=== PATIENT | female | born 1945 | race Caucasian/White ===

== ENCOUNTER → 2017-12-16 11:19 | Outpatient (CLI) | payer MEDICARE, SELFPAY ==
[2017-12-16 12:22] LABS: Alanine Aminotransferase 25 IU/L (9-52); Aspartate Aminotransferase 24 IU/L (14-36); Blood Urea Nitrogen 22 mg/dL (7-17); Calcium 9.7 mg/dL (8.4-10.2); Carbon Dioxide 25 mmol/L (22-32); Chloride 107 mmol/L (98-107); Cholesterol 189 mg/dL (140-199); Estimated Glomerular Filt Rate 54.3 mL/min (>60); Glucose 130 mg/dL (80-110); HDL Cholesterol 85 mg/dL (40-60); HEMOLYSIS < 15 (0-50); LDL Cholesterol Calculated 83 mg/dL (<100); Potassium 4.5 mmol/L (3.4-5.1); Sodium 140 mmol/L (137-145); Triglycerides 104 mg/dL (35-150)
[2017-12-16 12:45] LABS: Hemoglobin A1C% w Est Avg Glu 6.3 % (4.0-6.0)
[2017-12-16 16:12] LABS: Hep C Virus Ab w/Reflex Quant NEGATIVE s/c (NEGATIVE)
== END ==
PROVIDERS: PCP Internal Medicine; Visit Provider Internal Medicine
DX: I10 Essential (primary) hypertension (principal); E78.5 Hyperlipidemia, unspecified
CPT/HCPCS: 36415; 80048; 80061; 83036; 84450; 84460; 86803

== ENCOUNTER 2018-03-08 08:24 | Day surgery (SDC) | payer MEDICARE, SELFPAY ==
[2018-03-08 09:23] VITALS: BP 150/84; PULSE 62; RESP 18; TEMP 36.2; O2SAT 97; BMI 32.1
[2018-03-08] MEDS: PROPARACAINE 0.5% OPHTH SOL 2 DROPS EYE-OP (09:32)
[2018-03-08] MEDS: CATARACT EYE COMPOUND (10 DROPS/SYRINGE) 3 DROPS EYE-OP (09:46)
--- NOTE | 2018-03-08 10:30 | P.OP_ITS ---
Operative Date/Time/Diagnoses Pre-op diagnosis: Cataract Right eye Post-op diagnosis: same Procedure & Clinicians Procedure: Cataract Surgery Same procedure as scheduled: Yes Surgeon: Luis Arambula Anesthesia Type: MAC +/- and Sedation Operative Notes Procedure in detail: Patient brought to the operating suite. Tetracaine drops placed in the right eye. Patient was prepped and draped in sterile manner. Wire lid speculum was placed in the eye. Betadine drops were placed on the eye. This was irrigated. Lidocaine jelly was placed on the eye. A paracentesis port was created with a side-port blade. 0.1 mL 1% preservative free lidocaine was injected into the anterior chamber. The anterior chamber was deepened with viscoelastic. 2.6 mm keratome was used to create a temporal clear corneal incision. Cystotome and Utrata forceps were used to create continuous tear capsulorrhexis. Balanced salt solution was used to hydro dissect the nucleus. The phacoemulsification handpiece was inserted and the nucleus was removed using the stop and chop technique. The irrigation aspiration handpiece was inserted and the remaining cortex was removed. Anterior chamber was deepened with viscoelastic. An Lucia ZCB00 intraocular lens with a power of 19.5 was injected into the capsular bag. Irrigation aspiration handpiece was inserted and the remaining viscoelastic was removed. Incision was hydrated with balanced salt solution and found to be leak free with pressure with Weck- Sandra sponges. 0.1 mL Vigamox injected anterior chamber. 0.3 mL Kenalog 10 mg was injected subconjunctivally. Lid speculum was removed. The patient left the operating room in excellent condition. Complications: none Condition: stable Disposition: same day surgery
--- NOTE | 2018-03-08 10:30 | P.OP.PRE_ITS ---
Pre-operative Note Interval Note Changes: No
--- NOTE | 2018-03-08 10:30 | PM.PREOP ---
Pre-operative Note Interval Note Changes: No
[2018-03-08] MEDS: CHONDROIDTIN/SOD HYALURONATE 1.05 ML SYRINGE INTRAOCULA (10:42)
[2018-03-08] MEDS: MOXIFLOXACIN OPHTH DROPS 3 ML BOTTLE 2 DROPS INJ (10:42)
[2018-03-08] MEDS: LIDOCAINE JELLY 2% 5 ML 1 APPLIC TOP (10:42)
[2018-03-08] MEDS: TRIAMCINOLONE 50 MG/5 ML VIAL INJ (10:43)
[2018-03-08] MEDS: PHENYLEPHRINE/LIDOCAINE VIAL (OR) 0.2 ML EYE-OP (10:43)
[2018-03-08] MEDS: TETRACAINE 0.5% OPHTH DROPS 15 ML 2 DROPS EYE-RIGHT (10:43)
[2018-03-08] MEDS: BALANCED SALT IRRIG SOLN NO.2 500 ML, EPINEPHrine 1 MG IRR (10:43)
[2018-03-08 10:59] VITALS: BP 192/96; PULSE 99; RESP 16; TEMP 36.1; O2SAT 94
[2018-03-08 11:17] VITALS: BP 175/80; PULSE 63; RESP 18; TEMP 36.2; O2SAT 97
== END 2018-03-08 11:22 ==
LOC: OR 08:24
PROVIDERS: Family Provider Internal Medicine; PCP Internal Medicine; Visit Provider Ophthalmology
DX: H25.11 Age-related nuclear cataract, right eye (principal); E11.9 Type 2 diabetes mellitus without complications; I10 Essential (primary) hypertension; L93.0 Discoid lupus erythematosus
CPT/HCPCS: J0171; J2250; J3010; J3301

== ENCOUNTER 2018-03-22 08:29 | Day surgery (SDC) | payer MEDICARE, SELFPAY ==
[2018-03-22 09:25] VITALS: BP 171/85; PULSE 71; RESP 16; TEMP 36; O2SAT 99; BMI 33.0
[2018-03-22] MEDS: CATARACT EYE COMPOUND (10 DROPS/SYRINGE) 3 DROPS EYE-OP (09:42)
[2018-03-22] MEDS: PROPARACAINE 0.5% OPHTH SOL 2 DROPS EYE-OP (09:42)
--- NOTE | 2018-03-22 10:01 | P.OP.PRE_ITS ---
Pre-operative Note Interval Note Changes: No
--- NOTE | 2018-03-22 10:01 | P.OP_ITS ---
Operative Date/Time/Diagnoses Pre-op diagnosis: Cataract Left eye Post-op diagnosis: same Procedure & Clinicians Surgeon: Luis Arambula Anesthesia Type: MAC +/- and Sedation Operative Notes Procedure in detail: Patient brought to the operating suite. Tetracaine drops placed in the left eye. Patient was prepped and draped in sterile manner. Wire lid speculum was placed in the eye. Betadine drops were placed on the eye. This was irrigated. Lidocaine jelly was placed on the eye. A paracentesis port was created with a side-port blade. 0.1 mL 1% preservative free lidocaine was injected into the anterior chamber. The anterior chamber was deepened with viscoelastic. 2.6 mm keratome was used to create a temporal clear corneal incision. Cystotome and Utrata forceps were used to create continuous tear capsulorrhexis. Balanced salt solution was used to hydro dissect the nucleus. The phacoemulsification handpiece was inserted and the nucleus was removed using the stop and chop technique. The irrigation aspiration handpiece was inserted and the remaining cortex was removed. Anterior chamber was deepened with viscoelastic. An Lucia ZCB00 intraocular lens with a power of 19.0 was injected into the capsular bag. Irrigation aspiration handpiece was inserted and the remaining viscoelastic was removed. Incision was hydrated with balanced salt solution and found to be leak free with pressure with Weck- Sandra sponges. 0.1 mL Vigamox injected anterior chamber. 0.3 mL Kenalog 10 mg was injected subconjunctivally. Lid speculum was removed. The patient left the operating room in excellent condition. Complications: none Condition: stable Disposition: same day surgery
--- NOTE | 2018-03-22 10:01 | PM.PREOP ---
Pre-operative Note Interval Note Changes: No
[2018-03-22] MEDS: CHONDROIDTIN/SOD HYALURONATE 1.05 ML SYRINGE INTRAOCULA (10:29)
[2018-03-22] MEDS: BALANCED SALT IRRIG SOLN NO.2 500 ML, EPINEPHrine 1 MG IRR (10:30)
[2018-03-22] MEDS: LIDOCAINE JELLY 2% 5 ML 1 APPLIC TOP (10:30)
[2018-03-22] MEDS: MOXIFLOXACIN OPHTH DROPS 3 ML BOTTLE 2 DROPS INJ (10:30)
[2018-03-22] MEDS: TETRACAINE 0.5% OPHTH DROPS 15 ML 2 DROPS EYE-LEFT (10:30)
[2018-03-22] MEDS: PHENYLEPHRINE/LIDOCAINE VIAL (OR) 0.2 ML EYE-OP (10:30)
[2018-03-22] MEDS: TRIAMCINOLONE 50 MG/5 ML VIAL INJ (10:30)
[2018-03-22 10:52] VITALS: BP 183/91; PULSE 65; RESP 15; TEMP 36.2; O2SAT 98
== END 2018-03-22 11:01 | disposition home or self-care (01) ==
LOC: OR 08:30
PROVIDERS: Family Provider Internal Medicine; PCP Internal Medicine; Visit Provider Ophthalmology
DX: H25.12 Age-related nuclear cataract, left eye (principal); E11.9 Type 2 diabetes mellitus without complications; I10 Essential (primary) hypertension; L93.0 Discoid lupus erythematosus
CPT/HCPCS: J0171; J2250; J3010; J3301

== ENCOUNTER → 2018-06-23 15:13 | Outpatient (CLI) | payer MEDICARE, SELFPAY ==
--- NOTE | 2018-06-23 15:23 | DI.RAD.S_ITS ---
PROCEDURE: XR HIP W PEL IF DONE LT MIN 4V INDICATIONS: POSSIBE OSTEOARTHRITIS TECHNIQUE: AP pelvis with lateral view(s) of the right and left hip(s). COMPARISON: None. FINDINGS: Bones: No fractures or dislocations. Pelvic ring appears intact. No suspicious bony lesions. Moderate bilateral hip joint degeneration. Severe lateral curvature of the lower lumbar spine and discogenic changes. Soft tissues: The visualized bowel gas pattern is normal. No suspicious soft tissue calcifications. IMPRESSION: Bilateral moderate hip joint degeneration. Partially visualized lower lumbar scoliosis and disc degeneration. Dictated by: Los Venegas M.D. on 06/23/2018 at 16:25 Approved by: Los Venegas M.D. on 06/23/2018 at 16:27
[2018-06-23 16:22] LABS: Hemoglobin A1C% w Est Avg Glu 7.4 % (4.0-6.0)
[2018-06-23 16:30] LABS: Creatine Kinase 87 U/L (30-135)
[2018-06-23 16:34] LABS: C-Reactive Protein Quant < 0.5 mg/dL (<1.0)
[2018-06-23 17:16] LABS: Vitamin B12 298 pg/mL (239-931)
== END ==
PROVIDERS: Family Provider Internal Medicine; PCP Internal Medicine; Visit Provider Physical Medicine & Rehabilitation
DX: R73.09 Other abnormal glucose (principal); M79.10 Myalgia, unspecified site; G62.9 Polyneuropathy, unspecified; M19.90 Unspecified osteoarthritis, unspecified site
CPT/HCPCS: 36415; 73522; 82550; 82607; 83036; 86140

== ENCOUNTER → 2018-07-01 11:24 | Outpatient (CLI) | payer MEDICARE, SELFPAY ==
--- NOTE | 2018-07-01 | DI.MG.S_ITS ---
BILATERAL DIGITAL SCREENING MAMMOGRAM 3D/2D WITH CAD: 07/01/2018 CLINICAL: Routine screening. Comparison is made to exams dated: 05/21/2017 mammogram, 05/04/2017 mammogram, and 04/27/2016 mammogram - [facility]. The tissue of both breasts is heterogeneously dense. This may lower the sensitivity of mammography. Current study was also evaluated with a Computer Aided Detection (CAD) system. There are benign calcifications in the left breast. No significant masses, calcifications, or other findings are seen in either breast. There has been no significant interval change. IMPRESSION: There is no mammographic evidence of malignancy. A 1 year screening mammogram is recommended. This exam was interpreted at Station ID: [id number]. NOTE: For mammograms, a report in lay terms will be sent to the patient. Approximately 15% of breast malignancies will not be visualized mammographically. In the management of a palpable breast mass, a negative mammogram must not discourage biopsy of a clinically suspicious lesion. Electronically Signed By: Devin gutierrez/ghada:07/01/2018 18:28:05 letter sent: Normal Exam ACR BI-RADS Category 2: Benign Finding(s) [id number]
== END ==
PROVIDERS: Family Provider Internal Medicine; PCP Internal Medicine; Visit Provider Internal Medicine
DX: Z12.31 Encounter for screening mammogram for malignant neoplasm of breast (principal)
CPT/HCPCS: 77063; 77067

== ENCOUNTER → 2018-10-12 09:39 | Outpatient (CLI) | payer MEDICARE, SELFPAY ==
[2018-10-12 10:38] LABS: Hemoglobin A1C% w Est Avg Glu 6.9 % (4.0-6.0)
[2018-10-12 11:43] LABS: Alanine Aminotransferase 49 IU/L (9-52); Aspartate Aminotransferase 53 IU/L (14-36); BUN Creatinine Ratio 19.1 (6-22); Blood Urea Nitrogen 21 mg/dL (7-17); Calcium 10.6 mg/dL (8.4-10.2); Carbon Dioxide 23 mmol/L (22-32); Chloride 108 mmol/L (98-107); Cholesterol 181 mg/dL (140-199); Estimated Glomerular Filt Rate 48.6 mL/min (>60); Glucose 130 mg/dL (80-110); HDL Cholesterol 85 mg/dL (40-60); HEMOLYSIS < 15 (0-50); LDL Cholesterol Calculated 75 mg/dL (<100); Potassium 5.2 mmol/L (3.4-5.1); Sodium 140 mmol/L (137-145); Triglycerides 106 mg/dL (35-150)
== END ==
PROVIDERS: Family Provider Internal Medicine; PCP Internal Medicine; Visit Provider Internal Medicine
DX: Z13.820 Encounter for screening for osteoporosis (principal); M85.852 Other specified disorders of bone density and structure, left thigh; Z78.0 Asymptomatic menopausal state; I10 Essential (primary) hypertension; E11.9 Type 2 diabetes mellitus without complications; E78.5 Hyperlipidemia, unspecified; E07.9 Disorder of thyroid, unspecified; Z87.891 Personal history of nicotine dependence
CPT/HCPCS: 36415; 77080; 80048; 80061; 83036; 84450; 84460

== ENCOUNTER → 2019-01-03 13:03 | Outpatient (CLI) | payer MEDICARE, SELFPAY ==
--- NOTE | 2019-01-03 | DI.MRI.S_ITS ---
PROCEDURE: MR LUMBAR SPINE WO CON INDICATIONS: Lumbago with sciatica, unspecified side TECHNIQUE: Noncontrast sagittal T1 spin echo and T2 fast echo, sagittal STIR, axial T1 and T2 fast spin echo through the lumbar spine. In cases with scoliosis, additional coronal T2 fast spin echo may be performed. COMPARISON: None. FINDINGS: Image quality: Excellent. Alignment and Curvature: Severe levoscoliosis of the lumbar spine . Straightening of the normal lordotic curvature. Grade 1 anterolisthesis of L4 on L5. Bone Marrow: Multilevel degenerative endplate sclerosis and spurring. Diffuse facet arthropathy. No acute compression fracture Spinal Cord: Conus medullaris terminates at the L1-L2 level. Visualized cord demonstrates normal signal and size. Paraspinous Soft Tissues: T2 hyperintense presumed right renal cyst measuring 3-4 cm low technically nonspecific L1-L2: Bilateral facet arthropathy. Mild broad-based posterior disc bulge. Mild dorsal epidural lipomatosis. Minimal central canal narrowing. Lateral recesses appear patent. Mild bilateral foraminal stenoses L2-L3: Broad-based posterior disc bulge bilateral facet arthropathy and mild dorsal epidural lipomatosis. Severe canal stenosis. Partial effacement of both lateral recesses with bilaterally symmetric appearance. Severe right and moderate left foraminal stenoses with nerve root compression bilaterally L3-L4: Bilateral facet arthropathy, broad-based posterior disc bulge and dorsal epidural lipomatosis resulting in severe canal stenosis. Severe partial effacement of both lateral recesses. Moderate right and severe left foraminal stenoses, with nerve root compression. L4-L5: Broad-based posterior disc bulge, bilateral facet arthropathy and ligamentum flavum hypertrophy. Minimal dorsal epidural lipomatosis. Severe central canal narrowing. Near complete effacement of both lateral recesses. Severe left foraminal stenosis with nerve root compression. There is moderate right foraminal narrowing. L5-S1: Broad-based posterior disc bulge mild facet arthropathy. Moderate central canal narrowing. Partial effacement of both lateral recesses although left slightly greater than right. Severe left foraminal stenosis with nerve root compression. There is moderate right foraminal narrowing IMPRESSION: Severe levoscoliosis. Multilevel spondylosis and facet arthropathy. Severe canal stenoses at L2-L3, L3-L4, and L4-L5. Bilateral diffuse foraminal stenoses as outlined above by spinal level. Grade 1 anterolisthesis of L4-L5. Dictated by: Los Venegas M.D. on 01/03/2019 at 14:36 Approved by: Los Venegas M.D. on 01/03/2019 at 14:51
== END ==
PROVIDERS: Family Provider Internal Medicine; PCP Internal Medicine; Visit Provider Acupuncturist
DX: M54.42 Lumbago with sciatica, left side (principal); M41.86 Other forms of scoliosis, lumbar region; M43.16 Spondylolisthesis, lumbar region; M48.061 Spinal stenosis, lumbar region without neurogenic claudication; M48.07 Spinal stenosis, lumbosacral region; M47.816 Spondylosis without myelopathy or radiculopathy, lumbar region; M47.817 Spondylosis without myelopathy or radiculopathy, lumbosacral region
CPT/HCPCS: 72148

== ENCOUNTER 2019-02-19 18:36 | Inpatient (IN) | payer MEDICARE, SELFPAY ==
--- NOTE | 2019-02-19 18:39 | DI.RAD.S_ITS ---
PROCEDURE: XR HIP W PEL IF DONE LT 2V INDICATIONS: fall with Left hip / pelvis pain TECHNIQUE: 2 views of the hip were acquired. COMPARISON: [facility], [place], XR HIP W PEL IF DONE LUDY 3TO4V, 06/23/2018, 15:45. FINDINGS: Bones: No dislocations. No suspicious bony lesions. The visualized pelvic ring appears intact. There is a femoral neck fracture, with superior subluxation by approximately 2.5 cm of the femur below fracture points cephalad. Soft tissues: No suspicious soft tissue calcifications or masses. IMPRESSION: Acute fracture across the femoral neck with superior subluxation by approximately 2.5 cm of the left femur at the fracture plane. No additional pelvic injury is seen. Dictated by: Jose C Olivo M.D. on 02/19/2019 at 19:46 Approved by: Jsoe C Olivo M.D. on 02/19/2019 at 19:48
[2019-02-19 18:48] VITALS: BP 171/79; PULSE 72; RESP 16; TEMP 36.6; O2SAT 98
--- NOTE | 2019-02-19 18:48 | ED.FALL ---
HPI - Fall General Chief Complaint: Fall Stated Complaint: fall, groin/pelvis pain Time Seen by Provider: 02/19/19 18:36 Source: patient and family Mode of arrival: ambulatory Limitations: no limitations History of Present Illness HPI Narrative: 73-year-old female nonsmoker with history of lupus presents with her in the chief complaint of a ground level fall resulting in left hip pain. Since the fall she has been unable to ambulate and requires assistance getting from the car. She denies any head neck or back pain. She states she purely tripped. She denies numbness, tingling or weakness. She denies any prodromal symptoms. complaint: fall Onset (ago): minute(s) Fall from: standing Fall witnessed: yes, by family Place fall occurred: home Loss of consciousness: none Prolonged down time: no Context: tripped/slipped Quality: sharp Associated symptoms (after fall): unable to walk Related Data Home Medications Medication Instructions Recorded Confirmed cyclobenzaprine 5 mg PO TIDP PRN #0 08/20/17 02/19/19 fenofibrate 160 mg PO QDAY #0 08/20/17 02/19/19 lithium carbonate 300 mg PO BID #0 08/20/17 02/19/19 hydroxychloroquine 400 mg PO DAILY 03/08/18 02/19/19 amlodipine 10 mg PO DAILY 02/19/19 02/19/19 diclofenac sodium 75 mg PO BID 02/19/19 02/19/19 fluoxetine 20 mg PO DAILY 02/19/19 02/19/19 ibuprofen 400 mg PO Q6H PRN 02/19/19 02/19/19 levothyroxine 112 mcg PO DAILY 02/19/19 02/19/19 minoxidil [Rogaine] 02/19/19 omeprazole 40 mg PO DAILY 02/19/19 02/19/19 ondansetron HCl [Zofran] 8 mg PO BID PRN 02/19/19 02/19/19 oxycodone-acetaminophen [Percocet] 1 tab PO Q4-6H PRN 02/19/19 02/19/19 Allergies Allergy/AdvReac Type Severity Reaction Status Date / Time Sulfa (Sulfonamide Allergy Intermediate body rash Verified 02/19/19 18:50 Antibiotics) [SULFA (SULFONAMIDE ANTIBIOTICS)] Review of Systems Constitutional Denies chills, Denies fever(s), Denies lethargy and Denies weakness Eyes Denies change in vision, Denies eye discharge, Denies irritation and Denies loss of vision ENT Ears, Nose, Mouth, and Throat: Denies change in voice, Denies neck pain and Denies sore throat Cardiovascular Denies chest pain, Denies irregular heart rhythm, Denies lightheadedness, Denies palpitations, Denies dyspnea, Denies dyspnea on exertion and Denies orthopnea Respiratory Denies cough, Denies dyspnea, Denies dyspnea on exertion and Denies wheezing Gastrointestinal Gastrointestinal: Denies abdominal pain, Denies change in bowel habits, Denies diarrhea, Denies nausea and Denies vomiting Genitourinary Denies hematuria, Denies flank pain, Denies urinary incontinence and Denies urinary urgency Musculoskeletal Reports limited range of motion, Denies neck pain and Reports radiating pain into limb Integumentary/Breasts Denies pruritus, Denies erythema, Denies rash and Denies wounds Neurologic Denies confusion, Denies loss of vision and Denies weakness Psychiatric Denies anxiety, Denies confusion, Denies depression, Denies homicidal ideation and Denies suicidal ideation Endocrine Denies palpitations Hematologic/Lymphatic Denies easy bruising Allergic/Immunologic Denies wheezing Exam Narrative Exam Narrative: GENERAL: [73] year old patient appears stated age. Well-nourished, well-developed patient, in mild distress. HEAD: Atraumatic. Normocephalic. EYES: Pupils equal round and reactive. Extraocular motions intact. No scleral icterus. No injection or drainage. ENT: Nose without bleeding, purulent drainage. Throat without erythema, tonsillar hypertrophy or exudate. Airway patent. NECK: Trachea midline. Non tender CARDIOVASCULAR: Regular rate and rhythm without murmurs, gallops, or rubs. RESPIRATORY: Clear to auscultation. Breath sounds equal bilaterally. No wheezes, rales, or rhonchi. GASTROINTESTINAL: Abdomen soft, non-tender, nondistended. EXTREMITIES: Left hip tender to palpation, leg with noted shortening in external rotation. Closed, isolated and neurovascularly intact BACK: Nontender without deformity or crepitance. No flank tenderness. NEURO: AOx3. SKIN: No rash or erythema of visible areas Initial Vital Signs Initial Vital Signs: Vital Signs Temperature 97.9 F 02/19/19 18:48 Pulse Rate 72 02/19/19 18:48 Respiratory Rate 16 02/19/19 18:48 Blood Pressure 171/79 H 02/19/19 18:48 Pulse Oximetry 98 02/19/19 18:48 [facility] Medical History (Updated 02/19/19 @ 20:47 by AG Bruner) Bruises easily (Acute) Chronic low back pain (Acute) Constipation, chronic (Acute) Diet-controlled diabetes mellitus (Acute) Fibromyalgia (Acute) GERD (gastroesophageal reflux disease) (Acute) Hyperlipidemia (Acute) Hypertension (Acute) Incontinence (Acute) Lupus (systemic lupus erythematosus) (Acute) Migraines (Acute) Surgical History (Updated 02/19/19 @ 20:47 by AG Bruner) History of bilateral cataract extraction (Acute) History of bladder suspension procedure (Acute) History of partial thyroidectomy (Acute) Status post tubal ligation Status post vaginal hysterectomy Family History (Updated 02/19/19 @ 20:48 by AG Bruner) Father No problems noted. Mother No problems noted. Brother Bone cancer Social History household members: spouse Smoking Status: Former smoker alcohol intake: never Social History household members: spouse Smoking Status: Former smoker alcohol intake: never Course Orders Ordered: ED Orders 02/19/19 19:41 Basic Metabolic Panel Stat Complete Blood Count AUTO DIFF Stat Iron Routine Beach Stat Partial Thromboplastin Time Stat Prothrombin Time INR Stat 02/19/19 19:54 Education, smoking cessation ONGOING 02/19/19 19:58 Consult to Discharge Planning Routine Consult to Occupational Therapy Evaluate & Treat 02/19/19 19:59 Consult to Physical Therapy Evaluate & Treat Consult to Physician Routine 02/19/19 20:32 Urinalysis and Microscopic Routine Urine Culture Routine 02/19/19 21:01 Consult to Collar Sewer Routine 02/20/19 Complete Blood Count AUTO DIFF Routine Comprehensive Metabolic Panel Routine Acetaminophen (Tylenol) 650 mg PO Q6HR PRN PRN Reason: As Needed for Fever/Mild Pain Amlodipine Besylate (Norvasc) 10 mg PO DAILY [facility] Bisacodyl (Dulcolax) 10 mg MS DAILY PRN PRN Reason: Constipation Docusate Sodium (Colace) 100 mg PO BID PRN PRN Reason: Constipation Fenofibrate (Triglide) 160 mg PO DAILY [facility] Fluoxetine HCl (Prozac) 20 mg PO DAILY [facility] Hydroxychloroquine Sulfate (Plaquenil) 200 mg PO BID [facility] Last Admin: 02/19/19 21:48 Dose: Not Given Sodium Chloride (Normal Saline 0.9%) 1,000 mls @ 100 mls/hr IV CONT [facility] Last Admin: 02/19/19 21:55 Dose: 100 mls/hr Levothyroxine Sodium (Synthroid) 112 mcg PO DAILY [facility] Beach Carbonate (Beach Carbonate) 300 mg PO BID [facility] Morphine Sulfate (Morphine) 4 mg IV Q4HR PRN PRN Reason: Pain, Severe (7-10) Last Admin: 02/20/19 01:46 Dose: 4 mg Morphine Sulfate (Morphine) 2 mg IV Q4HR PRN PRN Reason: Pain, Moderate (4-6) Last Admin: 02/19/19 21:57 Dose: 2 mg Naloxone HCl (Narcan) 0.2 mg IV Q2MIN PRN PRN Reason: Opiate Reversal Ondansetron HCl (Zofran) 4 mg IV Q8HR PRN PRN Reason: Nausea And Vomiting Pantoprazole Sodium (Protonix) 40 mg IV DAILY [facility] Polyethylene Glycol (Miralax) 17 gm PO DAILY PRN PRN Reason: Constipation Discontinued Medications Gabapentin (Neurontin) 400 mg PO BEDTIME [facility] Lisinopril (Zestril) 5 mg PO DAILY [facility] Beach Carbonate (Beach Carbonate) 900 mg PO DAILY [facility] Beach Carbonate (Beach Carbonate) 300 mg PO BID [facility] Last Admin: 02/20/19 00:16 Dose: Not Given Beach Carbonate (Beach Carbonate) 300 mg PO NOW [facility] Stop: 02/20/19 01:00 Last Admin: 02/19/19 23:19 Dose: 300 mg Pantoprazole Sodium (Protonix) 20 mg IV DAILY [facility] Consultations Consultation #1: orthopedic consult. Request for medical clearance, NPO after midnight Consultation #2: hospitalist happy to accept Vital Signs - 8 hr 02/19/19 20:26 02/19/19 20:35 02/19/19 23:40 Temperature 98.3 F 98 F Pulse Rate 74 75 78 Respiratory Rate 12 18 17 Blood Pressure 157/84 H 151/74 H Blood Pressure [Left Arm] 138/58 L Pulse Oximetry 99 98 99 MDM - Fall Lab Data Result diagrams: 02/19/19 19:41 02/19/19 19:41 Lab Results 02/19/19 02/19/19 02/19/19 Range/Units 19:41 19:41 19:41 WBC 11.7 H (4.5-11.0) X10^3/uL RBC 3.58 L (4.0-5.2) X10^6/uL Hgb 8.9 L (12.0-16.0) g/dL Hct 28.5 L (36-46) % MCV 79.5 L (80-100) fL MCH 25.0 L (26-34) PG MCHC 31.4 (30-36) % RDW 15.6 H (11.6-14.8) % Plt Count 310 (150-400) X10^3/uL Neut % (Auto) 84.5 H (50-75) % Lymph % (Auto) 6.6 L (25-40) % Blaine % (Auto) 5.9 (3-14) % Eos % (Auto) 2.2 (2-4) % Baso % (Auto) 0.8 (0-2) % Neut # (Auto) 9900 H (5036-4488) /uL Lymph # (Auto) 800 L (1655-2514) /uL Blaine # (Auto) 700 (0-900) /uL Eos # (Auto) 300 (0-450) /uL Baso # (Auto) 100 (0-100) /uL PT 11.9 (10.1-12.7) SECONDS INR 1.0 (0.9-1.3) APTT 32 (26.4-36.2) SECONDS Sodium 138 (137-145) mmol/L Potassium 4.4 (3.4-5.1) mmol/L Chloride 106 (98-107) mmol/L Carbon Dioxide 22 (22-32) mmol/L BUN 31 H (7-17) mg/dL Creatinine 1.30 H (0.52-1.04) mg/dL Estimated GFR 40.0 L (>60) mL/min BUN/Creatinine Ratio 23.8 H (6-22) Glucose 125 H (80-110) mg/dL Calcium 10.4 H (8.4-10.2) mg/dL Iron (37-170) ug/dL Urine Color Urine Appearance Urine pH (4.5-8.0) Ur Specific Garretson (1.000-1.035) Urine Protein (Negative) Urine Glucose (UA) (Negative) g/dL Urine Ketones (NEGATIVE) Urine Occult Blood (Negative) Urine Nitrate (Negative) Urine Bilirubin (NEGATIVE) Urine Urobilinogen (0.2) E.U./dL Ur Leukocyte Esterase (NEGATIVE) Urine RBC (0-5/HPF) Urine WBC (0-5/HPF) Ur Squamous Epith Cells (0-5/HPF) Urine Bacteria (None) Ur Culture Indicated? Beach (0.6-1.2) mmol/L 02/19/19 02/19/19 02/19/19 Range/Units 19:41 19:41 20:32 WBC (4.5-11.0) X10^3/uL RBC (4.0-5.2) X10^6/uL Hgb (12.0-16.0) g/dL Hct (36-46) % MCV (80-100) fL MCH (26-34) PG MCHC (30-36) % RDW (11.6-14.8) % Plt Count (150-400) X10^3/uL Neut % (Auto) (50-75) % Lymph % (Auto) (25-40) % Blaine % (Auto) (3-14) % Eos % (Auto) (2-4) % Baso % (Auto) (0-2) % Neut # (Auto) (9842-6498) /uL Lymph # (Auto) (5427-5453) /uL Blaine # (Auto) (0-900) /uL Eos # (Auto) (0-450) /uL Baso # (Auto) (0-100) /uL PT (10.1-12.7) SECONDS INR (0.9-1.3) APTT (26.4-36.2) SECONDS Sodium (137-145) mmol/L Potassium (3.4-5.1) mmol/L Chloride (98-107) mmol/L Carbon Dioxide (22-32) mmol/L BUN (7-17) mg/dL Creatinine (0.52-1.04) mg/dL Estimated GFR (>60) mL/min BUN/Creatinine Ratio (6-22) Glucose (80-110) mg/dL Calcium (8.4-10.2) mg/dL Iron 40 (37-170) ug/dL Urine Color Yellow Urine Appearance Clear Urine pH 5.0 (4.5-8.0) Ur Specific Garretson 1.025 (1.000-1.035) Urine Protein Negative (Negative) Urine Glucose (UA) Negative (Negative) g/dL Urine Ketones Negative (NEGATIVE) Urine Occult Blood Negative (Negative) Urine Nitrate Positive (Negative) Urine Bilirubin Negative (NEGATIVE) Urine Urobilinogen 0.2 (0.2) E.U./dL Ur Leukocyte Esterase Negative (NEGATIVE) Urine RBC None seen (0-5/HPF) Urine WBC 1-5/hpf (0-5/HPF) Ur Squamous Epith Cells None seen (0-5/HPF) Urine Bacteria Many (>30) H (None) Ur Culture Indicated? Specimen cultured Beach 0.9 (0.6-1.2) mmol/L Imaging Data Hip Xray: Attestation: I personally reviewed and interpreted this imaging study as follows: My impression: L femoral neck fx Radiologist's impression: [address] [address] XRay Report Signed Patient: Ritika Prather MMR#: [id number] : 4Acct:[id number] Age/Sex: 73 / FDate of Service: 02/19/19 Loc: [id number]-3 Accession Number: [id number] Procedure: XR hip w pel if done LT 2V Ordering Provider: Jose Levin D.O. PROCEDURE: XR HIP W PEL IF DONE LT 2V INDICATIONS: fall with Left hip / pelvis pain TECHNIQUE: 2 views of the hip were acquired. COMPARISON: [facility], [facility], XR HIP W PEL IF DONE LUDY 3TO4V, 06/23/2018, 15:45. FINDINGS: Bones: No dislocations. No suspicious bony lesions. The visualized pelvic ring appears intact. There is a femoral neck fracture, with superior subluxation by approximately 2.5 cm of the femur below fracture points cephalad. Soft tissues: No suspicious soft tissue calcifications or masses. IMPRESSION: Acute fracture across the femoral neck with superior subluxation by approximately 2.5 cm of the left femur at the fracture plane. No additional pelvic injury is seen. Dictated by: Jose C Olivo M.D. on 02/19/2019 at 19:46 Approved by: Jose C Olivo M.D. on 02/19/2019 at 19:48 Discharge Plan Departure Patient Disposition: Admitted As Inpatient Clinical Impression: Closed left hip fracture Qualifiers: Encounter type: initial encounter Qualified Code(s): S72.002A - Fracture of unspecified part of neck of left femur, initial encounter for closed fracture Discharge Date/Time: 02/19/19 20:38 Interventions: ED Discharge Assessment Last Done: 02/19/19 20:38 Admit Date/Time: 02/19/19 19:42 Admit Provider: Tim Woodall
[2019-02-19 19:30] VITALS: BP 151/64; PULSE 73; RESP 15; O2SAT 98
[2019-02-19 19:47] VITALS: BMI 29.3
[2019-02-19 19:50] LABS: Add Manual Diff / Slide Review NO; Basophils Absolute Auto 100 /uL (0-100); Basophils Percent Auto 0.8 % (0-2); Eosinophils Absolute Auto 300 /uL (0-450); Eosinophils Percent Auto 2.2 % (2-4); Hematocrit 28.5 % (36-46); Hemoglobin 8.9 g/dL (12.0-16.0); Lymphocytes Absolute Auto 800 /uL (1100-4500); Lymphocytes Percent Auto 6.6 % (25-40); Mean Corpuscular HGB Conc 31.4 % (30-36); Mean Corpuscular Volume 79.5 fL (80-100); Monocytes Absolute Auto 700 /uL (0-900); Monocytes Percent Auto 5.9 % (3-14); Neutrophils Absolute Auto 9900 /uL (1500-7000); Neutrophils Percent Auto 84.5 % (50-75); Platelet Count 310 X10^3/uL (150-400); Red Blood Cell Count 3.58 X10^6/uL (4.0-5.2); Red Cell Distribution Width 15.6 % (11.6-14.8); White Blood Cell Count 11.7 X10^3/uL (4.5-11.0)
[2019-02-19 19:58] LABS: Prothrombin Time 11.9 SECONDS (10.1-12.7)
[2019-02-19 20:01] LABS: PTT Partial Thromboplastin Tim 32 SECONDS (26.4-36.2)
[2019-02-19 20:02] LABS: BUN Creatinine Ratio 23.8 (6-22); Blood Urea Nitrogen 31 mg/dL (7-17); Calcium 10.4 mg/dL (8.4-10.2); Carbon Dioxide 22 mmol/L (22-32); Chloride 106 mmol/L (98-107); Glucose 125 mg/dL (80-110); HEMOLYSIS < 15 (0-50); Potassium 4.4 mmol/L (3.4-5.1); Sodium 138 mmol/L (137-145)
[2019-02-19 20:05] LABS: Lithium 0.9 mmol/L (0.6-1.2)
[2019-02-19 20:26] VITALS: BP 138/58; PULSE 74; RESP 12; O2SAT 99
[2019-02-19 20:35] VITALS: BP 157/84; PULSE 75; RESP 18; TEMP 36.8; O2SAT 98
--- NOTE | 2019-02-19 20:40 | ED_ITS ---
HPI - Fall General Chief Complaint: Fall Stated Complaint: fall, groin/pelvis pain Time Seen by Provider: 02/19/19 18:36 Source: patient and family Mode of arrival: ambulatory Limitations: no limitations History of Present Illness HPI Narrative: 73-year-old female nonsmoker with history of lupus presents with her in the chief complaint of a ground level fall resulting in left hip pain. Since the fall she has been unable to ambulate and requires assistance getting from the car. She denies any head neck or back pain. She states she purely tripped. She denies numbness, tingling or weakness. She denies any prodromal symptoms. complaint: fall Onset (ago): minute(s) Fall from: standing Fall witnessed: yes, by family Place fall occurred: home Loss of consciousness: none Prolonged down time: no Context: tripped/slipped Quality: sharp Associated symptoms (after fall): unable to walk Related Data Home Medications Medication Instructions Recorded Confirmed cyclobenzaprine 5 mg PO TIDP PRN #0 08/20/17 02/19/19 fenofibrate 160 mg PO QDAY #0 08/20/17 02/19/19 lithium carbonate 300 mg PO BID #0 08/20/17 02/19/19 hydroxychloroquine 400 mg PO DAILY 03/08/18 02/19/19 amlodipine 10 mg PO DAILY 02/19/19 02/19/19 diclofenac sodium 75 mg PO BID 02/19/19 02/19/19 fluoxetine 20 mg PO DAILY 02/19/19 02/19/19 ibuprofen 400 mg PO Q6H PRN 02/19/19 02/19/19 levothyroxine 112 mcg PO DAILY 02/19/19 02/19/19 minoxidil [Rogaine] 02/19/19 omeprazole 40 mg PO DAILY 02/19/19 02/19/19 ondansetron HCl [Zofran] 8 mg PO BID PRN 02/19/19 02/19/19 oxycodone-acetaminophen [Percocet] 1 tab PO Q4-6H PRN 02/19/19 02/19/19 Allergies Allergy/AdvReac Type Severity Reaction Status Date / Time Sulfa (Sulfonamide Allergy Intermediate body rash Verified 02/19/19 18:50 Antibiotics) [SULFA (SULFONAMIDE ANTIBIOTICS)] Review of Systems Constitutional Denies chills, Denies fever(s), Denies lethargy and Denies weakness Eyes Denies change in vision, Denies eye discharge, Denies irritation and Denies loss of vision ENT Ears, Nose, Mouth, and Throat: Denies change in voice, Denies neck pain and Denies sore throat Cardiovascular Denies chest pain, Denies irregular heart rhythm, Denies lightheadedness, Denies palpitations, Denies dyspnea, Denies dyspnea on exertion and Denies orthopnea Respiratory Denies cough, Denies dyspnea, Denies dyspnea on exertion and Denies wheezing Gastrointestinal Gastrointestinal: Denies abdominal pain, Denies change in bowel habits, Denies diarrhea, Denies nausea and Denies vomiting Genitourinary Denies hematuria, Denies flank pain, Denies urinary incontinence and Denies urinary urgency Musculoskeletal Reports limited range of motion, Denies neck pain and Reports radiating pain into limb Integumentary/Breasts Denies pruritus, Denies erythema, Denies rash and Denies wounds Neurologic Denies confusion, Denies loss of vision and Denies weakness Psychiatric Denies anxiety, Denies confusion, Denies depression, Denies homicidal ideation and Denies suicidal ideation Endocrine Denies palpitations Hematologic/Lymphatic Denies easy bruising Allergic/Immunologic Denies wheezing Exam Narrative Exam Narrative: GENERAL: [73] year old patient appears stated age. Well- nourished, well-developed patient, in mild distress. HEAD: Atraumatic. Normocephalic. EYES: Pupils equal round and reactive. Extraocular motions intact. No scleral icterus. No injection or drainage. ENT: Nose without bleeding, purulent drainage. Throat without erythema, tonsillar hypertrophy or exudate. Airway patent. NECK: Trachea midline. Non tender CARDIOVASCULAR: Regular rate and rhythm without murmurs, gallops, or rubs. RESPIRATORY: Clear to auscultation. Breath sounds equal bilaterally. No wheezes, rales, or rhonchi. GASTROINTESTINAL: Abdomen soft, non-tender, nondistended. EXTREMITIES: Left hip tender to palpation, leg with noted shortening in external rotation. Closed, isolated and neurovascularly intact BACK: Nontender without deformity or crepitance. No flank tenderness. NEURO: AOx3. SKIN: No rash or erythema of visible areas Initial Vital Signs Initial Vital Signs: Vital Signs Temperature 97.9 F 02/19/19 18:48 Pulse Rate 72 02/19/19 18:48 Respiratory Rate 16 02/19/19 18:48 Blood Pressure 171/79 H 02/19/19 18:48 Pulse Oximetry 98 02/19/19 18:48 [facility] Medical History (Updated 02/19/19 @ 20:47 by AG Bruner) Bruises easily (Acute) Chronic low back pain (Acute) Constipation, chronic (Acute) Diet-controlled diabetes mellitus (Acute) Fibromyalgia (Acute) GERD (gastroesophageal reflux disease) (Acute) Hyperlipidemia (Acute) Hypertension (Acute) Incontinence (Acute) Lupus (systemic lupus erythematosus) (Acute) Migraines (Acute) Surgical History (Updated 02/19/19 @ 20:47 by AG Bruner) History of bilateral cataract extraction (Acute) History of bladder suspension procedure (Acute) History of partial thyroidectomy (Acute) Status post tubal ligation Status post vaginal hysterectomy Family History (Updated 02/19/19 @ 20:48 by AG Bruner) Father No problems noted. Mother No problems noted. Brother Bone cancer Social History household members: spouse Smoking Status: Former smoker alcohol intake: never Social History household members: spouse Smoking Status: Former smoker alcohol intake: never Course Orders Ordered: ED Orders 02/19/19 19:41 Basic Metabolic Panel Stat Complete Blood Count AUTO DIFF Stat Iron Routine [place] Stat Partial Thromboplastin Time Stat Prothrombin Time INR Stat 02/19/19 19:54 Education, smoking cessation ONGOING 02/19/19 19:58 Consult to Discharge Planning Routine Consult to Occupational Therapy Evaluate & Treat 02/19/19 19:59 Consult to Physical Therapy Evaluate & Treat Consult to Physician Routine 02/19/19 20:32 Urinalysis and Microscopic Routine Urine Culture Routine 02/19/19 21:01 Consult to System Technologist Routine 02/20/19 Complete Blood Count AUTO DIFF Routine Comprehensive Metabolic Panel Routine Acetaminophen (Tylenol) 650 mg PO Q6HR PRN PRN Reason: As Needed for Fever/Mild Pain Amlodipine Besylate (Norvasc) 10 mg PO DAILY [facility] Bisacodyl (Dulcolax) 10 mg [place] DAILY PRN PRN Reason: Constipation Docusate Sodium (Colace) 100 mg PO BID PRN PRN Reason: Constipation Fenofibrate (Triglide) 160 mg PO DAILY [facility] Fluoxetine HCl (Prozac) 20 mg PO DAILY [facility] Hydroxychloroquine Sulfate (Plaquenil) 200 mg PO BID [facility] Last Admin: 02/19/19 21:48 Dose: Not Given Sodium Chloride (Normal Saline 0.9%) 1,000 mls @ 100 mls/hr IV CONT [facility] Last Admin: 02/19/19 21:55 Dose: 100 mls/hr Levothyroxine Sodium (Synthroid) 112 mcg PO DAILY [facility] [place] Carbonate ([place] Carbonate) 300 mg PO BID [facility] Morphine Sulfate (Morphine) 4 mg IV Q4HR PRN PRN Reason: Pain, Severe (7-10) Last Admin: 02/20/19 01:46 Dose: 4 mg Morphine Sulfate (Morphine) 2 mg IV Q4HR PRN PRN Reason: Pain, Moderate (4-6) Last Admin: 02/19/19 21:57 Dose: 2 mg Naloxone HCl (Narcan) 0.2 mg IV Q2MIN PRN PRN Reason: Opiate Reversal Ondansetron HCl (Zofran) 4 mg IV Q8HR PRN PRN Reason: Nausea And Vomiting Pantoprazole Sodium (Protonix) 40 mg IV DAILY [facility] Polyethylene Glycol (Miralax) 17 gm PO DAILY PRN PRN Reason: Constipation Discontinued Medications Gabapentin (Neurontin) 400 mg PO BEDTIME [facility] Lisinopril (Zestril) 5 mg PO DAILY [facility] [place] Carbonate ([place] Carbonate) 900 mg PO DAILY [facility] [place] Carbonate ([place] Carbonate) 300 mg PO BID [facility] Last Admin: 02/20/19 00:16 Dose: Not Given [place] Carbonate ([place] Carbonate) 300 mg PO NOW [facility] Stop: 02/20/19 01:00 Last Admin: 02/19/19 23:19 Dose: 300 mg Pantoprazole Sodium (Protonix) 20 mg IV DAILY [facility] Consultations Consultation #1: orthopedic consult. Request for medical clearance, NPO after midnight Consultation #2: hospitalist happy to accept Vital Signs - 8 hr 02/19/19 20:26 02/19/19 20:35 02/19/19 23:40 Temperature 98.3 F 98 F Pulse Rate 74 75 78 Respiratory Rate 12 18 17 Blood Pressure 157/84 H 151/74 H Blood Pressure [Left Arm] 138/58 L Pulse Oximetry 99 98 99 MDM - Fall Lab Data Result diagrams: 02/19/19 19:41 02/19/19 19:41 Lab Results 02/19/19 02/19/19 02/19/19 Range/Units 19:41 19:41 19:41 WBC 11.7 H (4.5-11.0) X10^3/uL RBC 3.58 L (4.0-5.2) X10^6/uL Hgb 8.9 L (12.0-16.0) g/dL Hct 28.5 L (36-46) % MCV 79.5 L (80-100) fL MCH 25.0 L (26-34) PG MCHC 31.4 (30-36) % RDW 15.6 H (11.6-14.8) % Plt Count 310 (150-400) X10^3/uL Neut % (Auto) 84.5 H (50-75) % Lymph % (Auto) 6.6 L (25-40) % [place] % (Auto) 5.9 (3-14) % Eos % (Auto) 2.2 (2-4) % Baso % (Auto) 0.8 (0-2) % Neut # (Auto) 9900 H (4887-8826) /uL Lymph # (Auto) 800 L (7292-9357) /uL [place] # (Auto) 700 (0-900) /uL Eos # (Auto) 300 (0-450) /uL Baso # (Auto) 100 (0-100) /uL PT 11.9 (10.1-12.7) SECONDS INR 1.0 (0.9-1.3) APTT 32 (26.4-36.2) SECONDS Sodium 138 (137-145) mmol/L Potassium 4.4 (3.4-5.1) mmol/L Chloride 106 (98-107) mmol/L Carbon Dioxide 22 (22-32) mmol/L BUN 31 H (7-17) mg/dL Creatinine 1.30 H (0.52-1.04) mg/dL Estimated GFR 40.0 L (>60) mL/min BUN/Creatinine Ratio 23.8 H (6-22) Glucose 125 H (80-110) mg/dL Calcium 10.4 H (8.4-10.2) mg/dL Iron (37-170) ug/dL Urine Color Urine Appearance Urine pH (4.5-8.0) Ur Specific [place] (1.000-1.035) Urine Protein (Negative) Urine Glucose (UA) (Negative) g/dL Urine Ketones (NEGATIVE) Urine Occult Blood (Negative) Urine Nitrate (Negative) Urine Bilirubin (NEGATIVE) Urine Urobilinogen (0.2) E.U./dL Ur Leukocyte Esterase (NEGATIVE) Urine RBC (0-5/HPF) Urine WBC (0-5/HPF) Ur Squamous Epith Cells (0-5/HPF) Urine Bacteria (None) Ur Culture Indicated? [place] (0.6-1.2) mmol/L 02/19/19 02/19/19 02/19/19 Range/Units 19:41 19:41 20:32 WBC (4.5-11.0) X10^3/uL RBC (4.0-5.2) X10^6/uL Hgb (12.0-16.0) g/dL Hct (36-46) % MCV (80-100) fL MCH (26-34) PG MCHC (30-36) % RDW (11.6-14.8) % Plt Count (150-400) X10^3/uL Neut % (Auto) (50-75) % Lymph % (Auto) (25-40) % [place] % (Auto) (3-14) % Eos % (Auto) (2-4) % Baso % (Auto) (0-2) % Neut # (Auto) (0369-6032) /uL Lymph # (Auto) (5687-1945) /uL [place] # (Auto) (0-900) /uL Eos # (Auto) (0-450) /uL Baso # (Auto) (0-100) /uL PT (10.1-12.7) SECONDS INR (0.9-1.3) APTT (26.4-36.2) SECONDS Sodium (137-145) mmol/L Potassium (3.4-5.1) mmol/L Chloride (98-107) mmol/L Carbon Dioxide (22-32) mmol/L BUN (7-17) mg/dL Creatinine (0.52-1.04) mg/dL Estimated GFR (>60) mL/min BUN/Creatinine Ratio (6-22) Glucose (80-110) mg/dL Calcium (8.4-10.2) mg/dL Iron 40 (37-170) ug/dL Urine Color Yellow Urine Appearance Clear Urine pH 5.0 (4.5-8.0) Ur Specific [place] 1.025 (1.000-1.035) Urine Protein Negative (Negative) Urine Glucose (UA) Negative (Negative) g/dL Urine Ketones Negative (NEGATIVE) Urine Occult Blood Negative (Negative) Urine Nitrate Positive (Negative) Urine Bilirubin Negative (NEGATIVE) Urine Urobilinogen 0.2 (0.2) E.U./dL Ur Leukocyte Esterase Negative (NEGATIVE) Urine RBC None seen (0-5/HPF) Urine WBC 1-5/hpf (0-5/HPF) Ur Squamous Epith Cells None seen (0-5/HPF) Urine Bacteria Many (>30) H (None) Ur Culture Indicated? Specimen cultured [place] 0.9 (0.6-1.2) mmol/L Imaging Data Hip Xray: Attestation: I personally reviewed and interpreted this imaging study as follows: My impression: L femoral neck fx Radiologist's impression: [address] [address] XRay Report Signed Patient: Ritika Prather MMR#: [id number] : 4Acct:[id number] Age/Sex: 73 / FDate of Service: 02/19/19 Loc: [id number] Accession Number: [id number] Procedure: XR hip w pel if done LT 2V Ordering Provider: Jose Levin D.O. PROCEDURE: XR HIP W PEL IF DONE LT 2V INDICATIONS: fall with Left hip / pelvis pain TECHNIQUE: 2 views of the hip were acquired. COMPARISON: [facility], [facility], XR HIP W PEL IF DONE LUDY 3TO4V, 06/23/2018, 15:45. FINDINGS: Bones: No dislocations. No suspicious bony lesions. The visualized pelvic ring appears intact. There is a femoral neck fracture, with superior subluxation by approximately 2.5 cm of the femur below fracture points cephalad. Soft tissues: No suspicious soft tissue calcifications or masses. IMPRESSION: Acute fracture across the femoral neck with superior subluxation by approximately 2.5 cm of the left femur at the fracture plane. No additional pelvic injury is seen. Dictated by: Jose C Olivo M.D. on 02/19/2019 at 19:46 Approved by: Jose C Olivo M.D. on 02/19/2019 at 19:48 Discharge Plan Departure Patient Disposition: Admitted As Inpatient Clinical Impression: Closed left hip fracture Qualifiers: Encounter type: initial encounter Qualified Code(s): S72.002A - Fracture of unspecified part of neck of left femur, initial encounter for closed fracture Discharge Date/Time: 02/19/19 20:38 Interventions: ED Discharge Assessment Last Done: 02/19/19 20:38 Admit Date/Time: 02/19/19 19:42 Admit Provider: Tim Woodall
[2019-02-19 20:44] LABS: RBC Urine None Seen (0-5/HPF)
--- NOTE | 2019-02-19 20:57 | P.HP_ITS ---
History of Present Illness Date Patient Seen: 02/19/19 Time Patient Seen: 20:15 Chief complaint: fall, groin/pelvis pain Narrative: Ms. Ritika Prather is a 73-year-old female patient with multiple medical problems most significant for lupus, hypertension, hyperlipidemia, fibromyalgia and chronic low back pain on pain management, GERD, and diet- controlled diabetes who presents to the ER today with left hip pain following ground level fall. The patient reports that she fell twice today 1st while getting out of her car and tripping on the curb landing on her left hip arm and elbow. She denies loss consciousness neck or back pain from the fall. The patient subsequently was ambulatory into the house and later today went to the bathroom prior to going out for dinner and upon getting off the toilet she fell to the ground experiencing sharp left hip pain and was unable ambulate. The patient denies any antecedent symptoms and reports no complaints of recent colder fevers and has had no chest pain or palpitations, shortness of breath though she describes herself is deconditioned related to chronic pain issues. She reports no cough or wheezing and has chronic esophageal reflux. She reports no nausea vomiting and has chronic constipation related to opiate use. She has had a previous bladder suspension which is failed and continues to have incontinence. The patient has diet-controlled diabetes and has no complaints of neuropathy. Upon arrival in the ER the patient was afebrile with a temperature 96.8?, hypertensive at 171/85 with heart rate of 71, respirations 16 and saturating 99% on room air. An x-ray of the left hip was obtained with findings of femoral head fracture with subluxation. Orthopedic surgery was contacted by the ER physician and Dr. Rivas evaluate the patient in the morning anticipating surgery tomorrow. Labs were obtained in the ER with a finding of white count of 11.7, anemia with a hemoglobin of 8.9 and hematocrit of 28.5 and platelets of 311. The patient has extensive bilateral bruising and has had a hematology workup in the past and presents with a PT of 11.9 INR of 1.0 and PTT of 32. Her last hemoglobin A1c on 10/12/2018 was 6.9. On chemistries, electrolytes are within normal range hour she has a BUN of 31 creatinine 1.3 with a baseline of 1.1 in October. She has an EGFR of 40.0 and a BUN creatinine ratio of 23.8. A nonfasting blood sugar is 125. The patient is admitted to the hospital with left hip fracture with plan for operative intervention tomorrow. Patient History Medical History (Updated 02/19/19 @ 20:47 by AG Bruner) Bruises easily (Acute) Chronic low back pain (Acute) Constipation, chronic (Acute) Diet-controlled diabetes mellitus (Acute) Fibromyalgia (Acute) GERD (gastroesophageal reflux disease) (Acute) Hyperlipidemia (Acute) Hypertension (Acute) Incontinence (Acute) Lupus (systemic lupus erythematosus) (Acute) Migraines (Acute) Surgical History (Updated 02/19/19 @ 20:47 by AG Bruner) History of bilateral cataract extraction (Acute) History of bladder suspension procedure (Acute) History of partial thyroidectomy (Acute) Status post tubal ligation Status post vaginal hysterectomy Family History (Updated 02/19/19 @ 20:48 by AG Bruner) Father No problems noted. Mother No problems noted. Brother Bone cancer Social History household members: spouse Smoking Status: Former smoker alcohol intake: never Family & Social History Social History: household members spouse Safety & Behavioral: Feels Safe in Current Yes Environment Been Physically Hurt or No Threatened By a Person Tobacco & Substance use: Smoking Status Never smoker Substance Use Type does not use Comment: The patient [place] [facility]. Her parents are both with her father from complications of chronic alcoholism and her mother from complications of Alzheimer disease. She has 1 brother who is bone cancer and mother who brother whom she describes is in good health. She has 1 son who she describes is in excellent health. 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 The patient quit 6 years ago. Alcohol: Patient denies alcohol consumption. Substance use: Patient is currently on pain management program and uses no herbal or cannabis products. Advanced directives: In direct conversation with the patient she states her wish to be DNR/DNI. She designates her to be his surrogate decision maker. Meds Home Medications Medication Instructions Recorded Confirmed Type cyclobenzaprine 5 mg PO TIDP PRN #0 08/20/17 02/19/19 History fenofibrate 160 mg PO QDAY #0 08/20/17 02/19/19 History lithium carbonate 300 mg PO BID #0 08/20/17 02/19/19 History hydroxychloroquine 400 mg PO DAILY 03/08/18 02/19/19 History amlodipine 10 mg PO DAILY 02/19/19 02/19/19 History diclofenac sodium 75 mg PO BID 02/19/19 02/19/19 History fluoxetine 20 mg PO DAILY 02/19/19 02/19/19 History ibuprofen 400 mg PO Q6H PRN 02/19/19 02/19/19 History levothyroxine 112 mcg PO DAILY 02/19/19 02/19/19 History minoxidil [Rogaine] 02/19/19 History omeprazole 40 mg PO DAILY 02/19/19 02/19/19 History ondansetron HCl [Zofran] 8 mg PO BID PRN 02/19/19 02/19/19 History oxycodone-acetaminophen [Percocet] 1 tab PO Q4-6H PRN 02/19/19 02/19/19 History Allergies Allergy/AdvReac Type Severity Reaction Status Date / Time Sulfa (Sulfonamide Allergy Intermediate body rash Verified 02/19/19 18:50 Antibiotics) [SULFA (SULFONAMIDE ANTIBIOTICS)] Review of Systems Review of Systems All systems reviewed & are unremarkable except as noted in HPI and below Exam Vital Signs (past 8 hours): - 02/19/19 18:48 02/19/19 19:30 02/19/19 20:26 Temperature 97.9 F Pulse Rate 72 73 74 Respiratory Rate 16 15 12 Blood Pressure 171/79 H Blood Pressure [Left Arm] 151/64 H 138/58 L Pulse Oximetry 98 98 99 Oxygen Delivery Method Room Air Narrative Exam Narrative: GENERAL APPEARANCE: well developed, well nourished, in no acute distress. HEAD: Atraumatic, symmetrical face sees, no scalp lesions. EYES: pupils equal, round, reactive to light and accommodation, sclera non-i cteric, extraocular movement intact without nystagmus. EARS: normal external structures, no ear pain NOSE: sinuses non tender to percussion, no rhinorrhea ORAL CAVITY: mucosa moist without lesions or exudate, upper denture in place, own mandibular dentition, tongue in midline. THROAT: normal, no erythema, no exudate, posterior pharynx normal, uvula midline. NECK/THYROID: neck supple, no jugular venous distention, no carotid bruit, trachea midline. LYMPH NODES: no cervical or supraclavicular lymphadenopathy. SKIN: warm and dry, multiple areas of ecchymosis bilateral upper extremities HEART: regular rate and rhythm, S1-S2, 1/6 systolic murmur right upper sternal border, no rubs or gallops, brisk capillary refill, no edema LUNGS: clear to auscultation bilaterally, no coarseness crackles or wheezing, no cough present CHEST: Symmetrical movement, no accessory muscle use, no pain on palpation ABDOMEN: Soft, no distention, dull to percussion, no epigastric or abdominal tenderness on palpation, no guarding or peritoneal signs, no organomegaly, active bowel tones. EXTREMITIES: Pain with movement left hip, left leg slightly shortened with external rotation, distal circulation movement in cessation intact. NEUROLOGIC: AAO x4, no focal neurologic deficits, cranial nerves II-XII grossly intact , motor strength normal upper and lower extremities, sensory exam intact to light touch, hearing grossly normal to speech. PSYCH: Pleasant and cooperative, cognitive function intact, good eye contact, appropriate with stable behavior. Objective Labs Result Diagrams: 02/19/19 19:41 02/19/19 19:41 Labs: Laboratory Results - last 24 hr 02/19/19 02/19/19 02/19/19 19:41 19:41 19:41 WBC 11.7 H RBC 3.58 L Hgb 8.9 L Hct 28.5 L MCV 79.5 L MCH 25.0 L MCHC 31.4 RDW 15.6 H Plt Count 310 Neut % (Auto) 84.5 H Lymph % (Auto) 6.6 L [place] % (Auto) 5.9 Eos % (Auto) 2.2 Baso % (Auto) 0.8 Neut # (Auto) 9900 H Lymph # (Auto) 800 L [place] # (Auto) 700 Eos # (Auto) 300 Baso # (Auto) 100 PT 11.9 INR 1.0 APTT 32 Sodium 138 Potassium 4.4 Chloride 106 Carbon Dioxide 22 BUN 31 H Creatinine 1.30 H Estimated GFR 40.0 L BUN/Creatinine Ratio 23.8 H Glucose 125 H Calcium 10.4 H [place] 02/19/19 19:41 WBC RBC Hgb Hct MCV MCH MCHC RDW Plt Count Neut % (Auto) Lymph % (Auto) [place] % (Auto) Eos % (Auto) Baso % (Auto) Neut # (Auto) Lymph # (Auto) [place] # (Auto) Eos # (Auto) Baso # (Auto) PT INR APTT Sodium Potassium Chloride Carbon Dioxide BUN Creatinine Estimated GFR BUN/Creatinine Ratio Glucose Calcium [place] 0.9 Assessment & Plan Assessment & Plan narrative: This is a 73-year-old female patient was admitted to the hospital following 2 falls today resulting in a subluxed left hip fracture requiring surgical intervention. Patient will be evaluated for pre operative clearance. 1. Acute left femoral neck fracture with subluxation, present on admission. -patient with nonsyncopal ground level falls x2, nonambulatory following the 2nd fall. -imaging shows a displaced left femoral neck fracture. Dr. Andrade was called consulted from the ER and will evaluate the patient with anticipation of surgery tomorrow. -patient is NPO after midnight. -morphine 2 mg IV as needed moderate pain, 4 mg for severe pain. Will evaluate effectiveness is the patient is on chronic opiate therapy and escalate as indicated. 2. Acute kidney injury, present on admission. -patient with a documented baseline creatinine of 1.1 on 10/12/2018. Patient presents today with an elevated BUN at 31 and creatinine 1.3 for an EGFR of 40.0. -the patient appears dry by exam and has a BUN creatinine ratio of 23.8. -will rehydrate with normal saline at 100 cc/hour. -will follow renal function on serial labs. 3. Chronic lupus erythematous, present on admission. -the patient has been on chronic hydroxychloroquine 200 mg twice daily. -patient presents with anemia with a hemoglobin of 8.9 and hematocrit 28.5, no leukopenia, coagulation studies are normal. Likely related to chronic disease as well as iron deficiency. Will obtain iron level as well as stool for Hemoccult. -she has undergone hematological evaluation 6-7 years ago in [place] for bruising on her arms with no definitive findings. Medical record with prior diagnosis of microembolization. -Has had diclofenac stopped by her PCP, will discontinue chronic use of ibuprofen due to renal function and bleeding. 4. Chronic gastroesophageal reflux disorder, active. -patient routinely takes omeprazole at home. -Protonix 40 mg IV daily while patient is NPO then may transition back to omeprazole. 5. Chronic hypertension, active -patient is hypertensive on admission to the ER at 171/85. -will continue patient's home regimen of amlodipine 10 mg daily 6. Chronic diet controlled diabetes, active -patient is on no diabetic medications, last hemoglobin A1c on 10/12/2018 was 6.9. Glucose level on admission labs was 125. -consistent carbohydrate diet. 7. Chronic lumbar spine pain, active -the patient is currently under the care of [facility]. -MRI completed on 01/03/2019 finds severe levoscoliosis, spondylosis, facet arthropathy, severe canal stenosis at L2-3, L3-4 and L4-5. Grade 1 anterior listhesis L4 on 5. -she self reports taking hydrocodone 7.5 mg every 6 hours for pain, diclofenac 75 mg by mouth twice daily as well as self-medication with ibuprofen to 400 mg every 6 hours. -patient will receiving morphine as above 2-4 mg every 4 hours as needed for pain. Will evaluate effectiveness and escalate as indicated. 8. Chronic mood disorder, bipolar, active -continue the patient's home medication of lithium carbonate 300 mg by mouth twice daily and fluoxetine 20 mg once daily. -lithium level is checked and within normal range at 0.9. 9. Chronic hyperlipidemia, active -continue patient's home fenofibrate 160 mg daily. 10. Acquired hypothyroidism, chronic, active. -patient reports hemithyroidectomy related to hypercalcemia. -continue patient's home regimen of levothyroxine 112 mcg daily. The patient is admitted as an inpatient with anticipated surgery for open reduction internal fixation of right hip fracture. Expected length of stay is greater than 2 midnights. Time Spent With Patient Time with patient: 25 - 35 minutes Scores GCS Griffin coma scale eye opening: Spontaneous [place] coma scale verbal response: Orientated [place] coma scale motor response: Obey commands [place] coma scale total score: 15
[2019-02-19 20:58] LABS: Appearance Urine UA CLEAR; Bilirubin Urine UA NEGATIVE (NEGATIVE); Color Urine UA YELLOW; Glucose Urine UA NEGATIVE (Negative); Ketones Urine UA NEGATIVE (NEGATIVE); Leukocyte Esterase Urine UA NEGATIVE (NEGATIVE); Nitrite Urine UA POSITIVE (Negative); Occult Blood Urine UA NEGATIVE (Negative); Protein Urine UA NEGATIVE (Negative); Specific Gravity Urine UA 1.025 (1.000-1.035); Urobilinogen Urine UA 0.2 E.U./dL (0.2)
[2019-02-19 21:01] LABS: Bacteria Urine Many (>30); Culture Indicated Urine Specimen Cultured; Squamous Epithelial Cell Urine None Seen (0-5/HPF); WBC Urine 1-5/HPF (0-5/HPF)
[2019-02-19] MEDS: SODIUM CHLORIDE 0.9% 1,000 ML 100 ML IV (21:55)
[2019-02-19] MEDS: MORPHINE 2 MG/ML INJ IV (21:57)
[2019-02-19 22:07] LABS: Iron 40 ug/dL (37-170)
[2019-02-19] MEDS: LITHIUM 300 MG IR CAPSULE PO (23:19)
[2019-02-19 23:40] VITALS: BP 151/74; PULSE 78; RESP 17; TEMP 36.6; O2SAT 99
[2019-02-20] VITALS (20 sets, daily range): BP systolic 94–167; BP diastolic 53–101; PULSE 73–85; RESP 12–78; TEMP 36.2–37.5; O2SAT 89–100; BMI 29.3
--- NOTE | 2019-02-20 | DI.RAD.S_ITS ---
PROCEDURE: XR PELVIS 1-2V INDICATIONS: POST OP TECHNIQUE: 1 view of the lower pelvis acquired. COMPARISON: None. FINDINGS: Bones: Patient is status post left hip arthroplasty, with hardware components in expected positions. The hip joint appears congruent. The visualized bony structures appear intact. Soft tissues: Overlying postoperative changes are noted. No suspicious soft tissue densities. IMPRESSION: Expected postsurgical change for unipolar left hip arthroplasty. Dictated by: Jackie Frazier MD, PhD on 02/20/2019 at 19:58 Approved by: Jackie Frazier MD, PhD on 02/20/2019 at 19:58
--- NOTE | 2019-02-20 00:41 | PC.NURSE ---
Addendum entered by Penny Kumar R.N. 02/20/19 06:39: Slept well after taking the IV Morphine. States pain is tolerable this morning at 4-5/10 and declines offer of pain medication. Addendum entered by Penny Kumar R.N. 02/20/19 01:50: Complains of 8/10 chronic back and acute left hip pain; medicated with Morphine and repositioned. Original Note: Patient is alert and oriented. Breath sounds CTA with RA sat of 99%. HRR with BP of 151/74. Denies nausea. BT present but has not had BM since 02/14; states she typically goes multiple days without BM. Abdomen is soft. Indwelling catheter is patent; urine is bright yellow. Able to move self in bed but cannot lift right leg. External rotation noted in right LE. Denies pain at present time. Extensive bruising on bilateral UE with bandaids covering areas that she has picked and have been bleeding. NPO for probable surgery later today; verbalizes understanding. Fall risk score is high and bed alarm is activated.
[2019-02-20] MEDS: MORPHINE 4 MG/ML INJ IV ×3 (01:46→14:14)
[2019-02-20 06:37] LABS: Add Manual Diff / Slide Review NO; Basophils Absolute Auto 100 /uL (0-100); Basophils Percent Auto 0.8 % (0-2); Eosinophils Absolute Auto 600 /uL (0-450); Hematocrit 27.5 % (36-46); Hemoglobin 8.7 g/dL (12.0-16.0); Lymphocytes Absolute Auto 800 /uL (1100-4500); Lymphocytes Percent Auto 8.6 % (25-40); Mean Corpuscular HGB Conc 31.9 % (30-36); Mean Corpuscular Hemoglobin 25.6 PG (26-34); Mean Corpuscular Volume 80.2 fL (80-100); Monocytes Absolute Auto 700 /uL (0-900); Monocytes Percent Auto 7.8 % (3-14); Neutrophils Absolute Auto 7100 /uL (1500-7000); Neutrophils Percent Auto 76.8 % (50-75); Platelet Count 274 X10^3/uL (150-400); Red Blood Cell Count 3.42 X10^6/uL (4.0-5.2); White Blood Cell Count 9.3 X10^3/uL (4.5-11.0)
[2019-02-20 06:43] LABS: HEMOLYSIS < 15 (0-50); Sodium 137 mmol/L (137-145)
[2019-02-20 06:44] LABS: Alanine Aminotransferase 22 IU/L (9-52); Albumin 3.8 g/dL (3.5-5.0); Albumin Globulin Ratio 1.4 (1.0-2.8); Alkaline Phosphatase 53 U/L (38-126); Aspartate Aminotransferase 25 IU/L (14-36); BUN Creatinine Ratio 23.3 (6-22); Bilirubin Total 0.5 mg/dL (0.2-1.3); Blood Urea Nitrogen 21 mg/dL (7-17); Calcium 9.6 mg/dL (8.4-10.2); Carbon Dioxide 24 mmol/L (22-32); Chloride 108 mmol/L (98-107); Estimated Glomerular Filt Rate > 60.0 mL/min (>60); Globulin 2.8 g/dL (1.7-4.1); Glucose 129 mg/dL (80-110); Potassium 4.3 mmol/L (3.4-5.1); Total Protein 6.6 g/dL (6.3-8.2)
[2019-02-20] MEDS: HYDROXYCHLOROQUINE 200 MG TABLET PO ×2 (08:05→21:02)
[2019-02-20] MEDS: FLUoxetine 20 MG CAPSULE PO (08:05)
[2019-02-20] MEDS: LEVOTHYROXINE 112 MCG TABLET PO (08:05)
[2019-02-20] MEDS: LITHIUM 300 MG IR CAPSULE PO ×2 (08:06→21:02)
[2019-02-20] MEDS: AMLODIPINE 5 MG TABLET 10 MG PO (08:06)
[2019-02-20] MEDS: SODIUM CHLORIDE 0.9% 1,000 ML 100 ML IV (08:08)
[2019-02-20] MEDS: PANTOPRAZOLE 40 MG VIAL IV (08:15)
[2019-02-20] MEDS: FENOFIBRATE 160 MG TABLET PO (08:16)
[2019-02-20] MEDS: ONDANSETRON 4 MG/2 ML INJ IV (08:29)
--- NOTE | 2019-02-20 08:29 | PT.IPTN ---
Current Diagnoses Fracture of unspecified part of neck of left femur, initial encounter for closed fracture (02/19/19) Surgery Performed Operation Date: 02/20/19 15:45 <No data on this case meets the specified criteria> Physical Therapy Treatment Note M3 PT-IP Subjective Start: 02/20/19 08:28 Freq: NEEDED Status: Active Protocol: Document 02/20/19 08:28 RS (Rec: 02/20/19 08:29 RS [id number]) Subjective Physical Therapy Visit Type Type Administrative Note Notes Pt is going to surgery today, will discharge PT order and await new post-op orders.
--- NOTE | 2019-02-20 08:30 | OT.IP.TRT ---
Current Diagnoses Fracture of unspecified part of neck of left femur, initial encounter for closed fracture (02/19/19) Surgery Performed Operation Date: 02/20/19 15:45 <No data on this case meets the specified criteria> Occupational Therapy Treatment Note M3 OT- IP Subjective and Pain Start: 02/20/19 08:29 Freq: Status: Active Protocol: Document 02/20/19 08:29 CGR (Rec: 02/20/19 08:30 CGR [id number]) OT- Subjective Occupational Therapy Visit Type Type Administrative Note Notes Chart reviewed. Pt planned for sx today. Will discharge order and await new order s/p sx.
--- NOTE | 2019-02-20 09:14 | P.CONS_ITS ---
History of Present Illness Date Patient Seen: 02/20/19 Time Patient Seen: 09:02 Chief complaint: fall, groin/pelvis pain Reason for consult: Left hip fracture Requesting provider: Jose Levin Narrative: Ritika is a 73-year-old female with a history of hypertension hyperlipidemia lupus and anemia and fibromyalgia. The patient is a community ambulator. She reports 2 incidences on the day of admission. Earlier in the afternoon she had a ground level fall missing a curb and fell on her left side and hip. She had pain after that but was able to ambulate. Several hours later she was getting up from the toilet and fell again and was unable to weight bear and had extreme pain in the left hip. He was brought to [facility] where x-rays were taken demonstrating a displaced left femoral neck fracture. And the patient was indicated for surgery. She was admitted to the Medicine team with orthopedic consultation. Patient denied any loss of consciousness or other injury. She does have some bruises over her arm that she states are old. She denies any bleeding problems but does state that previously when she lived in [place] she had been worked up for anemia there and took what sounds like iron but she states she did not like the pills. She was found to have a both acute renal failure with a creatinine of 1.3 as well as anemia with a hemoglobin of 8.9 in the ER. She denies any fevers chills nausea vomiting numbness or tingling. Denies any pain other than her left hip [facility] Medical History Bruises easily (Acute) Chronic low back pain (Acute) Constipation, chronic (Acute) Diet-controlled diabetes mellitus (Acute) Fibromyalgia (Acute) GERD (gastroesophageal reflux disease) (Acute) Hyperlipidemia (Acute) Hypertension (Acute) Incontinence (Acute) Lupus (systemic lupus erythematosus) (Acute) Migraines (Acute) Surgical History History of bilateral cataract extraction (Acute) History of bladder suspension procedure (Acute) History of partial thyroidectomy (Acute) Status post tubal ligation Status post vaginal hysterectomy Family History (Updated 02/19/19 @ 20:48 by AG Bruner) Father No problems noted. Mother No problems noted. Brother Bone cancer Social History household members: spouse Smoking Status: Former smoker alcohol intake: never Social History household members: spouse Smoking Status: Former smoker alcohol intake: never Meds Home Medications Medication Instructions Recorded Confirmed Type cyclobenzaprine 5 mg PO TIDP PRN #0 08/20/17 02/19/19 History fenofibrate 160 mg PO QDAY #0 08/20/17 02/19/19 History lithium carbonate 300 mg PO BID #0 08/20/17 02/19/19 History hydroxychloroquine 400 mg PO DAILY 03/08/18 02/19/19 History amlodipine 10 mg PO DAILY 02/19/19 02/19/19 History diclofenac sodium 75 mg PO BID 02/19/19 02/19/19 History fluoxetine 20 mg PO DAILY 02/19/19 02/19/19 History ibuprofen 400 mg PO Q6H PRN 02/19/19 02/19/19 History levothyroxine 112 mcg PO DAILY 02/19/19 02/19/19 History minoxidil [Rogaine] 02/19/19 History omeprazole 40 mg PO DAILY 02/19/19 02/19/19 History ondansetron HCl [Zofran] 8 mg PO BID PRN 02/19/19 02/19/19 History oxycodone-acetaminophen [Percocet] 1 tab PO Q4-6H PRN 02/19/19 02/19/19 History Allergies Allergy/AdvReac Type Severity Reaction Status Date / Time Sulfa (Sulfonamide Allergy Intermediate body rash Verified 02/19/19 18:50 Antibiotics) [SULFA (SULFONAMIDE ANTIBIOTICS)] Review of Systems Review of Systems Denies fevers chills nausea or vomiting. Does endorse incontinence after failing bladder suspension. Endorses left hip pain. Endorses easy bruising. Denies shortness of breath All systems reviewed & are unremarkable except as noted in HPI and below Exam Vital Signs (past 8 hours): - 02/20/19 06:15 02/20/19 08:07 Temperature 98.7 F 98.2 F Pulse Rate 78 78 Respiratory Rate 16 18 Blood Pressure 148/76 H 148/78 H Pulse Oximetry 98 98 Oxygen Delivery Method Room Air Oxygen Flow Rate 0 Narrative Exam Narrative: Alert oriented female lying in bed. Very pleasant with conversation. No acute distress HEENT exam normocephalic atraumatic Respiratory exam lungs clear to auscultation bilaterally CV exam regular rate and rhythm Abdomen is soft and nontender Urinary: Catheter in place Extremity: Moving upper extremities full range of motion. 5/5 elbow flexion extension wrist flexion-extension. Multiple old-appearing bruises over the forearms. No open wounds. Lower extremity: Right lower extremity full range of motion no pain calf soft to compression. No erythema. 5/5 dorsiflexion plantar flexion. Palpable dorsalis pedis pulse Left lower extremity: Shortened externally rotated left lower extremity. Demonstrates active dorsiflexion plantar flexion. Brisk capillary refill. Palpable dorsalis pedis pulse. Soft calf. Mild bruising. No erythema Objective Imaging Left hip x-ray: My impression: Two-view left hip x-ray AP pelvis and lateral hip demonstrate displaced femoral neck fracture with shortening. Radiologist's impression: IMPRESSION: Acute fracture across the femoral neck with superior subluxation by approximately 2.5 cm of the left femur at the fracture plane. No additional pe lvic injury is seen. Dictated by: Jose C Olivo M.D. on 02/19/2019 at 19:46 Approved by: Jose C Olivo M.D. on 02/19/2019 at 19:48 Labs Result Diagrams: 02/20/19 06:25 02/20/19 06:25 Labs: Laboratory Results - last 24 hr 02/19/19 02/19/19 02/19/19 19:41 19:41 19:41 WBC 11.7 H RBC 3.58 L Hgb 8.9 L Hct 28.5 L MCV 79.5 L MCH 25.0 L MCHC 31.4 RDW 15.6 H Plt Count 310 Neut % (Auto) 84.5 H Lymph % (Auto) 6.6 L [place] % (Auto) 5.9 Eos % (Auto) 2.2 Baso % (Auto) 0.8 Neut # (Auto) 9900 H Lymph # (Auto) 800 L [place] # (Auto) 700 Eos # (Auto) 300 Baso # (Auto) 100 PT 11.9 INR 1.0 APTT 32 Sodium 138 Potassium 4.4 Chloride 106 Carbon Dioxide 22 BUN 31 H Creatinine 1.30 H Estimated GFR 40.0 L BUN/Creatinine Ratio 23.8 H Glucose 125 H Calcium 10.4 H Iron Total Bilirubin AST ALT Alkaline Phosphatase Total Protein Albumin Globulin Albumin/Globulin Ratio Urine Color Urine Appearance Urine pH Ur Specific [place] Urine Protein Urine Glucose (UA) Urine Ketones Urine Occult Blood Urine Nitrate Urine Bilirubin Urine Urobilinogen Ur Leukocyte Esterase Urine RBC Urine WBC Ur Squamous Epith Cells Urine Bacteria Ur Culture Indicated? [place] 02/19/19 02/19/19 02/19/19 19:41 19:41 20:32 WBC RBC Hgb Hct MCV MCH MCHC RDW Plt Count Neut % (Auto) Lymph % (Auto) [place] % (Auto) Eos % (Auto) Baso % (Auto) Neut # (Auto) Lymph # (Auto) [place] # (Auto) Eos # (Auto) Baso # (Auto) PT INR APTT Sodium Potassium Chloride Carbon Dioxide BUN Creatinine Estimated GFR BUN/Creatinine Ratio Glucose Calcium Iron 40 Total Bilirubin AST ALT Alkaline Phosphatase Total Protein Albumin Globulin Albumin/Globulin Ratio Urine Color Yellow Urine Appearance Clear Urine pH 5.0 Ur Specific [place] 1.025 Urine Protein Negative Urine Glucose (UA) Negative Urine Ketones Negative Urine Occult Blood Negative Urine Nitrate Positive Urine Bilirubin Negative Urine Urobilinogen 0.2 Ur Leukocyte Esterase Negative Urine RBC None seen Urine WBC 1-5/hpf Ur Squamous Epith Cells None seen Urine Bacteria Many (>30) H Ur Culture Indicated? Specimen cultured [place] 0.9 02/20/19 02/20/19 06:25 06:25 WBC 9.3 RBC 3.42 L Hgb 8.7 L Hct 27.5 L MCV 80.2 MCH 25.6 L MCHC 31.9 RDW 16.0 H Plt Count 274 Neut % (Auto) 76.8 H Lymph % (Auto) 8.6 L [place] % (Auto) 7.8 Eos % (Auto) 6.0 H Baso % (Auto) 0.8 Neut # (Auto) 7100 H Lymph # (Auto) 800 L [place] # (Auto) 700 Eos # (Auto) 600 H Baso # (Auto) 100 PT INR APTT Sodium 137 Potassium 4.3 Chloride 108 H Carbon Dioxide 24 BUN 21 H Creatinine 0.90 Estimated GFR > 60.0 BUN/Creatinine Ratio 23.3 H Glucose 129 H Calcium 9.6 Iron Total Bilirubin 0.5 AST 25 ALT 22 Alkaline Phosphatase 53 Total Protein 6.6 Albumin 3.8 Globulin 2.8 Albumin/Globulin Ratio 1.4 Urine Color Urine Appearance Urine pH Ur Specific [place] Urine Protein Urine Glucose (UA) Urine Ketones Urine Occult Blood Urine Nitrate Urine Bilirubin Urine Urobilinogen Ur Leukocyte Esterase Urine RBC Urine WBC Ur Squamous Epith Cells Urine Bacteria Ur Culture Indicated? [place] Assessment & Plan (1) Anemia: Current visit: Yes Status: Acute Assessment & Plan narrative: 1. Left displaced femoral neck fracture: Patient has a displaced femoral neck fracture. She has been indicated for surgery to restore mobility. With the displaced nature of the fracture we discussed the rationale for the surgery regarding the risks for avascular necrosis with open fixation. Patient has been indicated for a hemiarthroplasty. We discussed the risks benefits and alternatives to the surgery including but not limited to infection, blood loss, leg-length discrepancy, dislocation, need for additional procedures, persistent pain, DVT, pulmonary embolism, cardiopulmonary complications including stroke paralysis and . The patient has expressed full understanding and informed consent has been sign. Additionally we discussed the patient has preoperative anemia and with this procedure the patient does have a high risk for requiring supplemental blood transfusion postoperatively. The patient understands this. The patient also had a DEXA scan less than 4 months ago that showed normal bone quality at the spine but osteopenia at the hips. we discussed calcium vitamin D and potential re-evaluation with her primary care physician regarding potential metabolic treatment for patient's osteopenia and now insufficiency fracture. Time Spent With Patient Time with patient: 15-24 minutes
[2019-02-20] MEDS: VANCOMYCIN 1,000 MG/200 ML PIGGYBACK 200 MG IV (16:07)
--- NOTE | 2019-02-20 16:52 | P.PN_ITS ---
Subjective Date Patient Seen: 02/20/19 Interval history: Ritika Prather is a 73-year-old female with a past medical history significant for systemic lupus erythematous, hypertension, hyperlipidemia, fibromyalgia and chronic low back pain with opiate dependence, GERD, and diabetes mellitus type 2, non-insulin using, who presented to the ED after ground level fall with left hip pain. The patient is resting in bed. She is in no acute distress and does not appears significantly uncomfortable. She continues to have a significant amount of pain around especially movement of her left hip which is controlled with IV morphine. She denies headache, shortness of breath, chest pain, abdominal pain, nausea, vomiting, fever, chills, dysuria, diarrhea or constipation. She is voiding via [place] catheter without difficulty. She has not had a BM since admission and a bowel regimen has been implemented preemptively. Exam Vital Signs (past 8 hours): - 02/20/19 12:51 02/20/19 15:48 02/20/19 16:14 Temperature 99.5 F 97.5 F L 97.8 F Pulse Rate 77 81 78 Respiratory Rate 16 18 78 H Blood Pressure 144/68 H 148/78 H 158/72 H Pulse Oximetry 95 97 97 Oxygen Delivery Method Room Air Oxygen Flow Rate 0 Narrative Exam Narrative: General: Elderly female lying in bed and in no acute distress, well-developed, well-nourished, appropriately interactive. HEENT: Normocephalic, atraumatic. External ears without defect. Pupils equal, round, and reactive to light. Anicteric sclerae, moist conjunctivae, and no lid lag. Neck: Supple with full range of motion. No jugular venous distension. No lymphadenopathy or thyromegaly. Cardiovascular: Regular rate and rhythm without murmurs, rubs, or gallops appreciated. Pulmonary: Clear to auscultation bilaterally without crackles, wheezes, or rhonchi. Normal respiratory effort without use of accessory muscles. Abdomen: Soft, bowel sounds present, nontender, nondistended. No hepatosplenomegaly or masses appreciated. Extremities: No clubbing, cyanosis, or edema. Left leg externally rotated and slightly shortened with distal pulses intact. Skin: Normal temperature, turgor, and texture; no rash, ulcers, or subcutaneous nodules appreciated. Neurological: Cranial nerves grossly intact. Psychiatric: Normal mood and affect. Alert and oriented to person, place, and time. Objective Labs Result Diagrams: 02/20/19 06:25 02/20/19 06:25 Labs: Laboratory Results - last 24 hr 02/19/19 02/19/19 02/19/19 19:41 19:41 19:41 WBC 11.7 H RBC 3.58 L Hgb 8.9 L Hct 28.5 L MCV 79.5 L MCH 25.0 L MCHC 31.4 RDW 15.6 H Plt Count 310 Neut % (Auto) 84.5 H Lymph % (Auto) 6.6 L [place] % (Auto) 5.9 Eos % (Auto) 2.2 Baso % (Auto) 0.8 Neut # (Auto) 9900 H Lymph # (Auto) 800 L [place] # (Auto) 700 Eos # (Auto) 300 Baso # (Auto) 100 PT 11.9 INR 1.0 APTT 32 Sodium 138 Potassium 4.4 Chloride 106 Carbon Dioxide 22 BUN 31 H Creatinine 1.30 H Estimated GFR 40.0 L BUN/Creatinine Ratio 23.8 H Glucose 125 H Calcium 10.4 H Iron Total Bilirubin AST ALT Alkaline Phosphatase Total Protein Albumin Globulin Albumin/Globulin Ratio Urine Color Urine Appearance Urine pH Ur Specific [place] Urine Protein Urine Glucose (UA) Urine Ketones Urine Occult Blood Urine Nitrate Urine Bilirubin Urine Urobilinogen Ur Leukocyte Esterase Urine RBC Urine WBC Ur Squamous Epith Cells Urine Bacteria Ur Culture Indicated? [place] Blood Type Antibody Screen 02/19/19 02/19/19 02/19/19 19:41 19:41 20:32 WBC RBC Hgb Hct MCV MCH MCHC RDW Plt Count Neut % (Auto) Lymph % (Auto) [place] % (Auto) Eos % (Auto) Baso % (Auto) Neut # (Auto) Lymph # (Auto) [place] # (Auto) Eos # (Auto) Baso # (Auto) PT INR APTT Sodium Potassium Chloride Carbon Dioxide BUN Creatinine Estimated GFR BUN/Creatinine Ratio Glucose Calcium Iron 40 Total Bilirubin AST ALT Alkaline Phosphatase Total Protein Albumin Globulin Albumin/Globulin Ratio Urine Color Yellow Urine Appearance Clear Urine pH 5.0 Ur Specific [place] 1.025 Urine Protein Negative Urine Glucose (UA) Negative Urine Ketones Negative Urine Occult Blood Negative Urine Nitrate Positive Urine Bilirubin Negative Urine Urobilinogen 0.2 Ur Leukocyte Esterase Negative Urine RBC None seen Urine WBC 1-5/hpf Ur Squamous Epith Cells None seen Urine Bacteria Many (>30) H Ur Culture Indicated? Specimen cultured [place] 0.9 Blood Type Antibody Screen 02/20/19 02/20/19 02/20/19 06:25 06:25 07:51 WBC 9.3 RBC 3.42 L Hgb 8.7 L Hct 27.5 L MCV 80.2 MCH 25.6 L MCHC 31.9 RDW 16.0 H Plt Count 274 Neut % (Auto) 76.8 H Lymph % (Auto) 8.6 L [place] % (Auto) 7.8 Eos % (Auto) 6.0 H Baso % (Auto) 0.8 Neut # (Auto) 7100 H Lymph # (Auto) 800 L [place] # (Auto) 700 Eos # (Auto) 600 H Baso # (Auto) 100 PT INR APTT Sodium 137 Potassium 4.3 Chloride 108 H Carbon Dioxide 24 BUN 21 H Creatinine 0.90 Estimated GFR > 60.0 BUN/Creatinine Ratio 23.3 H Glucose 129 H Calcium 9.6 Iron Total Bilirubin 0.5 AST 25 ALT 22 Alkaline Phosphatase 53 Total Protein 6.6 Albumin 3.8 Globulin 2.8 Albumin/Globulin Ratio 1.4 Urine Color Urine Appearance Urine pH Ur Specific [place] Urine Protein Urine Glucose (UA) Urine Ketones Urine Occult Blood Urine Nitrate Urine Bilirubin Urine Urobilinogen Ur Leukocyte Esterase Urine RBC Urine WBC Ur Squamous Epith Cells Urine Bacteria Ur Culture Indicated? [place] Blood Type A Positive Antibody Screen Negative Assessment & Plan Assessment & Plan narrative: Ritika Prather is a 73-year-old female with a past medical history significant for systemic lupus erythematous, hypertension, hyperlipidemia, fibromyalgia and chronic low back pain with opiate dependence, GERD, and diabetes mellitus type 2, non-insulin using, who presented to the ED after ground level fall with left hip pain. 1. Acute left femoral neck fracture with subluxation, present on admission. Active. -Patient presented after ground level fall x 2 with left hip pain and inability to walk/bear weight. -Left hip x-ray demonstrated a displaced left femoral neck fracture. -Consulted Orthopedic surgery, Dr. Andrade, who plans to repair the patient's hip this afternoon. Patient has been NPO after midnight. Continue postoperative and pain management per Orthopedic surgery. We appreciate their time and care of the patient. -Ordered physical and occupational therapy evaluation treatment fro tomorrow, pending. -Recommend vitamin D3 and calcium supplementation. Recommended patient be evaluated for osteoporosis and undergo treatment either 3 PCP or Endocrinology after full recovery from hip fracture. 2. Normocytic anemia, acuity unclear but likely acute on chronic, present on admission. Stable. -Unclear baseline H&H. Likely an acute portion that is secondary to acute hip fracture and chronic portion secondary SLE. -Initial hemoglobin 8.9 and now 8.7 and stable. -Ordered iron studies, pending. -Continue to trend hemoglobin hematocrit closely. Plan to order a postoperative hemoglobin. Transfusion goal hemoglobin < 7.0. 3. Acute kidney injury, present on admission. Resolved. -likely prerenal azotemia and secondary to inadequate fluid intake. -Baseline creatinine of 0.80 to 1.1. Initial creatinine on admission 1.30. -Continued IV fluids until adequately hydrated then discontinued. -Avoid nephrotoxin agents. -continue to monitor renal function closely. 4. Chronic systemic lupus erythematous, present on admission. Stable. -Continue hydroxychloroquine 200 mg twice daily. -She has undergone hematological evaluation 6-7 years ago in [place] for bruisin g on her arms with no definitive findings. Medical record with prior diagnosis of microembolization. -Diclofenac was stopped by her PCP previously and will discontinue chronic use of ibuprofen due to renal function and bleeding. 5. GERD, chronic, present on admission. Stable. -Continue Protonix 40 mg daily. 6. Hypertension, chronic, present on admission. Stable. -Continue amlodipine 10 mg daily and treat underlying pain. 7. Diabetes mellitus type 2, non-insulin using, present on admission. Stable. -Last hemoglobin A1c 6.9% on 10/2018. Repeat hemoglobin A1c pending. -Continue to monitor blood sugars every 6 hours while patient is NPO for surgery. May consider discontinuing ACHS blood glucose monitoring if blood glucose well controlled postoperatively. -Continue carbohydrate consistent diet once able to take in PO intake. 8. Chronic lumbar back pain, present on admission. Stable -Currently under the care of [facility]. -MRI completed on 01/03/2019 finds severe levoscoliosis, spondylosis, facet arthropathy, severe canal stenosis at L2-3, L3-4 and L4-5. Grade 1 anterior listhesis L4 on 5. -The patient self reports taking hydrocodone 7.5 mg every 6 hours for pain, diclofenac 75 mg by mouth twice daily, as well as, self-medication with ibuprofen to 400 mg every 6 hours. -Continue morphine 2-4 mg every 4 hours as needed for moderate to severe pain. Will evaluate effectiveness and escalate as indicated. 9. Bipolar disorder, chronic, present on admission. Stable. -[place] level normal at 0.9. -Continue home lithium carbonate 300 mg by mouth twice daily and fluoxetine 20 mg once daily. 10. Hyperlipidemia, chronic, present on admission. Stable. -Continue fenofibrate 160 mg daily. 11. Acquired hypothyroidism, chronic, present on admission. Stable. -Patient reports hemithyroidectomy related to hypercalcemia. -Continue home levothyroxine 112 mcg daily. Disposition: Patient will likely need alf facility for rehabilitation in 1-2 days after hip has been repaired. Quality VTE Deep Vein Thrombosis/Pulmonary Embolism Present on Admission: No
[2019-02-20] MEDS: LACTATED RINGERS 1,000 ML 42 ML IV (17:05)
[2019-02-20] MEDS: CEFAZOLIN 2 GM/100 ML FROZ.PIGGY IV (17:31)
[2019-02-20 17:35] LABS: Hemoglobin A1C% w Est Avg Glu 6.2 % (4.0-6.0)
[2019-02-20 17:55] LABS: HEMOLYSIS < 15 (0-50); Iron 46 ug/dL (37-170)
[2019-02-20 18:06] LABS: Percent Iron Saturation 9 % (15-50); Total Iron Binding Capacity 506 ug/dL (265-497); Transferrin 425 mg/dL (206-381)
--- NOTE | 2019-02-20 18:22 | SUR.OPER ---
Lateral on padded OR bed. Gel axillary roll. Arms secured on padded armboard with pillow supporting top arm. Padded hip positioner braces x4 - anterior and posterior chest and pelvis. Additional gel pad used anterior pelvis. Gel pad under bottom leg from knee to foot and secured with tape over sheet.
--- NOTE | 2019-02-20 18:45 | SUR.OPER ---
BRIELLE would not let me put in a verbal order from doctor Yusuf in this case. The local administered in this case consisted of 0.5% Ropivicaine 60ml, 4mg Morphine, and 30mg of toradol.
[2019-02-20] MEDS: ROPIVACAINE 0.5% PF 20ML 60 ML, MORPHINE 4 MG, KETOROLAC 30 MG INJ (19:14)
[2019-02-20] MEDS: TRANEXAMIC ACID 1,000 MG VIAL 1000 MG INJ (19:21)
--- NOTE | 2019-02-20 19:56 | PM.OP.1 ---
Operative Date/Time/Diagnoses Date of procedure: 02/20/19 Time of procedure: 18:05 Pre-op diagnosis: Left displaced femoral neck fracture anemia Post-op diagnosis: same Procedure & Clinicians Procedure: 1. Treatment of left femoral neck fracture with endoprosthetic replacement, CPT code 47900 Same procedure as scheduled: Yes Indications: Patient is a 73-year-old female that sustained a left hip fracture in a fall. Patient was seen at the [facility] Emergency Room and found to have a displaced left femoral neck fracture. Orthopedic surgery consult was requested and performed by myself. Patient was admitted to the hospitalist service. Patient was indicated for surgery for the femoral neck fracture with endoprosthesis. The risks benefits and alternatives to the procedure were discussed with the patient which included but were not limited to infection, malunion, nonunion, fracture, persistence of pain, and damage to nerves and blood vessels, blood loss, and progressive arthritis, persistent pain, leg-length discrepancy, symptomatic hardware, DVT, PE, cardio get pulmonary complications and . Patient expressed understanding of the risks and benefits and elected to proceed. Informed consent was signed. Surgeon: Tamara Andrade Nursing Program Director: Fred Goldberg Anesthesia Type: General and Local Operative Notes Findings: Displaced left femoral neck fracture Closure Type: primary Specimen(s): none sent Prosthetic devices, grafts, tissues, transplants, or devices: Femoral stem. Last and Nephew Synergy porous femoral component size 12. Last & Nephew unipolar head 48 mm. Last and Nephew tandem unipolar 12/14 taper sleeve neck +0 Estimated Blood Loss (mL): 200 Blood products transfused: none Tourniquet time (min): 0 Procedure in detail: Patient was seen in the preoperative area. Site of surgery was marked informed consent confirmed. The patient was then brought back to the operating room by the anesthesia team. General anesthesia was administered. Preoperative antibiotics were administered with vancomycin and Ancef. After satisfactory anesthetic the patient was positioned in the lateral decubitus position on the bed. All bony prominences were padded. An axillary roll was placed. The pelvis was positioned secured using the hip Electrician Substation Supervisor positioning device. A tall positioning device was used at the shoulders and a short one at the buttocks. The pubis device was placed anteriorly. An SCD was on the contralateral lower extremity. The left hip was then prepped and draped in the standard sterile fashion using the leg dunn. Formal time-out was performed confirming the patient's side and site of surgery and administration of appropriate preoperative antibiotics and presence of informed consent. All were in agreement. The patient received 1 g of TXA during the case. An approximately 10 cm longitudinal incision was created just posterior to the midline of the greater trochanter. This was carried sharply through the skin and subcutaneous tissues and the Bovie was used down to the fascia martin. A sponge was used for mobilization of the tissue layers to expose the fascia martin anterior and posterior along the incision. The fascia martin was then divided with the Bovie cautery. The gluteus osmin fibers were divided with the fingers proximally. A Charnley retractor was placed with a long-arm posterior in the short-arm anterior opposite the surgeon. Excessive bursa tissue was resected and attention was turned to the posterior aspect of the greater trochanter. The hip was put into slight internal rotation and external rotators were visualized. A Younger retractor was placed under the gluteus medius followed by the Cobra retractor. The piriformis tendon was identified. Piriformis was then divided with the Bovie off of the bone and then tagged with a 2. Ethibond. Piriformis and conjoint external rotator tendon was then released off of the posterior trochanter distally and retracted posteriorly. The capsule was then identified and cleared off using the Younger elevator. The process assistant placed the leg in increased flexion and internal rotation to help expose the capsule. A T-shaped capsulotomy was performed longitudinally along the neck and then along the intertrochanteric line. Each flap was elevated and tagged with a 2. Ethibond suture. These were then retracted to expose the femoral neck and head. The hip was further internally rotated and the fracture was visualized. The lesser trochanter was palpated and a Cobra retractor was placed just distal to the lesser trochanter. Femoral neck cut was made just over 1 fingerbreadth above the lesser trochanter. The femoral head was removed using the corkscrew device and then measured. This fit through a 48 hole. The 48 trial was fit into the acetabulum with a good fit so a 48 head was selected. Some soft tissue was then removed off the lateral femoral neck and the box osteotome was used to open the femoral canal. The T-handled canal finer was then placed down the canal followed by sequential hand reamers to a 12. Next the canal was broached sequentially starting at a 9 and moving up to a secure fit with the 12 broach. Trial neck and head were placed and the hip was reduced. This was noted to fit well and have appropriate similar appearing leg lengths on examination comparing the knees and the heels. The leg was then taken through range of motion and noted to be quite stable with internal rotation over 85? before dislocation. The hip also extended fully without impingement. The hip was then dislocated and the trial components removed. Femoral canal was irrigated and the final implant size 12 synergy porous femoral component was carefully placed and impacted taking care to match the version. This had a secure fit. The size 48 ball and 0 neck sleeve was then assembled and placed on the femoral trunnion and impacted into place. After irrigation of the acetabulum 1 more time and making sure this was clear of soft tissue the hip was reduced. The hip was taken through a range of motion. A displayed good leg length hinduism range of motion and stability characteristics. Showed excellent extension and was stable in the position of sleep and flexion to 90? and internal rotation to 85? before dislocation. Irrigation was completed and the capsule was repaired with the 2. Ethibond sutures tied together. The piriformis and external rotators were repaired back to the greater trochanter with a soft tissue repair utilizing the 2. Ethibond. The fascia martin was closed with interrupted 1. Ethibond sutures. Deep 0 Vicryl sutures were placed followed by subcutaneous closure with 2 O Vicryl. Krzysztof were placed in the skin. An Aquacel dressing was placed. Local anesthetic was infiltrated during the closure. Anesthetic was terminated and the drapes removed and the patient was taken to the PACU in satisfactory condition. There were no immediate complications to this procedure. Routine immediate postoperative x-ray unit x-rays were obtained demonstrating the left hip prosthesis with no evidence of dislocation or fracture. The leg lengths was noted to be shorter on the left side then appreciated intraop with possible mild substance of the prosthesis versus low anterior neck cut. Excellent range of motion was obtained intraop. Will keep the patient toe-touch weight-bearing and watch for any additional subsidence or symptoms. Complications: none Condition: stable Disposition: PACU Plan for aftercare: Toe touch weight-bearing left lower extremity. Start DVT prophylaxis with Lovenox x4 weeks tomorrow. Follow up in [address] Andrade for wound check and staple removal. Will stay toe-touch weight-bearing for 2-4 weeks. Repeat x-rays at follow-up appointment
--- NOTE | 2019-02-20 20:09 | SUR.PHASEI ---
Report called to [facility].
--- NOTE | 2019-02-20 20:29 | SUR.PHASEI ---
Pt tranferred to the floor. O2 sat 96% 1lnc, low 990s on RA. Otherwise VS stable. Drsg checked with RN. IV saline locked.
--- NOTE | 2019-02-20 22:49 | PC.NURSE ---
Addendum entered by Scarlet Curiel R.N. 02/20/19 23:37: Per Dr Andrade, toe touch only for first week, or so. Original Note: 2024- pt arrived back to room 209 from PACU, A/O x4, denies pain at this time. Aquacell to left posterior hip CDI. 97% 1L nc, LS clear, denies SOB. CMS +, PP+, SCD's on. R wrist NS @ 100 Provided water and crackers per request. BT+, denies nausea. Pt with multiple bruises to forearms, which pt reports dont' know from what. Mojica patent and draining clear yellow urine. Bed alarm on. Initialized on 02/20/19 22:41 - END OF NOTE
[2019-02-20 22:56] LABS: Hematocrit 26.4 % (36-46); Hemoglobin 8.4 g/dL (12.0-16.0)
[2019-02-21] VITALS (9 sets, daily range): BP systolic 136–147; BP diastolic 53–76; PULSE 73–85; RESP 14–19; TEMP 36.8–36.9; O2SAT 95–98
[2019-02-21] MEDS: SODIUM CHLORIDE 0.9% 1,000 ML 100 ML IV (00:57)
[2019-02-21] MEDS: CEFAZOLIN 2 GM/100 ML FROZ.PIGGY IV ×2 (01:00→09:38)
--- NOTE | 2019-02-21 02:16 | PC.NURSE ---
Addendum entered by Penny Kumar R.N. 02/21/19 06:32: Found sitting up in bed and had thrown all of covers off bed. States she needs to get up to bathroom but then realized she had catheter in; denies need to have BM. Confused as to what surgery she had done and wondering where spouse/son are. Otherwise oriented to place, self, month and year. Noted new skin tear on left wrist that is bleeding; pressure dressing applied with gauze & Coban. Continues to deny pain. Original Note: Patient is alert and oriented. Breath sounds CTA with RA sat of 97%. HRR. Denies nausea. BT present and abdomen is soft; reports some flatus since return from surgery. Has not had BM since 02/14. Indwelling catheter intact and patent; urine clear yellow. Needing assist to reposition q2h. Dressing to left hip is CDI. States she is having 2/10 pain in lateral upper thigh but declines pain meds; agreeable to having ice pack placed. CMS is intact. Is able to move left leg/foot but not lift it off the bed. Wearing bilateral calf SCD's. Fall risk score is high and bed alarm is activated. Still with bruises bilateral UE with several bandaid dressings which are intact; skin is fragile.
[2019-02-21 07:13] LABS: Hematocrit 24.5 % (36-46); Hemoglobin 7.9 g/dL (12.0-16.0)
--- NOTE | 2019-02-21 09:42 | PM.PN.1 ---
Subjective Date Patient Seen: 02/21/19 Interval history: Ritika Prather is a 73-year-old female with a past medical history significant for systemic lupus erythematous, hypertension, hyperlipidemia, fibromyalgia and chronic low back pain with opiate dependence, GERD, and diabetes mellitus type 2, non-insulin using, who presented to the ED after ground level fall with left hip pain. The patient is resting in bed comfortably. She state she has no pain this morning. She reports that she almost got out of bed this morning before she realized where she was by seeing the DATA ENTRY TECHNICIAN. She has no complaints overall and denies denies headache, sore throat, cough, shortness of breath, chest pain, abdominal pain, nausea, vomiting, fever, chills, diarrhea or constipation. She does endorse mild burning around catheter. She had no previous symptoms, confusion or weakness to suggest she had a UTI. Of note, she reports chronic UTIs until several years ago when they suddenly stopped. She is voiding via Mojica catheter without difficulty. She reports she has not had a bowel movement for over 1 week which is her normal, therefore, a bowel regimen has been implemented and plan to give rectal suppository today. She will start working with physical and occupational therapy today. Exam Vital Signs (past 8 hours): - 02/21/19 02:10 02/21/19 03:55 02/21/19 08:00 Temperature 98.4 F 98.3 F Pulse Rate 73 75 Respiratory Rate 14 19 Blood Pressure 137/56 L 136/70 Pulse Oximetry 97 95 97 02/21/19 08:39 Temperature Pulse Rate Respiratory Rate Blood Pressure Pulse Oximetry 97 Oxygen Delivery Method Room Air Oxygen Flow Rate 0 Narrative Exam Narrative: General: Elderly female lying in bed and in no acute distress, well-developed, well-nourished, appropriately interactive. HEENT: Normocephalic, atraumatic. External ears without defect. Pupils equal, round, and reactive to light. Anicteric sclerae, moist conjunctivae, and no lid lag. Neck: Supple with full range of motion. No jugular venous distension. No lymphadenopathy or thyromegaly. Cardiovascular: Regular rate and rhythm without murmurs, rubs, or gallops appreciated. Pulmonary: Clear to auscultation bilaterally without crackles, wheezes, or rhonchi. Normal respiratory effort without use of accessory muscles. Abdomen: Soft, bowel sounds present, nontender, nondistended. No hepatosplenomegaly or masses appreciated. Extremities: No clubbing, cyanosis, or edema. Left posterior hip with dressing in place C/D/I and without surrounding erythema or edema. Skin: Normal temperature, turgor, and texture; no rash, ulcers, or subcutaneous nodules appreciated. Neurological: Cranial nerves grossly intact. Psychiatric: Normal mood and affect. Alert and oriented to person, place, and time. Objective Labs Result Diagrams: 02/21/19 06:50 02/20/19 06:25 Labs: Laboratory Results - last 24 hr 02/20/19 02/20/19 02/20/19 06:25 06:25 06:25 WBC 9.3 RBC 3.42 L Hgb 8.7 L Hct 27.5 L MCV 80.2 MCH 25.6 L MCHC 31.9 RDW 16.0 H Plt Count 274 Neut % (Auto) 76.8 H Lymph % (Auto) 8.6 L [place] % (Auto) 7.8 Eos % (Auto) 6.0 H Baso % (Auto) 0.8 Neut # (Auto) 7100 H Lymph # (Auto) 800 L [place] # (Auto) 700 Eos # (Auto) 600 H Baso # (Auto) 100 Hemoglobin A1c 6.2 H Iron 46 TIBC 506 H % Saturation 9 L Transferrin 425 H Blood Type Antibody Screen Crossmatch 02/20/19 02/20/19 02/21/19 07:51 22:50 06:50 WBC RBC Hgb 8.4 L 7.9 L Hct 26.4 L 24.5 L MCV MCH MCHC RDW Plt Count Neut % (Auto) Lymph % (Auto) [place] % (Auto) Eos % (Auto) Baso % (Auto) Neut # (Auto) Lymph # (Auto) [place] # (Auto) Eos # (Auto) Baso # (Auto) Hemoglobin A1c Iron TIBC % Saturation Transferrin Blood Type A Positive Antibody Screen Negative Crossmatch See Detail Assessment & Plan Assessment & Plan narrative: Ritika Prather is a 73-year-old female with a past medical history significant for systemic lupus erythematous, hypertension, hyperlipidemia, fibromyalgia and chronic low back pain with opiate dependence, GERD, and diabetes mellitus type 2, non-insulin using, who presented to the ED after ground level fall with left hip pain. 1. Acute left femoral neck fracture with subluxation, status post left hemiarthroplasty, present on admission. Active. -Patient presented after ground level fall x 2 with left hip pain and inability to walk/bear weight. -Left hip x-ray demonstrated a displaced left femoral neck fracture. -Consulted Orthopedic surgery, Dr. Andrade, who performed a left hemiarthroplasty. Continue postoperative and pain management per Orthopedic surgery. We appreciate their time and care of the patient. -Ordered physical and occupational therapy evaluation treatment, pending. -Recommended patient undergo treatment for osteoporosis under the guidance of an rubber stamps and dies supervisor due to her significant comorbidities and after her full recovery from hip fracture. 2. Normocytic anemia, acuity unclear but likely acute on chronic, present on admission. Stable. -Unclear baseline H&H. Likely an acute portion that is secondary to acute hip fracture and dilutional and chronic portion secondary SLE. -Initial hemoglobin 8.9. Postop hemoglobin 8.4 and now 7.9. -Iron studies demonstrated iron deficiency. Ordered Venofer 100 mg IV x1. Will plan to start ferrous gluconate 324 mg daily with vitamin-C 500 mg daily and monitor closely how she tolerates this is patient has moderate to severe constipation at baseline. -Continue to trend hemoglobin hematocrit closely. Transfusion goal hemoglobin < 7.0. 3. Acute kidney injury, on probable CKD stage II , present on admission. Resolved. -Likely acute injury secondary to prerenal azotemia from inadequate fluid intake. -Baseline creatinine of 0.80 to 1.1. Initial creatinine on admission 1.30. eGFR is> 60.0, however, her CrCl is 47.1 which is a more accurate representation of her renal function and places her in stage II CKD. -Continued IV fluids until adequately hydrated then discontinued. -Avoid nephrotoxic agents. Of note, patient is on lithium chronically. -Continue to monitor renal function closely. 4. Chronic systemic lupus erythematous, present on admission. Stable. -Continue hydroxychloroquine 200 mg twice daily. -She has undergone hematological evaluation 6-7 years ago in [place] for bruising on her arms with no definitive findings. Medical record with prior diagnosis of microembolization. -Diclofenac was stopped by her PCP previously and will discontinue ibuprofen due to renal function and bleeding and recommend indefinite cessation in future. 5. GERD, chronic, present on admission. Stable. -Continue Protonix 40 mg daily. 6. Hypertension, chronic, present on admission. Stable. -Continue amlodipine 10 mg daily and treat underlying pain. 7. Diabetes mellitus type 2, non-insulin using, present on admission. Stable. -Last hemoglobin A1c 6.9% on 10/2018. Repeat hemoglobin A1c pending. -Continue to monitor blood sugars every 6 hours while patient is NPO for surgery. May consider discontinuing ACHS blood glucose monitoring if blood glucose well controlled postoperatively. -Continue carbohydrate consistent diet once able to take in PO intake. 8. Chronic lumbar back pain, present on admission. Stable -Currently under the care of [facility]. -MRI completed on 01/03/2019 finds severe levoscoliosis, spondylosis, facet arthropathy, severe canal stenosis at L2-3, L3-4 and L4-5. Grade 1 anterior listhesis L4 on 5. -The patient self reports taking hydrocodone 7.5 mg every 6 hours for pain, diclofenac 75 mg by mouth twice daily, as well as, self-medication with ibuprofen to 400 mg every 6 hours. -Continue morphine 2-4 mg every 4 hours as needed for moderate to severe pain. Will evaluate effectiveness and escalate as indicated. 9. Bipolar disorder, chronic, present on admission. Stable. -[place] level normal at 0.9. -Continue home lithium carbonate 300 mg by mouth twice daily and fluoxetine 20 mg once daily. 10. Hyperlipidemia, chronic, present on admission. Stable. -Continue fenofibrate 160 mg daily. 11. Acquired hypothyroidism, chronic, present on admission. Stable. -Patient reports thyroidectomy for what sounds like thyroid goiter and partial parathyroidectomy related to hypercalcemia. -Continue home levothyroxine 112 mcg daily. Disposition: Patient will likely need [facility] facility in the next 1-2 days for continue rehabilitation versus home with home health. Quality VTE Deep Vein Thrombosis/Pulmonary Embolism Present on Admission: No
[2019-02-21] MEDS: ENOXAPARIN 40 MG/0.4 ML SYRINGE SUBCUT (09:47)
[2019-02-21] MEDS: LEVOTHYROXINE 112 MCG TABLET PO (09:48)
[2019-02-21] MEDS: AMLODIPINE 5 MG TABLET 10 MG PO (09:48)
[2019-02-21] MEDS: FLUoxetine 20 MG CAPSULE PO (09:48)
[2019-02-21] MEDS: PANTOPRAZOLE 40 MG VIAL IV (09:48)
[2019-02-21] MEDS: HYDROXYCHLOROQUINE 200 MG TABLET PO ×2 (09:48→20:22)
[2019-02-21] MEDS: LITHIUM 300 MG IR CAPSULE PO ×2 (09:48→20:22)
[2019-02-21] MEDS: FENOFIBRATE 160 MG TABLET PO (09:48)
[2019-02-21] MEDS: OXYCODONE IR 5 MG TABLET PO ×2 (09:48→14:28)
[2019-02-21 09:57] LABS: BUN Creatinine Ratio 21.1 (6-22); Blood Urea Nitrogen 19 mg/dL (7-17); Calcium 9.5 mg/dL (8.4-10.2); Carbon Dioxide 20 mmol/L (22-32); Chloride 109 mmol/L (98-107); Estimated Glomerular Filt Rate > 60.0 mL/min (>60); Glucose 155 mg/dL (80-110); HEMOLYSIS < 15 (0-50); Potassium 4.5 mmol/L (3.4-5.1); Sodium 137 mmol/L (137-145)
--- NOTE | 2019-02-21 10:01 | P.PN_ITS ---
Subjective Date Patient Seen: 02/21/19 Interval history: Ritika Prather is a 73-year-old female with a past medical history significant for systemic lupus erythematous, hypertension, hyperlipidemia, fibromyalgia and chronic low back pain with opiate dependence, GERD, and diabetes mellitus type 2, non-insulin using, who presented to the ED after ground level fall with left hip pain. The patient is resting in bed comfortably. She state she has no pain this morning. She reports that she almost got out of bed this morning before she realized where she was by seeing the TREE CLIMBER. She has no complaints overall and denies denies headache, sore throat, cough, shortness of breath, chest pain, abdominal pain, nausea, vomiting, fever, chills, diarrhea or constipation. She does endorse mild burning around catheter. She had no previous symptoms, confusion or weakness to suggest she had a UTI. Of note, she reports chronic UTIs until several years ago when they suddenly stopped. She is voiding via [place] catheter without difficulty. She reports she has not had a bowel movement for over 1 week which is her normal, therefore, a bowel regimen has been implemented and plan to give rectal suppository today. She will start working with physical and occupational therapy today. Exam Vital Signs (past 8 hours): - 02/21/19 02:10 02/21/19 03:55 02/21/19 08:00 Temperature 98.4 F 98.3 F Pulse Rate 73 75 Respiratory Rate 14 19 Blood Pressure 137/56 L 136/70 Pulse Oximetry 97 95 97 02/21/19 08:39 Temperature Pulse Rate Respiratory Rate Blood Pressure Pulse Oximetry 97 Oxygen Delivery Method Room Air Oxygen Flow Rate 0 Narrative Exam Narrative: General: Elderly female lying in bed and in no acute distress, well-developed, well-nourished, appropriately interactive. HEENT: Normocephalic, atraumatic. External ears without defect. Pupils equal, round, and reactive to light. Anicteric sclerae, moist conjunctivae, and no lid lag. Neck: Supple with full range of motion. No jugular venous distension. No lymphadenopathy or thyromegaly. Cardiovascular: Regular rate and rhythm without murmurs, rubs, or gallops appreciated. Pulmonary: Clear to auscultation bilaterally without crackles, wheezes, or rhonchi. Normal respiratory effort without use of accessory muscles. Abdomen: Soft, bowel sounds present, nontender, nondistended. No hepatosplenomegaly or masses appreciated. Extremities: No clubbing, cyanosis, or edema. Left posterior hip with dressing in place C/D/I and without surrounding erythema or edema. Skin: Normal temperature, turgor, and texture; no rash, ulcers, or subcutaneous nodules appreciated. Neurological: Cranial nerves grossly intact. Psychiatric: Normal mood and affect. Alert and oriented to person, place, and time. Objective Labs Result Diagrams: 02/21/19 06:50 02/20/19 06:25 Labs: Laboratory Results - last 24 hr 02/20/19 02/20/19 02/20/19 06:25 06:25 06:25 WBC 9.3 RBC 3.42 L Hgb 8.7 L Hct 27.5 L MCV 80.2 MCH 25.6 L MCHC 31.9 RDW 16.0 H Plt Count 274 Neut % (Auto) 76.8 H Lymph % (Auto) 8.6 L [place] % (Auto) 7.8 Eos % (Auto) 6.0 H Baso % (Auto) 0.8 Neut # (Auto) 7100 H Lymph # (Auto) 800 L [place] # (Auto) 700 Eos # (Auto) 600 H Baso # (Auto) 100 Hemoglobin A1c 6.2 H Iron 46 TIBC 506 H % Saturation 9 L Transferrin 425 H Blood Type Antibody Screen Crossmatch 02/20/19 02/20/19 02/21/19 07:51 22:50 06:50 WBC RBC Hgb 8.4 L 7.9 L Hct 26.4 L 24.5 L MCV MCH MCHC RDW Plt Count Neut % (Auto) Lymph % (Auto) [place] % (Auto) Eos % (Auto) Baso % (Auto) Neut # (Auto) Lymph # (Auto) [place] # (Auto) Eos # (Auto) Baso # (Auto) Hemoglobin A1c Iron TIBC % Saturation Transferrin Blood Type A Positive Antibody Screen Negative Crossmatch See Detail Assessment & Plan Assessment & Plan narrative: Ritika Prather is a 73-year-old female with a past medical history significant for systemic lupus erythematous, hypertension, hyperlipidemia, fibromyalgia and chronic low back pain with opiate dependence, GERD, and diabetes mellitus type 2, non-insulin using, who presented to the ED after ground level fall with left hip pain. 1. Acute left femoral neck fracture with subluxation, status post left hemiarthroplasty, present on admission. Active. -Patient presented after ground level fall x 2 with left hip pain and inability to walk/bear weight. -Left hip x-ray demonstrated a displaced left femoral neck fracture. -Consulted Orthopedic surgery, Dr. Andrade, who performed a left hem iarthroplasty. Continue postoperative and pain management per Orthopedic surgery. We appreciate their time and care of the patient. -Ordered physical and occupational therapy evaluation treatment, pending. -Recommended patient undergo treatment for osteoporosis under the guidance of an security professional due to her significant comorbidities and after her full recovery from hip fracture. 2. Normocytic anemia, acuity unclear but likely acute on chronic, present on admission. Stable. -Unclear baseline H&H. Likely an acute portion that is secondary to acute hip fracture and dilutional and chronic portion secondary SLE. -Initial hemoglobin 8.9. Postop hemoglobin 8.4 and now 7.9. -Iron studies demonstrated iron deficiency. Ordered Venofer 100 mg IV x1. Will plan to start ferrous gluconate 324 mg daily with vitamin-C 500 mg daily and monitor closely how she tolerates this is patient has moderate to severe constipation at baseline. -Continue to trend hemoglobin hematocrit closely. Transfusion goal hemoglobin < 7.0. 3. Acute kidney injury, on probable CKD stage II , present on admission. Resolved. -Likely acute injury secondary to prerenal azotemia from inadequate fluid intake. -Baseline creatinine of 0.80 to 1.1. Initial creatinine on admission 1.30. eGFR is> 60.0, however, her CrCl is 47.1 which is a more accurate representation of her renal function and places her in stage II CKD. -Continued IV fluids until adequately hydrated then discontinued. -Avoid nephrotoxic agents. Of note, patient is on lithium chronically. -Continue to monitor renal function closely. 4. Chronic systemic lupus erythematous, present on admission. Stable. -Continue hydroxychloroquine 200 mg twice daily. -She has undergone hematological evaluation 6-7 years ago in [place] for bruising on her arms with no definitive findings. Medical record with prior diagnosis of microembolization. -Diclofenac was stopped by her PCP previously and will discontinue ibuprofen due to renal function and bleeding and recommend indefinite cessation in future. 5. GERD, chronic, present on admission. Stable. -Continue Protonix 40 mg daily. 6. Hypertension, chronic, present on admission. Stable. -Continue amlodipine 10 mg daily and treat underlying pain. 7. Diabetes mellitus type 2, non-insulin using, present on admission. Stable. -Last hemoglobin A1c 6.9% on 10/2018. Repeat hemoglobin A1c pending. -Continue to monitor blood sugars every 6 hours while patient is NPO for surgery. May consider discontinuing ACHS blood glucose monitoring if blood glucose well controlled postoperatively. -Continue carbohydrate consistent diet once able to take in PO intake. 8. Chronic lumbar back pain, present on admission. Stable -Currently under the care of [facility]. -MRI completed on 01/03/2019 finds severe levoscoliosis, spondylosis, facet arthropathy, severe canal stenosis at L2-3, L3-4 and L4-5. Grade 1 anterior listhesis L4 on 5. -The patient self reports taking hydrocodone 7.5 mg every 6 hours for pain, diclofenac 75 mg by mouth twice daily, as well as, self-medication with ibuprofen to 400 mg every 6 hours. -Continue morphine 2-4 mg every 4 hours as needed for moderate to severe pain. Will evaluate effectiveness and escalate as indicated. 9. Bipolar disorder, chronic, present on admission. Stable. -[place] level normal at 0.9. -Continue home lithium carbonate 300 mg by mouth twice daily and fluoxetine 20 mg once daily. 10. Hyperlipidemia, chronic, present on admission. Stable. -Continue fenofibrate 160 mg daily. 11. Acquired hypothyroidism, chronic, present on admission. Stable. -Patient reports thyroidectomy for what sounds like thyroid goiter and partial parathyroidectomy related to hypercalcemia. -Continue home levothyroxine 112 mcg daily. Disposition: Patient will likely need intermediate facility in the next 1-2 days for continue rehabilitation versus home with home health. Quality VTE Deep Vein Thrombosis/Pulmonary Embolism Present on Admission: No
--- NOTE | 2019-02-21 10:12 | PM.PNPO.1 ---
Subjective Date Patient Seen: 02/21/19 Time Patient Seen: 10:13 Interval history: Hospital day 3, postop day 1 following left hip femoral neck fracture with ORIF hemiarthroplasty by Dr. Andrade. Patient remained stable postoperatively. She is to be toe-touch weight-bearing to left leg for 2-4 weeks. She has not had physical therapy yet. Receiving morphine 4 mg IV. Also on Lovenox. Exam Vital Signs (past 8 hours): - 02/21/19 03:55 02/21/19 08:00 02/21/19 08:39 Temperature 98.4 F 98.3 F Pulse Rate 73 75 Respiratory Rate 14 19 Blood Pressure 137/56 L 136/70 Pulse Oximetry 95 97 97 Oxygen Delivery Method Room Air Oxygen Flow Rate 0 Narrative Exam Narrative: Alert and responsive in no acute distress lying in bed. Legs. Aquacel dressing to left hip is dry without drainage or inflammation. No calf pain or swelling. Pulses symmetrical. Objective Labs Result Diagrams: 02/21/19 06:50 02/21/19 06:50 Labs: Laboratory Results - last 24 hr 02/20/19 02/20/19 02/20/19 06:25 06:25 06:25 WBC 9.3 RBC 3.42 L Hgb 8.7 L Hct 27.5 L MCV 80.2 MCH 25.6 L MCHC 31.9 RDW 16.0 H Plt Count 274 Neut % (Auto) 76.8 H Lymph % (Auto) 8.6 L [place] % (Auto) 7.8 Eos % (Auto) 6.0 H Baso % (Auto) 0.8 Neut # (Auto) 7100 H Lymph # (Auto) 800 L [place] # (Auto) 700 Eos # (Auto) 600 H Baso # (Auto) 100 Sodium Potassium Chloride Carbon Dioxide BUN Creatinine Estimated GFR BUN/Creatinine Ratio Glucose Hemoglobin A1c 6.2 H Calcium Iron 46 TIBC 506 H % Saturation 9 L Transferrin 425 H Blood Type Antibody Screen Crossmatch 02/20/19 02/20/19 02/21/19 07:51 22:50 06:50 WBC RBC Hgb 8.4 L 7.9 L Hct 26.4 L 24.5 L MCV MCH MCHC RDW Plt Count Neut % (Auto) Lymph % (Auto) [place] % (Auto) Eos % (Auto) Baso % (Auto) Neut # (Auto) Lymph # (Auto) [place] # (Auto) Eos # (Auto) Baso # (Auto) Sodium Potassium Chloride Carbon Dioxide BUN Creatinine Estimated GFR BUN/Creatinine Ratio Glucose Hemoglobin A1c Calcium Iron TIBC % Saturation Transferrin Blood Type A Positive Antibody Screen Negative Crossmatch See Detail 02/21/19 06:50 WBC RBC Hgb Hct MCV MCH MCHC RDW Plt Count Neut % (Auto) Lymph % (Auto) [place] % (Auto) Eos % (Auto) Baso % (Auto) Neut # (Auto) Lymph # (Auto) [place] # (Auto) Eos # (Auto) Baso # (Auto) Sodium 137 Potassium 4.5 Chloride 109 H Carbon Dioxide 20 L BUN 19 H Creatinine 0.90 Estimated GFR > 60.0 BUN/Creatinine Ratio 21.1 Glucose 155 H Hemoglobin A1c Calcium 9.5 Iron TIBC % Saturation Transferrin Blood Type Antibody Screen Crossmatch Assessment & Plan Post-op Postoperative Procedures Operation Date: 02/20/19 15:45 Actual Procedures Side Surgeon p Hip Hemiarthroplasty Left Tamara Andrade MD Plan: Will have the patient begin working with the physical therapy today. produce department manager to evaluate patient for discharge options. Patient does have postoperative anemia. Recheck H&H in the morning. Patient also being followed by hospitalist. Plan for Lovenox daily x4 weeks postop. Patient will be toe-touch weight-bearing right left leg. Needs follow-up appointment with Dr. Andrade 2 weeks postop. Quality VTE Deep Vein Thrombosis/Pulmonary Embolism Present on Admission: No
[2019-02-21] MEDS: IRON SUCROSE 100 MG in SODIUM CHLORIDE 0.9% 100 ML 420 ML IV (11:22)
[2019-02-21] MEDS: ASCORBIC ACID 500 MG TABLET PO (11:28)
--- NOTE | 2019-02-21 11:47 | PT.IIE ---
Current Diagnoses Anemia, unspecified (02/19/19) Fracture of unspecified part of neck of left femur, initial encounter for closed fracture (02/19/19) Surgery Performed Operation Date: 02/20/19 15:45 Actual Procedures p Hip Hemiarthroplasty(Left) - Tamara Andrade MD Surgical History (Last Reviewed 02/20/19 @ 09:05 by Tamara Andrade MD) History of bilateral cataract extraction (Acute) History of bladder suspension procedure (Acute) History of partial thyroidectomy (Acute) Status post tubal ligation Status post vaginal hysterectomy Medical History (Last Reviewed 02/20/19 @ 09:05 by Tamara Andrade MD) Bruises easily (Acute) Chronic low back pain (Acute) Constipation, chronic (Acute) Diet-controlled diabetes mellitus (Acute) Fibromyalgia (Acute) GERD (gastroesophageal reflux disease) (Acute) Hyperlipidemia (Acute) Hypertension (Acute) Incontinence (Acute) Lupus (systemic lupus erythematosus) (Acute) Migraines (Acute) Physical Therapy Inpatient Evaluation/Re-Eval M1 PT/OT-IP Prior Functional Status Start: 02/20/19 08:28 Freq: NEEDED Status: Active Protocol: Document 02/21/19 11:18 AW (Rec: 02/21/19 11:47 AW [id number]) Medical Review Prior Functional Status Medical History Reviewed Yes Diet/Fluid Consistency Regular Communication Pt has amiable affect and is able to make needs known. Mobility and Gait Pt reports independence with all functional mobility. Activities of Daily Living and IADL's Independent. Social History Household Members spouse Living Arrangements Apartment/Condo Number of Floors (Floors) One Floor Number of Stairs To Enter/Railing? 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 M1 PT/OT-IP Prior Functional Status Start: 02/20/19 08:29 Freq: NEEDED Status: Active Protocol: Document 02/21/19 11:18 AW (Rec: 02/21/19 11:47 AW [id number]) M2 PT-IP Current Condition Start: 02/20/19 08:28 Freq: NEEDED Status: Active Protocol: Document 02/21/19 11:18 AW (Rec: 02/21/19 11:47 AW [id number]) Physical Therapy Current Condition Current Condition Evaluation Date 02/21/19 Treatment Diagnosis L femoral neck fracture s/p ORIF, DESI, impaired transfers and gait Weight Bearing Status Weight Bearing Status Touch Down Weight Bearing M3 PT-IP Subjective Start: 02/20/19 08:28 Freq: NEEDED Status: Active Protocol: Document 02/21/19 11:18 AW (Rec: 02/21/19 11:47 AW [id number]) Subjective Physical Therapy Visit Type Type Initial Evaluation Visit Start Time 10:28 Visit Stop Time 11:09 Total Visit Minutes 41 Number of DIRECTOR OF CARDIOLOGY SERVICE LINE Visits 0 Physical Therapy Visit Comments Patient Comments Pt agreeable to participate in PT evaluation. Patient Goals Upon initial contact, pt expressed desire to discharge to home. After attempting transfer to chair with TTWB, pt stated she would prefer discharge to SNF rehab. Therapy Pain Assessment Pain When Pain Assessed During Mobility Pain Present Pain Present Pain Reported Location left hip Intensity 3 Scale Used Numeric (1 - 10) Description Burning M4 PT-IP Mobility and Gait Start: 02/20/19 08:28 Freq: NEEDED Status: Active Protocol: Document 02/21/19 11:18 AW (Rec: 02/21/19 11:47 AW [id number]) PT-Bed Mobility Assessment Supine to Sit Supine to Sit Minimal Assistance Sit to Supine Sit to Supine Minimal Assistance Scooting Scooting to Edge of Bed Standby Assistance PT-Transfer Assessment Sit to and From Stand Sit to and from Stand Moderate Assistance Equipment Transfer Assistive Device Gait Belt Front Wheeled Walker Orthotic/Prosthetic Devices or Brace: No Transfers Transfer Destination Bed Transfer Technique Pt attempted stand pivot transfer with TTWB LLE, but was unable to complete Transfer Ability Level of Assist Maximum Assistance Comments Mobility Comments Pt required verbal cues and visual demonstration for stand pivot transfer technique. Pt able to stand with TTWB. She initiated transfer, but had difficulty coordinating pivot and was unable to complete the transfer. PT-Balance Assessment Sitting Balance and Reactions Static Sitting Balance Ability Good Dynamic Sitting Balance Ability Good Standing Balance and Reactions Static Standing Balance Ability Fair Dynamic Standing Balance Ability Fair M5 PT-IP Objective Assessments Start: 02/20/19 08:28 Freq: NEEDED Status: Active Protocol: Document 02/21/19 11:18 AW (Rec: 02/21/19 11:47 AW [id number]) Orientation Orientation/Cognition Level of Alertness Alert Orientation Name Age Month Day of Week Situation Language Function Ability No Deficits Noted Safety Awareness Understands Safety Issues Memory Description No Deficits Noted Gross Range of Motion Upper Extremity ROM Assessment Within Functional Limits Lower Extremity ROM Assessment Left Impaired Strength Upper Extremity Strength Assessment Within Functional Limits Lower Extremity Strength Assessment Left Impaired Coordination Assessment Gross Coordination Gross Coordination WNL Sensation Assessment Sensation Gross Sensation WNL Light Touch Intact M6 PT-IP Treatment Start: 02/20/19 08:28 Freq: NEEDED Status: Active Protocol: Document 02/21/19 11:18 AW (Rec: 02/21/19 11:47 AW [id number]) Physical Therapy Treatment Education Education Provided Weight Bearing Status Safety M7 PT-IP Assessment and Plan Start: 02/20/19 08:28 Freq: NEEDED Status: Active Protocol: Document 02/21/19 11:18 AW (Rec: 02/21/19 11:47 AW [id number]) PT Summary Assessment and Plan Potential Rehabilitation Potential Good Status of Condition at Evaluation Stable Summary Impairments Pain ROM Strength Balance Bed Mobility Transfers Gait Activity Tolerance Assessment Summary Pt is a 73yo woman seen on POD1 following ORIF of L femoral neck fracture resulting from GLF. She has post-op weightbearing restriction of TTWB LLE. Prior to injury, pt was independent with all functional mobility and ADL's. She and her are both retired; he is available and able to assist as needed. Currently, pt requires min A for bed mobility, mod A for sit to stand, and is unable to complete stand pivot transfer to bedside chair due to difficulty with TTWB LLE. Pt's functional status is well below baseline function. PT recommendation is for SNF rehab/daily therapy for anticipated safe return to home environment. Discussed recommendation with pt who verbally agreed. Goals Bed Mobility Goal Standby Assistance Transfer Goal Standby Assistance Gait Goal Contact Guard Assistance Gait Distance 50 feet Days to Meet Goals 3 Frequency of Treatment Frequency Of Treatment Twice a Day Treatment Plan Physical Therapy Treatment Plan Bed Mobility Training Transfer Training Gait Training Therapeutic Exercise Balance Retraining Post Op Education Discharge Planning Hot or Cold Pack Neuromuscular Re-ed Coordination Retraining Manual Therapy Recommendations To Nursing Amount of Assist Needed 1 Person Assist Discharge Recommendations PT Discharge Recommendations SNF Rehab
[2019-02-21] MEDS: DOCUSATE 100 MG CAPSULE PO (11:52)
--- NOTE | 2019-02-21 14:02 | CM.DANOTE ---
Discharge Planning/Care Management DCP: assessment: case received yesterday and discussed in Team Rounds. Pt is a 73 year old female who admitted night of 02/19 after a fall and discovery of hip fracture. Admitted to hospitalist team with orthopedic team consulting. Pt was in surgery yesterday for a repair of the hip. Decision made to see pt today to continue the dcp assessment process. Advanced directive, confirm from FAMILY Start: 02/19/19 21:01 Freq: Q24H Status: Active Protocol: Document 02/20/19 21:01 MLA (Rec: 02/20/19 23:55 MLA [id number]) Advance Directive, confirm on record Time 20:45 Person contacted pt Copy received No CM Discharge Assessment Start: 02/21/19 14:01 Freq: Status: Active Protocol: Document 02/21/19 14:01 ITV (Rec: 02/21/19 14:02 ITV [id number]) Discharge Planning Assessment Advance Directives? No History Provided By Patient Family Member Medical Record Prior Living Arrangements Apartment/Condo Household Members spouse Whiteboard Updated in Patient Room with Yes name and ext. # of Papier Mache Molder Review Status In Process
--- NOTE | 2019-02-21 14:05 | CM.DPC ---
DCP: continued: met with pt today as planned after discussion in Team Rounds. PT Fatimah did see pt this morning and cautioned that, while she wanted home setting, she was likely to need rehab first. OT order was obtained. Admission status: confirmed INPT: JESUS Beltran. Payer: [facility] Pt was found just finishing her second session with PT Fatimah. Pt's and her daughter in law were at bedside. Pt says she very much agrees with Fatimah that she needs rehab but it quickly becomes clear that she did not understand this to be in a skilled nursing setting. Further discussion was held with pt identifying her primary goal for home setting, her 's assist (? perhaps HH). DIL is deferring to her inlaws but does note quietly that pt was not doing particularily well prior to the fall and her may not have the ability to care for her. He seems a bit overwhelmed at this point. Did note that Dr. Mallory had indicated pt may be ready for a d/c tomorrow. Pt did agree to consider snf as a plan B: SNF choice list: discussed: including specifics of [facility] Medicare. Pt would like her name on [facility] list/referral given to Christen who says they are able to take this insurance and she will proceed with snf preauthorization process. She cautions that a bed will not be available until 02/23 unless an unexpected d/c occurs prior to this. As this is a PLAN B will not do more at this point. This is first day pt has had therapy and she may be ready for the home setting at time of d/c. DCP team to continue to follow tomorrow. IF SNF: will need [facility]. OT is now working with pt and caregiver training is being provided to .
--- NOTE | 2019-02-21 17:37 | PT.IPTN ---
Current Diagnoses Anemia, unspecified (02/19/19) Fracture of unspecified part of neck of left femur, initial encounter for closed fracture (02/19/19) Surgery Performed Operation Date: 02/20/19 15:45 Actual Procedures p Hip Hemiarthroplasty(Left) - Tamara Andrade MD Physical Therapy Treatment Note M2 PT-IP Current Condition Start: 02/20/19 08:28 Freq: NEEDED Status: Active Protocol: Document 02/21/19 11:18 AW (Rec: 02/21/19 11:47 AW [id number]) Physical Therapy Current Condition Current Condition Evaluation Date 02/21/19 Treatment Diagnosis L femoral neck fracture s/p ORIF, DESI, impaired transfers and gait Weight Bearing Status Weight Bearing Status Touch Down Weight Bearing M3 PT-IP Subjective Start: 02/20/19 08:28 Freq: NEEDED Status: Active Protocol: Document 02/21/19 17:20 AW (Rec: 02/21/19 17:35 AW [id number]) Subjective Physical Therapy Visit Type Type Treatment Note Visit Start Time 13:47 Visit Stop Time 14:35 Total Visit Minutes 48 Number of CHEMICAL LAB SUPERVISOR Visits 0 Physical Therapy Visit Comments Patient Comments Pt visiting with family ( spouse, grandchildren, son, dtr in law) but amenable to working with PT. Therapy Pain Assessment Pain When Pain Assessed During Mobility Pain Present Pain Present Pain Reported Location left hip Intensity 3 Scale Used Numeric (1 - 10) Description Burning Pain Management Techniques Apply Cold M4 PT-IP Mobility and Gait Start: 02/20/19 08:28 Freq: NEEDED Status: Active Protocol: Document 02/21/19 17:20 AW (Rec: 02/21/19 17:35 AW [id number]) PT-Bed Mobility Assessment Supine to Sit Supine to Sit Moderate Assistance Sit to Supine Sit to Supine Moderate Assistance Scooting Scooting to Edge of Bed Minimal Assistance Scooting Up and Down in Bed Minimal Assistance PT-Transfer Assessment Sit to and From Stand Sit to and from Stand Moderate Assistance Equipment Transfer Assistive Device Gait Belt Front Wheeled Walker Orthotic/Prosthetic Devices or Brace: No Transfers Transfer Destination Bed Chair Transfer Technique Stand Pivot Transfer Ability Level of Assist Maximum Assistance Comments Mobility Comments Pt has a high bed at home. Hospital bed was flattened and raised to simulate home conditions. Pt had increased difficulty transferring to sitting EOB. Pt able to stand pivot bed <> chair with max A x 2. Therapist provided demonstration, frequent verbal cues, and tactile cues for maintenance of TTWB LLE. PT-Balance Assessment Sitting Balance and Reactions Static Sitting Balance Ability Good Dynamic Sitting Balance Ability Good Standing Balance and Reactions Static Standing Balance Ability Fair Dynamic Standing Balance Ability Fair M5 PT-IP Objective Assessments Start: 02/20/19 08:28 Freq: NEEDED Status: Active Protocol: Document 02/21/19 11:18 AW (Rec: 02/21/19 11:47 AW [id number]) Orientation Orientation/Cognition Level of Alertness Alert Orientation Name Age Month Day of Week Situation Language Function Ability No Deficits Noted Safety Awareness Understands Safety Issues Memory Description No Deficits Noted Gross Range of Motion Upper Extremity ROM Assessment Within Functional Limits Lower Extremity ROM Assessment Left Impaired Strength Upper Extremity Strength Assessment Within Functional Limits Lower Extremity Strength Assessment Left Impaired Coordination Assessment Gross Coordination Gross Coordination WNL Sensation Assessment Sensation Gross Sensation WNL Light Touch Intact M6 PT-IP Treatment Start: 02/20/19 08:28 Freq: NEEDED Status: Active Protocol: Document 02/21/19 17:20 AW (Rec: 02/21/19 17:35 AW [id number]) Physical Therapy Treatment Education Education Provided Weight Bearing Status Safety M7 PT-IP Assessment and Plan Start: 02/20/19 08:28 Freq: NEEDED Status: Active Protocol: Document 02/21/19 17:20 AW (Rec: 02/21/19 17:35 AW [id number]) PT Summary Assessment and Plan Potential Rehabilitation Potential Good Status of Condition at Evaluation Stable Summary Impairments Pain ROM Strength Balance Bed Mobility Transfers Gait Activity Tolerance Assessment Summary Pt seen with family in room this afternoon for transfer training and reinforcement of TTWB restrictions. Pt required max A x 2 for stand pivot transfer bed > chair and chair > bed. Discussed PT recommendation for SNF rehab stay with patient and family with all in agreement to pursue SNF rehab at discharge. Pt would require a level of assist at home which family would be unable to provide, increasing the likelihood of further injury. Goals Bed Mobility Goal Standby Assistance Transfer Goal Standby Assistance Gait Goal Contact Guard Assistance Gait Distance 50 feet Days to Meet Goals 10 Frequency of Treatment Frequency Of Treatment Twice a Day Treatment Plan Physical Therapy Treatment Plan Bed Mobility Training Transfer Training Gait Training Therapeutic Exercise Balance Retraining Post Op Education Discharge Planning Hot or Cold Pack Neuromuscular Re-ed Coordination Retraining Manual Therapy Recommendations To Nursing Amount of Assist Needed PT/OT Assist Only Discharge Recommendations PT Discharge Recommendations SNF Rehab
--- NOTE | 2019-02-21 18:55 | OT.IP.EVAL ---
Current Diagnoses Anemia, unspecified (02/19/19) Fracture of unspecified part of neck of left femur, initial encounter for closed fracture (02/19/19) Surgery Performed Operation Date: 02/20/19 15:45 Actual Procedures p Hip Hemiarthroplasty(Left) - Tamara Andrade MD Past Medical History (Last Reviewed 02/20/19 @ 09:05 by Tamara Andrade MD) Bruises easily (Acute) Chronic low back pain (Acute) Constipation, chronic (Acute) Diet-controlled diabetes mellitus (Acute) Fibromyalgia (Acute) GERD (gastroesophageal reflux disease) (Acute) Hyperlipidemia (Acute) Hypertension (Acute) Incontinence (Acute) Lupus (systemic lupus erythematosus) (Acute) Migraines (Acute) Surgical History (Last Reviewed 02/20/19 @ 09:05 by Tamara Andrade MD) History of bilateral cataract extraction (Acute) History of bladder suspension procedure (Acute) History of partial thyroidectomy (Acute) Status post tubal ligation Status post vaginal hysterectomy Occupational Therapy Inpatient Evaluation/Re-Eval M1 PT/OT-IP Prior Functional Status Start: 02/20/19 08:29 Freq: NEEDED Status: Active Protocol: Document 02/21/19 13:49 [facility] (Rec: 02/21/19 18:55 [facility] [id number]) Medical Review Prior Functional Status Medical History Reviewed Yes Diet/Fluid Consistency Regular Communication Pt has amiable affect and is able to make needs known. Mobility and Gait Pt reports independence with all functional mobility. Activities of Daily Living and IADL's Independent with increased time. Prior Functional Level (Other details) Pt has had 2 falls in the past month and multiple near falls per family. Social History Household Members spouse Living Arrangements Apartment/Condo Number of Floors (Floors) One Floor Number of Stairs To Enter/Railing? 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 M2 OT-IP Current Condition Start: 02/20/19 08:29 Freq: Status: Active Protocol: Document 02/21/19 13:49 [facility] (Rec: 02/21/19 18:55 [facility] [id number]) Occupational Therapy Current Condition Current Condition Evaluation Date 02/21/19 Treatment Diagnosis Left hip fracture, decreased functional mobilty and self care Diagnosis Onset Date 02/19/19 Weight Bearing Status Weight Bearing Status Touch Down Weight Bearing Allowed Weight Bearing Amount (enter % TTWB for LLE or #) (%) M3 OT- IP Subjective and Pain Start: 02/20/19 08:29 Freq: Status: Active Protocol: Document 02/21/19 13:49 [facility] (Rec: 02/21/19 18:55 [facility] [id number]) OT- Subjective Occupational Therapy Visit Type Type Initial Evaluation Visit Start Time 13:49 Visit Stop Time 14:43 Total Visit Minutes 57 Occupational Therapy Visit Comments Patient Comments Pt agreeable to get up , PT also present during OT eval due to pt needing extensive assist for mobility needs. Patient/Caregiver Goals Pt's family wanting pt to go to skilled rehab. Pt now realizing best to go to skilled rehab prior to going home. OT Pain Assessment Pain When Pain Assessed At Rest Pain Present Pain Present Pain Reported Location left hip Intensity 3 M4 OT- IP ADL's Start: 02/20/19 08:29 Freq: Status: Active Protocol: Document 02/21/19 13:49 [facility] (Rec: 02/21/19 18:55 [facility] [id number]) OT GWB-[place]-Vvremvd General Evaluation Self-Feeding Ability Independent OT ADL-Grooming Comments OT Grooming Comments Pt able ot wash her face after set-up of wash cloth. OT ADL-Dressing General Eval Lower Body Dressing Ability Maximum Assistance Areas Needing Assistance Socks OT ADL-Toileting Comments OT Toileting Comments Pt not needing to use the toilet at this time. Pt states has BSC at home and has to use the toilet multiple times at night. M5 OT- IP IADL's Start: 02/20/19 08:29 Freq: Status: Active Protocol: Document 02/21/19 13:49 [facility] (Rec: 02/21/19 18:55 [facility] [id number]) OT-Instrumental Activities of Daily Living Home Safety Awareness Home Safety Comments At this time due to pt's limited mobility, will need assist for all IADL needs. M6 OT- IP Functional Cognition Start: 02/20/19 08:29 Freq: Status: Active Protocol: Document 02/21/19 13:49 [facility] (Rec: 02/21/19 18:55 [facility] [id number]) Cognitive Factors Limiting Selfcare Function Cognitive Ability Level of Alertness Alert Patient Orientation Name Age Birthday Month Date Year Day of Week Place Situation Attention Span Ability Capable of Focused Attention Capable of Sustained Attention Ability to Follow Commands Able to Follow One Step Commands Memory Description No Deficits Noted Cognitive Comments Cognitive Assessment Comments Pt needing step by step vc for safety with TTWB, bed mobility , and transfer. OT- Vision and Hearing OT- Hearing Assessment OT- Hearing Assessment WFL M7 OT- IP Mobility and Balance Start: 02/20/19 08:29 Freq: Status: Active Protocol: Document 02/21/19 13:49 [facility] (Rec: 02/21/19 18:55 [facility] [id number]) OT- Bed Mobility Assessment Supine to Sit Supine to Sit Assist Moderate Assistance 1 Person Assistance Sit to Supine Sit to Supine Assist Moderate Assistance 2 Person Assistance Scooting Scooting to Edge of Bed Moderate Assistance 1 Person Assistance OT-Transfer Assessment Sit to and From Stand Sit to and from Stand Moderate Assistance Transfers Transfer Ability Maximum Assistance 2 Person Assistance Technique Transfer Destination Bed Chair Devices Transfer Assistive Devices Gait Belt Front Wheeled Walker Comments Mobility Comments MODA/MAX A x 2 with FWW, assist for balance, FWW guidance, assist to maintain TTWB for LLE. Pt able to shuffle right foot from heel to toe better on the way back to the bed. MODA to help hold LLE to get out of the right. Pt states sleeps on the right of the bed at home, but educated may be best to switch sides with her so easily to get her LLE off of the bed. To attempt next session. OT- Gait Assessment Comments Gait Ability Comments Transfer only at this time. OT- Balance Assessment Sitting Balance and Reactions Static Sitting Balance Ability Normal Dynamic Sitting Balance Ability Fair Standing Balance and Reactions Static Standing Balance Ability Poor M8 OT- IP Objective Assessments Start: 02/20/19 08:29 Freq: Status: Active Protocol: Document 02/21/19 13:49 [facility] (Rec: 02/21/19 18:55 [facility] [id number]) OT Gross Range of Motion Upper Extremity Range of Motion Assessment Within Functional Limits M9 OT- IP Assessment and Plan Start: 02/20/19 08:29 Freq: Status: Active Protocol: Document 02/21/19 13:49 [facility] (Rec: 02/21/19 18:55 [facility] [id number]) OT Summary Assessment and Plan Potential Rehabilitation Potential Good Analytic Complexity at Evaluation Low Summary OT Impairments Pain Strength Balance Functional Mobility Grooming Dressing Toileting Bathing Toilet Transfers Shower Transfers Progress Towards Goals Slow Progress due to Pain Slow Progress due to Activity Tolerance Assessment Summary Pt low complexity and mainly just able to tolerate transfer to and from bed on OT eval. Pt's barriers are decreased core and overall strength, balance, endurance, and has had multiple falls in the past few months. Pt far from baseline and will benefit from skilled rehab as pt current level needing to great of care for her to do at home . Pt needing two person assist for transfer only at this time. Goals Grooming Goal Independent Dressing Goal Moderate Assistance Toileting Goal Minimal Assistance Bathing Goal Moderate Assistance Toilet Transfer Goal Moderate Assistance Shower Transfer Goal Moderate Assistance OT-Other Goals Grooming goal in seated position. Days to Meet Goals 10 Frequency of Treatment Frequency Of Treatment Once a Day Treatment Plan OT Treatment Plan ADL Training Functional Mobility Patient/Family Education Discharge Planning Other Treatment Recommendations and Next bed mobility to left side, Treatment Focus initate training for lower body dressing with adaptive equipment Discharge Recommendations OT Discharge Recommendations SNF Rehab Home Equipment Needs Defer to SNF
[2019-02-21] MEDS: INSULIN ASPART 100 UNIT/ML INSULN PEN SUBCUT (20:51)
[2019-02-22] VITALS (15 sets, daily range): BP systolic 128–167; BP diastolic 60–83; PULSE 79–88; RESP 16–19; TEMP 36.3–37.4; O2SAT 95–100
[2019-02-22] MEDS: OXYCODONE IR 5 MG TABLET PO (01:41)
[2019-02-22 06:41] LABS: Hematocrit 22.4 % (36-46); Hemoglobin 7.3 g/dL (12.0-16.0)
[2019-02-22] MEDS: BISACODYL 10 MG SUPP PR (09:20)
--- NOTE | 2019-02-22 09:22 | PM.PNPO.1 ---
Subjective Date Patient Seen: 02/22/19 Time Patient Seen: 09:22 Interval history: Hospital day 4, postop day 2 following left femoral neck fracture with hemiarthroplasty. Patient is toe-touch weight-bearing to left leg for 2-4 weeks. She has been orthopedically stable. Has had progressive postoperative anemia with H&H 7.3/22.4 this morning. Hospitalist did order type and crossed for blood but waiting on giving pack cells. logistics planner has talked with patient and she is currently scheduled to go to [facility] tomorrow if stable. Exam Vital Signs (past 8 hours): - 02/22/19 01:30 02/22/19 04:35 02/22/19 07:00 Temperature 98.2 F Pulse Rate 79 Respiratory Rate 16 Blood Pressure 140/60 Pulse Oximetry 95 99 96 02/22/19 07:50 Temperature 98.0 F Pulse Rate 81 Respiratory Rate 18 Blood Pressure 150/74 H Pulse Oximetry 96 Oxygen Delivery Method Room Air Oxygen Flow Rate 0 Narrative Exam Narrative: Alert, oriented no acute distress resting in bed. Legs. Dressing to left hip area is dry without drainage or inflammation. No calf pain or swelling. Pulses symmetrical. Objective Labs Result Diagrams: 02/22/19 06:25 02/21/19 06:50 Labs: Laboratory Results - last 24 hr 02/20/19 02/21/19 02/22/19 07:51 06:50 06:25 Hgb 7.3 L Hct 22.4 L Sodium 137 Potassium 4.5 Chloride 109 H Carbon Dioxide 20 L BUN 19 H Creatinine 0.90 Estimated GFR > 60.0 BUN/Creatinine Ratio 21.1 Glucose 155 H Calcium 9.5 Blood Type A Positive Antibody Screen Negative Crossmatch See Detail Assessment & Plan Post-op Postoperative Procedures Operation Date: 02/20/19 15:45 Actual Procedures Side Surgeon p Hip Hemiarthroplasty Left Tamara Andrade MD Plan: Patient will work with the PT/OT today. Recheck H&H in the morning. Anticipate discharge to [facility] tomorrow if she is stable and cleared by hospitalist. Quality VTE Deep Vein Thrombosis/Pulmonary Embolism Present on Admission: No
[2019-02-22] MEDS: INSULIN ASPART 100 UNIT/ML INSULN PEN SUBCUT ×2 (10:11→20:13)
[2019-02-22] MEDS: ACETAMINOPHEN 325 MG TABLET 975 MG PO ×3 (10:12→20:12)
[2019-02-22] MEDS: FERROUS GLUCONATE 324 MG TABLET PO (10:13)
[2019-02-22] MEDS: ASCORBIC ACID 500 MG TABLET PO (10:13)
[2019-02-22] MEDS: LITHIUM 300 MG IR CAPSULE PO ×2 (10:13→20:13)
[2019-02-22] MEDS: HYDROXYCHLOROQUINE 200 MG TABLET PO ×2 (10:14→20:13)
[2019-02-22] MEDS: ENOXAPARIN 40 MG/0.4 ML SYRINGE SUBCUT (10:14)
[2019-02-22] MEDS: FLUoxetine 20 MG CAPSULE PO (10:14)
[2019-02-22] MEDS: LEVOTHYROXINE 112 MCG TABLET PO (10:14)
[2019-02-22] MEDS: AMLODIPINE 5 MG TABLET 10 MG PO (10:15)
[2019-02-22] MEDS: FENOFIBRATE 160 MG TABLET PO (10:15)
[2019-02-22] MEDS: DOCUSATE 100 MG CAPSULE PO ×2 (10:15→20:16)
--- NOTE | 2019-02-22 10:15 | OT.IP.TRT ---
Current Diagnoses Anemia, unspecified (02/19/19) Fracture of unspecified part of neck of left femur, initial encounter for closed fracture (02/19/19) Surgery Performed Operation Date: 02/20/19 15:45 Actual Procedures p Hip Hemiarthroplasty(Left) - Tamara Andrade MD Occupational Therapy Treatment Note M2 OT-IP Current Condition Start: 02/20/19 08:29 Freq: Status: Active Protocol: Document 02/21/19 13:49 [facility] (Rec: 02/21/19 18:55 [facility] [id number]) Occupational Therapy Current Condition Current Condition Evaluation Date 02/21/19 Treatment Diagnosis Left hip fracture, decreased functional mobility and self care Diagnosis Onset Date 02/19/19 Weight Bearing Status Weight Bearing Status Touch Down Weight Bearing Allowed Weight Bearing Amount (enter % TTWB for LLE or #) (%) M3 OT- IP Subjective and Pain Start: 02/20/19 08:29 Freq: Status: Active Protocol: Document 02/22/19 10:15 [facility] (Rec: 02/22/19 18:05 [facility] [id number]) OT- Subjective Occupational Therapy Visit Type Type Treatment Note Visit Start Time 09:37 Visit Stop Time 10:15 Total Visit Minutes 38 Occupational Therapy Visit Comments Patient Comments I am so constipated. This has been a problem for years. Patient/Caregiver Goals to have a bowel movement OT Pain Assessment Pain When Pain Assessed After Treatment Pain Present Pain Present Pain Reported Location left hip Intensity 3 Scale Used Numeric (1 - 10) Description Aching Acute Pain Behaviors Facial Grimacing Guarding Holding Area M4 OT- IP ADL's Start: 02/20/19 08:29 Freq: Status: Active Protocol: Document 02/22/19 10:15 [facility] (Rec: 02/22/19 18:05 [facility] [id number]) OT FXL-Jrzf-Jlvtpsy General Evaluation Self-Feeding Ability Independent Comments OT Self-Feeding Comments after set up in chair OT ADL-Grooming General Evaluation Grooming Ability Standby Assistance Areas Needing Assistance Retrieving/Set-up of Grooming Items Glasses Comments OT Grooming Comments after set up in chair OT ADL-Toileting General Evaluation Toileting Ability Minimal Assistance Areas Needing Assistance Perform Perineal Hygiene Comments OT Toileting Comments pt needs assist with thoroughness of pericare and to prevent pt from doing manual extraction of feces, at nursing request, as this caused bleeding earlier this AM M5 OT- IP IADL's Start: 02/20/19 08:29 Freq: Status: Active Protocol: Document 02/21/19 13:49 [facility] (Rec: 02/21/19 18:55 [facility] [email or web address]) OT-Instrumental Activities of Daily Living Home Safety Awareness Home Safety Comments At this time due to pt's limited mobility, will need assist for all IADL needs. M6 OT- IP Functional Cognition Start: 02/20/19 08:29 Freq: Status: Active Protocol: Document 02/22/19 10:15 [facility] (Rec: 02/22/19 18:05 [facility] [id number]) Cognitive Factors Limiting Selfcare Function Cognitive Ability Level of Alertness Confusional State Patient Orientation Name Place Attention Span Ability Capable of Focused Attention Unable to Sustain Attention Ability to Follow Commands Able to Follow One Step Commands Memory Description Short Term Impaired Safety Awareness Decreased Recall of Precautions Decreased Ability to Apply Precautions Underestimates Need for Assistance Problem Solving Ability Unable to Identify Errors Needs Assist to Identify Solutions Executive Function Ability Unable to Filter Distractions Unable to Remember Details Abstract Thinking Ability Unable to Draw Logical Conclusions Cognitive Comments Cognitive Assessment Comments Pt oriented to self and place but does not appear to fully grasp situation, e.g not aware of why she has bandage on L posterior hip. She has decreased recall of precautions, decreased insight and significant impulsivity noted. Will provide cognitive screening test tomorrow. OT- Vision and Hearing OT- Hearing Assessment OT- Hearing Assessment WFL OT- Vision Assessment Visual Acuity WFL Glasses All The Time M7 OT- IP Mobility and Balance Start: 02/20/19 08:29 Freq: Status: Active Protocol: Document 02/22/19 10:15 [facility] (Rec: 02/22/19 18:05 [facility] [id number]) OT-Transfer Assessment Sit to and From Stand Sit to and from Stand Contact Guard Assistance Transfers Transfer Ability Moderate Assistance 2 Person Assistance Technique Transfer Destination Bedside Commode Transfer Technique Stand Pivot Devices Transfer Assistive Devices Gait Belt Front Wheeled Walker Comments Mobility Comments Pt impulsive and attempting to stand iwhtout FWW x 2. Needs max verbal cues to wait for gait belt and FWW due to bowel urgency. Pt completed 2 transfers to [facility] this session. Pt able to maintain TTWB after instruction but has difficulty pivoting on R foot and turning FWW with decreased balance noted. 2 person assist for safety. OT- Gait Assessment Comments Gait Ability Comments did not occur OT- Balance Assessment Sitting Balance and Reactions Static Sitting Balance Ability Good Dynamic Sitting Balance Ability Good Standing Balance and Reactions Static Standing Balance Ability Fair Dynamic Standing Balance Ability Poor M9 OT- IP Assessment and Plan Start: 02/20/19 08:29 Freq: Status: Active Protocol: Document 02/22/19 10:15 [facility] (Rec: 02/22/19 18:05 [facility] [id number]) OT Summary Assessment and Plan Potential Rehabilitation Potential Good Analytic Complexity at Evaluation Low Summary OT Impairments Pain Strength Balance Functional Cognition Functional Mobility Dressing Toileting Bathing Toilet Transfers Shower Transfers Progress Towards Goals Slow Progress due to Medical Issues Slow Progress due to Activity Tolerance Slow Progress due to Cognition Assessment Summary Pt focused on constipation and difficulty with bowels today. Pt currently requires 2 person mod assist for safety with all transfers with significant cognitive deficits and impulsivity noted as described above. Will administer cognitive screening test tomorrow. Pt needs close supervision during walking hours to ensure adherence to LLE TTWB precaution. Pt remains far below her baseline level of function and not safe to d/c home with her elderly . Recommend SNF at d/c for further rehab services. Goals Grooming Goal Independent Dressing Goal Moderate Assistance Toileting Goal Minimal Assistance Bathing Goal Moderate Assistance Toilet Transfer Goal Moderate Assistance Shower Transfer Goal Moderate Assistance OT-Other Goals Grooming goal in seated position. Days to Meet Goals 10 Frequency of Treatment Frequency Of Treatment Once a Day Treatment Plan OT Treatment Plan ADL Training Functional Mobility Patient/Family Education Discharge Planning Discharge Recommendations OT Discharge Recommendations SNF Rehab Home Equipment Needs to be determined pending progress in next rehab setting
--- NOTE | 2019-02-22 12:26 | P.PN_ITS ---
Subjective Date Patient Seen: 02/22/19 Interval history: Ritika Prather is a 73-year-old female with a past medical history significant for systemic lupus erythematous, hypertension, hyperlipidemia, fibromyalgia and chronic low back pain with opiate dependence, GERD, and diabetes mellitus type 2, non-insulin using, who presented to the ED after ground level fall with left hip pain. The patient is resting in bedside chair comfortably. She reports she did not sleep well last night but states that that is her. She is slightly more irritable and pressured speech today. Nursing reports the patient is more imp ulsive. The patients pain is well controlled with acetaminophen and oxycodone she currently rates it a +2/10 in severity. She has no complaints overall and denies headache, shortness of breath, chest pain, abdominal pain, nausea, vomiting, fever, chills, diarrhea or constipation. She is voiding via Mojica catheter and eliminating without difficulty. Of note, she has had several bowel movements of firm hard stool and continuing a bowel regimen. She is up ambulating with assistance and PT/OT. Exam Vital Signs (past 8 hours): - 02/22/19 04:35 02/22/19 07:00 02/22/19 07:50 Temperature 98.2 F 98.0 F Pulse Rate 79 81 Respiratory Rate 16 18 Blood Pressure 140/60 150/74 H Pulse Oximetry 99 96 96 02/22/19 09:29 02/22/19 09:47 02/22/19 11:40 Temperature 98.0 F 98.2 F 97.7 F Pulse Rate 81 88 84 Respiratory Rate 18 16 16 Blood Pressure 150/74 H 128/70 137/79 Pulse Oximetry Oxygen Delivery Method Room Air Oxygen Flow Rate 0 Narrative Exam Narrative: General: Elderly female lying in bed and in no acute distress, well-developed, well-nourished, appropriately interactive. HEENT: Normocephalic, atraumatic. External ears without defect. Pupils equal, round, and reactive to light. Anicteric sclerae, moist conjunctivae, and no lid lag. Neck: Supple with full range of motion. No jugular venous distension. No lymphadenopathy or thyromegaly. Cardiovascular: Regular rate and rhythm without murmurs, rubs, or gallops appreciated. Pulmonary: Clear to auscultation bilaterally without crackles, wheezes, or rhonchi. Normal respiratory effort without use of accessory muscles. Abdomen: Soft, bowel sounds present, nontender, nondistended. No hepatosplenomegaly or masses appreciated. Extremities: No clubbing, cyanosis, or edema. Left posterior hip with dressing in place C/D/I and without surrounding erythema or edema. Skin: Normal temperature, turgor, and texture; no rash, ulcers, or subcutaneous nodules appreciated. Neurological: Cranial nerves grossly intact. Psychiatric: Slightly irritable mood and normal affect. Alert and oriented to person, place, and time. Objective Labs Result Diagrams: 02/22/19 06:25 02/21/19 06:50 Labs: Laboratory Results - last 24 hr 02/20/19 02/22/19 07:51 06:25 Hgb 7.3 L Hct 22.4 L Blood Type A Positive Antibody Screen Negative Crossmatch See Detail Assessment & Plan Assessment & Plan narrative: Ritika Prather is a 73-year-old female with a past medical history significant for systemic lupus erythematous, hypertension, hyperlipidemia, fibromyalgia and chronic low back pain with opiate dependence, GERD, and diabetes mellitus type 2, non-insulin using, who presented to the ED after ground level fall with left hip pain. 1. Acute left femoral neck fracture with subluxation, status post left hemiarthroplasty, present on admission. Active. -Patient presented after ground level fall x 2 with left hip pain and inability to walk/bear weight. -Left hip x-ray demonstrated a displaced left femoral neck fracture. -Consulted Orthopedic surgery, Dr. Andrade, who performed a left hemiarthroplasty. Continue postoperative and pain management per Orthopedic surgery. We appreciate their time and care of the patient. -Continue acetaminophen 975 mg 3 times daily and oxycodone 5 mg every 4 hours as needed for moderate to severe pain. -Continue physical and occupational therapy evaluation treatment. -Recommended patient undergo treatment for osteoporosis under the guidance of an automatic developer due to her significant comorbidities and after her full recovery from hip fracture. 2. Normocytic anemia, acuity unclear but likely acute on chronic, present on admission. Stable. -Unclear baseline H&H. Likely an acute portion that is secondary to acute hip fracture and dilutional and chronic portion secondary SLE. -Initial hemoglobin 8.9. Hemoglobin trending down now 7.3. Ordered 2 U PRBC to be transfused. -Iron studies demonstrated iron deficiency. Received Venofer 100 mg IV x1. Started ferrous gluconate 324 mg daily with vitamin-C 500 mg daily and monitor closely how she tolerates this regimen as she has moderate to severe constipation at baseline. -Continue to trend hemoglobin hematocrit closely. Transfusion goal hemoglobin < 7.5. 3. Acute kidney injury, on probable CKD stage II , present on admission. Resolved. -Likely acute injury secondary to prerenal azotemia from inadequate fluid intake . -Baseline creatinine of 0.80 to 1.1. Initial creatinine on admission 1.30. eGFR is> 60.0, however, her CrCl is 47.1 which is a more accurate representation of her renal function and places her in stage II CKD. -Continued IV fluids until adequately hydrated then discontinued. -Avoid nephrotoxic agents. Of note, patient is on lithium chronically. -Continue to monitor renal function closely. 4. Chronic systemic lupus erythematous, present on admission. Stable. -Continue hydroxychloroquine 200 mg twice daily. -She has undergone hematological evaluation 6-7 years ago in [place] for bruising on her arms with no definitive findings. Medical record with prior diagnosis of microembolization. -Diclofenac was stopped by her PCP previously and will discontinue ibuprofen due to renal function and bleeding and recommend indefinite cessation in future. 5. GERD, chronic, present on admission. Stable. -Continue Protonix 40 mg daily. 6. Hypertension, chronic, present on admission. Stable. -Continue amlodipine 10 mg daily and treat underlying pain. 7. Diabetes mellitus type 2, non-insulin using, present on admission. Stable. -Hemoglobin A1c 6.2% and per patient's report is diet controlled. -Continue [facility] blood glucose checks and low-dose correctional scale insulin. -Continue carbohydrate consistent diet once able to take in PO intake. 8. Chronic lumbar back pain, present on admission. Stable -Currently under the care of [facility]. -MRI completed on 01/03/2019 finds severe levoscoliosis, spondylosis, facet arthropathy, severe canal stenosis at L2-3, L3-4 and L4-5. Grade 1 anterior listhesis L4 on 5. -The patient reports taking hydrocodone 7.5 mg every 6 hours for pain, diclofenac 75 mg by mouth twice daily, as well as, self-medication with ibuprofen to 400 mg every 6 hours. Diclofenac was stopped by her PCP previously and discontinued ibuprofen due to renal function, SLE and acute blood loss. Recommend indefinite cessation of NSAIDs in future. -Continue acetaminophen 975 mg 3 times daily and oxycodone 5 mg every 4 hours as needed for moderate to severe pain. 9. Bipolar disorder, chronic, present on admission. Stable. -Machias level normal at 0.9. -Continue home lithium carbonate 300 mg by mouth twice daily and fluoxetine 20 mg once daily. 10. Hyperlipidemia, chronic, present on admission. Stable. -Continue fenofibrate 160 mg daily. 11. Acquired hypothyroidism, chronic, present on admission. Stable. -Patient reports thyroidectomy for what sounds like thyroid goiter and partial parathyroidectomy related to hypercalcemia. -Continue home levothyroxine 112 mcg daily. Disposition: Patient will likely discharge to need shelter facility for continued rehabilitation tomorrow. Quality VTE Deep Vein Thrombosis/Pulmonary Embolism Present on Admission: No
[2019-02-22] MEDS: PANTOPRAZOLE 40 MG VIAL IV (14:08)
--- NOTE | 2019-02-22 15:02 | PC.NURSE ---
SHIFT SUMMARY: PATIENT HAS RESTLESS LEGS, IMPULSIVE. OTHERWISE ORIENTED TO SELF/PLACE/MONTH/YR/SITUATION. HIGH FALL RISK. NEEDS REMINDERS NOT TO GET UP ON HER OWN. URGENCY OF BOWELS WITH HARD PEBBLE TYPE STOOLS X5 TODAY AFTER SUPPOSITORY THIS AM. PATIENT ATTEMPTS TO DIG OUT STOOL HERSELF, CAUSING MILD RECTAL BLEEDING. ENCOURAGED PATIENT TO REFRAIN FROM THIS PRACTICE. THE 5TH STOOLING HAD LARGER AMTS AND SIZES OF HARD STOOL. 1ST UNIT OF PRBC'S INFUSED. PATIENT SAT UP IN RECLINER MOST OF SHIFT AND IS NOW BACK TO BED. HEAVY 2P ASSIST TO PIVOT TRANSF. BED ALARM AND CHAIR ALARM ACTIVIATED THROUGHOUT SHIFT.
--- NOTE | 2019-02-22 15:30 | CM.DPC ---
DCP Cont: Was able to talk to patient, for she should be ready to discharge tomorrow to [facility]. Spoke to Christen in admissions at [facility], and insurance authorization initiated. She mentioned that it should not take long to obtain. Went ahead and completed PASSR. Left another message with Christen at [facility], that patient is to be discharged tomorrow. P: DCP to continue to follow. Patient should be able to discharge to halfway, [facility] tomorrow as long as authorization goes through. Angelina Tan RN/Accounts Officer
--- NOTE | 2019-02-22 15:34 | PT.IPTN ---
Current Diagnoses Anemia, unspecified (02/19/19) Fracture of unspecified part of neck of left femur, initial encounter for closed fracture (02/19/19) Surgery Performed Operation Date: 02/20/19 15:45 Actual Procedures p Hip Hemiarthroplasty(Left) - Tamara Andrade MD Physical Therapy Treatment Note M2 PT-IP Current Condition Start: 02/20/19 08:28 Freq: NEEDED Status: Active Protocol: Document 02/21/19 11:18 AW (Rec: 02/21/19 11:47 AW [id number]) Physical Therapy Current Condition Current Condition Evaluation Date 02/21/19 Treatment Diagnosis L femoral neck fracture s/p ORIF, DESI, impaired transfers and gait Weight Bearing Status Weight Bearing Status Touch Down Weight Bearing M3 PT-IP Subjective Start: 02/20/19 08:28 Freq: NEEDED Status: Active Protocol: Document 02/22/19 15:13 AW (Rec: 02/22/19 15:23 AW [id number]) Subjective Physical Therapy Visit Type Type Treatment Note Visit Start Time 14:05 Visit Stop Time 14:36 Total Visit Minutes 31 Number of ONCOLOGY COORDINATOR Visits 0 Physical Therapy Visit Comments Patient Comments Pt has been up in chair since morning session and has been transfused. She has been up to the bedside commode several times, is very tired, and is ready to return to bed. Therapy Pain Assessment Pain When Pain Assessed During Mobility Pain Present Pain Present Pain Reported Location left hip Intensity 3 Scale Used Numeric (1 - 10) Description Burning Pain Management Techniques Timing of Activity with Medications M4 PT-IP Mobility and Gait Start: 02/20/19 08:28 Freq: NEEDED Status: Active Protocol: Document 02/22/19 15:13 AW (Rec: 02/22/19 15:23 AW [id number]) PT-Bed Mobility Assessment Sit to Supine Sit to Supine Minimal Assistance Scooting Scooting to Edge of Bed Contact Guard Assistance PT-Transfer Assessment Sit to and From Stand Sit to and from Stand Moderate Assistance Equipment Transfer Assistive Device Gait Belt Front Wheeled Walker Orthotic/Prosthetic Devices or Brace: No Transfers Transfer Destination Bed Transfer Technique Stand Pivot Transfer Ability Level of Assist Moderate Assistance 1 Person Assistance Comments Mobility Comments Sit <> stand required mod A, partially due to fatigue after multiple transfers today. Pt required multiple verbal cues for sequencing (move your heel, then your toes, move the walker to face the window ) and mod A x 1 to stand pivot transfer with TTWB LLE from chair to bed. M5 PT-IP Objective Assessments Start: 02/20/19 08:28 Freq: NEEDED Status: Active Protocol: Document 02/21/19 11:18 AW (Rec: 02/21/19 11:47 AW [id number]) Orientation Orientation/Cognition Level of Alertness Alert Orientation Name Age Month Day of Week Situation Language Function Ability No Deficits Noted Safety Awareness Understands Safety Issues Memory Description No Deficits Noted Gross Range of Motion Upper Extremity ROM Assessment Within Functional Limits Lower Extremity ROM Assessment Left Impaired Strength Upper Extremity Strength Assessment Within Functional Limits Lower Extremity Strength Assessment Left Impaired Coordination Assessment Gross Coordination Gross Coordination WNL Sensation Assessment Sensation Gross Sensation WNL Light Touch Intact M6 PT-IP Treatment Start: 02/20/19 08:28 Freq: NEEDED Status: Active Protocol: Document 02/22/19 15:13 AW (Rec: 02/22/19 15:23 AW [id number]) Physical Therapy Treatment Exercises Exercises Ankle Pumps Gluteal Sets Quad Sets Heel Slides Education Education Provided Weight Bearing Status Safety M7 PT-IP Assessment and Plan Start: 02/20/19 08:28 Freq: NEEDED Status: Active Protocol: Document 02/22/19 15:13 AW (Rec: 02/22/19 15:23 AW [id number]) PT Summary Assessment and Plan Potential Rehabilitation Potential Good Status of Condition at Evaluation Stable Summary Impairments Pain ROM Strength Balance Bed Mobility Transfers Gait Activity Tolerance Assessment Summary Pt seen after transfusion this afternoon. Her energy reserves were low but she was otherwise asymptomatic. Pt continues to require frequent verbal cues and demonstration for pivot transfer while TTWB LLE, but coordination is improving. Pt is excellent candidate for prison level of rehab. Goals Bed Mobility Goal Standby Assistance Transfer Goal Standby Assistance Gait Goal Contact Guard Assistance Gait Distance 20 Days to Meet Goals 10 Frequency of Treatment Frequency Of Treatment Twice a Day Treatment Plan Physical Therapy Treatment Plan Bed Mobility Training Transfer Training Gait Training Therapeutic Exercise Balance Retraining Post Op Education Discharge Planning Hot or Cold Pack Neuromuscular Re-ed Coordination Retraining Manual Therapy Recommendations To Nursing Amount of Assist Needed 2 Person Assist Discharge Recommendations PT Discharge Recommendations SNF Rehab
--- NOTE | 2019-02-22 19:10 | PC.NURSE ---
1600- Starting second unit packed cells, to RAC, ended 1844, VSS, no reactions. CBG @ [id number], no intervention needed. Pt c/o restless legs, but can't remember what she takes at home for this. Mojica patent and draining clear yellow urine. Aquacell to left hip CDI. Bed alarm on, SCD's on.
[2019-02-22] MEDS: MELATONIN 3 MG TABLET 9 MG PO (20:13)
[2019-02-23 00:45] VITALS: BP 141/74; PULSE 75; RESP 16; TEMP 36.8; O2SAT 100
--- NOTE | 2019-02-23 01:10 | PC.NURSE ---
Aquacel dressing not intact, rolled & bunched up. Pt. C/O that it's very uncomfortable, reinforced & tegaderm applied. Will monitor.
[2019-02-23 05:50] VITALS: BP 146/84; PULSE 77; RESP 16; TEMP 36.4; O2SAT 96
[2019-02-23 06:07] LABS: Add Manual Diff / Slide Review NO; Basophils Absolute Auto 100 /uL (0-100); Eosinophils Absolute Auto 500 /uL (0-450); Eosinophils Percent Auto 4.6 % (2-4); Hematocrit 29.2 % (36-46); Lymphocytes Absolute Auto 1000 /uL (1100-4500); Lymphocytes Percent Auto 10.3 % (25-40); Mean Corpuscular HGB Conc 34.2 % (30-36); Mean Corpuscular Hemoglobin 27.8 PG (26-34); Mean Corpuscular Volume 81.1 fL (80-100); Monocytes Absolute Auto 900 /uL (0-900); Monocytes Percent Auto 8.6 % (3-14); Neutrophils Absolute Auto 7500 /uL (1500-7000); Neutrophils Percent Auto 75.5 % (50-75); Platelet Count 262 X10^3/uL (150-400); Red Blood Cell Count 3.59 X10^6/uL (4.0-5.2); Red Cell Distribution Width 16.5 % (11.6-14.8); White Blood Cell Count 9.9 X10^3/uL (4.5-11.0)
[2019-02-23 06:20] LABS: Blood Urea Nitrogen 14 mg/dL (7-17); Calcium 9.6 mg/dL (8.4-10.2); Carbon Dioxide 24 mmol/L (22-32); Chloride 109 mmol/L (98-107); Estimated Glomerular Filt Rate > 60.0 mL/min (>60); Glucose 131 mg/dL (80-110); HEMOLYSIS < 15 (0-50); Magnesium 2.3 mg/dL (1.6-2.3); Sodium 139 mmol/L (137-145)
--- NOTE | 2019-02-23 07:59 | P.DS_ITS ---
History of Present Illness Date Patient Seen: 02/19/19 Chief complaint: fall, groin/pelvis pain Narrative: Written by Tim LUONG: Ms. Ritika Prather is a 73-year-old female patient with multiple medical problems most significant for lupus, hypertension, hyperlipidemia, fibromyalgia and chronic low back pain on pain management, GERD, and diet-controlled diabetes who presents to the ER today with left hip pain following ground level fall. The patient reports that she fell twice today 1st while getting out of her car and tripping on the curb landing on her left hip arm and elbow. She denies loss consciousness neck or back pain from the fall. The patient subsequently was ambulatory into the house and later today went to the bathroom prior to going out for dinner and upon getting off the toilet she fell to the ground experiencing sharp left hip pain and was unable ambulate. The patient denies any antecedent symptoms and reports no complaints of recent colder fevers and has had no chest pain or palpitations, shortness of breath though she describes herself is deconditioned related to chronic pain issues. She reports no cough or wheezing and has chronic esophageal reflux. She reports no nausea vomiting and has chronic constipation related to opiate use. She has had a previous bladder suspension which is failed and continues to have incontinence. The patient has diet-controlled diabetes and has no complaints of neuropathy. Upon arrival in the ER the patient was afebrile with a temperature 96.8?, hypertensive at 171/85 with heart rate of 71, respirations 16 and saturating 99% on room air. An x-ray of the left hip was obtained with findings of femoral head fracture with subluxation. Orthopedic surgery was contacted by the ER physician and Dr. Rivas evaluate the patient in the morning anticipating surgery tomorrow. Labs were obtained in the ER with a finding of white count of 11.7, anemia with a hemoglobin of 8.9 and hematocrit of 28.5 and platelets of 3 11. The patient has extensive bilateral bruising and has had a hematology workup in the past and presents with a PT of 11.9 INR of 1.0 and PTT of 32. Her last hemoglobin A1c on 10/12/2018 was 6.9. On chemistries, electrolytes are within normal range hour she has a BUN of 31 creatinine 1.3 with a baseline of 1.1 in October. She has an EGFR of 40.0 and a BUN creatinine ratio of 23.8. A nonfasting blood sugar is 125. The patient is admitted to the hospital with left hip fracture with plan for operative intervention tomorrow. Discharge Providers Date of admission: 02/19/19 19:42 Discharge Date: 02/23/19 Primary care physician: Merissa Robbins MD Consults: 02/19/19 19:58 Consult to Discharge Planning Routine Comment: Consult to Occupational Therapy Evaluate & Treat Comment: Left hip fracture, lupus Physician Instructions: Evaluate and treat 02/19/19 19:59 Consult to Physical Therapy Evaluate & Treat Comment: Left hip fracture, lupus Physician Instructions: Evaluate and Treat Consult to Physician Routine Comment: Consulting Provider: Tamara Andrade Reason for consultation: Left hip fracute Has provider been notified: Yes 02/19/19 21:01 Consult to Senior Support Engineer Routine Comment: 02/20/19 20:44 Consult to Physical Therapy Evaluate & Treat Comment: CUATE NICOLAS Physician Instructions: post op NIMISHA protocol 02/21/19 10:10 Consult to Occupational Therapy Evaluate & Treat Comment: Physician Instructions: Evaluate and treat Discharge provider: Rina Mallory DO Summary Discharge Diagnosis: 1. Acute left femoral neck fracture with subluxation, status post left hemiarthroplasty, present on admission. Resolved. 2. Normocytic anemia, acuity unclear but likely acute on chronic, present on admission. Stable. 3. Acute kidney injury, on probable CKD stage II , present on admission. Resolved. 4. Chronic systemic lupus erythematous, present on admission. Stable. 5. GERD, chronic, present on admission. Stable. 6. Hypertension, chronic, present on admission. Stable. 7. Diabetes mellitus type 2, non-insulin using, present on admission. Stable. 8. Chronic lumbar back pain, present on admission. Stable 9. Bipolar 1 disorder, chronic, present on admission. Stable. 10. Hyperlipidemia, chronic, present on admission. Stable. 11. Acquired hypothyroidism, chronic, present on admission. Stable. Hospital Course: Ritika Prather is a 73-year-old female with a past medical history significant for systemic lupus erythematous, hypertension, hyperlipidemia, fibromyalgia and chronic low back pain with opiate dependence, GERD, bipolar disorder with insomnia and diabetes mellitus type 2, non-insulin using, who presented to the ED after ground level fall with left hip pain. 1. Acute left femoral neck fracture with subluxation, status post left hemiarthroplasty, present on admission. Resolved. -Patient presented after ground level fall x 2 with left hip pain and inability to walk/bear weight. -Left hip x-ray demonstrated a displaced left femoral neck fracture. -Consulted Orthopedic surgery, Dr. Andrade, who performed a left hem iarthroplasty. Continue postoperative and pain management per Orthopedic surgery. We appreciate their time and care of the patient. -Continued acetaminophen 975 mg 3 times daily and oxycodone 5 mg every 4 hours as needed for moderate to severe pain. -Continued physical and occupational therapy evaluation treatment. -Recommended patient undergo treatment for osteoporosis under the guidance of an sifter and miller due to her significant comorbidities and after her full recovery from hip fracture. 2. Normocytic anemia, acuity unclear but likely acute on chronic, present on admission. Stable. -Unclear baseline H&H. There is likely an acute portion that is secondary to acute hip fracture/dilutional and chronic portion secondary SLE and CKD stage II. -Initial hemoglobin 8.9. Hemoglobin trending down now 7.3. Received 2 U PRBC with appropriate compensation and hemoglobin 10.0. -Iron studies demonstrated iron deficiency. Received Venofer 100 mg IV x1. Started and continued ferrous gluconate 324 mg daily with vitamin-C 500 mg daily and recommend continued monitoring of toleration as she has moderate to severe constipation at baseline. -Continued to trend hemoglobin hematocrit closely. Transfusion goal hemoglobin < 7.5. 3. Acute kidney injury, on probable CKD stage II , present on admission. Resolved. -Likely acute injury secondary to prerenal azotemia from inadequate fluid intak e. -Baseline creatinine of 0.80 to 1.1. Initial creatinine on admission 1.30. eGFR is> 60.0, however, her CrCl is 47.1 which is a more accurate representation of her renal function and places her in stage II CKD. -Continued IV fluids until adequately hydrated then discontinued. -Avoided nephrotoxic agents. Of note, patient is on lithium chronically. -Continued to monitor renal function closely. -Recommend nephrology establishment outpatient due to CKD stage II, chronic lithium use and SLE. 4. Chronic systemic lupus erythematous, present on admission. Stable. -Continued hydroxychloroquine 200 mg twice daily. -She has undergone hematological evaluation 6-7 years ago in [place] for bruisin g on her arms with no definitive findings. Medical record with prior diagnosis of microembolization. -Diclofenac was stopped by her PCP previously and will discontinue ibuprofen due to renal function and bleeding and recommend indefinite cessation in future. 5. GERD, chronic, present on admission. Stable. -Continued Protonix 40 mg daily. 6. Hypertension, chronic, present on admission. Stable. -Continued amlodipine 10 mg daily and treated underlying pain. 7. Diabetes mellitus type 2, non-insulin using, present on admission. Stable. -Hemoglobin A1c 6.2% and per patient's report is diet controlled. -Continued [facility] blood glucose checks and low-dose correctional scale insulin. -Continued carbohydrate consistent diet once able to take in PO intake. 8. Chronic lumbar back pain, present on admission. Stable -Currently under the care of [facility]. -MRI completed on 01/03/2019 finds severe levoscoliosis, spondylosis, facet arthropathy, severe canal stenosis at L2-3, L3-4 and L4-5. Grade 1 anterior listhesis L4 on 5. -The patient reports taking hydrocodone 7.5 mg every 6 hours for pain, diclofenac 75 mg by mouth twice daily, as well as, self-medication with ibupro fen to 400 mg every 6 hours. Diclofenac was stopped by her PCP previously and discontinued ibuprofen due to renal function, SLE and acute blood loss. Recommend indefinite cessation of NSAIDs. -Continued acetaminophen 975 mg 3 times daily and oxycodone 5 mg every 4 hours as needed for moderate to severe pain. 9. Bipolar disorder with insomnia, chronic, present on admission. Stable. -[place] level normal at 0.9. -Continued home lithium carbonate 300 mg by mouth twice daily and fluoxetine 20 mg once daily. -Discharged with scheduled low dose seroquel 12.5 mg daily at bedtime for long standing insomnia related to bipolar disorder and may be titrated to effect. 10. Hyperlipidemia, chronic, present on admission. Stable. -Continued fenofibrate 160 mg daily. 11. Acquired hypothyroidism, chronic, present on admission. Stable. -Patient reports thyroidectomy for what sounds like thyroid goiter and partial parathyroidectomy related to hypercalcemia. -Continued home levothyroxine 112 mcg daily. Status at Discharge Functional status at discharge: uses cane/walker Overall status at discharge: patient is progressing back to baseline Exam Vital Signs (past 8 hours): - 02/23/19 00:45 02/23/19 05:50 Temperature 98.2 F 97.5 F L Pulse Rate 75 77 Respiratory Rate 16 16 Blood Pressure 141/74 H 146/84 H Pulse Oximetry 100 96 Oxygen Delivery Method Room Air Oxygen Flow Rate 0 Narrative Exam Narrative: General: Elderly female lying in bed and in no acute distress, well-developed, well-nourished, appropriately interactive. HEENT: Normocephalic, atraumatic. External ears without defect. Pupils equal, round, and reactive to light. Anicteric sclerae, moist conjunctivae, and no lid lag. Neck: Supple with full range of motion. No jugular venous distension. No lymphadenopathy or thyromegaly. Cardiovascular: Regular rate and rhythm without murmurs, rubs, or gallops appreciated. Pulmonary: Clear to auscultation bilaterally without crackles, wheezes, or rhonchi. Normal respiratory effort without use of accessory muscles. Abdomen: Soft, bowel sounds present, nontender, nondistended. No hepatosplenomegaly or masses appreciated. Extremities: No clubbing, cyanosis, or edema. Left posterior hip with dressing in place C/D/I and without surrounding erythema or edema. Skin: Normal temperature, turgor, and texture; no rash, ulcers, or subcutaneous nodules appreciated. Neurological: Cranial nerves grossly intact. Psychiatric: Slightly irritable mood and normal affect. Alert and oriented to person, place, and time. Objective Labs Result Diagrams: 02/23/19 05:50 02/23/19 05:50 Labs: Laboratory Results - last 24 hr 02/20/19 02/23/19 02/23/19 07:51 05:50 05:50 WBC 9.9 RBC 3.59 L Hgb 10.0 L Hct 29.2 L MCV 81.1 MCH 27.8 MCHC 34.2 RDW 16.5 H Plt Count 262 Neut % (Auto) 75.5 H Lymph % (Auto) 10.3 L Grant % (Auto) 8.6 Eos % (Auto) 4.6 H Baso % (Auto) 1.0 Neut # (Auto) 7500 H Lymph # (Auto) 1000 L Grant # (Auto) 900 Eos # (Auto) 500 H Baso # (Auto) 100 Sodium 139 Potassium 4.0 Chloride 109 H Carbon Dioxide 24 BUN 14 Creatinine 0.70 Estimated GFR > 60.0 BUN/Creatinine Ratio 20.0 Glucose 131 H Calcium 9.6 Magnesium Blood Type A Positive Antibody Screen Negative Crossmatch See Detail 02/23/19 05:50 WBC RBC Hgb Hct MCV MCH MCHC RDW Plt Count Neut % (Auto) Lymph % (Auto) Grant % (Auto) Eos % (Auto) Baso % (Auto) Neut # (Auto) Lymph # (Auto) Grant # (Auto) Eos # (Auto) Baso # (Auto) Sodium Potassium Chloride Carbon Dioxide BUN Creatinine Estimated GFR BUN/Creatinine Ratio Glucose Calcium Magnesium 2.3 Blood Type Antibody Screen Crossmatch Discharge Plan Discharge Plan Patient Disposition: SNF Transfer to: [facility] Under care of provider: International Relations ProfessorMarket Research Intern: Facility vehicle I certify the postop hospital detention care is medically necessary on a continuing basis for any conditions for which he/ she received care during this hospitalization.: Yes The receiving facility has agreed to accept transfer and provide medical treatment.: Yes Discharge Med Rec/Prescriptions Prescriptions: New acetaminophen 325 mg Tablet 975 mg PO TID Qty: 90 RF: 0 polyethylene glycol 3350 17 gram Powder In Packet 17 gm PO DAILY Qty: 1 RF: 0 melatonin 3 mg Tablet 9 mg PO BEDTIME Qty: 30 RF: 0 ascorbic acid (vitamin C) [Vitamin C] 500 mg Tablet 500 mg PO DAILY Qty: 30 RF: 0 bisacodyl 10 mg Suppository 10 mg MO DAILY PRN (Reason: Constipation) Qty: 30 RF: 0 docusate sodium [DOK] 100 mg Capsule 100 mg PO BID Qty: 60 RF: 0 oxycodone 5 mg Tablet 5 mg PO Q4HR PRN (Reason: Pain, Moderate (4-6)) Qty: 30 RF: 0 enoxaparin [Lovenox] 40 mg/0.4 mL Syringe 40 mg subcut DAILY Qty: 25 RF: 0 ferrous gluconate 324 mg (38 mg iron) Tablet 324 mg PO DAILY Qty: 30 RF: 0 quetiapine [Seroquel] 25 mg tablet 12.5 mg PO BEDTIME Qty: 30 RF: 0 Continued fenofibrate 160 MG tablet 160 mg PO QDAY Qty: 0 RF: 0 cyclobenzaprine 5 MG tablet 5 mg PO TIDP PRN (Reason: Spasms) Qty: 0 RF: 0 lithium carbonate 300 MG capsule 300 mg PO BID Qty: 0 RF: 0 hydroxychloroquine 200 mg Tablet 400 mg PO DAILY RF: 0 amlodipine 10 mg Tablet 10 mg PO DAILY RF: 0 ondansetron HCl [Zofran] 4 mg Tablet 8 mg PO BID PRN (Reason: Nausea) RF: 0 omeprazole 40 mg Capsule,Delayed Release(Dr/Ec) 40 mg PO DAILY RF: 0 fluoxetine 20 mg Capsule 20 mg PO DAILY RF: 0 levothyroxine 112 mcg Tablet 112 mcg PO DAILY RF: 0 minoxidil [Rogaine] 2 % Solution 1 applic topical DIRECTED RF: 0 Discontinued ibuprofen 200 mg tablet 400 mg PO Q6H PRN (Reason: Pain, Mild) RF: 0 diclofenac sodium 75 mg Tablet,Delayed Release (Dr/Ec) 75 mg PO BID RF: 0 oxycodone-acetaminophen [Percocet] 5-325 mg Tablet 1 tab PO Q4-6H PRN (Reason: Pain, Moderate) RF: 0 Follow up/Referrals: Tamara Andrade MD [Physician] - 2 Weeks Discharge Health Status Brief summary of current health status: Ritika Prather is a 73-year-old female with a past medical history significant for systemic lupus erythematous, hypertension, hyperlipidemia, fibromyalgia and chronic low back pain with opiate dependence, GERD, and diabetes mellitus type 2, non-insulin using, who presented to the ED after ground level fall with left hip pain and found to have left hip fracture status post left hemiarthroplasty and continued need for rehabilitation with physical and occupational therapy. Provider Discharge Instructions Diet: Low-fat, Low-sodium and Low-cholesterol Activity: Activity as tolerated with forward wheeled walker and physical and occupational therapy. Toe touch weight-bearing only on left lower extremity. Discharge Data Primary Care Provider: Merissa Robbins Attending Provider: Tim Woodall Admit Date/Time: 02/19/19 19:42 Quality VTE Deep Vein Thrombosis/Pulmonary Embolism Present on Admission: No
[2019-02-23 08:05] VITALS: BP 155/76; PULSE 81; RESP 18; TEMP 36.3; O2SAT 95
[2019-02-23 08:30] VITALS: O2SAT 97
--- NOTE | 2019-02-23 09:30 | PT.IPTN ---
Current Diagnoses Anemia, unspecified (02/19/19) Fracture of unspecified part of neck of left femur, initial encounter for closed fracture (02/19/19) Surgery Performed Operation Date: 02/20/19 15:45 Actual Procedures p Hip Hemiarthroplasty(Left) - Tamara Andrade MD Physical Therapy Treatment Note M2 PT-IP Current Condition Start: 02/20/19 08:28 Freq: NEEDED Status: Active Protocol: Document 02/21/19 11:18 AW (Rec: 02/21/19 11:47 AW [id number]) Physical Therapy Current Condition Current Condition Evaluation Date 02/21/19 Treatment Diagnosis L femoral neck fracture s/p ORIF, DESI, impaired transfers and gait Weight Bearing Status Weight Bearing Status Touch Down Weight Bearing M3 PT-IP Subjective Start: 02/20/19 08:28 Freq: NEEDED Status: Active Protocol: Document 02/23/19 09:10 GGD (Rec: 02/23/19 12:08 GGD [id number]) Subjective Physical Therapy Visit Type Type Treatment Note Visit Start Time 09:07 Visit Stop Time 09:30 Total Visit Minutes 23 Number of ROTARY DRILLER PROSPECTING Visits 1 Physical Therapy Visit Comments Patient Comments Pt states she needs to use the bathroom. Therapy Pain Assessment Pain When Pain Assessed During Mobility Pain Present Pain Present Pain Reported M4 PT-IP Mobility and Gait Start: 02/20/19 08:28 Freq: NEEDED Status: Active Protocol: Document 02/23/19 09:10 GGD (Rec: 02/23/19 12:08 GGD [id number]) PT-Bed Mobility Assessment Sit to Supine Sit to Supine Minimal Assistance Scooting Scooting to Edge of Bed Contact Guard Assistance PT-Transfer Assessment Sit to and From Stand Sit to and from Stand Moderate Assistance Equipment Transfer Assistive Device Gait Belt Front Wheeled Walker Orthotic/Prosthetic Devices or Brace: No Transfers Transfer Destination Bed Bedside Commode Transfer Technique Stand Pivot Transfer Ability Level of Assist Minimal Assistance 1 Person Assistance M5 PT-IP Objective Assessments Start: 02/20/19 08:28 Freq: NEEDED Status: Active Protocol: Document 02/21/19 11:18 AW (Rec: 02/21/19 11:47 AW [id number]) Orientation Orientation/Cognition Level of Alertness Alert Orientation Name Age Month Day of Week Situation Language Function Ability No Deficits Noted Safety Awareness Understands Safety Issues Memory Description No Deficits Noted Gross Range of Motion Upper Extremity ROM Assessment Within Functional Limits Lower Extremity ROM Assessment Left Impaired Strength Upper Extremity Strength Assessment Within Functional Limits Lower Extremity Strength Assessment Left Impaired Coordination Assessment Gross Coordination Gross Coordination WNL Sensation Assessment Sensation Gross Sensation WNL Light Touch Intact M6 PT-IP Treatment Start: 02/20/19 08:28 Freq: NEEDED Status: Active Protocol: Document 02/23/19 09:10 GGD (Rec: 02/23/19 12:08 GGD [id number]) Physical Therapy Treatment Exercises Exercises Ankle Pumps Gluteal Sets Quad Sets Heel Slides Education Education Provided Weight Bearing Status Safety M7 PT-IP Assessment and Plan Start: 02/20/19 08:28 Freq: NEEDED Status: Active Protocol: Document 02/23/19 09:10 GGD (Rec: 02/23/19 12:08 GGD [id number]) PT Summary Assessment and Plan Summary Assessment Summary Pt improving with mobility. She needs mod a for sit to stand. She needed less assist for pivot transfer. She would benefit from SNF rehab for improvement in functional mobility. Frequency of Treatment Frequency Of Treatment Twice a Day Treatment Plan Physical Therapy Treatment Plan Bed Mobility Training Transfer Training Gait Training Therapeutic Exercise Balance Retraining Post Op Education Discharge Planning Hot or Cold Pack Neuromuscular Re-ed Coordination Retraining Manual Therapy Recommendations To Nursing Amount of Assist Needed 2 Person Assist Discharge Recommendations PT Discharge Recommendations SNF Rehab
[2019-02-23] MEDS: ENOXAPARIN 40 MG/0.4 ML SYRINGE SUBCUT (10:16)
[2019-02-23] MEDS: ASCORBIC ACID 500 MG TABLET PO (10:17)
[2019-02-23] MEDS: ACETAMINOPHEN 325 MG TABLET 975 MG PO ×2 (10:17→14:07)
[2019-02-23] MEDS: HYDROXYCHLOROQUINE 200 MG TABLET PO (10:17)
[2019-02-23] MEDS: FLUoxetine 20 MG CAPSULE PO (10:17)
[2019-02-23] MEDS: FERROUS GLUCONATE 324 MG TABLET PO (10:17)
[2019-02-23] MEDS: LEVOTHYROXINE 112 MCG TABLET PO (10:18)
[2019-02-23] MEDS: OXYCODONE IR 5 MG TABLET PO (10:18)
[2019-02-23] MEDS: AMLODIPINE 5 MG TABLET 10 MG PO (10:18)
[2019-02-23] MEDS: LITHIUM 300 MG IR CAPSULE PO (10:18)
[2019-02-23] MEDS: DOCUSATE 100 MG CAPSULE PO (10:19)
--- NOTE | 2019-02-23 10:19 | PM.PNPO.1 ---
Subjective Date Patient Seen: 02/23/19 Time Patient Seen: 10:19 Interval history: Hospital day 5, postop day 3 following left femoral neck fracture with hemiarthroplasty. She is to be toe-touch weight-bearing x2 weeks postop. Patient did receive 2 units packed RBC yesterday and is feeling better. H&H this morning 10.0/29.2. She does have [place] catheter. Oxycodone for pain. Plan is for her to go to [facility] for further rehab before going home. She is being followed by hospitalist. Exam Vital Signs (past 8 hours): - 02/23/19 05:50 02/23/19 08:05 Temperature 97.5 F L 97.4 F L Pulse Rate 77 81 Respiratory Rate 16 18 Blood Pressure 146/84 H 155/76 H Pulse Oximetry 96 95 Oxygen Delivery Method Room Air Oxygen Flow Rate 0 Narrative Exam Narrative: Alert, oriented no acute distress sitting in chair. Left leg Aquacel dressing is curling up and loose. No signs of infection or inflammation. No calf pain or swelling. Pulses symmetrical. Objective Labs Result Diagrams: 02/23/19 05:50 02/23/19 05:50 Labs: Laboratory Results - last 24 hr 02/20/19 02/23/19 02/23/19 07:51 05:50 05:50 WBC 9.9 RBC 3.59 L Hgb 10.0 L Hct 29.2 L MCV 81.1 MCH 27.8 MCHC 34.2 RDW 16.5 H Plt Count 262 Neut % (Auto) 75.5 H Lymph % (Auto) 10.3 L [place] % (Auto) 8.6 Eos % (Auto) 4.6 H Baso % (Auto) 1.0 Neut # (Auto) 7500 H Lymph # (Auto) 1000 L [place] # (Auto) 900 Eos # (Auto) 500 H Baso # (Auto) 100 Sodium 139 Potassium 4.0 Chloride 109 H Carbon Dioxide 24 BUN 14 Creatinine 0.70 Estimated GFR > 60.0 BUN/Creatinine Ratio 20.0 Glucose 131 H Calcium 9.6 Magnesium Blood Type A Positive Antibody Screen Negative Crossmatch See Detail 02/23/19 05:50 WBC RBC Hgb Hct MCV MCH MCHC RDW Plt Count Neut % (Auto) Lymph % (Auto) [place] % (Auto) Eos % (Auto) Baso % (Auto) Neut # (Auto) Lymph # (Auto) [place] # (Auto) Eos # (Auto) Baso # (Auto) Sodium Potassium Chloride Carbon Dioxide BUN Creatinine Estimated GFR BUN/Creatinine Ratio Glucose Calcium Magnesium 2.3 Blood Type Antibody Screen Crossmatch Assessment & Plan Post-op Postoperative Procedures Operation Date: 02/20/19 15:45 Actual Procedures Side Surgeon p Hip Hemiarthroplasty Left Tamara Andrade MD Plan: Will change Aquacel dressing today. Patient will be discharged to [facility] pending clearance by hospitalist. She will need postop appointment at orthopedic office at 2 weeks postop in [place] office for dressing change and suture removal and x-ray. Quality VTE Deep Vein Thrombosis/Pulmonary Embolism Present on Admission: No
[2019-02-23] MEDS: INSULIN ASPART 100 UNIT/ML INSULN PEN SUBCUT ×2 (10:20→13:29)
[2019-02-23] MEDS: FENOFIBRATE 160 MG TABLET PO (10:20)
[2019-02-23] MEDS: PANTOPRAZOLE 40 MG VIAL IV (10:20)
--- NOTE | 2019-02-23 10:22 | P.PN_ITS ---
Subjective Date Patient Seen: 02/23/19 Time Patient Seen: 10:19 Interval history: Hospital day 5, postop day 3 following left femoral neck fracture with hemiarthroplasty. She is to be toe-touch weight-bearing x2 weeks postop. Patient did receive 2 units packed RBC yesterday and is feeling better. H&H this morning 10.0/29.2. She does have [place] catheter. Oxycodone for pain. Plan is for her to go to [facility] for further rehab before going home. She is being followed by hospitalist. Exam Vital Signs (past 8 hours): - 02/23/19 05:50 02/23/19 08:05 Temperature 97.5 F L 97.4 F L Pulse Rate 77 81 Respiratory Rate 16 18 Blood Pressure 146/84 H 155/76 H Pulse Oximetry 96 95 Oxygen Delivery Method Room Air Oxygen Flow Rate 0 Narrative Exam Narrative: Alert, oriented no acute distress sitting in chair. Left leg Aquacel dressing is curling up and loose. No signs of infection or inflammation. No calf pain or swelling. Pulses symmetrical. Objective Labs Result Diagrams: 02/23/19 05:50 02/23/19 05:50 Labs: Laboratory Results - last 24 hr 02/20/19 02/23/19 02/23/19 07:51 05:50 05:50 WBC 9.9 RBC 3.59 L Hgb 10.0 L Hct 29.2 L MCV 81.1 MCH 27.8 MCHC 34.2 RDW 16.5 H Plt Count 262 Neut % (Auto) 75.5 H Lymph % (Auto) 10.3 L Bryan % (Auto) 8.6 Eos % (Auto) 4.6 H Baso % (Auto) 1.0 Neut # (Auto) 7500 H Lymph # (Auto) 1000 L Bryan # (Auto) 900 Eos # (Auto) 500 H Baso # (Auto) 100 Sodium 139 Potassium 4.0 Chloride 109 H Carbon Dioxide 24 BUN 14 Creatinine 0.70 Estimated GFR > 60.0 BUN/Creatinine Ratio 20.0 Glucose 131 H Calcium 9.6 Magnesium Blood Type A Positive Antibody Screen Negative Crossmatch See Detail 02/23/19 05:50 WBC RBC Hgb Hct MCV MCH MCHC RDW Plt Count Neut % (Auto) Lymph % (Auto) Bryan % (Auto) Eos % (Auto) Baso % (Auto) Neut # (Auto) Lymph # (Auto) Bryan # (Auto) Eos # (Auto) Baso # (Auto) Sodium Potassium Chloride Carbon Dioxide BUN Creatinine Estimated GFR BUN/Creatinine Ratio Glucose Calcium Magnesium 2.3 Blood Type Antibody Screen Crossmatch Assessment & Plan Post-op Postoperative Procedures Operation Date: 02/20/19 15:45 Actual Procedures Side Surgeon p Hip Hemiarthroplasty Left Tamara Andrade MD Plan: Will change Aquacel dressing today. Patient will be discharged to [facility] pending clearance by hospitalist. She will need postop appointment at orthopedic office at 2 weeks postop in [place] office for dressing change and suture removal and x-ray. Quality VTE Deep Vein Thrombosis/Pulmonary Embolism Present on Admission: No
--- NOTE | 2019-02-23 10:51 | CM.DPC ---
DCP Cont: Had received discharge orders on patient from hospitalist. Had been attempting to reach [facility] to see if authorization had come in from her insurance. Did receive a call back from Christen at [facility] who stated that they did receive authorization this morning from her insurance. They plan on pickle sorter time here at approximately 1430. Signed meds and orders received, PASSR completed, white board updated. Faxed discharge summary and met list along with PASSR to [facility]. Original put in [place] folder. Cristina Chow nurse, updated. P: Patient is to be discharged to [facility] today. Angelina Tan RN/Wood Scaler
[2019-02-23 11:10] VITALS: BP 151/81; PULSE 75; RESP 18; TEMP 37.4; O2SAT 100
--- NOTE | 2019-02-23 12:04 | OT.IP.TRT ---
Current Diagnoses Anemia, unspecified (02/19/19) Fracture of unspecified part of neck of left femur, initial encounter for closed fracture (02/19/19) Surgery Performed Operation Date: 02/20/19 15:45 Actual Procedures p Hip Hemiarthroplasty(Left) - Tamara Andrade MD Occupational Therapy Treatment Note M2 OT-IP Current Condition Start: 02/20/19 08:29 Freq: Status: Active Protocol: Document 02/21/19 13:49 [facility] (Rec: 02/21/19 18:55 [facility] [id number]) Occupational Therapy Current Condition Current Condition Evaluation Date 02/21/19 Treatment Diagnosis Left hip fracture, decreased functional mobilty and self care Diagnosis Onset Date 02/19/19 Weight Bearing Status Weight Bearing Status Touch Down Weight Bearing Allowed Weight Bearing Amount (enter % TTWB for LLE or #) (%) M3 OT- IP Subjective and Pain Start: 02/20/19 08:29 Freq: Status: Active Protocol: Document 02/23/19 12:04 [facility] (Rec: 02/23/19 15:56 [facility] [id number]) OT- Subjective Occupational Therapy Visit Type Type Treatment Note Visit Start Time 11:34 Visit Stop Time 12:04 Notes Pt's observing this session. Occupational Therapy Visit Comments Patient Comments I think I am going to rehab today. Patient/Caregiver Goals to be able to walk and go home OT Pain Assessment Pain When Pain Assessed After Treatment Pain Present Pain Present Denied Pain M6 OT- IP Functional Cognition Start: 02/20/19 08:29 Freq: Status: Active Protocol: Document 02/23/19 12:04 [facility] (Rec: 02/23/19 15:56 [facility] [id number]) Cognitive Factors Limiting Selfcare Function Cognitive Ability Level of Alertness Alert Patient Orientation Name Year Place Attention Span Ability Capable of Focused Attention Capable of Sustained Attention Ability to Follow Commands Able to Follow One Step Commands Memory Description Immediate Impaired Short Term Impaired Safety Awareness Decreased Recall of Precautions Decreased Ability to Apply Precautions Underestimates Need for Assistance Problem Solving Ability Unable to Identify Errors Needs Assist to Identify Solutions Executive Function Ability Unable to Filter Distractions Unable to Organize Plans Cognitive Tests SLUMS Pt scored 19/30. Norm is 27/30. Pt had difficulty with immediate and working memory tasks, word generation and mental math. She is unable to place hands or numbers correctly on clock drawing. Cognitive Comments Cognitive Assessment Comments Provided education to pt/ re: results of assessment. states pt took similar test 1 yr ago and pt did better than today. OT Summary Assessment and Plan Potential Rehabilitation Potential Good Summary Assessment Summary Pt presents with significant cognitive deficits as described above. Pt should have close supervision with all medication management and agrees to this. manages all finances and pt does not drive. Pt plans to d/c to rehab today and will need repetition and practice for new learning of adapted ADL techniques to ensure follow through. Frequency of Treatment Frequency Of Treatment Discharge Discharge Recommendations OT Discharge Recommendations SNF Rehab
[2019-02-23] MEDS: BISACODYL 10 MG SUPP PR (12:15)
--- NOTE | 2019-02-23 12:27 | CM.DPC ---
DCP Cont: Is noted that patient has history of bipolar disorder. She has been on [place], managed by her primary care provider, and stable while here in hospital. Hospitalist did an order for patient to have Seroquel at night for sleep, so her medication list was updated. Updated PASSR for hospital exempt, spoke to Bella Rizo for assistance with PASSR. She stated, as long as her care was not interrupted here from her history, there should be no problems. Patient has been compliant with care and not noted any behavior changes, but does have trouble with sleep. Faxed over updated PASSR, and left a message with admissions as well. Added to comment box on PASSR, that patient has been on [place] prior to hospital admit, and Seroquel added for sleep. P: Patient is to be discharged to [facility] today. Angelina Tan RN/Lighting Specialist
--- NOTE | 2019-02-23 13:41 | PC.NURSE ---
Addendum entered by Brenda Peña R.N. 02/23/19 14:21: patient had large loose stool. left by wc w/ packet and all belongings and souse present Original Note: AQUACEL DRSG CHANGED PER ORDER. HUNTER INTACT, WOUND WELL APPROXIMATED. NO ACTIVE DRAINAGE. MILD BRUISING. NO ERYTHEMA. APPLIED NEW AQUACEL DRSG PER ORDER. PATIENT REFUSES SUPPOSITORY. HAS HAD THREE MODERATE SIZED TODAY. CONTINUES TO BE HARD STOOLS. STATES SHE MAY ACCEPT SUPPOSITORY TOMORROW AT [facility].
--- NOTE | 2019-02-23 15:59 | PC.NURSE ---
Addendum entered by Sisi Pineda R.N. 02/23/19 16:09: pt transfered to facility at 1410 via facility van. Original Note: Transfer: Pt feels ready to d/c to facility today. Gaytan out, no void yet. Pt initally declined supp since she has been having bm's, however spoke with her and she said she would take one. However pt then had 3 bm's this shift, the last one very soft, liquid, pt even requesting immodium and ref the supp again. Discussed use of immodium, see if bm's cont as is - if so facility can obtain an order for her. Seen by PT and received d/c instructions from them. Aquacel dressing was peeling off and lower end covered with tegaderm. Changed to new aquacel dressing and same has been c/d/i since then. [facility]. Reviewed hospital course, pt has not voided and they have a bladder scanner there and can replace gaytan if needed. Discussed pt's freq stooling. Reviewed labs, pt received 2 units of blood yesterday. Reviewed adl's and pt's mental status. Questions answered. Cont w/poc.
== END 2019-02-23 14:10 | DRG 470 ==
LOC: ED 19:36 → AC 19:43
PROVIDERS: Internal Medicine; Orthopaedic Surgery Foot and Ankle Surgery; Physician Assistant; Admitting Provider Nurse Practitioner Adult Health; Emergency Provider Emergency Medicine; Family Provider Internal Medicine; PCP Internal Medicine; Visit Provider Nurse Practitioner Adult Health
PROC: 0SRS0JZ Replacement of Left Hip Joint, Femoral Surface with Synthetic Substitute, Open Approach (ICD-10-PCS; CPT 27125; principal; 2019-02-20 15:45)
DX: M84.452A Pathological fracture, left femur, initial encounter for fracture (principal); N17.9 Acute kidney failure, unspecified; D62 Acute posthemorrhagic anemia; M32.9 Systemic lupus erythematosus, unspecified; D63.8 Anemia in other chronic diseases classified elsewhere; M85.80 Other specified disorders of bone density and structure, unspecified site; N18.2 Chronic kidney disease, stage 2 (mild); E03.9 Hypothyroidism, unspecified; M79.7 Fibromyalgia; K21.9 Gastro-esophageal reflux disease without esophagitis; F31.9 Bipolar disorder, unspecified; W01.10XA Fall on same level from slipping, tripping and stumbling with subsequent striking against unspecified object, initial encounter; Z87.891 Personal history of nicotine dependence
CPT/HCPCS: 36415; 36430; 36591; 51701; 72170; 73502; 80048; 80053; 80178; 81001; 82962; 83036; 83540; 83550; 83735; 85014; 85018; 85025; 85610; 85730; 86850; 86900; 86901; 87077; 87086; 87186; 93005; 94760; 94762; 97110; 97161; 97165; 97530; 97535; 99283; 99284; C1776; P9016; C9113; J0690; J1100; J1650; J1756; J1885; J2250; J2270; J2405; J2704; J2795; J3010

== ENCOUNTER 2019-04-07 21:17 | Emergency (ER) | payer MEDICARE, SELFPAY ==
[2019-04-07 21:24] VITALS: BP 124/72; PULSE 72; RESP 15; TEMP 36.4; O2SAT 99; BMI 29.8
--- NOTE | 2019-04-07 21:52 | ED.EXTPRO ---
HPI - Extremity Problem General Chief complaint: Extremity Problem,Nontraumatic Stated complaint: LEFT HIP PAIN Time Seen by Provider: 04/07/19 21:37 Source: patient Mode of arrival: Wheelchair Limitations: no limitations History of Present Illness HPI Narrative: 73-year-old female here for evaluation of left lower extremity pain. The past several months she underwent a left natalya arthroplasty of the hip secondary to a hip fracture. She did spend some time in rehab afterwards. Has had a follow-up with the orthopedic provider since then. Over the past 10 days she has had progressive worsening the pain in her hip and thigh and knee. Does been no new trauma. She is on Percocet as prescribed by paint spray tender. She has also been taking ibuprofen. She also sees home physical therapy Related Data Home Medications Medication Instructions Recorded Confirmed cyclobenzaprine 5 mg PO TIDP PRN #0 08/20/17 02/19/19 fenofibrate 160 mg PO QDAY #0 08/20/17 02/19/19 lithium carbonate 300 mg PO BID #0 08/20/17 02/19/19 hydroxychloroquine 400 mg PO DAILY 03/08/18 02/19/19 amlodipine 10 mg PO DAILY 02/19/19 02/19/19 fluoxetine 20 mg PO DAILY 02/19/19 02/19/19 levothyroxine 112 mcg PO DAILY 02/19/19 02/19/19 minoxidil [Rogaine] 1 applic TOPICAL DIRECTED 02/19/19 02/20/19 omeprazole 40 mg PO DAILY 02/19/19 02/19/19 ondansetron HCl [Zofran] 8 mg PO BID PRN 02/19/19 02/19/19 Previous Rx's Medication Instructions Recorded acetaminophen 975 mg PO TID #90 tab 02/23/19 ascorbic acid (vitamin C) [Vitamin 500 mg PO DAILY #30 tab 02/23/19 C] bisacodyl 10 mg MS DAILY PRN #30 ea 02/23/19 docusate sodium [DOK] 100 mg PO BID #60 cap 02/23/19 enoxaparin [Lovenox] 40 mg SUBCUT DAILY #25 ml 02/23/19 ferrous gluconate 324 mg PO DAILY #30 tab 02/23/19 melatonin 9 mg PO BEDTIME #30 tab 02/23/19 oxycodone 5 mg PO Q4HR PRN #30 tab 02/23/19 polyethylene glycol 3350 17 gm PO DAILY #1 pkg 02/23/19 quetiapine [Seroquel] 12.5 mg PO BEDTIME #30 tab 02/23/19 Allergies Allergy/AdvReac Type Severity Reaction Status Date / Time Sulfa (Sulfonamide Allergy Intermediate body rash Verified 04/07/19 21:24 Antibiotics) [SULFA (SULFONAMIDE ANTIBIOTICS)] gabapentin AdvReac Unknown altered Verified 04/07/19 21:24 mentation Review of Systems Constitutional Constitutional: Denies fever(s) Cardiovascular Cardiovascular: Denies dyspnea Respiratory Respiratory: Denies dyspnea Gastrointestinal Gastrointestinal: Denies abdominal pain Genitourinary Genitourinary: Denies dysuria Musculoskeletal Musculoskeletal: Reports arthralgias (Left hip) Comments: Left leg pain Integumentary/Breasts Skin/Breast: Denies lesions and Denies rash Hematologic/Lymphatic Hematologic/Lymphatic: Denies easy bleeding and Denies easy bruising ON LICENSE OF [facility] Medical History Bruises easily (Acute) Chronic low back pain (Acute) Constipation, chronic (Acute) Diet-controlled diabetes mellitus (Acute) Fibromyalgia (Acute) GERD (gastroesophageal reflux disease) (Acute) Hyperlipidemia (Acute) Hypertension (Acute) Incontinence (Acute) Lupus (systemic lupus erythematosus) (Acute) Migraines (Acute) Social History household members: spouse Smoking Status: Former smoker alcohol intake: never Exam Initial Vital Signs Initial Vital Signs: Vital Signs Temperature 97.6 F 04/07/19 21:24 Pulse Rate 72 04/07/19 21:24 Respiratory Rate 15 04/07/19 21:24 Blood Pressure 124/72 04/07/19 21:24 Pulse Oximetry 99 04/07/19 21:24 Const General: cooperative, comfortable and well developed Resp Effort & Inspection: normal respiratory effort Cardio Pulses: dorsalis pedis present bilaterally Neuro Sensory Exam: no sensory deficits noted Extrem Other: Patient does have tenderness of her left hip and left thigh and left knee when she is standing. Difficult to reproduce any this tenderness with palpation. She is able to flex and extend the hip does have some pain with flexion. Knee unremarkable of flexion-extension. Has no tenderness to palpation over the greater trochanter lateral leg. Course Orders Ordered: ED Orders 04/07/19 22:03 XR hip w pel if done LT 2V Stat XR knee LT 3V Stat Vital Signs Vital signs: Vital Signs - 8 hr 04/07/19 21:24 04/07/19 22:35 04/07/19 22:50 Temperature 97.6 F Pulse Rate 72 67 Pulse Rate [Bilateral Dorsalis Pedis] 70 Respiratory Rate 15 18 Blood Pressure 124/72 166/65 H Pulse Oximetry 99 99 MDM - Extremity (Nontraumatic) Imaging Data Left knee x-ray: Attestation: I personally reviewed and interpreted this imaging study as follows: My impression: No fractures, no dislocations Hip x-ray: Attestation: I personally reviewed and interpreted this imaging study as follows: My impression: No fractures, no dislocations, the prosthesis does seem to be fairly low and it does appear that the greater trochanter is up near the pelvic girdle however comparison of this x-ray prior x-rays does not seem to be any acute changes MDM Narrative Medical decision making narrative: Patient is neurovascularly intact. No fractures noted on the x-rays. The left hip prosthesis does seem to be riding low however does not appear to be new compared to prior x-rays. We did discuss the use of other pain medication to include Celebrex however the patient declined. She does see physical therapy. She has pain medication at home. I did inform her that she needed to contact her orthopedic provider on Wednesday for follow-up. Patient expressed understanding and agreement plan. Discharge Plan Departure Patient Disposition: Home Clinical Impression: Lower extremity pain, left Discharge Date/Time: 04/07/19 22:51 Instructions: DI for Leg Pain Activity Restrictions/Additional Instructions: Recommend you continue all of your medications as directed. On Wednesday talk with your orthopedic surgeon and also your primary doctor and also your paint spray tender for further workup. Return to the emergency department for any new or worsening symptoms Prescriptions: No Action fenofibrate 160 MG tablet 160 mg PO QDAY Qty: 0 RF: 0 cyclobenzaprine 5 MG tablet 5 mg PO TIDP PRN (Reason: Spasms) Qty: 0 RF: 0 lithium carbonate 300 MG capsule 300 mg PO BID Qty: 0 RF: 0 hydroxychloroquine 200 mg Tablet 400 mg PO DAILY RF: 0 amlodipine 10 mg Tablet 10 mg PO DAILY RF: 0 ondansetron HCl [Zofran] 4 mg Tablet 8 mg PO BID PRN (Reason: Nausea) RF: 0 omeprazole 40 mg Capsule,Delayed Release(Dr/Ec) 40 mg PO DAILY RF: 0 fluoxetine 20 mg Capsule 20 mg PO DAILY RF: 0 levothyroxine 112 mcg Tablet 112 mcg PO DAILY RF: 0 minoxidil [Rogaine] 2 % Solution 1 applic topical DIRECTED RF: 0 acetaminophen 325 mg Tablet 975 mg PO TID Qty: 90 RF: 0 polyethylene glycol 3350 17 gram Powder In Packet 17 gm PO DAILY Qty: 1 RF: 0 melatonin 3 mg Tablet 9 mg PO BEDTIME Qty: 30 RF: 0 ascorbic acid (vitamin C) [Vitamin C] 500 mg Tablet 500 mg PO DAILY Qty: 30 RF: 0 bisacodyl 10 mg Suppository 10 mg MS DAILY PRN (Reason: Constipation) Qty: 30 RF: 0 docusate sodium [DOK] 100 mg Capsule 100 mg PO BID Qty: 60 RF: 0 oxycodone 5 mg Tablet 5 mg PO Q4HR PRN (Reason: Pain, Moderate (4-6)) Qty: 30 RF: 0 enoxaparin [Lovenox] 40 mg/0.4 mL Syringe 40 mg subcut DAILY Qty: 25 RF: 0 ferrous gluconate 324 mg (38 mg iron) Tablet 324 mg PO DAILY Qty: 30 RF: 0 quetiapine [Seroquel] 25 mg tablet 12.5 mg PO BEDTIME Qty: 30 RF: 0 Referrals: Merissa Robbins MD [Primary Care Provider] -
--- NOTE | 2019-04-07 22:03 | DI.RAD.S_ITS ---
PROCEDURE: XR KNEE LT 3V INDICATIONS: pain TECHNIQUE: 3 views of the knee were acquired. COMPARISON: None. FINDINGS: Bones: No displaced fracture or dislocation is identified. No suspicious osseous lesions are evident. There is moderate to severe degenerative changes identified involving the left knee, which is seen within all 3 compartments of the knee with areas of joint space narrowing, subchondral sclerosis, and marginal osteophytes. Soft tissues: There is a moderate-sized joint effusion. No suspicious soft tissue calcifications. IMPRESSION: 1. Moderate to severe degenerative changes of the left knee. 2. No acute fractures. 3. No joint effusion. Dictated by: Abdoul Patten M.D. on 04/08/2019 at 7:37 Approved by: Abdoul Patten M.D. on 04/08/2019 at 7:53
--- NOTE | 2019-04-07 22:03 | DI.RAD.S_ITS ---
PROCEDURE: XR HIP W PEL IF DONE LT 2V INDICATIONS: left hip pain TECHNIQUE: 2 views of the hip were acquired. COMPARISON: [facility], CR, XR PELVIS 1-2V, 02/20/2019, 19:39. [facility], CR, XR HIP W PEL IF DONE LT 2V, 02/19/2019, 19:03. [facility], CR, XR HIP W PEL IF DONE LUDY 3TO4V, 06/23/2018, 15:45. [facility], CR, XR PELVIS WITH LATERAL HIP LEFT, 03/30/2019, 11:05. [facility], CR, XR PELVIS WITH LATERAL HIP LEFT, 03/02/2019, 11:17. FINDINGS: Bones: Postoperative changes are again evident related to a left hip arthroplasty. The metallic prosthetic components is unchanged in alignment. No trochanters of the needed proximal left femur are clear right in the expected for a left hip arthroplasty, but are unchanged since the immediate postoperative study from 02/20/19. No periprosthetic fracture or periprosthetic lucency is appreciated. The remainder of the imaged osseous structures of pelvis are intact. Moderate degenerative changes of the included lower lumbar spine and right hip are evident. Mild to moderate degenerative changes of the sacroiliac joints are present. Soft tissues: No suspicious soft tissue calcifications or masses. IMPRESSION: 1. Unchanged alignment of a left hip arthroplasty without evidence of fracture or obvious hardware failure. 2. Mild/moderate degenerative changes of the pelvic joints as described. Dictated by: Abdoul Patten M.D. on 04/08/2019 at 7:33 Approved by: Abdoul Patten M.D. on 04/08/2019 at 7:36
[2019-04-07 22:35] VITALS: PULSE 70
[2019-04-07 22:50] VITALS: BP 166/65; PULSE 67; RESP 18; O2SAT 99
== END 2019-04-07 22:51 | disposition home or self-care (01) ==
PROVIDERS: Emergency Provider Emergency Medicine; Family Provider Internal Medicine; PCP Internal Medicine
DX: M25.552 Pain in left hip (principal)
CPT/HCPCS: 73502; 73562; 99282; 99283

== ENCOUNTER → 2019-04-25 13:31 | Outpatient (CLI) | payer MEDICARE, SELFPAY ==
[2019-04-25 14:26] LABS: Add Manual Diff / Slide Review NO; Basophils Absolute Auto 100 /uL (0-100); Basophils Percent Auto 1.7 % (0-2); Eosinophils Absolute Auto 500 /uL (0-450); Eosinophils Percent Auto 6.8 % (2-4); Hematocrit 35.9 % (36-46); Hemoglobin 11.7 g/dL (12.0-16.0); Lymphocytes Absolute Auto 900 /uL (1100-4500); Lymphocytes Percent Auto 13.5 % (25-40); Mean Corpuscular HGB Conc 32.5 % (30-36); Mean Corpuscular Hemoglobin 29.4 PG (26-34); Mean Corpuscular Volume 90.3 fL (80-100); Monocytes Absolute Auto 400 /uL (0-900); Monocytes Percent Auto 6.1 % (3-14); Neutrophils Absolute Auto 5000 /uL (1500-7000); Neutrophils Percent Auto 71.9 % (50-75); Platelet Count 326 X10^3/uL (150-400); Red Blood Cell Count 3.97 X10^6/uL (4.0-5.2); Red Cell Distribution Width 15.5 % (11.6-14.8)
[2019-04-25 14:46] LABS: Erythrocyte Sedimentation Rate 1 MM/HR (0-20)
[2019-04-25 15:00] LABS: BUN Creatinine Ratio 17.3 (6-22); Blood Urea Nitrogen 19 mg/dL (7-17); Calcium 10.9 mg/dL (8.4-10.2); Carbon Dioxide 24 mmol/L (22-32); Chloride 105 mmol/L (98-107); Estimated Glomerular Filt Rate 48.6 mL/min (>60); Glucose 136 mg/dL (80-110); HEMOLYSIS < 15 (0-50); Potassium 4.4 mmol/L (3.4-5.1); Sodium 139 mmol/L (137-145)
[2019-04-25 15:01] LABS: C-Reactive Protein Quant < 0.5 mg/dL (<1.0)
== END ==
PROVIDERS: PCP Internal Medicine; Visit Provider Orthopaedic Surgery Adult Reconstructive Orthopaedic Surgery
DX: Z01.818 Encounter for other preprocedural examination (principal)
CPT/HCPCS: 36415; 80048; 85025; 85651; 86140; 93005

== ENCOUNTER 2019-05-05 06:17 | Inpatient (IN) | payer MEDICARE, SELFPAY ==
[2019-05-02 11:31] VITALS: BMI 32.3
[2019-05-05] VITALS (13 sets, daily range): BP systolic 101–183; BP diastolic 52–79; PULSE 70–92; RESP 13–18; TEMP 36.2–37.7; O2SAT 92–100; BMI 27.1
--- NOTE | 2019-05-05 | DI.RAD.S_ITS ---
PROCEDURE: XR PELVIS 1-2V INDICATIONS: INTRAOPERATIVE LEFT HIP REVISION (REPEAT IMAGES) TECHNIQUE: Intra-operative view of the pelvis and hip acquired. COMPARISON: [facility], CR, XR PELVIS WITH LATERAL HIP LEFT, 03/02/2019, 11:17. [facility], CR, XR HIP W PEL IF DONE LT 2V, 04/07/2019, 22:01. [facility], CR, XR PELVIS 1-2V, 05/05/2019, 8:16. FINDINGS: Bones: There is left hip arthroplasty revision with new prosthesis in expected positions. No fractures or suspicious bony lesions. Soft tissues: Overlying surgical retractors are present, along with other intraoperative changes. IMPRESSION: Left hip arthroplasty with prosthesis in anatomic alignment. Dictated by: Milly Keslser M.D. on 05/05/2019 at 11:05 Approved by: Milly Kessler M.D. on 05/05/2019 at 11:07
--- NOTE | 2019-05-05 | DI.RAD.S_ITS ---
PROCEDURE: XR PELVIS 1-2V INDICATIONS: INTRAOPERATIVE LEFT HIP REVISION TECHNIQUE: Intra-operative view of the pelvis and hip acquired. COMPARISON: [facility], CR, XR PELVIS 1-2V, 02/20/2019, 19:39. FINDINGS: Bones: Intraoperative devices prior to placement of arthroplasty prostheses are in expected positions. No fractures or suspicious bony lesions. The left ischial tuberosity is obscured by overlying shadows. Soft tissues: Overlying surgical retractors are present, along with other intraoperative changes. IMPRESSION: Expected intraoperative alignment. Dictated by: [place] Venegas M.D. on 05/05/2019 at 10:14 Approved by: [place] Ven[place]as M.D. on 05/05/2019 at 10:15
--- NOTE | 2019-05-05 06:00 | DI.RAD.S_ITS ---
PROCEDURE: XR PELVIS 1-2V INDICATIONS: POSTOPERATIVE left hip REVISION TECHNIQUE: 1 view of the lower pelvis acquired. COMPARISON: [facility], , XR PELVIS 1-2V, 05/05/2019, 10:11. FINDINGS: Bones: Patient is status post left hip arthroplasty, with hardware components in expected positions. The hip joint appears congruent. The visualized bony structures appear intact. Moderate to severe right hip joint degeneration Soft tissues: Overlying postoperative changes are noted. No suspicious soft tissue densities. IMPRESSION: Expected postoperative alignment. Dictated by: [place] Venegas M.D. on 05/05/2019 at 14:52 Approved by: [place] Ven[place]as M.D. on 05/05/2019 at 14:53
[2019-05-05] MEDS: ACETAMINOPHEN 325 MG TABLET 975 MG PO (07:30)
[2019-05-05] MEDS: CELECOXIB 200 MG CAPSULE PO (07:31)
--- NOTE | 2019-05-05 07:31 | PM.HP.1 ---
History of Present Illness History of Present Illness Chief complaint: [id number] Patient History Medical History Acute kidney injury (Acute) Bipolar disorder (Acute) Bruises easily (Acute) Chronic low back pain (Acute) Chronic sciatica of left side (Acute) Constipation, chronic (Acute) Diet-controlled diabetes mellitus (Acute) Fibromyalgia (Acute) GERD (gastroesophageal reflux disease) (Acute) Hyperlipidemia (Acute) Hypertension (Acute) Hypothyroidism (Acute) Incontinence (Acute) Lupus (systemic lupus erythematosus) (Acute) Migraines (Acute) Normocytic anemia (Acute) Surgical History History of bilateral cataract extraction (Acute) History of bladder suspension procedure (Acute) History of left hip hemiarthroplasty (Acute 02/20/19) History of partial thyroidectomy (Acute) Status post tubal ligation Status post vaginal hysterectomy Family & Social History Family History Father No problems noted. Mother No problems noted. Brother Bone cancer Social History: household members spouse Prior Living Arrangements Apartment/Condo Safety & Behavioral: Feels Safe in Current Yes Environment Been Physically Hurt or No Threatened By a Person Tobacco & Substance use: Smoking Status Former smoker alcohol intake never alcohol intake frequency holiday/special occasion Substance Use Type does not use,painkillers,prescription drug Meds Home Medications and Allergies Home Medications Medication Instructions Recorded Confirmed Type cyclobenzaprine 5 mg PO TIDP PRN #0 08/20/17 05/05/19 History fenofibrate 160 mg PO QDAY #0 08/20/17 05/05/19 History lithium carbonate 300 mg PO BID #0 08/20/17 05/05/19 History hydroxychloroquine 400 mg PO DAILY 03/08/18 05/05/19 History amlodipine 10 mg PO DAILY 02/19/19 05/05/19 History fluoxetine 20 mg PO DAILY 02/19/19 05/05/19 History levothyroxine 112 mcg PO DAILY 02/19/19 05/05/19 History minoxidil [Rogaine] 1 applic TOPICAL DIRECTED 02/19/19 05/05/19 History omeprazole 40 mg PO DAILY 02/19/19 05/05/19 History ondansetron HCl [Zofran] 8 mg PO BID PRN 02/19/19 05/02/19 History bisacodyl 10 mg [place] DAILY PRN #30 ea 02/23/19 05/02/19 Rx docusate sodium [DOK] 100 mg PO BID #60 cap 02/23/19 05/02/19 Rx ferrous gluconate 324 mg PO DAILY #30 tab 02/23/19 05/05/19 Rx polyethylene glycol 3350 17 gm PO DAILY #1 pkg 02/23/19 05/02/19 Rx aspirin 325 mg PO DAILY 05/05/19 05/05/19 History ibuprofen 600 mg PO Q6H PRN 05/05/19 05/05/19 History oxycodone 10 mg PO Q4HR PRN 05/05/19 05/05/19 History Allergies Allergy/AdvReac Type Severity Reaction Status Date / Time Sulfa (Sulfonamide Allergy Intermediate body rash Verified 05/05/19 06:54 Antibiotics) [SULFA (SULFONAMIDE ANTIBIOTICS)] gabapentin AdvReac Unknown altered Verified 05/05/19 06:54 mentation Exam Vital Signs (past 8 hours): - 05/05/19 07:05 Temperature 97.2 F L Pulse Rate 80 Respiratory Rate 16 Blood Pressure 183/79 H Pulse Oximetry 100 Oxygen Delivery Method Room Air
[2019-05-05] MEDS: LACTATED RINGERS 1,000 ML 42 ML IV ×2 (07:53→09:14)
--- NOTE | 2019-05-05 07:53 | SUR.PREOP ---
PRE OP ADMIT DONE BY SHARON MACHUCA RN NOT LITA ADAM RN.
[2019-05-05] MEDS: CEFAZOLIN 2 GM/100 ML FROZ.PIGGY IV (08:15)
--- NOTE | 2019-05-05 08:56 | SUR.OPER ---
Lateral on padded OR bed. Gel axillary roll. Arms secured on padded armboard with pillow supporting top arm. Padded hip positioner braces x4 - anterior and posterior chest and pelvis. Additional gel pad used anterior pelvis. Gel pad under bottom leg from knee to foot and secured with tape over sheet. POSITIONED BY DR. HEARN
--- NOTE | 2019-05-05 09:10 | SUR.OPER ---
BILATERAL ARMS WITH VARIOUS SKIN TEARS UPON ARRIVAL TO HOSPITAL. TEARS COVERED WITH TELFA AND WRAPPED IN KERLIX PREOPERATIVELY.
[2019-05-05] MEDS: ROPIVACAINE 0.5% PF 5 MG/ML 20ML VIAL 60 ML INJ (09:31)
[2019-05-05] MEDS: KETOROLAC 30 MG/ML VIAL IV (09:32)
[2019-05-05] MEDS: MORPHINE 4 MG/ML INJ INJ (09:33)
[2019-05-05] MEDS: SODIUM CHLORIDE IRRIG SOLUTION 250 ML, POVIDONE-IODINE SPONGE STICKS 1 APPLIC IRR (10:37)
[2019-05-05] MEDS: VANCOMYCIN 1,000 MG VIAL 1000 MG TOP (10:37)
--- NOTE | 2019-05-05 11:23 | PM.OP.1 ---
Operative Date/Time/Diagnoses Date of procedure: 05/05/19 Time of procedure: 11:24 Pre-op diagnosis: Failed Left hemiarthroplasty Post-op diagnosis: same Procedure & Clinicians Procedure: Revision left total hip arthroplasty Same procedure as scheduled: Yes Indications: Failed left hemiarthroplasty Surgeon: John Proctor Drafter Civil Engineering: Fabian Vila Anesthesia Type: General, Spinal and Local Operative Notes Findings: Patient is a 73-year-old female who sustained a ground level fall resulting in a left femoral neck fracture. This was fixed with a hemiarthroplasty. However postop it was found that she had subsided. She is approximately 2 cm short preoperatively and has significant pain with ambulation. Due to her pain and the shortening it was decided she would benefit from a total hip arthroplasty conversion. Patient is now in the preoperative holding area where the site and side of surgery were marked by the MD. Patient was then brought back into the operating room where she was transferred onto the operating table. A spinal epidural was then placed. Patient was then placed in a right lateral decubitus position. All bony prominences were well padded as well as the peroneal nerve as it wrapped around the fibular head. Healed surgical scar was marked. The left lower extremity is then prepped and draped in standard fashion. At this point a time-out was performed verifying the site and side of surgery as well as the planned operation. An incision was made along the previous surgical scar. The old surgical scar was ellipsed out. Sharp dissection was carried down to the level of the ITB band which was split using electrocautery proximally into the gluteus osmin fibers were then split bluntly. The old sutures were then removed using a rongeur. I was not able to identify the remaining short external rotators. Capsule was taken down revealing the subsided left hemiarthroplasty. Electrocautery was used to take down the proximal 1/3 of the quadratus femoris to better mobilize the femur. At this point we are able to dislocate the left hip. A bone tamp and mallet was used to remove the unipolar head. Curved osteotome was then used to free up the soft tissues on the anterior aspect of the acetabulum the femur was then shotgunned set at the neck of the hemiarthroplasty status pocket a Kober retractor was then used to retract the femur anteriorly. A Cobra was then placed at the posterior-inferior aspect of the acetabular cup. Trocar was then used to remove the pulvinar. Electrocautery was used to remove the labrum. This point we were able to begin reaming. We began with a number 46 Reamer this was increased by 2 a time up to the level of 52 and 53 and 54 Reamer were used sequentially. A number 54 R3 shell was then selected and was mallet into place with good countersinker balance screw hole. We placed a trial liner. Then we turned our attention to the removal of the hemiarthroplasty femoral stem. A femoral neck elevator was placed under the anteromedial aspect of the femoral neck to elevate the femur out of the wound. The stem was found be grossly loose we did use a bur to remove bone from the inner aspect of the greater trochanter to free up the shoulder of the implant. Once this was completely remove the screw in an impactor into the stem and we have the mallet the stem out while keeping the greater trochanter intact. We then took swabs from the femoral canal. We then used a back terminal gauger to remove the film from the femoral canal. At this point we began with a proximal lateralizing Reamer. Next we began up sizing the distal reamers starting with a number 14 we ultimately ended up increasing sizes to a size 19 with a Lenke 190 mm distal femoral Reamer. This we then disconnected this from the dinkey driver and placed a proximal body Reamer over the top of the stem of this was then reamed sizes 1 2 and 3. We then placed a trial standard offset femoral neck and a standard 36 mm in +0 femoral head. This the hip was then reduced. The hip was ranged and found to be stable at 90? of flexion and internal rotation to approximately 40?. An x-ray was taken to verify positioning of the cup and our femoral stem. We determined that the cup was flat when we looked at the intraoperative film and the femoral stem was in good position. The hip was then dislocated the femoral trial head was removed along with the trial neck. We then returned our attention to the acetabular cup the trial liner was removed the impactor handle was reinserted and the the cup was placed into in more vertical position. Again found to have good countersinker balance screw hole the impactor handle was removed and 3 screws were placed into the femoral cup and 2 were 25 mm and 1 was 15 mm in length. A polyethylene liner for 54 mm cup was then selected at 36 mm inner diameter this was then impacted and the polyethylene was found to be some flushed with the acetabular cup. We went back to the femoral side we removed the proximal body and test the stability of the distal Reamer which was found to be quite secure the distal Reamer was then backed out on reverse. A size 19 x 190 mm stem was then selected the canal was irrigated and suctioned the femoral implant was placed taking care to match our previous version of the femoral component. This is a mallet into place and held with no longer progress with mallet ring. We then trialed a 36 mm +0 head the patient did have some shock at this point we took it through range of motion and was stable to forward flexion 90? and internal rotation to 50?. We took another x-ray which determined that we are still little short on this side as compared to the contralateral side we then selected a 36 mm head +4 cobalt chrome this was then malleted onto the trunnion the hip was reduced and taken through range of motion at this point was stable to 90? of forward flexion and 80? of internal rotation at this point we then irrigated the wound we placed a Betadine solution and allowed to sit for 1 minutes prior to irrigating with 500 mL of normal saline 1 g of powdered vancomycin was then placed in the wound within repaired the capsule with 5. Ethibond as well as remnant of the external rotators. We then closed the ITB band with 1. Vicryl and wheezing 1. Vicryl in the subcutaneous fat layer followed by 2 Vicryl and subcutaneous tendon tissue and a 3 of strata fix this was then secured in place with Steri-Strips and Dermabond and a Aquacel dressing was placed. Drapes were then removed a wedge pillow was then placed and patient was then transferred onto the [facility] to be taken to PACU. Closure Type: primary Specimen(s): other Prosthetic devices, grafts, tissues, transplants, or devices: Last and Nephew R3 cup 54 mm Last and Nephew polyethylene liner 54 mm outer diameter 36 mm inner diameter Last Nephew Bried Lucia femoral standard offset stem size 19 x 190 mm in length 36 mm cobalt chrome femoral head +4 2 x 6.5 mm diameter screws 1 x 6.5 mm diameter screw Estimated Blood Loss (mL): 500 Blood products transfused: none Complications: none Post-operative Condition: stable Disposition: PACU Plan for aftercare: Patient is partial weight-bearing left lower extremity she also has posterior hip precautions should use a wedge pillow while in bed at all times.
[2019-05-05 12:02] LABS: Add Manual Diff / Slide Review NO; Basophils Absolute Auto 100 /uL (0-100); Basophils Percent Auto 0.9 % (0-2); Eosinophils Absolute Auto 100 /uL (0-450); Eosinophils Percent Auto 0.7 % (2-4); Hematocrit 28.3 % (36-46); Hemoglobin 9.5 g/dL (12.0-16.0); Lymphocytes Absolute Auto 400 /uL (1100-4500); Lymphocytes Percent Auto 2.9 % (25-40); Mean Corpuscular HGB Conc 33.4 % (30-36); Mean Corpuscular Volume 89.8 fL (80-100); Monocytes Absolute Auto 200 /uL (0-900); Monocytes Percent Auto 1.2 % (3-14); Neutrophils Absolute Auto 11700 /uL (1500-7000); Neutrophils Percent Auto 94.3 % (50-75); Platelet Count 271 X10^3/uL (150-400); Red Blood Cell Count 3.16 X10^6/uL (4.0-5.2); Red Cell Distribution Width 14.2 % (11.6-14.8); White Blood Cell Count 12.4 X10^3/uL (4.5-11.0)
--- NOTE | 2019-05-05 12:43 | PC.NURSE ---
Pt to room 212 via bed from PACU with APPRENTICE JOCKEY. Pt denies pain, nausea, or shortness of breath. Denies full sensation to lower extremities below mid thigh level. Unable to wiggle toes yet. Pt oriented to room, call light, bed controls and tv controls. Bed alarm on for safety.
--- NOTE | 2019-05-05 13:26 | CM.IDA ---
Initial DCP Assessment Note: Pt is a 73 yo female, resident of [place]. Pt is scheduled for surgery today, Revision left total hip arthroplasty w/ Dr Proctor. PCP: Merissa Robbins Payer: [employer] Medicare ([facility]) Reviewed chart. Pt here in February 2019 after GLF/hip fx and repair, she DC to [facility] 02.23.19. This SENIOR MARKETING DATA ANALYST attempted assessment, pt just arrived back to the floor from surgery, spouse at bedside. Introduced role briefly and suggested return POD#1 According to chart review, PT eval done 02.21.19 states pt is indp at baseline. This SENIOR MARKETING DATA ANALYST will assess DC needs further POD#1 05.06.19. SCARLETT Riley Discharge Planning/Care Management CM Discharge Assessment Start: 05/05/19 13:11 Freq: Status: Active Protocol: Document 05/05/19 13:11 DIMA (Rec: 05/05/19 13:26 DIMA [id number]) Discharge Planning Assessment Assigned Store Coordinator SCARLETT Pro DPOA/Assigned Designee Name Handy Prather, spouse Contact Information [phone] Advance Directives? No: has not completed one. Advance Directives on File No History Provided By Family Member,Medical Record Prior Living Arrangements Apartment/Condo Household Members spouse Type of transporation used prior to Drives own vehicle admit Independent with ADL's Yes Is patient alert and oriented? Yes Patient/Family Preference Correction Facility Comment Return home w/HH vs SNF Barriers to Discharge Yes Comment Minimal assist available from spouse, recent hip fx/surgery February [address] [facility] 02.23.19 Additional Comment Referrals TBD pending work w/ therapy Review Status In Process
--- NOTE | 2019-05-05 17:27 | PT.IIE ---
Current Diagnoses Displaced fracture of base of neck of left femur, initial encounter for closed fracture (05/05/19) Broken internal joint prosthesis, other site, initial encounter (05/05/19) Presence of left artificial hip joint (05/05/19) Other specified postprocedural states (05/05/19) Surgery Performed Operation Date: 05/05/19 07:45 Actual Procedures p Revision Hemiarthroplasty(Left) - John Proctor MD Surgical History (Last Reviewed 05/05/19 @ 07:32 by John Proctor MD) History of bilateral cataract extraction (Acute) History of bladder suspension procedure (Acute) History of left hip hemiarthroplasty (Acute 02/20/19) History of partial thyroidectomy (Acute) Status post tubal ligation Status post vaginal hysterectomy Medical History (Last Reviewed 05/05/19 @ 07:32 by John Proctor MD) Acute kidney injury (Acute) Bipolar disorder (Acute) Bruises easily (Acute) Chronic low back pain (Acute) Chronic sciatica of left side (Acute) Constipation, chronic (Acute) Diet-controlled diabetes mellitus (Acute) Fibromyalgia (Acute) GERD (gastroesophageal reflux disease) (Acute) Hyperlipidemia (Acute) Hypertension (Acute) Hypothyroidism (Acute) Incontinence (Acute) Lupus (systemic lupus erythematosus) (Acute) Migraines (Acute) Normocytic anemia (Acute) Physical Therapy Inpatient Evaluation/Re-Eval M1 PT/OT-IP Prior Functional Status Start: 05/05/19 15:53 Freq: NEEDED Status: Active Protocol: Document 05/05/19 16:00 HH (Rec: 05/05/19 17:27 HH [email or web address]) Medical Review Prior Functional Status Medical History Reviewed Yes Diet/Fluid Consistency Regular Communication no deficits noted. able to make needs known Mobility and Gait Home bound and amb with W/C due to carpet at home. Pt was TTWB for the past few months after her first sx. She was able to amb to her 's car for 40 ft, but usually stay in w/c for community mobility. Activities of Daily Living and IADL's Pt stated that her hsuband assisted her for cooking, house cleaning and laundry. Social History Household Members spouse Living Arrangements Apartment/Condo Number of Floors (Floors) One Floor Number of Stairs To Enter/Railing? 1STE Home Environment Standard Height Toilet,Tub/ Shower Doors Home Equipment Front Wheel Walker,Raised Toilet Seat w/Armrests,Tub Transfer Bench Employment Status Retired Additional Social History Comment Pt lives in [place] with . Had L NIMISHA 02/2019 after a fall who broke her hip . Pt DC to [facility] 02/23/19 and was able to d/c home afterwards. Pt had [facility]. M2 PT-IP Current Condition Start: 05/05/19 15:53 Freq: NEEDED Status: Active Protocol: Document 05/05/19 16:00 HH (Rec: 05/05/19 17:27 [email or web address]) Physical Therapy Current Condition Current Condition Evaluation Date 05/05/19 Treatment Diagnosis Revision of L NIMISHA, difficulty in walking, weakness Onset Date 05/05/19 Precautions Posterior Hip Precautions No Hip Flexion > 90 degrees,No Hip Internal Rotation,No Hip Adduction Weight Bearing Status Weight Bearing Status Partial Weight Bearing M3 PT-IP Subjective Start: 05/05/19 15:53 Freq: NEEDED Status: Active Protocol: Document 05/05/19 16:00 HH (Rec: 05/05/19 17:27 [email or web address]) Subjective Physical Therapy Visit Type Type Initial Evaluation Visit Start Time 16:00 Visit Stop Time 16:35 Total Visit Minutes 35 Number of ENTRY LEVEL ASSISTANT MANAGER Visits 0 Physical Therapy Visit Comments Patient Comments I want to try to get up. Patient Goals To return home with Therapy Pain Assessment Pain Present Pain Present Denied Pain M4 PT-IP Mobility and Gait Start: 05/05/19 15:53 Freq: NEEDED Status: Active Protocol: Document 05/05/19 16:00 HH (Rec: 05/05/19 17:27 [email or web address]) PT-Bed Mobility Assessment Supine to Sit Supine to Sit Contact Guard Assistance,Head of Bed Elevated,Bedrails Sit to Supine Sit to Supine Contact Guard Assistance,Head of Bed Elevated,Bedrails Scooting Scooting to Edge of Bed Contact Guard Assistance Scooting Up and Down in Bed Moderate Assistance PT-Transfer Assessment Sit to and From Stand Sit to and from Stand Moderate Assistance,1 Person Assistance,Use of Upper Extremities Equipment Transfer Assistive Device Gait Belt,Front Wheeled Walker Transfer Ability Level of Assist Moderate Assistance Comments Mobility Comments Pt's BP pre mobility = 116/84 and post mobility= 124/68 Pt was in bed upon assessment with abduction pillow. Pt agreed to mobilize with PT. Educated pt on post hip precautions and use of abduction pillow in supine and at night. She was able to perform supine to semi-long sit and pivot herself to L side of EOB with the use of L bedrail. She scoot towards EOB through weight shift safely. She then stood up with FWW and gait belt with min/mod A. She primarily WB through RLE and UEs on walker only. Educated pt she is PWB at this point but she stated she is scared to use her L side. Pt completed lateral scoot for 2 feet to L side but she then c/ o slight chest pain and requested to sit and returned to bed afterwards. Pt's BP remains normal but HR went up to 101. Pt stated she does not feel weak but more so because of being scared to put weight on LLE. Pt returned to supine CGA but mod A scooting towards EOB. Call light within reach and bed alarm activated . Gait Assessment Comments Gait Comments unable to assess Stair Climbing Assessment Comments Stair Climbing Comments unable to assess PT-Balance Assessment Sitting Balance and Reactions Static Sitting Balance Ability Normal Dynamic Sitting Balance Ability Normal Standing Balance and Reactions Static Standing Balance Ability Good Dynamic Standing Balance Ability Fair Device Used FWW M5 PT-IP Objective Assessments Start: 05/05/19 15:53 Freq: NEEDED Status: Active Protocol: Document 05/05/19 16:00 HH (Rec: 05/05/19 17:27 [email or web address]) Orientation Orientation/Cognition Level of Alertness Alert Orientation Name,Age,Birthday,Month,Date, Year,Day of Week,Place, Situation Language Function Ability No Deficits Noted Safety Awareness Understands Safety Issues Memory Description No Deficits Noted Gross Range of Motion Upper Extremity ROM Assessment Within Functional Limits Lower Extremity ROM Assessment Left Impaired Strength Upper Extremity Strength Assessment Within Functional Limits Lower Extremity Strength Assessment Left Impaired Comments Strength Comments LLE grossly 3+/5 Coordination Assessment Gross Coordination Gross Coordination WNL Sensation Assessment Sensation Gross Sensation WNL Muscle Tone Muscle Tone WNL Yes M6 PT-IP Treatment Start: 05/05/19 15:53 Freq: NEEDED Status: Active Protocol: Document 05/05/19 16:00 HH (Rec: 05/05/19 17:27 [email or web address]) Physical Therapy Treatment Exercises Exercises Quad Sets Education Education Provided Precautions,Weight Bearing Status,Post-Op Packet,Safety M7 PT-IP Assessment and Plan Start: 05/05/19 15:53 Freq: NEEDED Status: Active Protocol: Document 05/05/19 16:00 HH (Rec: 05/05/19 17:27 HH [email or web address]) PT Summary Assessment and Plan Potential Rehabilitation Potential Excellent Status of Condition at Evaluation Stable Summary Impairments Pain,ROM,Strength,Balance,Tone ,Bed Mobility,Transfers,Gait, Activity Tolerance Assessment Summary Pt is a low complexity who is POD#1 Revision of L NIMISHA. Upon assessment, pt performed well with bed mobility who was also able to stand up with min/mod A FWW. However, she did 2 feet of lateral scoot through RLE due to fear of WB through LLE. Pt also c/o new onset of chest pain and requested to return to bed afterwards. Her VSS remain stable except HR went up to 101. Notified RN and recommended use of bed mcgrath / squat pivot transfers to C with 2 PA. Recommend d/c to SNF at this point due to her limited mobility. Goals Bed Mobility Goal Contact Guard Assistance Transfer Goal Contact Guard Assistance,Front Wheeled Walker Gait Goal Contact Guard Assistance,Front Wheel Walker Gait Distance 30 Other Goals 1STE without rails Days to Meet Goals 10 Frequency of Treatment Frequency Of Treatment Twice a Day Treatment Plan Physical Therapy Treatment Plan Bed Mobility Training,Transfer Training,Gait Training, Therapeutic Exercise,Balance Retraining,Post Op Education, Discharge Planning,Hot or Cold Pack,Neuromuscular Re-ed Other Recommendations and Next Treatment review precautions and weight Focus bearing status transfer/ gait training as bijal Recommendations To Nursing Amount of Assist Needed 2 Person Assist Discharge Recommendations PT Discharge Recommendations SNF Rehab
[2019-05-05] MEDS: SODIUM CHLORIDE 0.9% 1,000 ML 100 ML IV (18:06)
[2019-05-05] MEDS: OXYCODONE IR 5 MG TABLET 10 MG PO (20:48)
[2019-05-05] MEDS: CYCLOBENZAPRINE 5 MG TABLET PO (20:48)
[2019-05-05] MEDS: IBUPROFEN 600 MG TABLET PO (20:49)
[2019-05-05] MEDS: LITHIUM 300 MG IR CAPSULE PO (20:49)
[2019-05-06] MEDS: SODIUM CHLORIDE 0.9% 1,000 ML 100 ML IV (04:42)
[2019-05-06 04:45] VITALS: BP 133/69; PULSE 76; RESP 16; TEMP 37.1; O2SAT 99
[2019-05-06 06:04] LABS: Hematocrit 23.5 % (36-46); Hemoglobin 7.9 g/dL (12.0-16.0)
[2019-05-06] MEDS: PANTOPRAZOLE 40 MG TABLET PO (06:29)
[2019-05-06] MEDS: LEVOTHYROXINE 112 MCG TABLET PO (06:30)
--- NOTE | 2019-05-06 08:39 | PM.PNPO.1 ---
Subjective Subjective Date Patient Seen: 05/06/19 Time Patient Seen: 08:40 Interval history: Pain is well controlled. She has been seen by PT. No complaints at this time. Hgb 7.9 this am. Denies symptoms. Mentating well. Exam Vital Signs (past 8 hours): - 05/06/19 04:45 Temperature 98.8 F Pulse Rate 76 Respiratory Rate 16 Blood Pressure 133/69 Pulse Oximetry 99 Oxygen Delivery Method Room Air Oxygen Flow Rate 0 Narrative Exam Narrative: AAOx3, plesant Resp Effort & Inspection: normal respiratory effort and able to speak in complete sentences Cardio Pulses: dorsalis pedis present Skin Lesions: lesion noted (Bilateral upper extremity skin tears present prior to admission) Other: Surgical site dressing c/d/i without strike-through Neuro General: alert, awake and oriented x3 Extrem Other: 5/5 DF, PF, EHL on left. Sensation intact to bilateral lower extremities Objective Labs Result Diagrams: 05/06/19 05:41 Labs: Laboratory Results - last 24 hr 05/05/19 05/06/19 11:50 05:41 WBC 12.4 H RBC 3.16 L Hgb 9.5 L 7.9 L Hct 28.3 L 23.5 L MCV 89.8 MCH 30.0 MCHC 33.4 RDW 14.2 Plt Count 271 Neut % (Auto) 94.3 H Lymph % (Auto) 2.9 L [place] % (Auto) 1.2 L Eos % (Auto) 0.7 L Baso % (Auto) 0.9 Neut # (Auto) 26368 H Lymph # (Auto) 400 L [place] # (Auto) 200 Eos # (Auto) 100 Baso # (Auto) 100 Assessment & Plan Post-op Postoperative Procedures: Procedures Operation Date: 05/05/19 07:45 Actual Procedures Side Surgeon p Revision Hemiarthroplasty Left John Proctor MD Postoperative day: 1 Postoperative status: doing well Postoperative status narrative: Patient is s/p revision of subsided left hip hemiarthroplasty to L NIMISHA. Postoperative plan narrative: Patient will likely need SNF level of care at time of DC. She is to use a wedge pillow while in bed for the first 6 weeks. She is partial weight bearing on LLE. She should use a FWW for 6 weeks. Posterior hip precautions. Time Spent With Patient Time with patient: less than 15 minutes Quality VTE Deep Vein Thrombosis/Pulmonary Embolism Present on Admission: No
[2019-05-06 08:45] VITALS: BP 139/61; PULSE 80; RESP 16; TEMP 36.8; O2SAT 98
--- NOTE | 2019-05-06 09:30 | PT.IPTN ---
Current Diagnoses Displaced fracture of base of neck of left femur, initial encounter for closed fracture (05/05/19) Broken internal joint prosthesis, other site, initial encounter (05/05/19) Presence of left artificial hip joint (05/05/19) Other specified postprocedural states (05/05/19) Surgery Performed Operation Date: 05/05/19 07:45 Actual Procedures p Revision Hemiarthroplasty(Left) - John Proctor MD Physical Therapy Treatment Note M2 PT-IP Current Condition Start: 05/05/19 15:53 Freq: NEEDED Status: Active Protocol: Document 05/05/19 16:00 HH (Rec: 05/05/19 17:27 HH [email or web address]) Physical Therapy Current Condition Current Condition Evaluation Date 05/05/19 Treatment Diagnosis Revision of L NIMISHA, difficulty in walking, weakness Onset Date 05/05/19 Precautions Posterior Hip Precautions No Hip Flexion > 90 degrees,No Hip Internal Rotation,No Hip Adduction Weight Bearing Status Weight Bearing Status Partial Weight Bearing M3 PT-IP Subjective Start: 05/05/19 15:53 Freq: NEEDED Status: Active Protocol: Document 05/06/19 09:30 GGD (Rec: 05/06/19 11:53 GGD [id number]) Subjective Physical Therapy Visit Type Type Treatment Note Visit Start Time 09:05 Visit Stop Time 09:28 Total Visit Minutes 23 Number of BIT SANDER Visits 1 Physical Therapy Visit Comments Patient Comments Pt states she needs to use the bathroom. M4 PT-IP Mobility and Gait Start: 05/05/19 15:53 Freq: NEEDED Status: Active Protocol: Document 05/06/19 09:30 GGD (Rec: 05/06/19 11:53 GGD [id number]) PT-Bed Mobility Assessment Supine to Sit Supine to Sit Contact Guard Assistance, Bedrails Scooting Scooting to Edge of Bed Contact Guard Assistance PT-Transfer Assessment Sit to and From Stand Sit to and from Stand Minimal Assistance,1 Person Assistance,Use of Upper Extremities Equipment Transfer Assistive Device Gait Belt,Front Wheeled Walker Transfers Transfer Destination Bedside Commode Transfer Ability Level of Assist Minimal Assistance Comments Mobility Comments Pt needed cues for safety and precautions. M5 PT-IP Objective Assessments Start: 05/05/19 15:53 Freq: NEEDED Status: Active Protocol: Document 05/05/19 16:00 HH (Rec: 05/05/19 17:27 HH [email or web address]) Orientation Orientation/Cognition Level of Alertness Alert Orientation Name,Age,Birthday,Month,Date, Year,Day of Week,Place, Situation Language Function Ability No Deficits Noted Safety Awareness Understands Safety Issues Memory Description No Deficits Noted Gross Range of Motion Upper Extremity ROM Assessment Within Functional Limits Lower Extremity ROM Assessment Left Impaired Strength Upper Extremity Strength Assessment Within Functional Limits Lower Extremity Strength Assessment Left Impaired Comments Strength Comments LLE grossly 3+/5 Coordination Assessment Gross Coordination Gross Coordination WNL Sensation Assessment Sensation Gross Sensation WNL Muscle Tone Muscle Tone WNL Yes M6 PT-IP Treatment Start: 05/05/19 15:53 Freq: NEEDED Status: Active Protocol: Document 05/06/19 09:30 GGD (Rec: 05/06/19 11:53 GGD [id number]) Physical Therapy Treatment Exercises Exercises Ankle Pumps,Gluteal Sets,Quad Sets Education Education Provided Precautions,Weight Bearing Status M7 PT-IP Assessment and Plan Start: 05/05/19 15:53 Freq: NEEDED Status: Active Protocol: Document 05/06/19 09:30 GGD (Rec: 05/06/19 11:53 GGD [id number]) PT Summary Assessment and Plan Summary Assessment Summary Pt is impulsive with mobility. She transfer to BSC needing cues for TTWB, she transfer with NWB and scooting right foot. Pt unable to recall precautions and needs mod cues . Pt would benefit from SNF to improve functional mobility. Frequency of Treatment Frequency Of Treatment Twice a Day Treatment Plan Physical Therapy Treatment Plan Bed Mobility Training,Transfer Training,Gait Training, Therapeutic Exercise,Balance Retraining,Post Op Education, Discharge Planning,Hot or Cold Pack,Neuromuscular Re-ed Recommendations To Nursing Amount of Assist Needed 1 Person Assist Discharge Recommendations PT Discharge Recommendations SNF Rehab
[2019-05-06] MEDS: FLUoxetine 20 MG CAPSULE PO (10:04)
[2019-05-06] MEDS: LITHIUM 300 MG IR CAPSULE PO ×2 (10:04→21:26)
[2019-05-06] MEDS: FERROUS GLUCONATE 324 MG TABLET PO (10:04)
[2019-05-06] MEDS: ASPIRIN 325 MG TABLET PO (10:05)
[2019-05-06] MEDS: HYDROXYCHLOROQUINE 200 MG TABLET 400 MG PO (10:05)
[2019-05-06] MEDS: FENOFIBRATE 160 MG TABLET PO (10:05)
[2019-05-06] MEDS: SODIUM CHLORIDE 0.9% FLUSH 10 ML IV ×2 (10:06→21:28)
[2019-05-06] MEDS: IBUPROFEN 600 MG TABLET PO ×2 (10:15→17:46)
[2019-05-06] MEDS: OXYCODONE IR 5 MG TABLET 10 MG PO ×2 (10:16→21:26)
[2019-05-06 11:45] VITALS: BP 135/54; PULSE 81; RESP 16; TEMP 36.7; O2SAT 97
[2019-05-06] MEDS: CALCIUM CARBONATE 500 MG TAB PO (12:36)
--- NOTE | 2019-05-06 14:20 | PT.IPTN ---
Current Diagnoses Displaced fracture of base of neck of left femur, initial encounter for closed fracture (05/05/19) Broken internal joint prosthesis, other site, initial encounter (05/05/19) Presence of left artificial hip joint (05/05/19) Other specified postprocedural states (05/05/19) Surgery Performed Operation Date: 05/05/19 07:45 Actual Procedures p Revision Hemiarthroplasty(Left) - oJhn Proctor MD Physical Therapy Treatment Note M2 PT-IP Current Condition Start: 05/05/19 15:53 Freq: NEEDED Status: Active Protocol: Document 05/06/19 15:57 AB (Rec: 05/06/19 16:01 AB [id number]) Physical Therapy Current Condition Weight Bearing Status Weight Bearing Status Touch Down Weight Bearing Allowed Weight Bearing Amount (enter % per Dr. Proctor's order: PWB LLE or #) (%) . Called Dr. Proctor's office 05/06/19Wednesday to clarify PWB LLE restriction on specific parameters(lbs/wt percentage). [employer] stated that they will send the message to the doctor but we will not get a respond until Wednesday because it is the weekend. Will treat pt as TTWB on LLE at this time until further clarification is obtained from the doctor. M3 PT-IP Subjective Start: 05/05/19 15:53 Freq: NEEDED Status: Active Protocol: Document 05/06/19 14:20 AB (Rec: 05/06/19 15:57 AB [id number]) Subjective Physical Therapy Visit Type Type Treatment Note Visit Start Time 14:20 Visit Stop Time 15:30 Total Visit Minutes 70 Number of LIGHT BULB TESTER Visits 5 Physical Therapy Visit Comments Patient Comments pt agreeable to do PT Therapy Pain Assessment Pain Present Pain Present Denied Pain M4 PT-IP Mobility and Gait Start: 05/05/19 15:53 Freq: NEEDED Status: Active Protocol: Document 05/06/19 14:20 AB (Rec: 05/06/19 15:57 AB [id number]) PT-Bed Mobility Assessment Supine to Sit Supine to Sit Minimal Assistance,1 Person Assistance Sit to Supine Sit to Supine Standby Assistance Scooting Scooting to Edge of Bed Standby Assistance PT-Transfer Assessment Sit to and From Stand Sit to and from Stand Minimal Assistance,Moderate Assistance,1 Person Assistance ,Use of Upper Extremities Equipment Transfer Assistive Device Gait Belt,Front Wheeled Walker Orthotic/Prosthetic Devices or Brace: No Transfers Transfer Destination Toilet Transfer Technique pt ambulated using FWW Transfer Ability Level of Assist Maximum Assistance,1 Person Assistance,Use of Upper Extremities Comments Mobility Comments Called Dr. Proctor's office to clarify PWB on LLE order. Doctor's office stated that they will give the message to the doctor and because it is the weekend, will not get a response until wednesday. PT opted to do TTWB at this time until further clarification from ortho doctor is obtained. Reviewed posterior hip precautions with pt. pt unable to recall and requires repeated cues. pt completed supine to sit min A and max cues. PT demonstrated and educated pt on sit to stand technique and LE position during ambulation to maintain hip precautions and weight bearing restriction. completed sit to stand from EOB min A to mod A and cues. pt was able to maintain standing using FWW for support min A and cues to maintain TTWB. pt requested to use the toilet. initially took 2 steps NWB. educated and cued for ambulation techniques and completed ambulation to the toilet using FWW max A and max cues to maintain weight bearing restriction. pt with increase flexed trunk midway during ambulation and required repeated cues to stand upright. pt required max A and max cues for controlled descent to the toilet. pt completed sit to stand from the toilet using grab bar and arm rest to get up requiring max A and max cues. pt was able to maintain standing using FWW for support mod to max A and max cues to maintain weight bearing restriction while nurse assist pt with putting barrier cream. pt ambulated towards the bed using FWW max A and max cues. continues to lean forward on FWW and required repeated cues for upright posture and also cues for maintain weight bearing restriction. pt has ( +) crepitus and seems to be coming from her back. pt completed bed mobiltiy sit to supine SBA. positioned pt in bed. call light and table placed within reach. positioned abductor pillow, ice pack and bed alarm on. Gait Assessment Gait Gait Assistance Required: Maximum Assistance,1 Person Assist Distance (Feet) 8 Able to Maintain Weight Bearing Status No During Gait Assistive Devices Assistive Device Gait Belt,Front Wheeled Walker Orthotic/Prosthetic Devices or Brace: No Gait Deviations General Gait Pattern Antalgic,Decreased Stride Length,Decreased Feet Clearance,Flexed Trunk Factors Limiting Gait Function Factors Limiting Gait Function Decreased Activity Tolerance, Decreased Strength,Difficulty Following Directions,Limited Range of Motion,Poor Balance, Poor Safety Awareness Comments Gait Comments pls refer to mobility section for details. pt requires max cues for upright posture and weight bearing restriction. M5 PT-IP Objective Assessments Start: 05/05/19 15:53 Freq: NEEDED Status: Active Protocol: Document 05/05/19 16:00 HH (Rec: 05/05/19 17:27 HH [id number]) Orientation Orientation/Cognition Level of Alertness Alert Orientation Name,Age,Birthday,Month,Date, Year,Day of Week,Place, Situation Language Function Ability No Deficits Noted Safety Awareness Understands Safety Issues Memory Description No Deficits Noted Gross Range of Motion Upper Extremity ROM Assessment Within Functional Limits Lower Extremity ROM Assessment Left Impaired Strength Upper Extremity Strength Assessment Within Functional Limits Lower Extremity Strength Assessment Left Impaired Comments Strength Comments LLE grossly 3+/5 Coordination Assessment Gross Coordination Gross Coordination WNL Sensation Assessment Sensation Gross Sensation WNL Muscle Tone Muscle Tone WNL Yes M6 PT-IP Treatment Start: 05/05/19 15:53 Freq: NEEDED Status: Active Protocol: Document 05/06/19 14:20 AB (Rec: 05/06/19 15:57 AB [id number]) Physical Therapy Treatment Education Education Provided Precautions,Weight Bearing Status,Safety M7 PT-IP Assessment and Plan Start: 05/05/19 15:53 Freq: NEEDED Status: Active Protocol: Document 05/06/19 14:20 AB (Rec: 05/06/19 15:57 AB [id number]) PT Summary Assessment and Plan Potential Rehabilitation Potential Fair Summary Impairments Pain,ROM,Strength,Balance, Coordination,Sensation,Tone, Cognition,Bed Mobility, Transfers,Gait,Activity Tolerance Progress Towards Goals Slow Progress due to Medical Issues,Slow Progress due to Activity Tolerance Assessment Summary pt requiring max A with mobility and unable to maintain weight bearing restriction and requires constant cues for hip precautions. pt will benefit from SNF rehab to improve mobility and independence. Goals Bed Mobility Goal Contact Guard Assistance Transfer Goal Contact Guard Assistance,Front Wheeled Walker Gait Goal Contact Guard Assistance,Front Wheel Walker Gait Distance 30 Other Goals 1STE without rails Days to Meet Goals 10 Frequency of Treatment Frequency Of Treatment Twice a Day Treatment Plan Physical Therapy Treatment Plan Bed Mobility Training,Transfer Training,Gait Training, Therapeutic Exercise,Balance Retraining,Post Op Education, Discharge Planning,Hot or Cold Pack,Neuromuscular Re-ed Recommendations To Nursing Amount of Assist Needed 1 Person Assist Discharge Recommendations PT Discharge Recommendations SNF Rehab
[2019-05-06] MEDS: CYCLOBENZAPRINE 5 MG TABLET PO ×2 (16:11→21:26)
[2019-05-06] MEDS: OXYCODONE IR 5 MG TABLET PO (16:11)
[2019-05-06 20:42] VITALS: BP 148/74; PULSE 92; RESP 18; TEMP 36.3; O2SAT 100
[2019-05-07] VITALS (7 sets, daily range): BP systolic 136–156; BP diastolic 50–91; PULSE 83–104; RESP 14–18; TEMP 35.9–36.6; O2SAT 96–98
[2019-05-07] MEDS: SODIUM CHLORIDE 0.9% FLUSH 10 ML IV ×3 (01:14→20:53)
[2019-05-07] MEDS: IBUPROFEN 600 MG TABLET PO (01:32)
[2019-05-07] MEDS: OXYCODONE IR 5 MG TABLET 10 MG PO ×3 (01:32→20:54)
[2019-05-07] MEDS: OXYCODONE IR 5 MG TABLET PO (04:21)
[2019-05-07] MEDS: PANTOPRAZOLE 40 MG TABLET PO (04:22)
[2019-05-07] MEDS: LEVOTHYROXINE 112 MCG TABLET PO (04:22)
--- NOTE | 2019-05-07 06:51 | PC.NURSE ---
Pt considered going to SNF vs home. Pt states she thinks if approved she would like to go to SNF post discharge. Pt reports pain 4-7/10 at left hip and chronic pain due to sciatica. PRN pain medication given with good effect. When reassessed pain, pt appeared to be sleeping, lying with eyes closes. Bilat skin tears with Optifoam intact, no bleeding. Abductor wedge in place while pt in bed. q2hr turn/shift weight using mirian bed and pillows at pt pain tolerance allows. Aquacell dressing intact, lower edge border rolled up slightly. Shadow area on lower border, measures ~2in oval shaped. CMS intact. Transfer to BSC with RN, pt stating PT instructions clearly and with good understanding.
--- NOTE | 2019-05-07 08:08 | CM.DPNOTE ---
DCP Cont: Discussed SNF with pt yesterday and she explained she had a very good experience at [facility] and would like to go there again. She said she would also discuss this w/spouse when he returned in the evening. Gave referral to Dina at [facility] and she said they could accept pt pending an auth is secured from [facility], which will not be available until Wednesday. [facility] typically can provide auth quickly, Dina optimistic that pt may be able to DC to their facility Wednesday, again pending auth. DIMA
--- NOTE | 2019-05-07 08:31 | PM.PNPO.1 ---
Subjective Subjective Date Patient Seen: 05/07/19 Time Patient Seen: 08:31 Interval history: Patient is doing very well. She is up with physical therapy yesterday. Continue work on gait training and posterior hip precautions. Pain is well controlled. Mentating well. Exam Vital Signs (past 8 hours): - 05/07/19 04:43 05/07/19 08:00 Temperature 97.9 F 97.8 F Pulse Rate 83 87 Respiratory Rate 16 14 Blood Pressure 146/78 H 136/50 L Pulse Oximetry 98 98 Oxygen Delivery Method Room Air Oxygen Flow Rate 0 Narrative Exam Narrative: Dressings are clean dry intact without strike through. Intact dorsiflexion plantar flexion and EHL. Sensation intact throughout bilateral lower extremities. Objective Labs Result Diagrams: 05/06/19 05:41 Assessment & Plan Post-op Postoperative Procedures: Procedures Operation Date: 05/05/19 07:45 Actual Procedures Side Surgeon p Revision Hemiarthroplasty Left John Proctor MD Postoperative day: 2 Postoperative status: doing well Postoperative plan narrative: Patient is now postop from revision of left hip hemiarthroplasty to total hip arthroplasty. Patient is met with discharge planning and Physical therapy who determined that [facility]. Plan is for discharge tomorrow to [facility]. Time Spent With Patient Time with patient: less than 15 minutes Quality VTE Deep Vein Thrombosis/Pulmonary Embolism Present on Admission: No
[2019-05-07] MEDS: AMLODIPINE 5 MG TABLET 10 MG PO (09:59)
[2019-05-07] MEDS: CYCLOBENZAPRINE 5 MG TABLET PO ×3 (09:59→20:53)
[2019-05-07] MEDS: ASPIRIN 325 MG TABLET PO (09:59)
[2019-05-07] MEDS: LITHIUM 300 MG IR CAPSULE PO ×2 (09:59→20:53)
[2019-05-07] MEDS: HYDROXYCHLOROQUINE 200 MG TABLET 400 MG PO (09:59)
[2019-05-07] MEDS: FENOFIBRATE 160 MG TABLET PO (09:59)
[2019-05-07] MEDS: FLUoxetine 20 MG CAPSULE PO (09:59)
[2019-05-07] MEDS: FERROUS GLUCONATE 324 MG TABLET PO (10:00)
--- NOTE | 2019-05-07 11:13 | PT.IPTN ---
Current Diagnoses Displaced fracture of base of neck of left femur, initial encounter for closed fracture (05/05/19) Broken internal joint prosthesis, other site, initial encounter (05/05/19) Presence of left artificial hip joint (05/05/19) Other specified postprocedural states (05/05/19) Surgery Performed Operation Date: 05/05/19 07:45 Actual Procedures p Revision Hemiarthroplasty(Left) - John Proctor MD Physical Therapy Treatment Note M2 PT-IP Current Condition Start: 05/05/19 15:53 Freq: NEEDED Status: Active Protocol: Document 05/06/19 15:57 AB (Rec: 05/06/19 16:01 AB [id number]) Physical Therapy Current Condition Weight Bearing Status Weight Bearing Status Touch Down Weight Bearing Allowed Weight Bearing Amount (enter % per Dr. Proctor's order: PWB LLE or #) (%) . Called Dr. Proctor's office 05/06/19Wednesday to clarify PWB LLE restriction on specific parameters(lbs/wt percentage). Implementation Consultant stated that they will send the message to the doctor but we will not get a respond until Wednesday because it is the weekend. Will treat pt as TTWB on LLE at this time until further clarification is obtained from the doctor. M3 PT-IP Subjective Start: 05/05/19 15:53 Freq: NEEDED Status: Active Protocol: Document 05/07/19 10:39 CLB (Rec: 05/07/19 12:02 CLB [id number]) Subjective Physical Therapy Visit Type Type Treatment Note Visit Start Time 10:39 Visit Stop Time 11:13 Total Visit Minutes 34 Number of LINEN GRADER Visits 1 Physical Therapy Visit Comments Patient Comments pt agreeable to do PT Therapy Pain Assessment Pain Present Pain Present Denied Pain M4 PT-IP Mobility and Gait Start: 05/05/19 15:53 Freq: NEEDED Status: Active Protocol: Document 05/07/19 10:39 CLB (Rec: 05/07/19 12:02 CLB [id number]) PT-Bed Mobility Assessment Supine to Sit Supine to Sit Contact Guard Assistance Scooting Scooting to Edge of Bed Standby Assistance PT-Transfer Assessment Sit to and From Stand Sit to and from Stand Minimal Assistance,1 Person Assistance,Use of Upper Extremities Equipment Transfer Assistive Device Gait Belt,Front Wheeled Walker Orthotic/Prosthetic Devices or Brace: No Transfers Transfer Destination Chair,Bedside Commode Transfer Technique pt ambulated using FWW Transfer Ability Level of Assist Moderate Assistance,1 Person Assistance,Use of Upper Extremities Comments Mobility Comments Pt continues to need Max cues for safety and precautions, pt also needs cues for PWB(TTWB) during ambulation and cues for proper sequencing with step/walker use. Pt also needs cues for posture as pt bend over walker and needs cues to stand tall for good gait quality. Gait Assessment Gait Gait Assistance Required: Maximum Assistance,1 Person Assist Distance (Feet) 10 Able to Maintain Weight Bearing Status No During Gait Assistive Devices Assistive Device Gait Belt,Front Wheeled Walker Orthotic/Prosthetic Devices or Brace: No Gait Deviations General Gait Pattern Antalgic,Decreased Stride Length,Decreased Feet Clearance,Flexed Trunk Factors Limiting Gait Function Factors Limiting Gait Function Decreased Activity Tolerance, Decreased Strength,Difficulty Following Directions,Limited Range of Motion,Poor Balance, Poor Safety Awareness Comments Gait Comments Pt needs cues for step/walker sequencing as well as posture and weight bearing. Pt also needs cues during turns to prevent hip internal rotation. M5 PT-IP Objective Assessments Start: 05/05/19 15:53 Freq: NEEDED Status: Active Protocol: Document 05/05/19 16:00 HH (Rec: 05/05/19 17:27 HH [id number]) Orientation Orientation/Cognition Level of Alertness Alert Orientation Name,Age,Birthday,Month,Date, Year,Day of Week,Place, Situation Language Function Ability No Deficits Noted Safety Awareness Understands Safety Issues Memory Description No Deficits Noted Gross Range of Motion Upper Extremity ROM Assessment Within Functional Limits Lower Extremity ROM Assessment Left Impaired Strength Upper Extremity Strength Assessment Within Functional Limits Lower Extremity Strength Assessment Left Impaired Comments Strength Comments LLE grossly 3+/5 Coordination Assessment Gross Coordination Gross Coordination WNL Sensation Assessment Sensation Gross Sensation WNL Muscle Tone Muscle Tone WNL Yes M6 PT-IP Treatment Start: 05/05/19 15:53 Freq: NEEDED Status: Active Protocol: Document 05/07/19 10:39 CLB (Rec: 05/07/19 12:02 CLB [id number]) Physical Therapy Treatment Exercises Exercises Ankle Pumps,Gluteal Sets,Quad Sets Education Education Provided Precautions,Weight Bearing Status,Safety M7 PT-IP Assessment and Plan Start: 05/05/19 15:53 Freq: NEEDED Status: Active Protocol: Document 05/07/19 10:39 CLB (Rec: 05/07/19 12:02 CLB [id number]) PT Summary Assessment and Plan Summary Impairments Pain,ROM,Strength,Balance, Coordination,Sensation,Tone, Cognition,Bed Mobility, Transfers,Gait,Activity Tolerance Assessment Summary Pt continues to require max cuing for precautions and weight bearing during ambulation. Pt recalls 2/3 precautions. Goals Bed Mobility Goal Contact Guard Assistance Transfer Goal Contact Guard Assistance,Front Wheeled Walker Gait Goal Contact Guard Assistance,Front Wheel Walker Gait Distance 30 Other Goals 1STE without rails Days to Meet Goals 10 Frequency of Treatment Frequency Of Treatment Twice a Day Treatment Plan Physical Therapy Treatment Plan Bed Mobility Training,Transfer Training,Gait Training, Therapeutic Exercise,Balance Retraining,Post Op Education, Discharge Planning,Hot or Cold Pack,Neuromuscular Re-ed Recommendations To Nursing Amount of Assist Needed 1 Person Assist Discharge Recommendations PT Discharge Recommendations SNF Rehab
--- NOTE | 2019-05-07 13:57 | PT.IPTN ---
Current Diagnoses Displaced fracture of base of neck of left femur, initial encounter for closed fracture (05/05/19) Broken internal joint prosthesis, other site, initial encounter (05/05/19) Presence of left artificial hip joint (05/05/19) Other specified postprocedural states (05/05/19) Surgery Performed Operation Date: 05/05/19 07:45 Actual Procedures p Revision Hemiarthroplasty(Left) - John Proctor MD Physical Therapy Treatment Note M2 PT-IP Current Condition Start: 05/05/19 15:53 Freq: NEEDED Status: Active Protocol: Document 05/06/19 15:57 AB (Rec: 05/06/19 16:01 AB [id number]) Physical Therapy Current Condition Weight Bearing Status Weight Bearing Status Touch Down Weight Bearing Allowed Weight Bearing Amount (enter % per Dr. Proctor's order: PWB LLE or #) (%) . Called Dr. Proctor's office 05/06/19Wednesday to clarify PWB LLE restriction on specific parameters(lbs/wt percentage). [employer] stated that they will send the message to the doctor but we will not get a respond until Wednesday because it is the weekend. Will treat pt as TTWB on LLE at this time until further clarification is obtained from the doctor. M3 PT-IP Subjective Start: 05/05/19 15:53 Freq: NEEDED Status: Active Protocol: Document 05/07/19 13:22 CLB (Rec: 05/07/19 14:38 CLB [id number]) Subjective Physical Therapy Visit Type Type Treatment Note Visit Start Time 13:22 Visit Stop Time 13:57 Total Visit Minutes 34 Number of ORTHOPAEDIC NURSE Visits 2 Physical Therapy Visit Comments Patient Comments pt agreeable to do PT Therapy Pain Assessment Pain Present Pain Present Denied Pain M4 PT-IP Mobility and Gait Start: 05/05/19 15:53 Freq: NEEDED Status: Active Protocol: Document 05/07/19 13:22 CLB (Rec: 05/07/19 14:38 CLB [id number]) PT-Bed Mobility Assessment Supine to Sit Supine to Sit Contact Guard Assistance Sit to Supine Sit to Supine Minimal Assistance Scooting Scooting to Edge of Bed Standby Assistance PT-Transfer Assessment Sit to and From Stand Sit to and from Stand Minimal Assistance,1 Person Assistance,Use of Upper Extremities Equipment Transfer Assistive Device Gait Belt,Front Wheeled Walker Orthotic/Prosthetic Devices or Brace: No Transfers Transfer Destination Chair,Toilet,Bedside Commode Transfer Technique pt ambulated using FWW Transfer Ability Level of Assist Moderate Assistance,1 Person Assistance,Use of Upper Extremities Comments Mobility Comments Pt required step by step cues for all mobility to prevent pt from breaking hip precautions . Pt was able to state 3/3 precautions this visit but unable to follow through during mobility. Pt has difficult time with PWB during gait and requires max cues for sequencing walker/steps with therapist foot under pt foot to prevent increased wt. Pt left in bed with alarm on, call light within reach and present. Pt also had on SCD's and wedge pillow in place. Gait Assessment Gait Gait Assistance Required: Maximum Assistance,1 Person Assist Distance (Feet) 15 Able to Maintain Weight Bearing Status No During Gait Assistive Devices Assistive Device Gait Belt,Front Wheeled Walker Orthotic/Prosthetic Devices or Brace: No Gait Deviations General Gait Pattern Antalgic,Decreased Stride Length,Decreased Feet Clearance,Flexed Trunk Factors Limiting Gait Function Factors Limiting Gait Function Decreased Activity Tolerance, Decreased Strength,Difficulty Following Directions,Limited Range of Motion,Poor Balance, Poor Safety Awareness Comments Gait Comments Pt continues to need max cuing for sequencing and WB status. M5 PT-IP Objective Assessments Start: 05/05/19 15:53 Freq: NEEDED Status: Active Protocol: Document 05/05/19 16:00 HH (Rec: 05/05/19 17:27 HH [email or web address]) Orientation Orientation/Cognition Level of Alertness Alert Orientation Name,Age,Birthday,Month,Date, Year,Day of Week,Place, Situation Language Function Ability No Deficits Noted Safety Awareness Understands Safety Issues Memory Description No Deficits Noted Gross Range of Motion Upper Extremity ROM Assessment Within Functional Limits Lower Extremity ROM Assessment Left Impaired Strength Upper Extremity Strength Assessment Within Functional Limits Lower Extremity Strength Assessment Left Impaired Comments Strength Comments LLE grossly 3+/5 Coordination Assessment Gross Coordination Gross Coordination WNL Sensation Assessment Sensation Gross Sensation WNL Muscle Tone Muscle Tone WNL Yes M6 PT-IP Treatment Start: 05/05/19 15:53 Freq: NEEDED Status: Active Protocol: Document 05/07/19 13:22 CLB (Rec: 05/07/19 14:38 CLB [id number]) Physical Therapy Treatment Exercises Exercises Ankle Pumps,Gluteal Sets,Quad Sets Education Education Provided Precautions,Weight Bearing Status,Safety M7 PT-IP Assessment and Plan Start: 05/05/19 15:53 Freq: NEEDED Status: Active Protocol: Document 05/07/19 13:22 CLB (Rec: 05/07/19 14:38 CLB [id number]) PT Summary Assessment and Plan Summary Impairments Pain,ROM,Strength,Balance, Coordination,Sensation,Tone, Cognition,Bed Mobility, Transfers,Gait,Activity Tolerance Progress Towards Goals Slow Progress due to Medical Issues,Slow Progress due to Activity Tolerance Assessment Summary Pt requires Max A for gait and is unable to maintain WB status. Pt requires cues to prevent hip precautions during all mobility. Pt will benefit from SNF rehab to increase strength and functional mobility before returning home . Goals Bed Mobility Goal Contact Guard Assistance Transfer Goal Contact Guard Assistance,Front Wheeled Walker Gait Goal Contact Guard Assistance,Front Wheel Walker Gait Distance 30 Other Goals 1STE without rails Days to Meet Goals 10 Frequency of Treatment Frequency Of Treatment Twice a Day Treatment Plan Physical Therapy Treatment Plan Bed Mobility Training,Transfer Training,Gait Training, Therapeutic Exercise,Balance Retraining,Post Op Education, Discharge Planning,Hot or Cold Pack,Neuromuscular Re-ed Other Recommendations and Next Treatment review precautions and weight Focus bearing status transfer/ gait training as bijal Recommendations To Nursing Amount of Assist Needed 1 Person Assist Discharge Recommendations PT Discharge Recommendations SNF Rehab
--- NOTE | 2019-05-07 22:00 | PC.NURSE ---
Assumed care of pt at 1500. Pt resting in bed during bedside hand-off. Drsg rolling up on distal edge with incision exposed. Drsg removed; dried blood on incision noted; New Aquacel applied. Pt up frequently to BSC, requires multiple mobility instructions for safe transfer. Pt reports restless leg syndrome and moving legs frequently. Post hip precautions reinforced by this RN. Abductor wedge used while in bed. Pt fidgets with straps and removes them. Pt has stated I just want to call my to take me home but I know I need to stay here. Bed alarm on while in bed. Analgesics given per mar with good effect.
[2019-05-08] MEDS: OXYCODONE IR 5 MG TABLET 10 MG PO ×2 (01:49→11:04)
[2019-05-08] MEDS: IBUPROFEN 600 MG TABLET PO ×2 (01:49→09:26)
[2019-05-08] MEDS: LEVOTHYROXINE 112 MCG TABLET PO (05:16)
[2019-05-08] MEDS: PANTOPRAZOLE 40 MG TABLET PO (05:16)
[2019-05-08 05:50] VITALS: BP 150/74; PULSE 87; RESP 16; TEMP 36.6; O2SAT 96
[2019-05-08 07:29] VITALS: BP 146/82; PULSE 77; RESP 16; TEMP 36.8; O2SAT 99
--- NOTE | 2019-05-08 09:14 | PT.IPTN ---
Current Diagnoses Displaced fracture of base of neck of left femur, initial encounter for closed fracture (05/05/19) Broken internal joint prosthesis, other site, initial encounter (05/05/19) Presence of left artificial hip joint (05/05/19) Other specified postprocedural states (05/05/19) Surgery Performed Operation Date: 05/05/19 07:45 Actual Procedures p Revision Hemiarthroplasty(Left) - John Proctor MD Physical Therapy Treatment Note M2 PT-IP Current Condition Start: 05/05/19 15:53 Freq: NEEDED Status: Active Protocol: Document 05/06/19 15:57 AB (Rec: 05/06/19 16:01 AB [id number]) Physical Therapy Current Condition Weight Bearing Status Weight Bearing Status Touch Down Weight Bearing Allowed Weight Bearing Amount (enter % per Dr. Proctor's order: PWB LLE or #) (%) . Called Dr. Proctor's office 05/06/19Wednesday to clarify PWB LLE restriction on specific parameters(lbs/wt percentage). [employer] stated that they will send the message to the doctor but we will not get a respond until Wednesday because it is the weekend. Will treat pt as TTWB on LLE at this time until further clarification is obtained from the doctor. M3 PT-IP Subjective Start: 05/05/19 15:53 Freq: NEEDED Status: Active Protocol: Document 05/08/19 08:44 CLB (Rec: 05/08/19 14:09 CLB [email or web address]) Subjective Physical Therapy Visit Type Type Treatment Note Visit Start Time 08:44 Visit Stop Time 09:14 Total Visit Minutes 25 Number of COUNTER HAND Visits 3 Physical Therapy Visit Comments Patient Comments pt agreeable to do PT Therapy Pain Assessment Pain When Pain Assessed At Rest Pain Present Pain Present Pain Reported Location left hip Scale Used pt didn't state M4 PT-IP Mobility and Gait Start: 05/05/19 15:53 Freq: NEEDED Status: Active Protocol: Document 05/08/19 08:44 CLB (Rec: 05/08/19 14:09 CLB [email or web address]) PT-Bed Mobility Assessment Supine to Sit Supine to Sit Contact Guard Assistance Scooting Scooting to Edge of Bed Standby Assistance PT-Transfer Assessment Sit to and From Stand Sit to and from Stand Minimal Assistance,1 Person Assistance,Use of Upper Extremities Equipment Transfer Assistive Device Gait Belt,Front Wheeled Walker Orthotic/Prosthetic Devices or Brace: No Transfers Transfer Destination Chair Transfer Technique pt ambulated using FWW Transfer Ability Level of Assist Moderate Assistance,1 Person Assistance,Use of Upper Extremities Comments Mobility Comments Pt requires max cuing for bed mobility to prevent >90 degrees flexion. Pt requires cues to put leg out before standing. Pt requires cues for PWB during sit-stand. Left pt in chair with alarm on, call light and all needs within reach. Gait Assessment Gait Gait Assistance Required: Maximum Assistance,1 Person Assist Distance (Feet) 5 Able to Maintain Weight Bearing Status No During Gait Assistive Devices Assistive Device Gait Belt,Front Wheeled Walker Orthotic/Prosthetic Devices or Brace: No Gait Deviations General Gait Pattern Antalgic,Decreased Stride Length,Decreased Feet Clearance,Flexed Trunk Factors Limiting Gait Function Factors Limiting Gait Function Decreased Activity Tolerance, Decreased Strength,Difficulty Following Directions,Limited Range of Motion,Poor Balance, Poor Safety Awareness Comments Gait Comments Pt continues to need max cuing for sequencing and WB status. M5 PT-IP Objective Assessments Start: 05/05/19 15:53 Freq: NEEDED Status: Active Protocol: Document 05/05/19 16:00 HH (Rec: 05/05/19 17:27 HH [email or web address]) Orientation Orientation/Cognition Level of Alertness Alert Orientation Name,Age,Birthday,Month,Date, Year,Day of Week,Place, Situation Language Function Ability No Deficits Noted Safety Awareness Understands Safety Issues Memory Description No Deficits Noted Gross Range of Motion Upper Extremity ROM Assessment Within Functional Limits Lower Extremity ROM Assessment Left Impaired Strength Upper Extremity Strength Assessment Within Functional Limits Lower Extremity Strength Assessment Left Impaired Comments Strength Comments LLE grossly 3+/5 Coordination Assessment Gross Coordination Gross Coordination WNL Sensation Assessment Sensation Gross Sensation WNL Muscle Tone Muscle Tone WNL Yes M6 PT-IP Treatment Start: 05/05/19 15:53 Freq: NEEDED Status: Active Protocol: Document 05/08/19 08:44 CLB (Rec: 05/08/19 14:09 CLB [email or web address]) Physical Therapy Treatment Exercises Exercises Ankle Pumps,Gluteal Sets,Quad Sets,Heel Slides Education Education Provided Precautions,Weight Bearing Status,Safety M7 PT-IP Assessment and Plan Start: 05/05/19 15:53 Freq: NEEDED Status: Active Protocol: Document 05/08/19 08:44 CLB (Rec: 05/08/19 14:09 CLB [email or web address]) PT Summary Assessment and Plan Summary Impairments Pain,ROM,Strength,Balance, Coordination,Sensation,Tone, Cognition,Bed Mobility, Transfers,Gait,Activity Tolerance Progress Towards Goals Slow Progress due to Medical Issues,Slow Progress due to Activity Tolerance Assessment Summary Pt can recall precautions but does not follow precautions during mobility and needs max cuing for all mobility. Pt will benefit from SNF rehab to increase strength and functional mobility before returning home. Goals Transfer Goal Contact Guard Assistance,Front Wheeled Walker Gait Goal Contact Guard Assistance,Front Wheel Walker Gait Distance 30 Other Goals 1STE without rails Frequency of Treatment Frequency Of Treatment Twice a Day Treatment Plan Physical Therapy Treatment Plan Bed Mobility Training,Transfer Training,Gait Training, Therapeutic Exercise,Balance Retraining,Post Op Education, Discharge Planning,Hot or Cold Pack,Neuromuscular Re-ed Other Recommendations and Next Treatment review precautions and weight Focus bearing status transfer/ gait training as bijal Recommendations To Nursing Amount of Assist Needed 1 Person Assist Discharge Recommendations PT Discharge Recommendations SNF Rehab
[2019-05-08] MEDS: AMLODIPINE 5 MG TABLET 10 MG PO (09:24)
[2019-05-08] MEDS: CYCLOBENZAPRINE 5 MG TABLET PO (09:25)
[2019-05-08] MEDS: ASPIRIN 325 MG TABLET PO (09:25)
[2019-05-08] MEDS: FERROUS GLUCONATE 324 MG TABLET PO (09:26)
[2019-05-08] MEDS: FENOFIBRATE 160 MG TABLET PO (09:26)
[2019-05-08] MEDS: FLUoxetine 20 MG CAPSULE PO (09:26)
[2019-05-08] MEDS: LITHIUM 300 MG IR CAPSULE PO (09:26)
[2019-05-08] MEDS: HYDROXYCHLOROQUINE 200 MG TABLET 400 MG PO (09:26)
[2019-05-08] MEDS: SODIUM CHLORIDE 0.9% FLUSH 10 ML IV (09:27)
[2019-05-08] MEDS: OXYCODONE IR 5 MG TABLET PO (10:33)
[2019-05-08 11:00] VITALS: BP 150/80; PULSE 80; RESP 16; TEMP 36.6; O2SAT 98
--- NOTE | 2019-05-08 12:18 | PM.DS.1 ---
History of Present Illness History of Present Illness Date Patient Seen: 05/08/19 Time Patient Seen: 12:18 Chief complaint: [id number] Narrative: Patient is a 73-year-old female who sustained a ground level fall resulting in a left femoral neck fracture. This was fixed with a hemiarthroplasty. However postop it was found that she had subsided. She is approximately 2 cm short preoperatively and has significant pain with ambulation. Due to her pain and the shortening it was decided she would benefit from a total hip arthroplasty conversion. Discharge Providers Provider Date of admission: 05/05/19 06:17 Discharge Date: 05/08/19 Primary care physician: Merissa Robbins MD Consults: 05/05/19 06:00 Consult to Anesthesiology Routine Comment: Consulting Provider: Anesthesiologist Reason for consultation: Regional block for post operative pain control 05/05/19 11:18 Consult to Discharge Planning Routine Comment: Consult to Physical Therapy Evaluate & Treat Comment: Physician Instructions: post op NIMISHA protocol Consult to Respiratory Therapy Evaluate & Treat Comment: Physician Instructions: Evaluate and treat Discharge provider: Queenie Handy PA-C Summary Hospital Course Discharge Diagnosis: s/p revision total hip arthroplasty Kidney injury Bipolar disorder Chronic low back pain Chronic sciatica of left side Chronic constipation Diet-controlled diabetes Fibromyalgia GERD Hyperlipidemia Hypertension Hypothyroidism Incontinence Lupus Migraines Normocytic anemia Hospital Course: Ritika was admitted for a revision total hip arthroplasty from a hemiarthroplasty. On postop day 3. Patient was ready to discharge to [facility]. She has been slow to mobilize requiring additional assistance. Her pain was well controlled. She worked with physical therapy throughout her stay. She is aware of her precautions. Patient has normocytic anemia and last H+H was 7.9 and 23.5, and she remained asymptomatic throughout her stay. She takes iron as home medication. Started on Vitamin C. Exam Vital Signs (past 8 hours): - 05/08/19 05:50 05/08/19 07:29 05/08/19 11:00 Temperature 97.8 F 98.3 F 98 F Pulse Rate 87 77 80 Respiratory Rate 16 16 16 Blood Pressure 150/74 H 146/82 H 150/80 H Pulse Oximetry 96 99 98 Oxygen Delivery Method Room Air Oxygen Flow Rate 0 Narrative Exam Narrative: Patient lying in bed in NAD. She is alert and oriented X3. Dressing on left hip is CDI. Calves are soft, compressible, and nontender bilaterally. Pulses symmetrical. She is able to actively flex and extend her knee. Her pain was well controlled last night. Complaints of restless legs that started last night. Objective Labs Result Diagrams: 05/06/19 05:41 Discharge Plan Discharge Plan Patient Disposition: SNF Transfer to: [facility] Under care of provider: Facility MD Consult as needed: Dental, Hearing, Mental health, Podiatry and Vision Discharge Med Rec/Prescriptions Prescriptions: New ascorbic acid (vitamin C) [Vitamin C] 500 mg tablet 500 mg PO BID Qty: 20 RF: 0 oxycodone 5 mg capsule 5 mg PO Q4-6H PRN (Reason: pain) Qty: 60 RF: 0 Continued fenofibrate 160 MG tablet 160 mg PO QDAY Qty: 0 RF: 0 cyclobenzaprine 5 MG tablet 5 mg PO TIDP PRN (Reason: Spasms) Qty: 0 RF: 0 lithium carbonate 300 MG capsule 300 mg PO BID Qty: 0 RF: 0 hydroxychloroquine 200 mg Tablet 400 mg PO DAILY RF: 0 aspirin 325 mg Tablet 325 mg PO DAILY RF: 0 ibuprofen 200 mg Capsule 600 mg PO Q6H PRN (Reason: Pain (Scale Score 1-3)) RF: 0 amlodipine 10 mg Tablet 10 mg PO DAILY RF: 0 ondansetron HCl [Zofran] 4 mg Tablet 8 mg PO BID PRN (Reason: Nausea) RF: 0 omeprazole 40 mg Capsule,Delayed Release(Dr/Ec) 40 mg PO DAILY RF: 0 fluoxetine 20 mg Capsule 20 mg PO DAILY RF: 0 levothyroxine 112 mcg Tablet 112 mcg PO DAILY RF: 0 minoxidil [Rogaine] 2 % Solution 1 applic topical DIRECTED RF: 0 polyethylene glycol 3350 17 gram Powder In Packet 17 gm PO DAILY Qty: 1 RF: 0 bisacodyl 10 mg Suppository 10 mg MI DAILY PRN (Reason: Constipation) Qty: 30 RF: 0 docusate sodium [DOK] 100 mg Capsule 100 mg PO BID Qty: 60 RF: 0 ferrous gluconate 324 mg (38 mg iron) Tablet 324 mg PO DAILY Qty: 30 RF: 0 Discontinued oxycodone 5 mg tablet 10 mg PO Q4HR PRN (Reason: Pain, Moderate (4-6)) RF: 0 Follow up/Referrals: John Proctor MD [Physician] - Merissa Robbins MD [Primary Care Provider] - Discharge Health Status Brief summary of current health status: Patient recovering slowly from revision left total hip arthroplasty requiring additional assistance with mobility. Multidrug resistant organism: No MDRO Precautions: [place] Provider Discharge Instructions Diet: Regular Liquid consistency: Normal/Thin Food texture: Regular Activity: Posterior hip precautions. She is to use a wedge pillow while in bed for the first 6 weeks. She is partial weight bearing on LLE. She should use a FWW for 6 weeks. Skin/Wound/Dressing Care Report to your healthcare provider any signs of infection, such as:: chills, fever and increased pain Dressing: Leave in place until appointment [facility] Reason for rehabilitation: Post-operative therapy Rehab type: Physical therapy and Occupational therapy Visit Report/Discharge Packet Instructions: Vitamin C (Ascorbic Acid), DI for Hip Replacement, Oxycodone Discharge Data Primary Care Provider: Merissa Robbins Discharges patient from system. Discharge Date/Time: 05/08/19 14:23 Quality VTE Deep Vein Thrombosis/Pulmonary Embolism Present on Admission: No
--- NOTE | 2019-05-08 12:29 | CM.DPC ---
Addendum entered by Angelina Tan R.N. 05/08/19 12:35: Was able to meet with patient, updated her on discharge time, at bedside as well. Original Note: DCP Cont: Signed orders received for discharge. Confirmed potato picker time at [facility] with Christen in admissions at 1400. Updated nurse, Ngozi. PASSR and signed med sheets completed, pending discharge summary. Went ahead and faxed over PASSR, med sheets, and latest prognote from yesterday. Original in chart, copy of PASSR given to Yeni for scanning. SCARLETT Thacker on case has given permission for this DCP to assist with paper work for discharge. P: Patient is to be discharged to [facility] today. They will potato picker at 1400 for transport. White board in main nurses station has been updated. Angelina Tan RN/Senior Gl [employer]ant
--- NOTE | 2019-05-08 14:22 | PC.NURSE ---
Day shift: Pt left unit to [facility] with transport person at approx 1415. Paperwork is with [facility] person. Pt has all personal belongings. Dressing is CDI. All questions answered.
== END 2019-05-08 14:23 | DRG 468 ==
PROVIDERS: Admitting Provider Orthopaedic Surgery Adult Reconstructive Orthopaedic Surgery; PCP Internal Medicine; Visit Provider Orthopaedic Surgery Adult Reconstructive Orthopaedic Surgery
PROC: 0SRB02Z Replacement of Left Hip Joint with Metal on Polyethylene Synthetic Substitute, Open Approach (ICD-10-PCS; principal; 2019-05-05 07:45)
DX: T84.031A Mechanical loosening of internal left hip prosthetic joint, initial encounter (principal); D64.9 Anemia, unspecified; I10 Essential (primary) hypertension; E78.5 Hyperlipidemia, unspecified; F31.9 Bipolar disorder, unspecified; E11.9 Type 2 diabetes mellitus without complications
CPT/HCPCS: 36415; 72170; 82962; 85014; 85018; 85025; 87070; 87075; 87205; 94762; 97110; 97116; 97162; 97530; C1776; J0171; J0690; J1100; J1885; J2250; J2270; J2274; J2405; J2704; J3010

== ENCOUNTER 2019-05-17 08:38 | Emergency (ER) | payer MEDICARE, SELFPAY ==
[2019-05-05 12:09] VITALS: BMI 27.1
[2019-05-17] VITALS (14 sets, daily range): BP systolic 131–190; BP diastolic 69–99; PULSE 65–74; RESP 12–22; TEMP 36.4–36.7; O2SAT 97–100
--- NOTE | 2019-05-17 08:45 | ED_ITS ---
HPI - General Adult General Chief complaint: Fall Stated complaint: Hip pain Time Seen by Provider: 05/17/19 08:44 Source: patient and EMS Mode of arrival: EMS Limitations: no limitations History of Present Illness HPI narrative: 73-year-old female with a prior history of a left femoral neck fracture with a hemiarthroplasty here for evaluation of left hip and left knee pain. Patient states that today she was standing at her rehab facility when she had her left foot slipped. States that since then she has had pain in her hip and knee. Unable to ambulate. EMS reported a deformity of her left lower extremity. Patient states that her whole left leg hurts. Although it does seem to be concentrated to the hip and the knee. Related Data Home Medications Medication Instructions Recorded Confirmed cyclobenzaprine 5 mg PO TIDP PRN #0 08/20/17 05/05/19 fenofibrate 160 mg PO QDAY #0 08/20/17 05/05/19 lithium carbonate 300 mg PO BID #0 08/20/17 05/05/19 hydroxychloroquine 400 mg PO DAILY 03/08/18 05/05/19 amlodipine 10 mg PO DAILY 02/19/19 05/05/19 fluoxetine 20 mg PO DAILY 02/19/19 05/05/19 levothyroxine 112 mcg PO DAILY 02/19/19 05/05/19 minoxidil [Rogaine] 1 applic TOPICAL DIRECTED 02/19/19 05/05/19 omeprazole 40 mg PO DAILY 02/19/19 05/05/19 ondansetron HCl [Zofran] 8 mg PO BID PRN 02/19/19 05/02/19 aspirin 325 mg PO DAILY 05/05/19 05/05/19 ibuprofen 600 mg PO Q6H PRN 05/05/19 05/05/19 Previous Rx's Medication Instructions Recorded bisacodyl 10 mg VA DAILY PRN #30 ea 02/23/19 docusate sodium [DOK] 100 mg PO BID #60 cap 02/23/19 ferrous gluconate 324 mg PO DAILY #30 tab 02/23/19 polyethylene glycol 3350 17 gm PO DAILY #1 pkg 02/23/19 ascorbic acid (vitamin C) [Vitamin 500 mg PO BID #20 tab 05/08/19 C] oxycodone 5 mg PO Q4-6H PRN #60 cap 05/08/19 Allergies Allergy/AdvReac Type Severity Reaction Status Date / Time Sulfa (Sulfonamide Allergy Intermediate body rash Verified 05/05/19 06:54 Antibiotics) [SULFA (SULFONAMIDE ANTIBIOTICS)] gabapentin AdvReac Unknown altered Verified 05/05/19 06:54 mentation Review of Systems Constitutional Constitutional: Denies frequent falls, Denies headache(s) and Denies weakness ENT Ears, Nose, Mouth, and Throat: Denies headache(s) and Denies disequilibrium Musculoskeletal Comments: Left hip left knee pain Integumentary/Breasts Skin/Breast: Denies lesions and Denies rash Neurologic Neurologic: Denies frequent falls, Denies headache(s), Denies paresthesias, Denies disequilibrium and Denies weakness Hematologic/Lymphatic Hematologic/Lymphatic: Denies easy bleeding and Denies easy bruising Patient History Medical History Acute kidney injury (Acute) Bipolar disorder (Acute) Bruises easily (Acute) Chronic low back pain (Acute) Chronic sciatica of left side (Acute) Constipation, chronic (Acute) Diet-controlled diabetes mellitus (Acute) Fibromyalgia (Acute) GERD (gastroesophageal reflux disease) (Acute) Hyperlipidemia (Acute) Hypertension (Acute) Hypothyroidism (Acute) Incontinence (Acute) Lupus (systemic lupus erythematosus) (Acute) Migraines (Acute) Normocytic anemia (Acute) Surgical History History of bilateral cataract extraction (Acute) History of bladder suspension procedure (Acute) History of left hip hemiarthroplasty (Acute 02/20/19) History of partial thyroidectomy (Acute) Status post tubal ligation Status post vaginal hysterectomy Social History household members: spouse Smoking Status: Former smoker alcohol intake: never alcohol intake frequency: holidays/special occasions only Substance Use Type: does not use, painkillers and prescription drug Exam Initial Vital Signs Initial Vital Signs: Vital Signs Temperature 97.6 F 05/17/19 08:44 Pulse Rate 73 05/17/19 08:44 Respiratory Rate 16 05/17/19 08:44 Blood Pressure 190/92 H 05/17/19 08:44 Pulse Oximetry 98 05/17/19 08:44 Const General: cooperative Orientation: alert, awake and oriented x3 HENMT Head: normal to inspection and normocephalic Resp Effort & Inspection: normal respiratory effort Cardio Rate: regular rate Rhythm: regular rhythm Skin Rashes: no rashes Neuro General: alert, awake and oriented x3 Cognition: normal cognition Speech: speech normal Extrem Other: Left ankle and left foot are unremarkable. Patient has tenderness to palpation around the left knee and tenderness with movement of the left hip. Patient is most comfortable in her left-sided will not move. Procedures Orthopedic Joint Reduction Joint #1: Time Out Performed: Yes Side: left Joint Reduction Location: hip Analgesia: procedural sedation Technique used: direct manipulation Post-reduction neuro exam: intact and no change Post-reduction vascular: intact and no change Post Reduction X-Ray Obtained: Yes Post Reduction X-Ray Results: reduced Splint Applied: Yes (Knee immobilizer) Patient Tolerated Procedure: Well and No complications Orthopedic Splinting/Casting Injury #1: Side: left Lower Extremity Injury Location: knee Lower Extremity Immobilizer: knee immobilizer Post splinting neuro exam: intact and no change Post splinting vascular exam: no change Placed by: Nursing Procedural Sedation Patient Age: Patient is 5yrs or older Consent signed: Yes Time out performed: Yes Indication: fracture/dislocation reduction ASA Class: II Mallampati Airway Classification: Class II Preparation: ekg monitor tech applied, pulse oximeter, capnometry used, supp lemental O2 applied and suction/airway equipment at bedside IV Propofol dose (mg): 100 ED Sedation Level: Moderate (Concious) Patient Tolerated Procedure: Well and No complications Complications: none Course Orders Ordered: ED Orders 05/17/19 08:50 Basic Metabolic Panel Stat Complete Blood Count AUTO DIFF Stat 05/17/19 08:55 XR hip w pel if done LT 2V Stat 05/17/19 09:18 RT Consult Eval and Treat Now 05/17/19 10:13 XR hip w pel if done LT 2V Stat XR knee LT 1to2V Stat Discontinued Medications Morphine Sulfate (Morphine) 4 mg IV NOW ONE Stop: 05/17/19 08:51 Last Admin: 05/17/19 08:59 Dose: 4 mg Documented by: DARLYN Propofol (Diprivan) 100 mg IV NOW ONE Stop: 05/17/19 09:19 Last Admin: 05/17/19 09:41 Dose: 100 mg Documented by: LOUIE Vital Signs Vital signs: Vital Signs - 8 hr 05/17/19 08:44 05/17/19 09:34 05/17/19 09:50 Temperature 97.6 F 98.0 F Pulse Rate 73 74 70 Respiratory Rate 16 16 14 Blood Pressure 190/92 H Blood Pressure [Right Arm] 170/81 H 157/85 H Pulse Oximetry 98 97 100 05/17/19 09:55 05/17/19 10:00 05/17/19 10:05 Temperature Pulse Rate 70 69 69 Respiratory Rate 15 18 20 Blood Pressure Blood Pressure [Right Arm] 165/87 H 162/70 H 167/80 H Pulse Oximetry 100 100 100 05/17/19 10:10 05/17/19 10:15 05/17/19 10:17 Temperature Pulse Rate 74 67 65 Respiratory Rate 12 19 17 Blood Pressure Blood Pressure [Right Arm] 179/75 H 151/69 H Pulse Oximetry 100 97 98 05/17/19 10:19 05/17/19 10:30 05/17/19 10:35 Temperature Pulse Rate 70 69 Respiratory Rate 18 22 20 Blood Pressure Blood Pressure [Right Arm] 147/78 H 131/99 H Pulse Oximetry 100 99 99 05/17/19 11:00 05/17/19 11:55 Temperature 97.7 F Pulse Rate 69 73 Respiratory Rate 12 16 Blood Pressure Blood Pressure [Right Arm] 158/70 H 166/69 H Pulse Oximetry 100 100 Medical Decision Making Lab Data Lab results reviewed: Yes I reviewed the patient's lab results. Result diagrams: 05/17/19 08:50 05/17/19 08:50 Labs: Lab Results 05/17/19 05/17/19 Range/Units 08:50 08:50 WBC 9.1 (4.5-11.0) X10^3/uL RBC 3.15 L (4.0-5.2) X10^6/uL Hgb 9.6 L (12.0-16.0) g/dL Hct 28.7 L (36-46) % MCV 91.0 (80-100) fL MCH 30.4 (26-34) PG MCHC 33.4 (30-36) % RDW 14.9 H (11.6-14.8) % Plt Count 540 H (150-400) X10^3/uL Neut % (Auto) 76.6 H (50-75) % Lymph % (Auto) 11.3 L (25-40) % Garrard % (Auto) 5.5 (3-14) % Eos % (Auto) 5.3 H (2-4) % Baso % (Auto) 1.3 (0-2) % Neut # (Auto) 7000 (1998-1162) /uL Lymph # (Auto) 1000 L (9288-6435) /uL Garrard # (Auto) 500 (0-900) /uL Eos # (Auto) 500 H (0-450) /uL Baso # (Auto) 100 (0-100) /uL Sodium 137 (137-145) mmol/L Potassium 4.0 (3.4-5.1) mmol/L Chloride 105 (98-107) mmol/L Carbon Dioxide 24 (22-32) mmol/L BUN 15 (7-17) mg/dL Creatinine 0.90 (0.52-1.04) mg/dL Estimated GFR > 60.0 (>60) mL/min BUN/Creatinine Ratio 16.7 (6-22) Glucose 141 H (80-110) mg/dL Calcium 10.4 H (8.4-10.2) mg/dL Point of Care Testing Test Results Not applicable Point of care testing: Point of Care Testing Test Results Not applicable Imaging Data Xray hip: Radiologist's impression: [address] [address] XRay Report Signed Patient: Ritika Prather MMR#: [id number] : [id number]:[id number] Age/Sex: 73 / FDate of Service: 05/17/19 Loc: ED Accession Number: [id number] Procedure: XR hip w pel if done LT 2V Ordering Provider: Loyd Angelo D.O. PROCEDURE: XR HIP W PEL IF DONE LT 2V INDICATIONS: fall with pain TECHNIQUE: AP pelvis with lateral view(s) of the left hip(s). [facility], [facility], 22:01. FINDINGS: Bones: There has superiorly anterior dislocation of the left hip arthroplasty head from the acetabulum. No visualized hardware or osseous fracture. Soft tissues: The visualized bowel gas pattern is normal. No suspicious soft tissue calcifications. IMPRESSION: Left arthroplasty dislocation as above. Dictated by: Lavern Rivera M.D. on 05/17/2019 at 9:26 Approved by: Lavern Rivera M.D. on 05/17/2019 at 9:27 Post reduction hip x-ray: Radiologist's impression: [address] [address] XRay Report Signed Patient: Ritika Prather [facility]#: [id number] : [id number] Age/Sex: 73 / FDate of Service: 05/17/19 Loc: ED Accession Number: [id number] Procedure: XR hip w pel if done LT 2V Ordering Provider: Loyd Angelo D.O. PROCEDURE: XR HIP W PEL IF DONE LT 2V INDICATIONS: post reduction TECHNIQUE: AP pelvis with lateral view(s) of the left hip(s). COMPARISON: [facility], CR, XR PELVIS 1 OR 2 VIEWS, 05/16/2019, 11:57. [facility], CR, XR HIP W PEL IF DONE LT 2V, 05/17/2019, 8:54. FINDINGS: Bones: There has been interval reduction of previous left hip arthroplasty dislocation. There is good anatomic alignment. Hardware is intact without evidence of hardware fracture. No osseous fracture is identified. Moderate degenerative hip joint space narrowing is noted on the right. Soft tissues: The visualized bowel gas pattern is normal. No suspicious soft tissue calcifications. IMPRESSION: Reduction of previous left hip dislocation. Dictated by: Lavern Rivera M.D. on 05/17/2019 at 11:01 Approved by: Lavern Rivera M.D. on 05/17/2019 at 11:01 Knee x-ray: Radiologist's impression: [address] [address] XRay Report Signed Patient: Ritika Prather [facility]#: [id number] : [id number] Age/Sex: 73 / FDate of Service: 05/17/19 Loc: ED Accession Number: [id number] Procedure: XR knee LT 1to2V Ordering Provider: Loyd Angelo D.O. PROCEDURE: XR KNEE LT 1TO2V INDICATIONS: pain after fall TECHNIQUE: 2 views of the knee were acquired. COMPARISON: [facility], CR, XR KNEE LT 3V, 04/07/2019, 22:01. FINDINGS: Bones: There is moderate to severe tricompartmental narrowing most notable in the medial and patellofemoral compartments. Reticular osteophytes and subchondral sclerosis are most prominent medially. Soft tissues: Moderate joint effusion. No suspicious soft tissue calcifications. IMPRESSION: Tricompartmental degenerative changes as above. No visualized acute fracture or dislocation. However, if clinical concern and/or pain persist, short interval imaging followup in 7-10 days is recommended, as occult injury cannot be definitively excluded. Dictated by: Lavern Rivera M.D. on 05/17/2019 at 11:02 Approved by: Lavern Rivera M.D. on 05/17/2019 at 11:03 MDM Narrative Medical decision making narrative: Left-sided hip dislocation without associated fracture. Dislocation was reduced with propofol as described above. Discussed the case with Dr. Proctor with Orthopedics who was the initial operative provider to let him know of the incident that happened today. He recommended placing the patient in a knee immobilizer. Patient is partial weight-bearing with a walker. Patient was given return precautions and follow-up instructions. She expressed understanding and agreement plan. Discharge Plan Departure Patient Disposition: Home Clinical Impression: Hip dislocation, left Qualifiers: Encounter type: initial encounter Qualified Code(s): S73.005A - Unspecified dislocation of left hip, initial encounter Instructions: DI for Hip Dislocation -- Adult Activity Restrictions/Additional Instructions: Recommend you continue all of your medications as directed. Continue all of your postoperative instructions from the orthopedic provider. You should be partial weight-bearing with her left lower extremity. Use the knee immobilizer while you are awake. You can take it off to shower into sleep. I do recommend you contact your orthopedic provider for follow-up. Return to the emergency department for any new or worsening symptoms Prescriptions: No Action fenofibrate 160 MG tablet 160 mg PO QDAY Qty: 0 RF: 0 cyclobenzaprine 5 MG tablet 5 mg PO TIDP PRN (Reason: Spasms) Qty: 0 RF: 0 lithium carbonate 300 MG capsule 300 mg PO BID Qty: 0 RF: 0 hydroxychloroquine 200 mg Tablet 400 mg PO DAILY RF: 0 aspirin 325 mg Tablet 325 mg PO DAILY RF: 0 ibuprofen 200 mg Capsule 600 mg PO Q6H PRN (Reason: Pain (Scale Score 1-3)) RF: 0 ascorbic acid (vitamin C) [Vitamin C] 500 mg tablet 500 mg PO BID Qty: 20 RF: 0 oxycodone 5 mg capsule 5 mg PO Q4-6H PRN (Reason: pain) Qty: 60 RF: 0 amlodipine 10 mg Tablet 10 mg PO DAILY RF: 0 ondansetron HCl [Zofran] 4 mg Tablet 8 mg PO BID PRN (Reason: Nausea) RF: 0 omeprazole 40 mg Capsule,Delayed Release(Dr/Ec) 40 mg PO DAILY RF: 0 fluoxetine 20 mg Capsule 20 mg PO DAILY RF: 0 levothyroxine 112 mcg Tablet 112 mcg PO DAILY RF: 0 minoxidil [Rogaine] 2 % Solution 1 applic topical DIRECTED RF: 0 polyethylene glycol 3350 17 gram Powder In Packet 17 gm PO DAILY Qty: 1 RF: 0 bisacodyl 10 mg Suppository 10 mg VA DAILY PRN (Reason: Constipation) Qty: 30 RF: 0 docusate sodium [DOK] 100 mg Capsule 100 mg PO BID Qty: 60 RF: 0 ferrous gluconate 324 mg (38 mg iron) Tablet 324 mg PO DAILY Qty: 30 RF: 0 Referrals: Merissa Robbins MD [Primary Care Provider] -
--- NOTE | 2019-05-17 08:55 | DI.RAD.S_ITS ---
PROCEDURE: XR HIP W PEL IF DONE LT 2V INDICATIONS: fall with pain TECHNIQUE: AP pelvis with lateral view(s) of the left hip(s). COMPARISON: [facility], , XR HIP W PEL IF DONE LT 2V, 04/07/2019, 22:01. FINDINGS: Bones: There has superiorly anterior dislocation of the left hip arthroplasty head from the acetabulum. No visualized hardware or osseous fracture. Soft tissues: The visualized bowel gas pattern is normal. No suspicious soft tissue calcifications. IMPRESSION: Left arthroplasty dislocation as above. Dictated by: Lavern Rivera M.D. on 05/17/2019 at 9:26 Approved by: Lavern Rivera M.D. on 05/17/2019 at 9:27
[2019-05-17] MEDS: MORPHINE 4 MG/ML INJ IV (08:59)
[2019-05-17 09:05] LABS: Add Manual Diff / Slide Review NO; Basophils Absolute Auto 100 /uL (0-100); Basophils Percent Auto 1.3 % (0-2); Eosinophils Absolute Auto 500 /uL (0-450); Eosinophils Percent Auto 5.3 % (2-4); Hematocrit 28.7 % (36-46); Hemoglobin 9.6 g/dL (12.0-16.0); Lymphocytes Absolute Auto 1000 /uL (1100-4500); Lymphocytes Percent Auto 11.3 % (25-40); Mean Corpuscular HGB Conc 33.4 % (30-36); Mean Corpuscular Hemoglobin 30.4 PG (26-34); Monocytes Absolute Auto 500 /uL (0-900); Monocytes Percent Auto 5.5 % (3-14); Neutrophils Absolute Auto 7000 /uL (1500-7000); Neutrophils Percent Auto 76.6 % (50-75); Platelet Count 540 X10^3/uL (150-400); Red Blood Cell Count 3.15 X10^6/uL (4.0-5.2); Red Cell Distribution Width 14.9 % (11.6-14.8); White Blood Cell Count 9.1 X10^3/uL (4.5-11.0)
[2019-05-17 09:13] LABS: BUN Creatinine Ratio 16.7 (6-22); Blood Urea Nitrogen 15 mg/dL (7-17); Calcium 10.4 mg/dL (8.4-10.2); Carbon Dioxide 24 mmol/L (22-32); Chloride 105 mmol/L (98-107); Estimated Glomerular Filt Rate > 60.0 mL/min (>60); Glucose 141 mg/dL (80-110); HEMOLYSIS < 15 (0-50); Sodium 137 mmol/L (137-145)
--- NOTE | 2019-05-17 09:37 | PC.NURSE ---
pt has good pedal pulses. states tingling on the top of her foot. preparing for hip reduction
[2019-05-17] MEDS: PROPOFOL 200 MG/20 ML VIAL 100 MG IV (09:41)
--- NOTE | 2019-05-17 10:13 | DI.RAD.S_ITS ---
PROCEDURE: XR HIP W PEL IF DONE LT 2V INDICATIONS: post reduction TECHNIQUE: AP pelvis with lateral view(s) of the left hip(s). COMPARISON: [facility], CR, XR PELVIS 1 OR 2 VIEWS, 05/16/2019, 11:57. [facility], CR, XR HIP W PEL IF DONE LT 2V, 05/17/2019, 8:54. FINDINGS: Bones: There has been interval reduction of previous left hip arthroplasty dislocation. There is good anatomic alignment. Hardware is intact without evidence of hardware fracture. No osseous fracture is identified. Moderate degenerative hip joint space narrowing is noted on the right. Soft tissues: The visualized bowel gas pattern is normal. No suspicious soft tissue calcifications. IMPRESSION: Reduction of previous left hip dislocation. Dictated by: Lavern Rivera M.D. on 05/17/2019 at 11:01 Approved by: Lavern Rivera M.D. on 05/17/2019 at 11:01
--- NOTE | 2019-05-17 10:13 | DI.RAD.S_ITS ---
PROCEDURE: XR KNEE LT 1TO2V INDICATIONS: pain after fall TECHNIQUE: 2 views of the knee were acquired. COMPARISON: [facility], CR, XR KNEE LT 3V, 04/07/2019, 22:01. FINDINGS: Bones: There is moderate to severe tricompartmental narrowing most notable in the medial and patellofemoral compartments. Reticular osteophytes and subchondral sclerosis are most prominent medially. Soft tissues: Moderate joint effusion. No suspicious soft tissue calcifications. IMPRESSION: Tricompartmental degenerative changes as above. No visualized acute fracture or dislocation. However, if clinical concern and/or pain persist, short interval imaging followup in 7-10 days is recommended, as occult injury cannot be definitively excluded. Dictated by: Lavern Rivera M.D. on 05/17/2019 at 11:02 Approved by: Lavern Rivera M.D. on 05/17/2019 at 11:03
--- NOTE | 2019-05-17 10:17 | PC.NURSE ---
dr. Angelo administered 80 mg of propofol to pt at 1007 and an additional 20 mg of Propofol at 1009 for hip reduction
--- NOTE | 2019-05-17 10:58 | PC.NURSE ---
Iv inserted by nursing clerk with Kassi Adams RN -instructor>
== END 2019-05-17 13:13 | disposition home or self-care (01) ==
PROVIDERS: Emergency Provider Emergency Medicine; PCP Internal Medicine
DX: M25.552 Pain in left hip (principal)
CPT/HCPCS: 36415; 73502; 73560; 80048; 85025; 94770; J2270; J2704

== ENCOUNTER 2019-05-17 19:55 | Inpatient (IN) | payer MEDICARE, SELFPAY ==
[2019-05-05 12:09] VITALS: BMI 27.1
[2019-05-17] VITALS (17 sets, daily range): BP systolic 137–182; BP diastolic 58–100; PULSE 70–79; RESP 14–20; TEMP 36.1–36.6; O2SAT 94–100; BMI 27.2
--- NOTE | 2019-05-17 | DI.RAD.S_ITS ---
PROCEDURE: XR HIP LT 1V INDICATIONS: CLOSED POST REDUCTION TECHNIQUE: 2 view(s) of the hip acquired. COMPARISON: [facility], CR, XR HIP W PEL IF DONE LT 2V, 05/17/2019, 20:03. FINDINGS: Bones: Patient is status post left hip arthroplasty, with hardware components in expected positions following closed reduction of left hip dislocation. The hip joint appears congruent. The visualized bony structures appear intact. Soft tissues: Overlying postoperative changes are noted. No suspicious soft tissue densities. IMPRESSION: Status post reduction of dislocated left hip prosthesis. Dictated by: Jackie Frazier MD, PhD on 05/18/2019 at 8:32 Approved by: Jackie Frazier MD, PhD on 05/18/2019 at 8:33
--- NOTE | 2019-05-17 19:59 | DI.RAD.S_ITS ---
PROCEDURE: XR HIP W PEL IF DONE LT 2V INDICATIONS: Left hip dislocation TECHNIQUE: AP pelvis with lateral view(s) of the left hip(s). COMPARISON: [facility], , XR HIP W PEL IF DONE LT 2V, 05/17/2019, 10:26. FINDINGS: Bones: Left hip arthroplasty demonstrates a superior posterior dislocation of the femoral head in relation to the acetabulum. No osseous fracture. Hardware does not demonstrate apparent fracture. Moderate osteoarthritic changes are present within the right hip. Degenerative changes are present within the lower lumbar spine. Soft tissues: The visualized bowel gas pattern is normal. No suspicious soft tissue calcifications. IMPRESSION: Left hip arthroplasty dislocation without evidence of hardware or osseous fracture. Dictated by: Lavern Rivera M.D. on 05/17/2019 at 20:24 Approved by: Lavern Rivera M.D. on 05/17/2019 at 20:25
--- NOTE | 2019-05-17 20:26 | ED.LOWEXIN ---
HPI - Extremity Injury (Lower) General Chief Complaint: Extremity Injury, Lower Stated Complaint: L hip dislocation Time Seen by Provider: 05/17/19 19:57 Source: patient and EMS Mode of arrival: EMS Limitations: no limitations History of Present Illness HPI Narrative: The patient has suffered a left femoral neck fracture February 2019 and underwent left NIMISHA. She required revision earlier this month, several days ago. She was seen in the ER this morning with a left hip dislocation. She was reduced here in the ER, and sent back to the care facility where she is currently residing with a left knee immobilizer. Unfortunately, she was in bed set up to put a sock. When she sat up the left hip dislocated again. There was no additional trauma. She returns ER by EMS. She has no head, neck or back pain. She has left hip pain. there are no other complaints at this moment. She has no history of asthma, sleep apnea or airway disease. She has no history coronary artery disease or CHF. She has had no history of reaction to anesthesia/sedation. Related Data Home Medications Medication Instructions Recorded Confirmed cyclobenzaprine 5 mg PO TIDP PRN #0 08/20/17 05/18/19 fenofibrate 160 mg PO QDAY #0 08/20/17 05/18/19 lithium carbonate 300 mg PO BID #0 08/20/17 05/18/19 hydroxychloroquine 400 mg PO DAILY 03/08/18 05/18/19 amlodipine 10 mg PO DAILY 02/19/19 05/18/19 fluoxetine 20 mg PO DAILY 02/19/19 05/18/19 levothyroxine 112 mcg PO DAILY 02/19/19 05/18/19 minoxidil [Rogaine] 1 applic TOPICAL DIRECTED 02/19/19 05/18/19 omeprazole 40 mg PO DAILY 02/19/19 05/18/19 ondansetron HCl [Zofran] 8 mg PO BID PRN 02/19/19 05/18/19 aspirin 325 mg PO DAILY 05/05/19 05/18/19 ibuprofen 600 mg PO Q6H PRN 05/05/19 05/18/19 Previous Rx's Medication Instructions Recorded bisacodyl 10 mg FL DAILY PRN #30 ea 02/23/19 docusate sodium [DOK] 100 mg PO BID #60 cap 02/23/19 ferrous gluconate 324 mg PO DAILY #30 tab 02/23/19 polyethylene glycol 3350 17 gm PO DAILY #1 pkg 02/23/19 ascorbic acid (vitamin C) [Vitamin 500 mg PO BID #20 tab 05/08/19 C] oxycodone 5 mg PO Q4-6H PRN #60 cap 05/08/19 Allergies Allergy/AdvReac Type Severity Reaction Status Date / Time Sulfa (Sulfonamide Allergy Intermediate body rash Verified 05/05/19 06:54 Antibiotics) [SULFA (SULFONAMIDE ANTIBIOTICS)] gabapentin AdvReac Unknown altered Verified 05/05/19 06:54 mentation Review of Systems Review of Systems ROS Unobtainable: All systems reviewed & are unremarkable except as noted in HPI and below Constitutional Constitutional: Denies chills, Denies fever(s), Denies headache(s), Denies lethargy and Denies weakness ENT Ears, Nose, Mouth, and Throat: Denies change in voice, Denies headache(s), Denies neck pain and Denies sore throat Cardiovascular Cardiovascular: Denies chest pain, Denies irregular heart rhythm, Denies lightheadedness, Denies palpitations, Denies dyspnea, Denies dyspnea on exertion and Denies orthopnea Respiratory Respiratory: Denies cough, Denies dyspnea, Denies dyspnea on exertion and Denies wheezing Gastrointestinal Gastrointestinal: Denies abdominal pain, Denies change in bowel habits, Denies diarrhea, Denies nausea and Denies vomiting Musculoskeletal Musculoskeletal: Denies back pain and Denies neck pain Comments: Left hip pain as noted in HPI. Integumentary/Breasts Skin/Breast: Denies pruritus, Denies erythema and Denies rash Comments: Left hip bruising associated with recent surgery. Neurologic Neurologic: Denies confusion, Denies headache(s) and Denies weakness Psychiatric Psychiatric: Denies confusion Endocrine Endocrine: Denies palpitations Allergic/Immunologic Allergic/Immunologic: Denies wheezing Patient History Social History household members: spouse Smoking Status: Former smoker alcohol intake: never alcohol intake frequency: holidays/special occasions only Alcohol type: beer Substance Use Type: does not use, painkillers and prescription drug Exam Initial Vital Signs Initial Vital Signs: Vital Signs Temperature 97.9 F 05/17/19 20:03 Pulse Rate 76 11/13/19 20:03 Respiratory Rate 20 05/17/19 20:03 Blood Pressure 175/66 H 05/17/19 20:03 Pulse Oximetry 97 05/17/19 20:03 Const General: cooperative and well developed Nutritional Appearance: well nourished Orientation: alert, awake, oriented x3 and not confused [facility] Mouth: oral mucosae normal, lip normal and moist mucous membranes Throat: posterior oropharynx normal Neck Neck: trachea midline and No anterior neck swelling Thyroid: thyroid normal Resp Effort & Inspection: normal respiratory effort, able to speak in complete sentences, no respiratory distress and no use of accessory muscles Auscultation: clear to auscultation bilaterally, no rales, no rhonchi and no wheezes Cardio Rate: regular rate Rhythm: regular rhythm Heart Sounds: no click, no gallops, no murmurs and no rubs Pulses: normal peripheral pulses GI Inspection: non-distended Palpation: soft, no hepatosplenomegaly, No guarding, No pulsatile mass and No tender Auscultation: normal bowel sounds Back/Spine/Pelvis Back: No back tenderness Skin General: no rashes or lesions noted, No jaundice and No petechiae Other: Left hip postop bruising. Neuro General: alert, oriented x3, gait normal and no focal motor deficits Speech: speech normal Extrem Other: Palpable left hip dislocation. The left leg is neurovascularly intact. the left leg is shortened and internally rotated. Procedures Orthopedic Joint Reduction Joint #1: Time Out Performed: Yes Side: left Joint Reduction Location: hip Analgesia: procedural sedation Technique used: direct manipulation Post-reduction neuro exam: intact Post-reduction vascular: intact Post Reduction X-Ray Obtained: Yes Post Reduction X-Ray Results: reduced Splint Applied: Yes (Left knee immobilizer was applied by the patient's nurse) Patient Tolerated Procedure: Well Procedural Sedation Patient Age: Patient is 5yrs or older Consent signed: Yes Time out performed: Yes Indication: fracture/dislocation reduction ASA Class: II Mallampati Airway Classification: Class II Preparation: bus monitor applied, pulse oximeter, capnometry used, supplemental O2 applied, suction/airway equipment at bedside and IV secured IV Propofol dose (mg): 90 ED Sedation Level: Moderate (Concious) Patient Tolerated Procedure: Well Additional Comments: IV access was lost as the propofol was initially being administered. The patient was sedated, but attempts at reduction was ineffective. IV was re-established, she was again medicatedwith a 2nd dose of 90 mg of propofol. The patient tolerated the medications well. with the 2nd of medication through the renewed IV access, reduction was achieved quickly and effectively. The left leg is neurovascularly intact following reduction. Course Course Course Narrative: Orthopedics, Dr. Proctor, was informed of the repeat dislocation prior to the reduction. He agreed to admit the patient for surgical repair. Reduction was successful. Labs are reviewed from her ER visit earlier and are intact, labs were not repeated. CT of the pelvis extending to the knees was ordered after requested by Dr. Proctor. She was admitted with IV fluids running and pain meds available after reduction. She is NPO assuming operative intervention in the morning. Orders Ordered: ED Orders 05/17/19 22:10 CT pelvis wo con Stat Sodium Chloride (Normal Saline 0.9%) 1,000 mls @ 125 mls/hr IV CONT ALICIA Last Infusion: 05/18/19 00:14 Dose: 125 mls/hr Documented by: Infusion: 05/17/19 23:20 Dose: 0 mls/hr Documented by: Admin: 05/17/19 22:36 Dose: 125 mls/hr Documented by: YVONNE Morphine Sulfate (Morphine) 4 mg IV Q4HR PRN PRN Reason: Pain, Moderate (4-6) Last Admin: 05/18/19 04:54 Dose: 4 mg Documented by: SUSHMA Ondansetron HCl (Zofran) 4 mg IV Q4HR PRN PRN Reason: Nausea And Vomiting Discontinued Medications Hydromorphone HCl (Dilaudid) 1 mg IV NOW ONE Stop: 05/17/19 22:47 Last Admin: 05/17/19 22:53 Dose: 1 mg Documented by: YVONNE Propofol (Diprivan) 100 mg IV NOW ONE Stop: 05/17/19 20:56 Last Admin: 05/17/19 21:44 Dose: 80 mg Documented by: YVONNE Vital Signs Vital signs: Vital Signs - 8 hr 05/17/19 21:39 05/17/19 21:46 05/17/19 21:51 Pulse Rate 76 77 77 Respiratory Rate 18 18 14 Blood Pressure [Left Arm] 152/75 H 156/75 H 137/58 L Pulse Oximetry 100 100 100 05/17/19 21:55 05/17/19 22:00 05/17/19 22:05 Pulse Rate 79 70 79 Respiratory Rate 16 14 17 Blood Pressure [Left Arm] 181/100 H 172/64 H 174/73 H Pulse Oximetry 100 98 98 05/17/19 22:10 05/17/19 22:15 05/17/19 22:19 Pulse Rate 76 78 77 Respiratory Rate 14 16 18 Blood Pressure [Left Arm] 151/60 H 166/74 H Pulse Oximetry 99 99 05/17/19 22:20 05/17/19 22:25 05/17/19 22:30 Pulse Rate 77 77 76 Respiratory Rate 16 14 16 Blood Pressure [Left Arm] 168/70 H 161/68 H 161/70 H Pulse Oximetry 96 96 96 05/17/19 22:35 05/17/19 22:40 Pulse Rate 76 77 Respiratory Rate 18 17 Blood Pressure [Left Arm] 168/71 H 172/71 H Pulse Oximetry 98 98 MDM - Extremity Injury (Lower) Lab Data Labs: Point of Care Testing Test Results Not applicable Imaging Data Pelvis left hip x-ray: Radiologist's impression: Dislocation of the left prosthetic hip. No evidence of fracture. Post reduction left hip x-ray:: Radiologist's impression: Successful reduction of the left hip Pelvis CT:: Radiologist's impression: Total left hip arthroplasty in good position and anatomically aligned. Edema and/or hemorrhage around the left hip arthroplasty. Enlargement of the left vastus musculature, perhaps indicating hematoma. Bilateral knee effusions. Discharge Plan Departure Patient Disposition: Admitted As Inpatient Clinical Impression: Dislocation of left hip Qualifiers: Encounter type: initial encounter Qualified Code(s): S73.005A - Unspecified dislocation of left hip, initial encounter Discharge Date/Time: 05/17/19 23:20 Admit Date/Time: 05/17/19 22:59 Admit Provider: John Proctor
[2019-05-17] MEDS: HYDROMORPHONE 1 MG INJ (20:29)
[2019-05-17] MEDS: PROPOFOL 200 MG/20 ML VIAL 100 MG IV (21:44)
--- NOTE | 2019-05-17 22:10 | DI.CT.S_ITS ---
PROCEDURE: CT PEL WO CON INDICATIONS: Recurrent left hip dislocation TECHNIQUE: Noncontrast 3 mm axial sections acquired through the bony pelvis, with coronal and sagittal reformatting. COMPARISON: [facility], CR, XR KNEE LT 1TO2V, 05/17/2019, 10:26. [facility], CR, XR HIP W PEL IF DONE LT 2V, 05/17/2019, 20:03. [facility], CR, XR HIP LT 1V, 05/17/2019, 21:56. FINDINGS: Image quality: Excellent. Bones: There is left hip total arthroplasty with prosthesis in anatomic alignment. There is small left hip joint effusion. No fractures or dislocation. There is a large knee joint effusion and a small left knee joint effusion. 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 Soft tissues: There is moderate to large hematoma on the left hip and proximal femur measuring 6.2 x 7.4 cm. There is moderate atherosclerosis. IMPRESSION: 1. No fracture or dislocation. 2. Left hip arthroplasty with prosthesis in anatomic alignment. A small left hip joint effusion is present. There is moderate to large hematoma on the proximal left femur. 3. Large left knee joint effusion small right knee joint effusion. No significant discrepancy with the maintenance mechanic 2nd shift radiology preliminary report. Dictated by: Milly Kessler M.D. on 05/18/2019 at 7:36 Approved by: Milly Kessler M.D. on 05/18/2019 at 7:45
[2019-05-17] MEDS: PROPOFOL 200 MG/20 ML VIAL IV (22:35)
[2019-05-17] MEDS: SODIUM CHLORIDE 0.9% 1,000 ML 125 ML IV (22:36)
[2019-05-17] MEDS: HYDROMORPHONE 1 MG INJ IV (22:53)
[2019-05-18] MEDS: MORPHINE 2 MG/ML INJ 4 MG IV (04:54)
[2019-05-18 05:01] VITALS: BP 160/89; PULSE 75; RESP 18; TEMP 36.4; O2SAT 100
[2019-05-18] MEDS: SODIUM CHLORIDE 0.9% 1,000 ML 125 ML IV ×2 (06:00→21:55)
--- NOTE | 2019-05-18 06:09 | PC.ADMIT ---
[address] Admission Note: The patient,Ritika Prather,73 y/o, was given written information regarding hospital policies, unit procedures and contact persons. Patient's smoking status: Former smoker. Vital Signs - 8 hr 05/17/19 22:10 05/17/19 22:15 05/17/19 22:19 Temperature Pulse Rate 76 78 77 Respiratory Rate 14 16 18 Blood Pressure Blood Pressure [Left Arm] 151/60 H 166/74 H Pulse Oximetry 99 99 05/17/19 22:20 05/17/19 22:25 05/17/19 22:30 Temperature Pulse Rate 77 77 76 Respiratory Rate 16 14 16 Blood Pressure Blood Pressure [Left Arm] 168/70 H 161/68 H 161/70 H Pulse Oximetry 96 96 96 05/17/19 22:35 05/17/19 22:40 05/17/19 23:15 Temperature 97.0 F L Pulse Rate 76 77 75 Respiratory Rate 18 17 18 Blood Pressure 182/82 H Blood Pressure [Left Arm] 168/71 H 172/71 H Pulse Oximetry 98 98 94 05/18/19 05:01 Temperature 97.6 F Pulse Rate 75 Respiratory Rate 18 Blood Pressure 160/89 H Blood Pressure [Left Arm] Pulse Oximetry 100 Patient admitted at 2345, drowsy but oriented x4. NPO after MN, NS @ 125ml/hr infusing. Immobilizer in place to LLE, large bruising, trace edema, good pedal pulses, warm, can giggle ankles and toes. Mdicated with 4mg IV morphine per prn for spasms
[2019-05-18 09:00] VITALS: BP 174/73; PULSE 73; RESP 18; TEMP 35.8; O2SAT 100
--- NOTE | 2019-05-18 09:26 | P.HP_ITS ---
History of Present Illness History of Present Illness Date Patient Seen: 05/18/19 Time Patient Seen: 09:26 Chief complaint: L hip dislocation Narrative: Patient is a 73-year-old female. She recently underwent a conversion of the left hip hemiarthroplasty to a total hip arthroplasty. She was seen on Wednesday in my clinic and was doing well at that time she return to a [facility] facility and subsequently slipped on the carpet and dislocated her left hip anteriorly. She was close reduced here at [facility] Emergency room and was returned to the [facility]. She subsequently had a repeat dislocation same day. She does not complain of any pain at this time. She does not complain of any numbness or tingling in the left lower extremity. Patient History Surgical History History of bilateral cataract extraction (Acute) History of bladder suspension procedure (Acute) History of left hip hemiarthroplasty (Acute 02/20/19) History of partial thyroidectomy (Acute) Status post tubal ligation Status post vaginal hysterectomy Family & Social History Social History: household members spouse Prior Living Arrangements Apartment/Condo Safety & Behavioral: Feels Safe in Current Yes Environment Been Physically Hurt or No Threatened By a Person Suicidal Ideation Description None Suicide Plan Description No Plan Tobacco & Substance use: Smoking Status Former smoker alcohol intake never alcohol intake frequency holiday/special occasion Substance Use Type painkillers,does not use,prescription drug Meds Home Medications and Allergies Home Medications Medication Instructions Recorded Confirmed Type cyclobenzaprine 5 mg PO TIDP PRN #0 08/20/17 05/18/19 History fenofibrate 160 mg PO QDAY #0 08/20/17 05/18/19 History lithium carbonate 300 mg PO BID #0 08/20/17 05/18/19 History hydroxychloroquine 400 mg PO DAILY 03/08/18 05/18/19 History amlodipine 10 mg PO DAILY 02/19/19 05/18/19 History fluoxetine 20 mg PO DAILY 02/19/19 05/18/19 History levothyroxine 112 mcg PO DAILY 02/19/19 05/18/19 History minoxidil [Rogaine] 1 applic TOPICAL DIRECTED 02/19/19 05/18/19 History omeprazole 40 mg PO DAILY 02/19/19 05/18/19 History ondansetron HCl [Zofran] 8 mg PO BID PRN 02/19/19 05/18/19 History bisacodyl 10 mg OR DAILY PRN #30 ea 02/23/19 05/18/19 Rx docusate sodium [DOK] 100 mg PO BID #60 cap 02/23/19 05/18/19 Rx ferrous gluconate 324 mg PO DAILY #30 tab 02/23/19 05/18/19 Rx polyethylene glycol 3350 17 gm PO DAILY #1 pkg 02/23/19 05/18/19 Rx aspirin 325 mg PO DAILY 05/05/19 05/18/19 History ibuprofen 600 mg PO Q6H PRN 05/05/19 05/18/19 History ascorbic acid (vitamin C) [Vitamin 500 mg PO BID #20 tab 05/08/19 05/18/19 Rx C] oxycodone 5 mg PO Q4-6H PRN #60 cap 05/08/19 05/18/19 Rx Allergies Allergy/AdvReac Type Severity Reaction Status Date / Time Sulfa (Sulfonamide Allergy Intermediate body rash Verified 05/05/19 06:54 Antibiotics) [SULFA (SULFONAMIDE ANTIBIOTICS)] gabapentin AdvReac Unknown altered Verified 05/05/19 06:54 mentation Review of Systems Review of Systems ROS Unobtainable: All systems reviewed & are unremarkable except as noted in HPI and below Exam Vital Signs (past 8 hours): - 05/18/19 05:01 Temperature 97.6 F Pulse Rate 75 Respiratory Rate 18 Blood Pressure 160/89 H Pulse Oximetry 100 Oxygen Delivery Method Room Air Oxygen Flow Rate 0 Narrative Exam Narrative: Patient is awake alert and oriented x3. Pleasant. Patient is neurovascular intact left lower extremity. The hip is reduced. The surgical site incision appears without any signs of infection or erythema fluctuance or drainage noted. She does have some ecchymosis along the lateral aspect of her thigh. She has good strength in dorsiflexion plantar flexion EHL. The left leg wants to rest in an externally rotated position. The patient has multiple skin tears and fragile skin especially in her bilateral upper extremities. Objective Imaging CT scan - pelvis: My impression: CT scan shows reduced left total hip arthroplasty. External rotation based off the posterior femoral condyles appears to be about 28?. anteversion of the femoral stem measured this position is measured at 55? so the true anteversion of the stem is 27?. No signs of early loosening. No foreign bodies between the femoral head and the cup. Labs Labs: Laboratory Results - last 24 hr 05/18/19 00:30 Nasal Screen MRSA (PCR) Negative for mrsa Assessment & Plan Assessment & Plan narrative: Patient is a 73-year-old female now approximately 2 weeks out from conversion of the hemiarthroplasty to a total hip arthroplasty. She has become unstable. She has had 2 dislocations in the last 24 hours. I had a long discussion with the patient regarding the likely continued dislocations. At this time we both elected to proceed with revision total hip arthroplasty. Surgery will not be today as the equipment is not available. My hope is that this surgically done tomorrow evening or Wednesday. In the meantime we will continue to optimize her for surgery - strict hip precautions - Weightbearing as tolerated left lower extremity - Catheter for comfort - home medications restarted Time Spent With Patient Time with patient: Greater than 35 minutes
[2019-05-18] MEDS: OXYCODONE IR 10 MG TABLET PO (10:40)
[2019-05-18] MEDS: OXYCODONE IR 5 MG TABLET PO (10:43)
[2019-05-18] MEDS: LEVOTHYROXINE 112 MCG TABLET PO (10:44)
[2019-05-18] MEDS: AMLODIPINE 5 MG TABLET 10 MG PO (10:44)
[2019-05-18] MEDS: ASCORBIC ACID 500 MG TABLET PO ×2 (10:44→20:59)
[2019-05-18] MEDS: FERROUS GLUCONATE 324 MG TABLET PO (10:44)
[2019-05-18] MEDS: FLUoxetine 20 MG CAPSULE PO (10:45)
[2019-05-18 12:10] VITALS: BP 168/77; PULSE 78; RESP 18; TEMP 36.1; O2SAT 100
[2019-05-18] MEDS: CYCLOBENZAPRINE 5 MG TABLET PO ×2 (13:16→20:57)
[2019-05-18] MEDS: HYDROXYCHLOROQUINE 200 MG TABLET 400 MG PO (13:16)
[2019-05-18] MEDS: LITHIUM 300 MG IR CAPSULE PO ×2 (13:16→20:58)
[2019-05-18 15:24] VITALS: BP 135/74; PULSE 74; RESP 16; TEMP 35.9; O2SAT 100
[2019-05-18 20:30] VITALS: BP 145/82; PULSE 80; RESP 16; TEMP 37; O2SAT 98
[2019-05-19 00:24] VITALS: BP 153/77; PULSE 81; RESP 18; TEMP 37; O2SAT 99
[2019-05-19 04:41] VITALS: PULSE 80; RESP 20; TEMP 36.8; O2SAT 98
[2019-05-19] MEDS: PANTOPRAZOLE 40 MG TABLET PO (05:51)
[2019-05-19] MEDS: CYCLOBENZAPRINE 5 MG TABLET PO ×2 (05:56→10:07)
[2019-05-19] MEDS: SODIUM CHLORIDE 0.9% 1,000 ML 125 ML IV ×3 (06:30→22:43)
[2019-05-19] MEDS: OXYCODONE IR 10 MG TABLET PO (07:35)
[2019-05-19] MEDS: AMLODIPINE 5 MG TABLET 10 MG PO (07:39)
[2019-05-19 07:40] VITALS: BP 156/108; PULSE 83; RESP 16; TEMP 36.4; O2SAT 98
--- NOTE | 2019-05-19 08:27 | PC.NURSE ---
pt noted to be writhing in bed- shifting weight and position continuously- not following recommended( and reviewed as well as posted) hip precautions-I've had the worst spasms in my life the last 8 hours reports flexeril ineffective, also noted to be picking at bilat upper extremities - medicated with po oxycodone 10mg will update MD
[2019-05-19] MEDS: FENOFIBRATE 160 MG TABLET PO (10:07)
[2019-05-19] MEDS: HYDROXYCHLOROQUINE 200 MG TABLET 400 MG PO (10:07)
[2019-05-19] MEDS: LITHIUM 300 MG IR CAPSULE PO ×2 (10:07→20:27)
[2019-05-19] MEDS: LEVOTHYROXINE 112 MCG TABLET PO (10:11)
[2019-05-19] MEDS: ASCORBIC ACID 500 MG TABLET PO ×2 (10:11→20:26)
[2019-05-19] MEDS: FERROUS GLUCONATE 324 MG TABLET PO (10:11)
[2019-05-19] MEDS: FLUoxetine 20 MG CAPSULE PO (10:11)
[2019-05-19 10:22] VITALS: BP 141/55; RESP 15
[2019-05-19] MEDS: hydrOXYzine pamoate 25 MG CAPSULE PO ×2 (14:35→20:28)
[2019-05-19] MEDS: OXYCODONE IR 5 MG TABLET PO ×2 (14:35→20:28)
[2019-05-19 15:00] VITALS: BP 138/69; PULSE 79; RESP 14; TEMP 37.3; O2SAT 99
--- NOTE | 2019-05-19 16:17 | CM.IDA ---
Met w/pt this afternoon, explained SW role. Pt states she will have hip surgery tomorrow, Wednesday, and she would like to return home w/ [facility] this time after surgery instead of returning to [facility]. This INVENTORY REPRESENTATIVE hopeful that pt will meet her goal to progress towards home w/HH; further assessment needed w/pt post operatively and after therapy assessments. Following closely. SCARLETT Riley
--- NOTE | 2019-05-19 19:05 | PM.PN.1 ---
Subjective Subjective Date Patient Seen: 05/19/19 Time Patient Seen: 19:06 Interval history: Patient is a 73-year-old female who is now approximately 2 and half weeks out from revision left total hip arthroplasty. She has had 2 subsequent dislocations couple days ago. Initial plan was for revision tomorrow however her urgent cases bumping her. She will go to OR on Wednesday Pain is well controlled. Neurovascular intact in left lower extremity. Exam Vital Signs (past 8 hours): - 05/19/19 15:00 Temperature 99.2 F Pulse Rate 79 Respiratory Rate 14 Blood Pressure 138/69 Pulse Oximetry 99 Oxygen Delivery Method Room Air Oxygen Flow Rate 0 Narrative Exam Narrative: Left hip remains reduced. Neurovascular intact in left lower extremity. 5/5 dorsiflexion plantar flexion EHL the left foot. Remains alert and oriented x3, pleasant Assessment & Plan Assessment & Plan narrative: Patient is 2 and half weeks out from revision left total hip arthroplasty. With subsequent dislocations. Plan will be for revision on Wednesday. Continue strict anterior hip precautions Weightbearing as tolerated Aspirin 81 mg b.i.d. for DVT prophylaxis, to be discontinued Wednesday night NPO after midnight Wednesday night Time Spent With Patient Time with patient: less than 15 minutes
--- NOTE | 2019-05-19 20:08 | PC.NURSE ---
Pt checked on and assessed. Pt is alert and oriented, but at times disoriented to place. Restless leg syndrome that causes pt to move legs constantly. Pt denies pain throughout shift. Pt refuses bowel medications, but did have BM this shift, small and formed. Pt is tolerating meals. to bedside and updated with pt's condition. Pt with uneventful shift. Oxycodone 5 mg and vistiril for generalized discomfort d/t restless leg and L hip injury. Mojica catheter in place draining clear yellow urine. Call light in reach, bed alarm on and functioning. Will continue to monitor. Notify MD with changes.
[2019-05-19 20:20] VITALS: BP 146/71; PULSE 73; RESP 18; TEMP 36.7; O2SAT 99
[2019-05-19] MEDS: ASPIRIN EC 81 MG TABLET PO (20:26)
[2019-05-20 00:22] VITALS: BP 135/88; PULSE 65; RESP 18; TEMP 36.6; O2SAT 99
[2019-05-20] MEDS: CYCLOBENZAPRINE 5 MG TABLET PO ×2 (00:25→09:36)
[2019-05-20] MEDS: OXYCODONE IR 5 MG TABLET PO ×4 (00:26→16:38)
[2019-05-20] MEDS: hydrOXYzine pamoate 25 MG CAPSULE PO (06:27)
[2019-05-20] MEDS: PANTOPRAZOLE 40 MG TABLET PO (06:27)
[2019-05-20 08:00] VITALS: BP 169/70; PULSE 72; RESP 16; TEMP 37.2; O2SAT 99
[2019-05-20] MEDS: FLUoxetine 20 MG CAPSULE PO (08:31)
[2019-05-20] MEDS: AMLODIPINE 5 MG TABLET 10 MG PO (08:31)
[2019-05-20] MEDS: LEVOTHYROXINE 112 MCG TABLET PO (08:31)
[2019-05-20] MEDS: ASCORBIC ACID 500 MG TABLET PO ×2 (08:31→20:10)
[2019-05-20] MEDS: FERROUS GLUCONATE 324 MG TABLET PO (08:31)
[2019-05-20] MEDS: ASPIRIN EC 81 MG TABLET PO (08:31)
[2019-05-20] MEDS: HYDROXYCHLOROQUINE 200 MG TABLET 400 MG PO (08:32)
[2019-05-20] MEDS: LITHIUM 300 MG IR CAPSULE PO ×2 (08:32→20:10)
[2019-05-20] MEDS: FENOFIBRATE 160 MG TABLET PO (08:36)
[2019-05-20] MEDS: SODIUM CHLORIDE 0.9% 1,000 ML 125 ML IV (14:36)
[2019-05-20 15:16] VITALS: BP 138/64; PULSE 67; RESP 18; TEMP 36.9; O2SAT 99
--- NOTE | 2019-05-20 17:02 | PC.NURSE ---
Addendum entered by Marialuisa Espinoza R.N. 05/20/19 18:28: 1815 - Pt continues to rate pain 4 of 10. However declines need for further intervention. Discussed with MD restless leg and hip precautions. Orders pending. Original Note: 1630 - Pt reports hx of RLS. Frequently moving RLE around in bed. LLE with external rotation, foot off side of bed. Discussed hip precautions with pt. While verbalizing understanding, Hips are turned to the left and pt sits up on elbow with right LE crossing Left. Reinforced alignment of LE and repositioned for comfort. Education needs reinforcement. Pt c/o pain to left hip, discussed muscle relaxer, pt reports that 5mg doesn't even work. states that historically she has taken 10mg tid, requesting oxycodone. One tab given for pain 4 of 10. Supportive at bedside. Call light in reach.
--- NOTE | 2019-05-20 19:51 | PM.PN.1 ---
Subjective Subjective Date Patient Seen: 05/20/19 Time Patient Seen: 19:51 Interval history: Patient is 2 and half weeks out from revision left total hip arthroplasty, with subsequent dislocations. Patient complains of restless legs. Nurse notes concern that patient isn't following hip precautions due to restless legs. Patient has no other complaints. Patient denies fever, chills, nausea, vomiting, chest pain, shortness of breath, calf pain. Exam Vital Signs (past 8 hours): - 05/20/19 15:16 Temperature 98.4 F Pulse Rate 67 Respiratory Rate 18 Blood Pressure 138/64 Pulse Oximetry 99 Oxygen Delivery Method Room Air Oxygen Flow Rate 0 Narrative Exam Narrative: 73 year old female is laying in bed comfortably. A&Ox3. Left hip with moderate ecchymosis, mild swelling and mild warmth, ttp. Sensory function grossly intact to light touch in LE b/l. Dorsalis pedis 2+ b/l. Calves warm, soft, compressible, nttp bl. Capillary refill <2sec. SCDs in place. Assessment & Plan Assessment & Plan narrative: Patient is 2 and half weeks out from revision left total hip arthroplasty. With subsequent dislocations. Plan will be for revision on Wednesday. Continue strict anterior hip precautions Weightbearing as tolerated Aspirin 81 mg BID was discontinued Added ropinorole PRN for restless leg syndrome NPO after midnight Wednesday night
[2019-05-20] MEDS: ROPINIROLE 0.25 MG TABLET PO (20:09)
[2019-05-21 02:49] VITALS: BP 155/66; PULSE 73; RESP 18; TEMP 36.3; O2SAT 93
[2019-05-21] MEDS: hydrOXYzine pamoate 25 MG CAPSULE PO ×4 (02:51→19:41)
[2019-05-21] MEDS: OXYCODONE IR 5 MG TABLET PO (02:51)
[2019-05-21] MEDS: OXYCODONE IR 10 MG TABLET PO ×3 (08:34→19:41)
[2019-05-21] MEDS: FERROUS GLUCONATE 324 MG TABLET PO (08:34)
[2019-05-21] MEDS: AMLODIPINE 5 MG TABLET 10 MG PO (08:35)
[2019-05-21] MEDS: FLUoxetine 20 MG CAPSULE PO (08:35)
[2019-05-21] MEDS: ASCORBIC ACID 500 MG TABLET PO ×2 (08:35→19:41)
[2019-05-21] MEDS: LEVOTHYROXINE 112 MCG TABLET PO (08:35)
[2019-05-21] MEDS: PANTOPRAZOLE 40 MG TABLET PO (08:35)
[2019-05-21] MEDS: FENOFIBRATE 160 MG TABLET PO (08:36)
[2019-05-21] MEDS: HYDROXYCHLOROQUINE 200 MG TABLET 400 MG PO (08:36)
[2019-05-21] MEDS: LITHIUM 300 MG IR CAPSULE PO ×2 (08:36→19:41)
[2019-05-21 08:39] VITALS: BP 163/97; PULSE 68; RESP 16; TEMP 36.5; O2SAT 100
--- NOTE | 2019-05-21 10:33 | PM.PN.1 ---
Subjective Subjective Date Patient Seen: 05/21/19 Time Patient Seen: 10:33 Interval history: Patient is 2 and half weeks out from revision left total hip arthroplasty, with subsequent dislocations. Patient complains of restless legs. Nurse notes concern that patient isn't following hip precautions due to restless legs. Patient has no other complaints. Patient denies fever, chills, nausea, vomiting, chest pain, shortness of breath, calf pain. Exam Vital Signs (past 8 hours): - 05/21/19 02:49 05/21/19 08:39 Temperature 97.3 F L 97.7 F Pulse Rate 73 68 Respiratory Rate 18 16 Blood Pressure 155/66 H 163/97 H Pulse Oximetry 93 100 Oxygen Delivery Method Room Air Oxygen Flow Rate 0 Narrative Exam Narrative: 73 year old female is laying in bed comfortably. A&Ox3. Left hip with moderate ecchymosis, mild swelling and mild warmth, ttp. Sensory function grossly intact to light touch in LE b/l. Dorsalis pedis 2+ b/l. Calves warm, soft, compressible, nttp bl. Capillary refill <2sec. SCDs in place. Assessment & Plan Assessment & Plan narrative: Patient is 2 and half weeks out from revision left total hip arthroplasty. With subsequent dislocations. Plan will be for revision on Wednesday. Continue strict anterior hip precautions Weightbearing as tolerated NPO after midnight Wednesday night
--- NOTE | 2019-05-21 14:50 | CM.DANOTE ---
Addendum entered by Kirstie Last 05/21/19 15:12: Previous PIT LABORER note indicates that patient prefers to return home with HH at time of d/c. Will await recommendations after surgery. Unclear of mobility needs and whether or not spouse will be able to manage at home with HH. Patient admitted from [facility] after GLF causing left hip dislocation? KJS Original Note: DCP/Assessment: Reviewed chart. Spoke with Orthopedic provider Dr. Proctor re: POC. He reports patient bumped from surgery schedule on Wednesday05-20-19. New plan is to proceed with surgery of dislocated left hip on Wednesday05-22-19. CM/RN notified for avoidable days purposes. Anticipate that patient will need therapy evaluations and possibly hospitalist to evaluate medications for diagnosis of bipolar and restless leg syndrome after surgery? Patient with several re-admissions with same complaint of GLF and hip dislocation. Left message with admit at [facility] re: history and whether or not patient able to return. P: Pending. PIT LABORER to follow closely for safe d/c planning. SCARLETT Alvarez
[2019-05-21 16:00] VITALS: BP 122/47; PULSE 72; RESP 16; TEMP 36.5; O2SAT 100
--- NOTE | 2019-05-21 17:50 | PC.NURSE ---
1600 - Pt resting in bed. Left side lying with legs crossed at ankles. Reinforced hip precautions. Pt c/o deep ache to bilateral hips. Educated to pain management. Assist pt with meal ordering. Discussed NPO after MN. Reinforced safety and call light use. Call light in reach. Bed alarm on.
--- NOTE | 2019-05-21 18:36 | PC.NURSE ---
Addendum entered by Vicky Long R.N. 05/21/19 21:35: 2130: Pt resting quietly throughout evening. HL intact/patent. Med w/oxycodone/vistaril @ 1940 w/good relief. Mojica cath patent clear kalyn urine. NPO after MN for surgery tomorrow. Call light w/in reach, bed alarm on for pt safety. Continue w/plan of care. Original Note: [id number] Shift: Pt arrived from ICU via W/C Alert/oriented. HL RFA intact/patent. SpO2 96% RA Left hip incision intact, IN NS @ 125cc/hr infusing into RAC via pump w/out incidence. Call light w/in reach, bed alarm on for pt safety.
[2019-05-21 19:55] VITALS: BP 135/66; PULSE 68; RESP 18; TEMP 36.5; O2SAT 100
[2019-05-22] VITALS (14 sets, daily range): BP systolic 84–162; BP diastolic 42–75; PULSE 65–78; RESP 10–18; TEMP 35.8–37; O2SAT 91–100
--- NOTE | 2019-05-22 | DI.RAD.S_ITS ---
PROCEDURE: XR PELVIS 1-2V INDICATIONS: POST OP LEFT HIP REVISION TECHNIQUE: 1 view of the lower pelvis acquired. COMPARISON: [facility], CR, XR HIP LT 1V, 05/17/2019, 21:56. [facility], CR, XR PELVIS 1-2V, 05/22/2019, 16:17. [facility], CR, XR PELVIS 1-2V, 05/22/2019, 16:43. FINDINGS: Bones: Patient is status post left hip arthroplasty revision, with hardware components in expected positions. There is a new screw fixated acetabular component with 3 fixation screws. The hip joint appears congruent with the femoral component centered in the acetabular cup. The visualized bony structures appear intact. Soft tissues: Overlying postoperative changes are noted including soft tissue and joint space gas and multiple overlying skin steve. IMPRESSION: 1. Postsurgical changes status post left hip arthroplasty revision as described. Dictated by: Devin Flood M.D. on 05/22/2019 at 18:35 Approved by: Devin Flood M.D. on 05/22/2019 at 18:37
--- NOTE | 2019-05-22 | DI.RAD.S_ITS ---
PROCEDURE: XR PELVIS 1-2V INDICATIONS: INTER OP REVISION TECHNIQUE: Intra-operative view of the pelvis and hip acquired. COMPARISON: [facility], CR, XR HIP LT 1V, 05/17/2019, 21:56. [facility], CT, CT PEL WO CON, 05/17/2019, 22:53. [facility], CR, XR PELVIS 1-2V, 05/22/2019, 16:17. FINDINGS: Bones: Intraoperative devices prior to placement of arthroplasty prostheses are in expected positions with the femoral neck component centered in the acetabular cup. No acute fractures or suspicious bony lesions. Soft tissues: Overlying surgical retractors are present, along with other intraoperative changes. IMPRESSION: 1. Intraoperative film obtained for surgical guidance demonstrates partial placement of a left hip prosthesis. Dictated by: Devin Flood M.D. on 05/22/2019 at 17:28 Approved by: Devin Flood M.D. on 05/22/2019 at 17:29
--- NOTE | 2019-05-22 | DI.RAD.S_ITS ---
PROCEDURE: XR PELVIS 1-2V INDICATIONS: REVISION LEFT HIP TECHNIQUE: Intra-operative view of the pelvis and hip acquired. COMPARISON: [facility], CR, XR PELVIS 1-2V, 05/05/2019, 11:03. FINDINGS: Bones: Intraoperative devices prior to placement of arthroplasty prostheses are in expected positions. No fractures or suspicious bony lesions. Soft tissues: Overlying surgical retractors are present, along with other intraoperative changes. IMPRESSION: Intraoperative devices prior to placement of arthroplasty prosthesis in expected position. Dictated by: Jackie Frazier MD, PhD on 05/22/2019 at 16:46 Approved by: Jackie Frazier MD, PhD on 05/22/2019 at 16:46
[2019-05-22] MEDS: OXYCODONE IR 10 MG TABLET PO (04:05)
[2019-05-22] MEDS: hydrOXYzine pamoate 25 MG CAPSULE PO (04:05)
[2019-05-22] MEDS: LITHIUM 300 MG IR CAPSULE PO ×2 (09:32→21:08)
[2019-05-22] MEDS: AMLODIPINE 5 MG TABLET 10 MG PO (09:33)
[2019-05-22] MEDS: HYDROXYCHLOROQUINE 200 MG TABLET 400 MG PO (09:33)
--- NOTE | 2019-05-22 13:42 | CM.DPC ---
Addendum entered by Kirsite Last 05/23/19 11:27: OT evaluation ordered. KJS Original Note: DCP Continued: December from [facility] called and wanted CM to know that they will accept the patient back when ready to d/c. CM spoke with patient and patient would prefer to go home with family and HH. Patient has had [facility] before and really enjoyed working with them. CM/RN contacted [facility] and faxed clinicals for them to review. PT/OT evaluations are needed and once complete need to be sent to [facility]. Face to Face needing to be signed by Dr. Proctor. Face to Face in patients red chart needing signature. CM would like to keep SNF option open as patient progresses to see if patient will need SNF vs HH. pending PT/OT evaluation. Merissa Last RN.
--- NOTE | 2019-05-22 14:36 | PM.HP.1 ---
History of Present Illness History of Present Illness Chief complaint: L hip dislocation Narrative: Patient is a 73-year-old female. She recently underwent a conversion of the left hip hemiarthroplasty to a total hip arthroplasty. She was seen on Wednesday in my clinic and was doing well at that time she return to a snf facility and subsequently slipped on the carpet and dislocated her left hip anteriorly. She was close reduced here at [facility] Emergency room and was returned to the SNF. She subsequently had a repeat dislocation same day. She does not complain of any pain at this time. She does not complain of any numbness or tingling in the left lower extremity. Patient History Surgical History History of bilateral cataract extraction (Acute) History of bladder suspension procedure (Acute) History of left hip hemiarthroplasty (Acute 02/20/19) History of partial thyroidectomy (Acute) Status post tubal ligation Status post vaginal hysterectomy Family & Social History Social History: household members spouse Prior Living Arrangements Apartment/Condo Safety & Behavioral: Feels Safe in Current Yes Environment Been Physically Hurt or No Threatened By a Person Suicidal Ideation Description None Suicide Plan Description No Plan Tobacco & Substance use: Smoking Status Former smoker alcohol intake never alcohol intake frequency holiday/special occasion Substance Use Type painkillers,does not use,prescription drug Meds Home Medications and Allergies Home Medications Medication Instructions Recorded Confirmed Type cyclobenzaprine 5 mg PO TIDP PRN #0 08/20/17 05/18/19 History fenofibrate 160 mg PO QDAY #0 08/20/17 05/18/19 History lithium carbonate 300 mg PO BID #0 08/20/17 05/18/19 History hydroxychloroquine 400 mg PO DAILY 03/08/18 05/18/19 History amlodipine 10 mg PO DAILY 02/19/19 05/18/19 History fluoxetine 20 mg PO DAILY 02/19/19 05/18/19 History levothyroxine 112 mcg PO DAILY 02/19/19 05/18/19 History minoxidil [Rogaine] 1 applic TOPICAL DIRECTED 02/19/19 05/18/19 History omeprazole 40 mg PO DAILY 02/19/19 05/18/19 History ondansetron HCl [Zofran] 8 mg PO BID PRN 02/19/19 05/18/19 History bisacodyl 10 mg MT DAILY PRN #30 ea 02/23/19 05/18/19 Rx docusate sodium [DOK] 100 mg PO BID #60 cap 02/23/19 05/18/19 Rx ferrous gluconate 324 mg PO DAILY #30 tab 02/23/19 05/18/19 Rx polyethylene glycol 3350 17 gm PO DAILY #1 pkg 02/23/19 05/18/19 Rx aspirin 325 mg PO DAILY 05/05/19 05/18/19 History ibuprofen 600 mg PO Q6H PRN 05/05/19 05/18/19 History ascorbic acid (vitamin C) [Vitamin 500 mg PO BID #20 tab 05/08/19 05/18/19 Rx C] oxycodone 5 mg PO Q4-6H PRN #60 cap 05/08/19 05/18/19 Rx Allergies Allergy/AdvReac Type Severity Reaction Status Date / Time Sulfa (Sulfonamide Allergy Intermediate body rash Verified 05/05/19 06:54 Antibiotics) [SULFA (SULFONAMIDE ANTIBIOTICS)] gabapentin AdvReac Unknown altered Verified 05/05/19 06:54 mentation Exam Vital Signs (past 8 hours): - 05/22/19 08:00 Temperature 97.2 F L Pulse Rate 69 Respiratory Rate 16 Blood Pressure 162/75 H Pulse Oximetry 100 Oxygen Delivery Method Room Air Oxygen Flow Rate 0 Narrative Exam Narrative: 73 year old female is laying in bed comfortably. A&Ox3. Left hip with moderate ecchymosis, mild swelling and mild warmth, ttp. Sensory function grossly intact to light touch in LE b/l. Dorsalis pedis 2+ b/l. Calves warm, soft, compressible, nttp bl. Capillary refill <2sec. SCDs in place. Assessment & Plan Assessment & Plan narrative: Patient is 2 and half weeks out from revision left total hip arthroplasty. With subsequent dislocations. Plan will be for revision of the cup and stem today. NPO for OR today
[2019-05-22] MEDS: LACTATED RINGERS 1,000 ML 42 ML IV ×2 (14:40→17:24)
[2019-05-22] MEDS: CEFAZOLIN 2 GM/100 ML FROZ.PIGGY IV ×2 (14:50→22:28)
[2019-05-22] MEDS: ROPIVACAINE 0.5% PF 5 MG/ML 20ML VIAL 60 ML INJ (15:53)
[2019-05-22] MEDS: KETOROLAC 30 MG/ML VIAL IV (15:55)
[2019-05-22] MEDS: MORPHINE 4 MG/ML INJ INJ (15:57)
[2019-05-22] MEDS: SODIUM CHLORIDE IRRIG SOLUTION 250 ML, POVIDONE-IODINE SPONGE STICKS 1 APPLIC IRR (17:11)
[2019-05-22] MEDS: TRANEXAMIC ACID 1,000 MG VIAL 1000 MG IV (17:17)
--- NOTE | 2019-05-22 17:57 | P.OP_ITS ---
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 Post-op diagnosis: same Procedure & Clinicians Procedure: Revision of acetabular portion of total hip arthroplasty Same procedure as scheduled: Yes Indications: Patient is a 73-year-old female who was converted from a hemiarthroplasty to total hip arthroplasty and had early recurrent instability. For these reasons she is indicated for revision left total hip arthroplasty. Surgeon: John Proctor Nurse Office: [facility] Click Yes if Unassisted: No Anesthesia Type: General and Spinal Operative Notes Findings: Anterior soft tissue impingement Closure Type: primary Specimen(s): none sent Prosthetic devices, grafts, tissues, transplants, or devices: G7 58 mm cup Dual mobility G polyethylene liner 28 + 4mm cobalt chrome head Estimated Blood Loss (mL): 200 Blood products transfused: none Procedure in detail: Patient was met in the preoperative holding over the sites of surgery were marked and the all last minute questions were answered. Patient was then brought back into the operating room where a spinal was placed. She was induced under general anesthesia and placed in the right lateral decubitus position. All bony prominences were well padded. The left lower extremity and hip were then prepped and draped in normal sterile fashion. A time-out was performed verifying the site and side of surgery as well as the name and MRN of the patient. Previous surgical site was marked out. A 10 blade was used to incise the skin removing sutures as we went. Electrocautery was then used at the level of the ITB band and gluteus osmin fascia. This was then split with electrocautery. Sutures were removed as we went. The short external rotator repair was then taken down. And the hip was brought through range of motion at this point was evident that she was dislocating posteriorly even though ER films demonstrated that she had an anterior dislocation. I believe she dislocated posteriorly and had migrated up and around the shell to anterior position. The hip was dislocated the head was removed using a bone tamp and a mallet. At this point the stem was interrogated and found to be well fixed as well as being appropriate anteversion of about 25 ?. We returned our attention to the acetabular side the liner was removed from the cup and the 3 screws were then removed from the shell. The [employer] explant system was then used to remove the cup with minimal bone loss. We began reaming with a 54 Reamer going up by ones to a 57. A 58 mm G7 4 hole cup was selected. This was provisionally placed. Two mobility liner was placed and a dual mobility trial head was placed patient had improved stability but still dislocated at about 45? of internal rotation with forward flexion to 90?. This point the hip was dislocated again and the anterior soft tissues were interrogated and found to have soft tissue impingement. Scar tissue was removed from the anterior aspect of the hip without removal of the capsule. Trial head and liner were then replaced and hip was reduced and x-rays were taken at this point which showed better positioning of the cup. The hip was then dislocated again and a bone tamp was used to increase the anteversion and verticality of the cup. Screws were then placed into the cup 4 screws in total were used. The cup was then thoroughly irrigated and trials were placed hip was brought through range of motion found to be stable to approximately 80? of internal rotation with 90? of flexion. Hip was dislocated again trials removed the real metal liner for the cup was then malleted into place and found to be flush. A G polyethylene liner was then selected to immobility and a 28+ 4 mm cobalt chrome head. The polyethylene was made with a cobalt chrome head on the back table and was then mallet into place onto the Clarke taper. Hip was reduced a final time and brought through range of motion found to be stable. The hip was externally rotated 90? and the hip was extended and found to be stable unable to be dislocated. Hip was brought up to 90? of flexion internal rotation to 80? before instability. The wound was then irrigated with Betadine solution allowed to sit for 2 minutes. This was then suctioned away and a L of normal saline was used to irrigate the wound. A g of vancomycin was then added to the wound and local injection was performed in the soft tissues. Short external rotator repair was then performed soft tissue soft tissue no bony tunnel was used. Id band was then closed using 1 Vicryl in interrupted fashion followed by 1 Vicryl in a running locking fashion in the gluteus osmin fascia a 1 Vicryl was then used in the fat layer in a running suture. Two 0 Vicryl was then used in subcutaneous layer followed by steve on the skin and Aquacel was then placed dressings were removed and patient was transferred onto the hospital bed in stable condition. Complications: none Post-operative Condition: stable Disposition: PACU Plan for aftercare: Patient will be on posterior hip precautions weight-bearing as tolerated left lower extremity.
[2019-05-22] MEDS: SODIUM CHLORIDE 0.9% 1,000 ML 100 ML IV (21:00)
[2019-05-22] MEDS: ASPIRIN EC 81 MG TABLET PO (21:08)
[2019-05-22] MEDS: ONDANSETRON 4 MG/2 ML INJ IV (23:44)
[2019-05-23 00:50] VITALS: BP 118/57; PULSE 81; RESP 19; TEMP 36.3; O2SAT 95
[2019-05-23 06:00] VITALS: BP 142/57; PULSE 81; RESP 19; TEMP 36.9; O2SAT 92
[2019-05-23] MEDS: CEFAZOLIN 2 GM/100 ML FROZ.PIGGY IV (06:04)
[2019-05-23] MEDS: ASPIRIN EC 81 MG TABLET PO ×2 (07:50→20:06)
[2019-05-23] MEDS: LITHIUM 300 MG IR CAPSULE PO ×2 (07:50→20:06)
[2019-05-23 08:00] VITALS: BP 131/55; PULSE 80; RESP 18; TEMP 36.4; O2SAT 96
--- NOTE | 2019-05-23 09:59 | PM.PNPO.1 ---
Subjective Subjective Date Patient Seen: 05/23/19 Time Patient Seen: 09:59 Interval history: Post op day 1 s/p left hip revision with Dr. Proctor. No acute events overnight, patient has no complaints. Nursing staff notes concern for patient not following posterior hip precautions. Hip abductor pillow ordered and vistaril prescribed. Pre-op patient stated vistaril helped her with restless legs. Patient had an episode of retching, no vomit, this morning that resolved on its own. Patient denies fever, chills, shortness of breath, chest pain, calf pain. Exam Vital Signs (past 8 hours): - 05/23/19 06:00 05/23/19 08:00 Temperature 98.4 F 97.6 F Pulse Rate 81 80 Respiratory Rate 19 18 Blood Pressure 142/57 H 131/55 L Pulse Oximetry 92 96 Oxygen Delivery Method Nasal Cannula Oxygen Flow Rate 0 Narrative Exam Narrative: 73 year old female is laying in bed comfortably, in no apparent distress. A&Ox3. Dressing CDI on left hip. Actively plantar flex/dorsiflex b/l. Capillary refill <2sec LE bl. Dorsalis pedis 2+ bl. Sensory function grossly intact to light touch LE bl. Calves warm, soft, compressible, nttp. Mojica catheter in place. Assessment & Plan Post-op Postoperative Procedures: Procedures Operation Date: 05/22/19 14:00 Actual Procedures Side Surgeon p Total Hip Arthroplasty Revision Left John Proctor MD Postoperative plan narrative: D/C urinary catheter before starting physical therapy Will begin physical therapy today - posterior hip precautions, weight-bearing as tolerated left lower extremity Continue current pain medication management Likely discharge within next 24 hours Time Spent With Patient Time with patient: less than 15 minutes
--- NOTE | 2019-05-23 10:25 | PT.IIE ---
Current Diagnoses Dislocation of internal left hip prosthesis, initial encounter (05/17/19) Surgery Performed Operation Date: 05/22/19 14:00 Actual Procedures p Total Hip Arthroplasty Revision(Left) - John Proctor MD Surgical History (Last Reviewed 05/18/19 @ 09:29 by John Proctor MD) History of bilateral cataract extraction (Acute) History of bladder suspension procedure (Acute) History of left hip hemiarthroplasty (Acute 02/20/19) History of partial thyroidectomy (Acute) Status post tubal ligation Status post vaginal hysterectomy Medical History (Last Reviewed 05/17/19 @ 08:53 by Loyd Angelo DO) Acute kidney injury (Acute) Bipolar disorder (Acute) Bruises easily (Acute) Chronic low back pain (Acute) Chronic sciatica of left side (Acute) Constipation, chronic (Acute) Diet-controlled diabetes mellitus (Acute) Fibromyalgia (Acute) GERD (gastroesophageal reflux disease) (Acute) Hyperlipidemia (Acute) Hypertension (Acute) Hypothyroidism (Acute) Incontinence (Acute) Lupus (systemic lupus erythematosus) (Acute) Migraines (Acute) Normocytic anemia (Acute) Physical Therapy Inpatient Evaluation/Re-Eval M1 PT/OT-IP Prior Functional Status Start: 05/23/19 12:04 Freq: NEEDED Status: Active Protocol: Document 05/23/19 10:25 AB (Rec: 05/23/19 12:28 AB [id number]) Medical Review Prior Functional Status Medical History Reviewed Yes Communication able to make needs known but with confusion Mobility and Gait pt stated that she d/c'd to [facility] but then went home afterwards and has been w/c bound but able to transfer by herself. Pt with confusion and has memory issues and unable to give consistent accurate info. Prior Functional Level (Other details) pt had L hip surgery with endoprosthesis last 02/22/19. went for another L hip surgery for a revision 05/05. pt went for another revision on L hip 05/22/19 Social History Household Members spouse Living Arrangements Apartment/Condo Number of Floors (Floors) One Floor Number of Stairs To Enter/Railing? 1 step to enter Home Environment Standard Height Toilet,Tub/ Shower Home Equipment Front Wheel Walker,Manual Wheelchair,Raised Toilet Seat w/Armrests,Tub Transfer Bench, Hand Held Shower M2 PT-IP Current Condition Start: 05/23/19 12:04 Freq: NEEDED Status: Active Protocol: Document 05/23/19 10:25 AB (Rec: 05/23/19 12:28 AB [id number]) Physical Therapy Current Condition Current Condition Evaluation Date 05/23/19 Treatment Diagnosis L NIMISHA revision posterior approach; difficulty in walking Onset Date 05/17/19 Precautions Posterior Hip Precautions No Hip Flexion > 90 degrees,No Hip Internal Rotation,No Hip Adduction Other Precautions falls Weight Bearing Status Weight Bearing Status Weight Bear as Tolerated Allowed Weight Bearing Amount (enter % WBAT LLE or #) (%) M3 PT-IP Subjective Start: 05/23/19 12:04 Freq: NEEDED Status: Active Protocol: Document 05/23/19 10:25 AB (Rec: 05/23/19 12:28 AB [id number]) Subjective Physical Therapy Visit Type Type Initial Evaluation Visit Start Time 10:25 Visit Stop Time 11:15 Total Visit Minutes 50 Number of YOUTH PROGRAM DIRECTOR Visits 0 Physical Therapy Visit Comments Patient Comments pt agreeable to do PT Therapy Pain Assessment Pain When Pain Assessed During Mobility Pain Present Pain Present Pain Reported Location Generalized Intensity 4 Scale Used Numeric (1 - 10) Pain Behaviors Guarding Pain Management Techniques Apply Cold,Distraction,Timing of Activity with Medications M4 PT-IP Mobility and Gait Start: 05/23/19 12:04 Freq: NEEDED Status: Active Protocol: Document 05/23/19 10:25 AB (Rec: 05/23/19 12:28 AB [id number]) PT-Bed Mobility Assessment Supine to Sit Supine to Sit Minimal Assistance,1 Person Assistance Sit to Supine Sit to Supine Maximum Assistance,Total Assistance,2 Person Assistance PT-Transfer Assessment Sit to and From Stand Sit to and from Stand Maximum Assistance,2 Person Assistance,Use of Upper Extremities Equipment Transfer Assistive Device Gait Belt,Front Wheeled Walker Orthotic/Prosthetic Devices or Brace: No Comments Mobility Comments reviewed hip precautions with pt and pt requires cues to recall. pt completed supine to sit min A and cues. pt was able to sit on EOB min A and cues. pt with increase lateral leaning to the R and posteriorly requiring cues for upright posture. pt completed sit to stand x 3 reps and pt unable to fully stand up. requires max A x 2 to to max cues to maintain standing balance using FWW. pt unable to complete a transfer to the chair. pt stated that she had enough for the morning. required max A x 2 to total Ax 2 for sit to supine and max cues. positioned pt in bed. call light and table placed within reach. abductor pillow positioned and bed alarm on. Gait Assessment Comments Gait Comments unable at this time PT-Balance Assessment Sitting Balance and Reactions Static Sitting Balance Ability Fair Dynamic Sitting Balance Ability Poor Standing Balance and Reactions Static Standing Balance Ability Poor Dynamic Standing Balance Ability Poor Device Used FWW M5 PT-IP Objective Assessments Start: 05/23/19 12:04 Freq: NEEDED Status: Active Protocol: Document 05/23/19 10:25 AB (Rec: 05/23/19 12:28 AB [id number]) Orientation Orientation/Cognition Level of Alertness Confusional State Orientation Name Safety Awareness Decreased Safety Awareness Memory Description Short Term Impaired,Transportation Worker Impaired Gross Range of Motion Lower Extremity ROM Assessment Within Functional Limits Strength Lower Extremity Strength Assessment Left Impaired Hip 3-/5 Knee 3-/5 Ankle 3+/5 M6 PT-IP Treatment Start: 05/23/19 12:04 Freq: NEEDED Status: Active Protocol: Document 05/23/19 10:25 AB (Rec: 05/23/19 12:28 AB [id number]) Physical Therapy Treatment Education Education Provided Precautions,Weight Bearing Status,Post-Op Packet,Safety M7 PT-IP Assessment and Plan Start: 05/23/19 12:04 Freq: NEEDED Status: Active Protocol: Document 05/23/19 10:25 AB (Rec: 05/23/19 12:28 AB [id number]) PT Summary Assessment and Plan Potential Rehabilitation Potential Fair Status of Condition at Evaluation Evolving Summary Impairments Pain,ROM,Strength,Balance, Coordination,Sensation,Tone, Cognition,Bed Mobility, Transfers,Gait,Activity Tolerance Assessment Summary pt requires max A x 2 to total A x2 with mobility and presents with decrease activity tolerance. pt will require SNF rehab to improve strength and mobility. Goals Bed Mobility Goal Minimal Assistance Transfer Goal Minimal Assistance,Front Wheeled Walker Gait Goal Minimal Assistance,Front Wheel Walker Gait Distance 50 Days to Meet Goals 10 Frequency of Treatment Frequency Of Treatment Twice a Day Treatment Plan Physical Therapy Treatment Plan Bed Mobility Training,Transfer Training,Gait Training, Therapeutic Exercise,Balance Retraining,Post Op Education, Discharge Planning,Hot or Cold Pack,Neuromuscular Re-ed, Coordination Retraining,Manual Therapy Recommendations To Nursing Amount of Assist Needed PT/OT Assist Only Discharge Recommendations PT Discharge Recommendations SNF Rehab
[2019-05-23 12:00] VITALS: BP 128/60; PULSE 80; RESP 18; TEMP 36.6; O2SAT 95
[2019-05-23] MEDS: IBUPROFEN 400 MG TABLET PO ×3 (12:28→20:06)
--- NOTE | 2019-05-23 12:42 | PC.NURSE ---
Ortho: Pt sl disoriented this am, thought she was at home, then thought she was discharged and needed her clothes to go home. Reoriented several times. Pt also has restless leg syndrome. It is hard for her to follow her total hip precautions, an abductor pillow was placed between her legs. She doesn't like the abd wedge and the reason for wedge was explained to her. So she is willing to wear same for now. Has not needed anything for pain except ibuprofen, she reports this is her medication of choice. Spouse at bedside and he is comforting to pt. Ortho checks are w/in limits, needs freq cues to follow/maintain her hip precautions. Cont w/poc.
--- NOTE | 2019-05-23 14:37 | CM.DPC ---
DCP/continued: Reviewed chart. TOOLS ADMINISTRATOR met with patient re: d/c plan. Patient is POD#! from hip repair. Current recommendation from therapy is for patient to return to SNF. Patient resting in bed at time of visit and reports that she is in agreement with rehab. Patient aware and agreeable to return to [facility]. Placed call to [facility] admit left vm indicating that patient would like to return to [facility]. D/C anticipated within the next 24-48hrs. P: Return to [facility] when medically stable. SCARLETT Alvarez
--- NOTE | 2019-05-23 14:50 | PT.IPTN ---
Current Diagnoses Dislocation of internal left hip prosthesis, initial encounter (05/17/19) Surgery Performed Operation Date: 05/22/19 14:00 Actual Procedures p Total Hip Arthroplasty Revision(Left) - John Proctor MD Physical Therapy Treatment Note M2 PT-IP Current Condition Start: 05/23/19 12:04 Freq: NEEDED Status: Active Protocol: Document 05/23/19 10:25 AB (Rec: 05/23/19 12:28 AB [id number]) Physical Therapy Current Condition Current Condition Evaluation Date 05/23/19 Treatment Diagnosis L NIMISHA revision posterior approach; difficulty in walking Onset Date 05/17/19 Precautions Posterior Hip Precautions No Hip Flexion > 90 degrees,No Hip Internal Rotation,No Hip Adduction Other Precautions falls Weight Bearing Status Weight Bearing Status Weight Bear as Tolerated Allowed Weight Bearing Amount (enter % WBAT LLE or #) (%) M3 PT-IP Subjective Start: 05/23/19 12:04 Freq: NEEDED Status: Active Protocol: Document 05/23/19 14:50 AB (Rec: 05/23/19 16:04 AB [id number]) Subjective Physical Therapy Visit Type Type Treatment Note Visit Start Time 14:50 Visit Stop Time 15:25 Total Visit Minutes 35 Number of SENIOR INTERIOR DESIGNER Visits 0 Physical Therapy Visit Comments Patient Comments pt agreeable to do PT Therapy Pain Assessment Pain When Pain Assessed At Rest Pain Present Pain Present Pain Reported Location Left Leg Scale Used pain scale not stated M4 PT-IP Mobility and Gait Start: 05/23/19 12:04 Freq: NEEDED Status: Active Protocol: Document 05/23/19 14:50 AB (Rec: 05/23/19 16:04 AB [id number]) PT-Bed Mobility Assessment Supine to Sit Supine to Sit Standby Assistance PT-Transfer Assessment Sit to and From Stand Sit to and from Stand Maximum Assistance,2 Person Assistance,Use of Upper Extremities Equipment Transfer Assistive Device Gait Belt,Front Wheeled Walker Orthotic/Prosthetic Devices or Brace: No Transfers Transfer Destination Chair Transfer Technique Stand Step Pivot Transfer Ability Level of Assist Moderate Assistance,Maximum Assistance,2 Person Assistance ,Use of Upper Extremities Comments Mobility Comments pt completed sit to stand from EOB max A x 2 and max cues. pt with increase L knee flexion requiring cues to straigthen and also cues for upright posture. pt completed stand step transfer using FWW mod x 2 to max A x 2 and max cues. positioned pt in chair. pt refused to do ambulation. left pt with OT. M5 PT-IP Objective Assessments Start: 05/23/19 12:04 Freq: NEEDED Status: Active Protocol: Document 05/23/19 10:25 AB (Rec: 05/23/19 12:28 AB [id number]) Orientation Orientation/Cognition Level of Alertness Confusional State Orientation Name Safety Awareness Decreased Safety Awareness Memory Description Short Term Impaired,Director Of Analytical Development Impaired Gross Range of Motion Lower Extremity ROM Assessment Within Functional Limits Strength Lower Extremity Strength Assessment Left Impaired Hip 3-/5 Knee 3-/5 Ankle 3+/5 M6 PT-IP Treatment Start: 05/23/19 12:04 Freq: NEEDED Status: Active Protocol: Document 05/23/19 14:50 AB (Rec: 05/23/19 16:04 AB [id number]) Physical Therapy Treatment Education Education Provided Precautions,Weight Bearing Status,Post-Op Packet,Safety Other Treatments Other Treatment Performed reviewed hip precautions and pt continues to require cues to recall and cues to maintain precautions during mobility M7 PT-IP Assessment and Plan Start: 05/23/19 12:04 Freq: NEEDED Status: Active Protocol: Document 05/23/19 14:50 AB (Rec: 05/23/19 16:04 AB [id number]) PT Summary Assessment and Plan Potential Rehabilitation Potential Fair Summary Impairments Pain,ROM,Strength,Balance, Coordination,Sensation,Tone, Cognition,Bed Mobility, Transfers,Gait,Activity Tolerance Progress Towards Goals Slow Progress due to Pain,Slow Progress - Other Assessment Summary pt requiring 2 person assist with transfers and requires max cues with all tasks. pt unable to recall and requires constant cues during mobility to maintain hip precautions. pt will benefit from SNF rehab . Goals Bed Mobility Goal Minimal Assistance Transfer Goal Minimal Assistance,Front Wheeled Walker Gait Goal Minimal Assistance,Front Wheel Walker Gait Distance 50 Days to Meet Goals 10 Frequency of Treatment Frequency Of Treatment Twice a Day Treatment Plan Physical Therapy Treatment Plan Bed Mobility Training,Transfer Training,Gait Training, Therapeutic Exercise,Balance Retraining,Post Op Education, Discharge Planning,Hot or Cold Pack,Neuromuscular Re-ed, Coordination Retraining,Manual Therapy Recommendations To Nursing Amount of Assist Needed 2 Person Assist Discharge Recommendations PT Discharge Recommendations SNF Rehab
--- NOTE | 2019-05-23 14:50 | OT.IP.EVAL ---
Current Diagnoses Dislocation of internal left hip prosthesis, initial encounter (05/17/19) Surgery Performed Operation Date: 05/22/19 14:00 Actual Procedures p Total Hip Arthroplasty Revision(Left) - John Proctor MD Past Medical History (Last Reviewed 05/17/19 @ 08:53 by Loyd Angelo DO) Acute kidney injury (Acute) Bipolar disorder (Acute) Bruises easily (Acute) Chronic low back pain (Acute) Chronic sciatica of left side (Acute) Constipation, chronic (Acute) Diet-controlled diabetes mellitus (Acute) Fibromyalgia (Acute) GERD (gastroesophageal reflux disease) (Acute) Hyperlipidemia (Acute) Hypertension (Acute) Hypothyroidism (Acute) Incontinence (Acute) Lupus (systemic lupus erythematosus) (Acute) Migraines (Acute) Normocytic anemia (Acute) Surgical History (Last Reviewed 05/18/19 @ 09:29 by John Proctor MD) History of bilateral cataract extraction (Acute) History of bladder suspension procedure (Acute) History of left hip hemiarthroplasty (Acute 02/20/19) History of partial thyroidectomy (Acute) Status post tubal ligation Status post vaginal hysterectomy Occupational Therapy Inpatient Evaluation/Re-Eval M1 PT/OT-IP Prior Functional Status Start: 05/23/19 15:47 Freq: NEEDED Status: Active Protocol: Document 05/23/19 14:50 [facility] (Rec: 05/23/19 16:29 [facility] [id number]) Medical Review Prior Functional Status Medical History Reviewed Yes Communication able to make needs known but with confusion Mobility and Gait pt stated that she d/c'd to [facility] but then went home afterwards and has been w/c bound but able to transfer by herself. Pt with confusion and has memory issues and unable to give consistent accurate info. Activities of Daily Living and IADL's Pt states at home has to help her a lot with ADL needs and uses LB dressing equipment to assist with ADl needs. Prior Functional Level (Other details) pt had L hip surgery with last 02/20/19. went for another L hip surgery for a revision 05/05. pt went for another revision on L hip 05/22/19 Social History Household Members spouse Living Arrangements Apartment/Condo Number of Floors (Floors) One Floor Number of Stairs To Enter/Railing? 1 step to enter Home Environment Standard Height Toilet,Tub/ Shower Home Equipment Front Wheel Walker,Manual Wheelchair,Bedside Commode, Raised Toilet Seat w/Armrests, Tub Transfer Bench,Hand Held Shower Additional Social History Comment Pt 02/20/19 L NIMISHA due to GLF, and another revision on and another LTHA revision on 05/22/10 posterior approach . M2 OT-IP Current Condition Start: 05/23/19 15:47 Freq: Status: Active Protocol: Document 05/23/19 14:50 [facility] (Rec: 05/23/19 16:29 [facility] [id number]) Occupational Therapy Current Condition Current Condition Evaluation Date 05/23/19 Treatment Diagnosis S/p L NIMISHA revision posterior approach, decreased mobility Diagnosis Onset Date 05/17/19 Post Operative Precautions Posterior Hip Precautions No Hip Flexion > 90 degrees,No Hip Internal Rotation,No Hip Adduction Weight Bearing Status Weight Bearing Status Weight Bear as Tolerated M3 OT- IP Subjective and Pain Start: 05/23/19 15:47 Freq: Status: Active Protocol: Document 05/23/19 14:50 [facility] (Rec: 05/23/19 16:29 [facility] [id number]) OT- Subjective Occupational Therapy Visit Type Type Initial Evaluation Visit Start Time 14:50 Visit Stop Time 15:48 Total Visit Minutes 58 Occupational Therapy Visit Comments Patient Comments PT and OT present to see pt due needing extensive assist for mobility needs. Patient/Caregiver Goals Pt wanting to go home but realizes will need to go to skilled rehab prior to going home OT Pain Assessment Pain When Pain Assessed At Rest Pain Present Pain Present Pain Reported Location Generalized Intensity 7 Scale Used Numeric (1 - 10) M4 OT- IP ADL's Start: 05/23/19 15:47 Freq: Status: Active Protocol: Document 05/23/19 14:50 [facility] (Rec: 05/23/19 16:29 [facility] [id number]) OT ADL-Grooming Comments OT Grooming Comments Not performed. OT ADL-Dressing General Eval Lower Body Dressing Ability Maximum Assistance Areas Needing Assistance Socks Comments OT Dressing Comments MAXA for socks. Educated pt on use of sock aid and pt states has one at home but did not recall the name of the device. OT ADL-Toileting Comments OT Toileting Comments Pt has gaytan in. OT ADL-Bathing Comments OT Bathing Comments Not performed. Pt complaining of being itchy and able to assist to wash her back and nursing notified. M5 OT- IP IADL's Start: 05/23/19 15:47 Freq: Status: Active Protocol: Document 05/23/19 14:50 [facility] (Rec: 05/23/19 16:29 [facility] [id number]) OT-Instrumental Activities of Daily Living Deficits IADL Deficits Identified Deficits Home Safety Awareness Awareness of Need for Assistance at Home Decreased Awareness Ability to Problem Solve Emergency Unable to Problem Solve Situations Medication Management Medication Management Comments Pt states does her own medications at home and just picks up her re- fills from the pharmacy. Money Management Money Management Caregiver Provides Assistance Meal Preparation Meal Preparation Caregiver Provides Assist Batch Trucker Batch Trucker Caregiver Provides Assist Driving Driving Caregiver Provides Assist M6 OT- IP Functional Cognition Start: 05/23/19 15:47 Freq: Status: Active Protocol: Document 05/23/19 14:50 [facility] (Rec: 05/23/19 16:29 [facility] [id number]) Cognitive Factors Limiting Selfcare Function Cognitive Ability Level of Alertness Alert,Confusional State Patient Orientation Name,Place,Situation Attention Span Ability Capable of Focused Attention, Capable of Sustained Attention Ability to Follow Commands Able to Follow One Step Commands with Increased Time, Able to Follow One Step Commands with Repetition Memory Description Short Term Impaired,Working Impaired Safety Awareness Decreased Recall of Precautions,Decreased Ability to Apply Precautions, Underestimates Need for Assistance Problem Solving Ability Unable to Identify Errors, Needs Assist to Identify Solutions Executive Function Ability Unable to Filter Distractions, Unable to Make Plans,Unable to Organize Plans,Unable to Remember Details Cognitive Comments Cognitive Assessment Comments Pt not able to recall all hip precautions and when trying to recall the hip precautions moves her LLE to show therapist what not to do. Pt having to have items directly in front of her. When call light in the recliner by her right side , pt unable to find or aware how to call for assistance. Call light having to be placed directly in front of her and needing reminders how to use it. Emphasizing to call for help when needed instead of waiting for someone to come by and ask for help. Chair alarm in place. Educated pt for hip precautions by demonstrating movements and to have the pt identify if the movements or actions breaks her hip precautions or not. Pt 50% accurate and needing help to discuss and explain way a movement is not allowed. OT- Vision and Hearing OT- Vision Assessment Visual Acuity Glasses For Reading Vision Assessment Comments Able to read the clock. M7 OT- IP Mobility and Balance Start: 05/23/19 15:47 Freq: Status: Active Protocol: Document 05/23/19 14:50 [facility] (Rec: 05/23/19 16:29 [facility] [id number]) OT- Bed Mobility Assessment Supine to Sit Supine to Sit Assist Standby Assistance Scooting Scooting to Edge of Bed Standby Assistance OT-Transfer Assessment Sit to and From Stand Sit to and from Stand Moderate Assistance,Maximum Assistance,2 Person Assistance Transfers Transfer Ability Moderate Assistance,Maximum Assistance,2 Person Assistance Technique Transfer Destination Bed,Chair Transfer Technique Stand Step Pivot Devices Transfer Assistive Devices Gait Belt,Front Wheeled Walker Comments Mobility Comments VC to place right hand down to push up and use left hand up on the FWW and needing MOD/MAX A x2 to stand to FWW. Assist to move/guide FWW and help keep pt upright. Pt LLE tends to buckle and needing cues to keep LLE straight. OT- Gait Assessment Comments Gait Ability Comments Just transfer only at this time. OT- Balance Assessment Sitting Balance and Reactions Static Sitting Balance Ability Fair Standing Balance and Reactions Static Standing Balance Ability Poor M8 OT- IP Objective Assessments Start: 05/23/19 15:47 Freq: Status: Active Protocol: Document 05/23/19 14:50 [facility] (Rec: 05/23/19 16:29 [facility] [id number]) OT Gross Range of Motion Upper Extremity Range of Motion Assessment Within Functional Limits OT Strength Upper Extremity Strength Assessment Within Functional Limits OT- Coordination Assessment Upper Extremity Finger to Nose Test Within Functional Limits Finger Tapping Test Within Functional Limits OT-Muscle Tone Assessment Muscle Tone WNL Yes M9 OT- IP Assessment and Plan Start: 05/23/19 15:47 Freq: Status: Active Protocol: Document 05/23/19 14:50 [facility] (Rec: 05/23/19 16:29 [facility] [id number]) OT Summary Assessment and Plan Potential Rehabilitation Potential Fair Analytic Complexity at Evaluation Moderate Summary OT Impairments Pain,Strength,Balance, Functional Cognition, Functional Mobility,Grooming, Dressing,Toileting,Bathing, Toilet Transfers,Shower Transfers Progress Towards Goals Slow Progress due to Pain,Slow Progress due to Activity Tolerance,Slow Progress due to Cognition Assessment Summary Pt MOD complexity due to another revision for L NIMISHA, decreased short term memory, safety awareness, and now needing extensive assist for all ADL's and functional mobility. Pt looking to go back to skilled rehab when medically stable. Goals Grooming Goal Standby Assistance Dressing Goal Minimal Assistance Toileting Goal Standby Assistance Bathing Goal Minimal Assistance Toilet Transfer Goal Minimal Assistance Shower Transfer Goal Minimal Assistance Patient/Caregiver Education Goal Demonstrate Post-Op Precautions,Caregiver Independent Assisting Patient Days to Meet Goals 15 Frequency of Treatment Frequency Of Treatment Twice a Day Treatment Plan OT Treatment Plan ADL Training,Functional Cognition Training,Functional Mobility,Patient/Family Education,Discharge Planning Other Treatment Recommendations and Next Hip precaution education for Treatment Focus ADl's. Discharge Recommendations OT Discharge Recommendations SNF Rehab
[2019-05-23 16:24] VITALS: BP 151/67; PULSE 81; RESP 20; TEMP 36.6; O2SAT 100
--- NOTE | 2019-05-23 16:32 | PC.NURSE ---
Addendum entered by Denilson Ziegler R.N. 05/23/19 20:39: PATIENT IS REMOVING HER ABDUCTOR BY HERSELF AND NOT ALLOWING STAFF TO PUT BACK ON.HAS REFUSED MULTI.TIMES Original Note: ALARM RINGING,PATIENT ATTEMPTING TO TRANSFER FROM CHAIR TO BED BY HERSELF WITH ABDUCTOR IN PLACE. PATIENT STATES SHE DOES NOT LIKE THE ABDUCTOR AND ITS IN THE WAY.IN BED, ALARM ON, SCDS AND ABDUCTOR IN PLACE.
[2019-05-23 20:00] VITALS: BP 141/65; PULSE 81; RESP 20; TEMP 36.2; O2SAT 97
[2019-05-23] MEDS: OXYCODONE IR 10 MG TABLET PO (23:44)
[2019-05-24] VITALS (7 sets, daily range): BP systolic 140–154; BP diastolic 57–80; PULSE 78–85; RESP 16–20; TEMP 36.3–37.1; O2SAT 95–99
[2019-05-24] MEDS: IBUPROFEN 400 MG TABLET PO ×6 (02:12→20:26)
[2019-05-24] MEDS: OXYCODONE IR 10 MG TABLET PO ×3 (06:47→20:27)
[2019-05-24] MEDS: hydrOXYzine pamoate 25 MG CAPSULE PO ×2 (06:50→11:52)
[2019-05-24] MEDS: LITHIUM 300 MG IR CAPSULE PO ×2 (08:56→20:28)
[2019-05-24] MEDS: ASPIRIN EC 81 MG TABLET PO ×2 (08:56→20:27)
--- NOTE | 2019-05-24 09:05 | PM.PNPO.1 ---
Subjective Subjective Date Patient Seen: 05/24/19 Time Patient Seen: 09:05 Interval history: POD #2 s/p left hip revision with Dr. Proctor. Nursing staff notes continued concern for patient not following posterior hip precautions, and patient getting out of hip abductor pillow. Patient notes an improvement with Vistaril for muscle spasms and restless legs. She has mobilized in her room with physical therapy. Exam Vital Signs (past 8 hours): - 05/24/19 05:15 Temperature 98.1 F Pulse Rate 79 Respiratory Rate 18 Blood Pressure 146/64 H Pulse Oximetry 97 Oxygen Delivery Method Room Air Oxygen Flow Rate 0 Narrative Exam Narrative: Patient lying in bed in no acute distress. She is very restless while lying in bed. Abductor pillow in place. Dressing on left hip is CDI. Calves are soft, compressible, nontender bilaterally. She is able to actively dorsiflex and plantar flex. Dorsalis pedis pulses symmetrical. Assessment & Plan Post-op Postoperative Procedures: Procedures Operation Date: 05/22/19 14:00 Actual Procedures Side Surgeon p Total Hip Arthroplasty Revision Left John Proctor MD Patient will continue current pain control. She is requesting Mirapex for restless leg syndrome tonight. Patient is not able to take gabapentin and Mirapex is reasonable to try while in the hospital. Continue Vistaril during the day. Continue mobilizing with physical therapy today. Posterior hip precautions. Will remove Mojica catheter today as she mobilized in her room yesterday. Once patient is mobilizing safely, voiding, and adequate pain control she will be able to discharge home likely in next 1-2 days.
--- NOTE | 2019-05-24 11:04 | PT.IPTN ---
Current Diagnoses Dislocation of internal left hip prosthesis, initial encounter (05/17/19) Surgery Performed Operation Date: 05/22/19 14:00 Actual Procedures p Total Hip Arthroplasty Revision(Left) - John Proctor MD Physical Therapy Treatment Note M2 PT-IP Current Condition Start: 05/23/19 12:04 Freq: NEEDED Status: Active Protocol: Document 05/23/19 10:25 AB (Rec: 05/23/19 12:28 AB [id number]) Physical Therapy Current Condition Current Condition Evaluation Date 05/23/19 Treatment Diagnosis L NIMISHA revision posterior approach; difficulty in walking Onset Date 05/17/19 Precautions Posterior Hip Precautions No Hip Flexion > 90 degrees,No Hip Internal Rotation,No Hip Adduction Other Precautions falls; MISTY Bhatia provided clarification to pt's L NIMISHA posterior precaution: no hip flexion>90 deg and not 70 deg. Weight Bearing Status Weight Bearing Status Weight Bear as Tolerated Allowed Weight Bearing Amount (enter % WBAT LLE or #) (%) M3 PT-IP Subjective Start: 05/23/19 12:04 Freq: NEEDED Status: Active Protocol: Document 05/24/19 11:04 AB (Rec: 05/24/19 12:14 AB [id number]) Subjective Physical Therapy Visit Type Type Treatment Note Visit Start Time 11:04 Visit Stop Time 11:16 Total Visit Minutes 12 Number of PUBLIC HEALTH SPECIALIST Visits 0 Physical Therapy Visit Comments Patient Comments pt agreeable to do PT Therapy Pain Assessment Pain When Pain Assessed At Rest Pain Present Pain Present Pain Reported Location left hip Intensity 4 Scale Used Numeric (1 - 10) Pain Management Techniques Re-positioning,Timing of Activity with Medications M4 PT-IP Mobility and Gait Start: 05/23/19 12:04 Freq: NEEDED Status: Active Protocol: Document 05/24/19 11:04 AB (Rec: 05/24/19 12:14 AB [id number]) PT-Bed Mobility Assessment Supine to Sit Supine to Sit Standby Assistance PT-Transfer Assessment Sit to and From Stand Sit to and from Stand Minimal Assistance,1 Person Assistance,Use of Upper Extremities Equipment Transfer Assistive Device Gait Belt,Front Wheeled Walker Orthotic/Prosthetic Devices or Brace: No Transfers Transfer Destination Chair Transfer Technique Stand Step Pivot Transfer Ability Level of Assist Minimal Assistance,1 Person Assistance,Use of Upper Extremities Gait Assessment Gait Gait Assistance Required: Minimum Assistance,Moderate Assistance,1 Person Assist Distance (Feet) 12 Able to Maintain Weight Bearing Status Yes During Gait Assistive Devices Assistive Device Gait Belt,Front Wheeled Walker Orthotic/Prosthetic Devices or Brace: No Gait Deviations General Gait Pattern Antalgic,Decreased Stride Length,Decreased Feet Clearance,Flexed Trunk,Step-to Gait Factors Limiting Gait Function Factors Limiting Gait Function Decreased Activity Tolerance, Decreased Strength,Difficulty Following Directions,Limited Range of Motion,Pain,Poor Balance,Poor Safety Awareness Comments Gait Comments pt requires initial min A with ambulation using FWW but towards the ends of maublation requiring mod A and cues. pt presents with antalgic gait with increase L knee flexion, increase forward trunk flexion requiring cues for upright posture PT-Balance Assessment Sitting Balance and Reactions Static Sitting Balance Ability Good Dynamic Sitting Balance Ability Fair Standing Balance and Reactions Static Standing Balance Ability Fair Dynamic Standing Balance Ability Fair Device Used FWW M5 PT-IP Objective Assessments Start: 05/23/19 12:04 Freq: NEEDED Status: Active Protocol: Document 05/23/19 10:25 AB (Rec: 05/23/19 12:28 AB [id number]) Orientation Orientation/Cognition Level of Alertness Confusional State Orientation Name Safety Awareness Decreased Safety Awareness Memory Description Short Term Impaired,Fdc Impaired Gross Range of Motion Lower Extremity ROM Assessment Within Functional Limits Strength Lower Extremity Strength Assessment Left Impaired Hip 3-/5 Knee 3-/5 Ankle 3+/5 M6 PT-IP Treatment Start: 05/23/19 12:04 Freq: NEEDED Status: Active Protocol: Document 05/24/19 11:04 AB (Rec: 05/24/19 12:14 AB [id number]) Physical Therapy Treatment Education Education Provided Precautions,Weight Bearing Status,Safety M7 PT-IP Assessment and Plan Start: 05/23/19 12:04 Freq: NEEDED Status: Active Protocol: Document 05/24/19 11:04 AB (Rec: 05/24/19 12:14 AB [id number]) PT Summary Assessment and Plan Potential Rehabilitation Potential Good Summary Impairments Pain,ROM,Strength,Balance, Coordination,Sensation,Tone, Cognition,Bed Mobility, Transfers,Gait,Activity Tolerance Progress Towards Goals Slow Progress due to Pain,Slow Progress due to Activity Tolerance,Slow Progress - Other Assessment Summary pt improving slowly, requiring min to mod A with mobility but continues to require cues to maintain hip precautions. pt with decrease cognitive level affecting safety with moblity. pt will benefit from SNF rehab. Goals Bed Mobility Goal Minimal Assistance Transfer Goal Minimal Assistance,Front Wheeled Walker Gait Goal Minimal Assistance,Front Wheel Walker Gait Distance 50 Days to Meet Goals 10 Frequency of Treatment Frequency Of Treatment Twice a Day Treatment Plan Physical Therapy Treatment Plan Bed Mobility Training,Transfer Training,Gait Training, Therapeutic Exercise,Balance Retraining,Post Op Education, Discharge Planning,Hot or Cold Pack,Neuromuscular Re-ed, Coordination Retraining,Manual Therapy Recommendations To Nursing Amount of Assist Needed 1 Person Assist Discharge Recommendations PT Discharge Recommendations SNF Rehab
--- NOTE | 2019-05-24 12:58 | PC.NURSE ---
Ortho: Pt more oriented today but still forgetful and needs max cues to follow her post hip precautions. has worked with PT. Mojica out and has not voided yet. Dressing intact. neurovasc intact. reports pain is in control. Cont w/poc.
--- NOTE | 2019-05-24 14:36 | CM.DPNOTE ---
DCP Cont: According to [facility] (formerly [facility]), auth from [facility] in place. Now awaiting medical clearance for DC. Pt made aware auth in place. DIMA
--- NOTE | 2019-05-24 14:46 | OT.IP.TRT ---
Current Diagnoses Dislocation of internal left hip prosthesis, initial encounter (05/17/19) Surgery Performed Operation Date: 05/22/19 14:00 Actual Procedures p Total Hip Arthroplasty Revision(Left) - John Proctor MD Occupational Therapy Treatment Note M2 OT-IP Current Condition Start: 05/23/19 15:47 Freq: Status: Active Protocol: Document 05/23/19 14:50 CCC (Rec: 05/23/19 16:29 CCC [id number]) Occupational Therapy Current Condition Current Condition Evaluation Date 05/23/19 Treatment Diagnosis S/p L NIMISHA revision posterior approach, decreased mobility Diagnosis Onset Date 05/17/19 Post Operative Precautions Posterior Hip Precautions No Hip Flexion > 90 degrees,No Hip Internal Rotation,No Hip Adduction Weight Bearing Status Weight Bearing Status Weight Bear as Tolerated M3 OT- IP Subjective and Pain Start: 05/23/19 15:47 Freq: Status: Active Protocol: Document 05/24/19 14:46 PJM (Rec: 05/24/19 15:10 PJM [id number]) OT- Subjective Occupational Therapy Visit Type Type Treatment Note Visit Start Time 14:22 Visit Stop Time 14:46 Total Visit Minutes 24 Notes Pt requesting to use bedside commode. Occupational Therapy Visit Comments Patient Comments I have all the equipment I need at home. My helps me a lot. Patient/Caregiver Goals to go rehab tomorrow and then go home when stronger OT Pain Assessment Pain When Pain Assessed After Treatment Location left hip Intensity 7 Scale Used Numeric (1 - 10) Description Aching,Acute Management Techniques Distraction,Re-positioning, Timing of Activity with Medications M4 OT- IP ADL's Start: 05/23/19 15:47 Freq: Status: Active Protocol: Document 05/24/19 14:46 PJM (Rec: 05/24/19 15:10 PJM [id number]) OT ADL-Dressing Assistive Devices Dressing Assistive Devices Long Handled Shoe Horn,Health Underwriter ,Sock Aid Comments OT Dressing Comments Pt has necessary adaptive equipment needed for lower body dressing, but states she prefers to have assist her with socks and shoes at home. OT ADL-Toileting General Evaluation Toileting Ability Minimal Assistance Areas Needing Assistance Perform Perineal Hygiene Devices Toileting Assistive Devices Commode Comments OT Toileting Comments Pt moves quickly and needed min assist for standing balance with FWW when standing up from BSC for escobar care. OT ADL-Bathing Devices Bathing Equipment Long Handled Sponge or [place] Comments OT Bathing Comments Pt has transfer tub bench in tub shower combo at home. 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 Medication Management Medication Management Caregiver Provides Supervision Medication Management Comments Recommend supervise medication management due to short term memory deficits identified during last admit. Money Management Money Management Caregiver Provides Assistance Meal Preparation Meal Preparation Caregiver Provides Assist Champion Of Sustainable Design Champion Of Sustainable Design Caregiver Provides Assist Driving Driving Caregiver Provides Assist M6 OT- IP Functional Cognition Start: 05/23/19 15:47 Freq: Status: Active Protocol: Document 05/24/19 14:46 PJM (Rec: 05/24/19 15:10 [facility] [id number]) Cognitive Factors Limiting Selfcare Function Cognitive Ability Level of Alertness Alert Attention Span Ability Capable of Focused Attention Ability to Follow Commands Able to Follow One Step Commands Memory Description Short Term Impaired Safety Awareness Decreased Ability to Apply Precautions,Underestimates Need for Assistance Problem Solving Ability Unable to Identify Errors, Needs Assist to Identify Solutions Executive Function Ability Unable to Remember Details Abstract Thinking Ability Unable to Apply Concepts to New Situations Cognitive Comments Cognitive Assessment Comments Pt can state posterior hip precautions but does not follow them during functional mobility, transfers and self care tasks such as toileting. Pt needs mod to max verbal cues and intermittent tactile assist to avoid forward bending and twisting. Pt moves quickly and impulsively. M7 OT- IP Mobility and Balance Start: 05/23/19 15:47 Freq: Status: Active Protocol: Document 05/24/19 14:46 PJM (Rec: 05/24/19 15:10 [facility] [id number]) OT- Bed Mobility Assessment Supine to Sit Supine to Sit Assist Contact Guard Assistance Sit to Supine Sit to Supine Assist Minimal Assistance Scooting Scooting to Edge of Bed Standby Assistance OT-Transfer Assessment Sit to and From Stand Sit to and from Stand Contact Guard Assistance,1 Person Assistance,Use of Upper Extremities Transfers Transfer Ability Contact Guard Assistance,1 Person Assistance Technique Transfer Destination Bed,Bedside Commode Transfer Technique Stand Step Pivot Devices Transfer Assistive Devices Gait Belt,Front Wheeled Walker Comments Mobility Comments Pt needs CGA to min assist with transfers for safety due to impulsivity and poor balance when arising from [facility]. Pt appeared apraxic when attempting to motor plan how to get back in bed. OT- Gait Assessment Gait Gait Assistance Required: Contact Guard Assist Distance (Feet) 2 Assistive Devices Assistive Device Gait Belt,Front Wheeled Walker Comments Gait Ability Comments Pt needs max verbal cues for gait sequence and was keeping FWW too close this session, leaning forward over it. OT- Balance Assessment Sitting Balance and Reactions Static Sitting Balance Ability Good Standing Balance and Reactions Static Standing Balance Ability Good Dynamic Standing Balance Ability Fair M8 OT- IP Objective Assessments Start: 05/23/19 15:47 Freq: Status: Active Protocol: Document 05/23/19 14:50 CCC (Rec: 05/23/19 16:29 CCC [id number]) OT Gross Range of Motion Upper Extremity Range of Motion Assessment Within Functional Limits OT Strength Upper Extremity Strength Assessment Within Functional Limits OT- Coordination Assessment Upper Extremity Finger to Nose Test Within Functional Limits Finger Tapping Test Within Functional Limits OT-Muscle Tone Assessment Muscle Tone WNL Yes M9 OT- IP Assessment and Plan Start: 05/23/19 15:47 Freq: Status: Active Protocol: Document 05/24/19 14:46 PJM (Rec: 05/24/19 15:10 PJM [id number]) OT Summary Assessment and Plan Summary OT Impairments Pain,Balance,Functional Cognition,Functional Mobility, Dressing,Toileting,Bathing, Toilet Transfers,Shower Transfers Progress Towards Goals Slow Progress due to Cognition Assessment Summary Pt alert and able to state posterior hip precautions but continues to have difficulty applying them during functional mobility, transfers and self care tasks. Pt continues to be impulsive and moves very quickly. She needs mod to max verbal cues and intermittent tactile cues to avoid forward bending and twisting. Recommend SNF at discharge for further rehab services to further practice adapted self care tasks within posterior hip precautions. Pt needs repetition and practice of new information and techniques to ensure carry over. Goals Grooming Goal Standby Assistance Dressing Goal Minimal Assistance Toileting Goal Standby Assistance Bathing Goal Minimal Assistance Toilet Transfer Goal Minimal Assistance Shower Transfer Goal Minimal Assistance Patient/Caregiver Education Goal Demonstrate Post-Op Precautions,Caregiver Independent Assisting Patient Days to Meet Goals 14 Frequency of Treatment Frequency Of Treatment Once a Day Treatment Plan OT Treatment Plan ADL Training,Functional Cognition Training,Functional Mobility,Patient/Family Education,Discharge Planning Other Treatment Recommendations and Next Hip precaution education for Treatment Focus ADl's. Discharge Recommendations OT Discharge Recommendations SNF Rehab
--- NOTE | 2019-05-24 14:46 | PT.IPTN ---
Current Diagnoses Dislocation of internal left hip prosthesis, initial encounter (05/17/19) Surgery Performed Operation Date: 05/22/19 14:00 Actual Procedures p Total Hip Arthroplasty Revision(Left) - John Proctor MD Physical Therapy Treatment Note M2 PT-IP Current Condition Start: 05/23/19 12:04 Freq: NEEDED Status: Active Protocol: Document 05/23/19 10:25 AB (Rec: 05/23/19 12:28 AB [id number]) Physical Therapy Current Condition Current Condition Evaluation Date 05/23/19 Treatment Diagnosis L NIMISHA revision posterior approach; difficulty in walking Onset Date 05/17/19 Precautions Posterior Hip Precautions No Hip Flexion > 90 degrees,No Hip Internal Rotation,No Hip Adduction Other Precautions falls; MISTY Bhatia provided clarification to pt's L NIMISHA posterior precaution: no hip flexion>90 deg and not 70 deg. Weight Bearing Status Weight Bearing Status Weight Bear as Tolerated Allowed Weight Bearing Amount (enter % WBAT LLE or #) (%) M3 PT-IP Subjective Start: 05/23/19 12:04 Freq: NEEDED Status: Active Protocol: Document 05/24/19 14:46 AB (Rec: 05/24/19 16:18 AB [id number]) Subjective Physical Therapy Visit Type Type Treatment Note Visit Start Time 14:46 Visit Stop Time 15:10 Total Visit Minutes 24 Number of SKI BASE TRIMMER Visits 0 Physical Therapy Visit Comments Patient Comments Pt agreeable to do PT Therapy Pain Assessment Pain When Pain Assessed At Rest Pain Present Pain Present Pain Reported Location left hip Intensity 4 Scale Used Numeric (1 - 10) Pain Management Techniques Re-positioning,Timing of Activity with Medications M4 PT-IP Mobility and Gait Start: 05/23/19 12:04 Freq: NEEDED Status: Active Protocol: Document 05/24/19 14:46 AB (Rec: 05/24/19 16:18 AB [id number]) PT-Bed Mobility Assessment Supine to Sit Supine to Sit Standby Assistance,1 Person Assistance Sit to Supine Sit to Supine Standby Assistance,1 Person Assistance Scooting Scooting to Edge of Bed Standby Assistance PT-Transfer Assessment Sit to and From Stand Sit to and from Stand Minimal Assistance,1 Person Assistance,Use of Upper Extremities Equipment Transfer Assistive Device Gait Belt,Front Wheeled Walker Orthotic/Prosthetic Devices or Brace: No Comments Mobility Comments pt requested to go back to bed after ambulation. positioned pt in bed. abductor pillow on. call light and table placed within reach. Gait Assessment Gait Gait Assistance Required: Minimum Assistance,Moderate Assistance Distance (Feet) 20 Able to Maintain Weight Bearing Status Yes During Gait Assistive Devices Assistive Device Gait Belt,Front Wheeled Walker Orthotic/Prosthetic Devices or Brace: No Gait Deviations General Gait Pattern Antalgic,Decreased Stride Length,Flexed Trunk Factors Limiting Gait Function Factors Limiting Gait Function Decreased Activity Tolerance, Decreased Strength,Difficulty Following Directions,Pain,Poor Balance,Poor Safety Awareness Comments Gait Comments pt completed ambualtion 20 ft x 2 using FWW initially with min A but required mod A midway through ambulation with increas stooped posture. requires cues for upright posture and pt also tends to forget to move FWW forward requiring assist and cues for FWW maneuvering. M5 PT-IP Objective Assessments Start: 05/23/19 12:04 Freq: NEEDED Status: Active Protocol: Document 05/23/19 10:25 AB (Rec: 05/23/19 12:28 AB [id number]) Orientation Orientation/Cognition Level of Alertness Confusional State Orientation Name Safety Awareness Decreased Safety Awareness Memory Description Short Term Impaired,Arabic Linguist Impaired Gross Range of Motion Lower Extremity ROM Assessment Within Functional Limits Strength Lower Extremity Strength Assessment Left Impaired Hip 3-/5 Knee 3-/5 Ankle 3+/5 M6 PT-IP Treatment Start: 05/23/19 12:04 Freq: NEEDED Status: Active Protocol: Document 05/24/19 14:46 AB (Rec: 05/24/19 16:18 AB [id number]) Physical Therapy Treatment Education Education Provided Precautions,Safety Other Treatments Other Treatment Performed pt is able to recall hip precautions when asked but continues to require cues to adhere to precautions during mobility. M7 PT-IP Assessment and Plan Start: 05/23/19 12:04 Freq: NEEDED Status: Active Protocol: Document 05/24/19 14:46 AB (Rec: 05/24/19 16:18 AB [id number]) PT Summary Assessment and Plan Potential Rehabilitation Potential Good Summary Impairments Pain,ROM,Strength,Balance, Coordination,Sensation,Tone, Cognition,Bed Mobility, Transfers,Gait,Activity Tolerance Progress Towards Goals Slow Progress due to Activity Tolerance,Slow Progress - Other Assessment Summary pt requires min to mod A with ambulation; presents with decrease activity tolerance and decrease cognitive level affecting level of assistance and safety. pt will benefit from SNF rehab to improve strength and function. Goals Bed Mobility Goal Minimal Assistance Transfer Goal Minimal Assistance,Front Wheeled Walker Gait Goal Minimal Assistance,Front Wheel Walker Gait Distance 50 Days to Meet Goals 10 Frequency of Treatment Frequency Of Treatment Twice a Day Treatment Plan Physical Therapy Treatment Plan Bed Mobility Training,Transfer Training,Gait Training, Therapeutic Exercise,Balance Retraining,Post Op Education, Discharge Planning,Hot or Cold Pack,Neuromuscular Re-ed, Coordination Retraining,Manual Therapy Other Recommendations and Next Treatment ambulation Focus Recommendations To Nursing Amount of Assist Needed 1 Person Assist Discharge Recommendations PT Discharge Recommendations SNF Rehab
[2019-05-24] MEDS: ONDANSETRON 4 MG/2 ML INJ IV (17:42)
[2019-05-24] MEDS: PRAMIPEXOLE 0.125 MG TABLET PO ×2 (20:28→21:38)
[2019-05-25 00:15] VITALS: BP 150/72; PULSE 78; RESP 16; TEMP 37.2; O2SAT 93
[2019-05-25] MEDS: IBUPROFEN 400 MG TABLET PO ×4 (00:29→12:15)
[2019-05-25] MEDS: LEVOTHYROXINE 112 MCG TABLET PO (05:26)
[2019-05-25 06:01] VITALS: BP 137/65; PULSE 80; RESP 16; TEMP 36.7; O2SAT 94
[2019-05-25 07:50] VITALS: BP 149/72; PULSE 82; RESP 15; TEMP 36.2; O2SAT 98
[2019-05-25] MEDS: LITHIUM 300 MG IR CAPSULE PO (08:29)
[2019-05-25] MEDS: ASPIRIN EC 81 MG TABLET PO (08:29)
--- NOTE | 2019-05-25 09:24 | PT.IPTN ---
Current Diagnoses Dislocation of internal left hip prosthesis, initial encounter (05/17/19) Surgery Performed Operation Date: 05/22/19 14:00 Actual Procedures p Total Hip Arthroplasty Revision(Left) - John Proctor MD Physical Therapy Treatment Note M2 PT-IP Current Condition Start: 05/23/19 12:04 Freq: NEEDED Status: Active Protocol: Document 05/23/19 10:25 AB (Rec: 05/23/19 12:28 AB [id number]) Physical Therapy Current Condition Current Condition Evaluation Date 05/23/19 Treatment Diagnosis L NIMISHA revision posterior approach; difficulty in walking Onset Date 05/17/19 Precautions Posterior Hip Precautions No Hip Flexion > 90 degrees,No Hip Internal Rotation,No Hip Adduction Other Precautions falls; MISTY Bhatia provided clarification to pt's L NIMISHA posterior precaution: no hip flexion>90 deg and not 70 deg. Weight Bearing Status Weight Bearing Status Weight Bear as Tolerated Allowed Weight Bearing Amount (enter % WBAT LLE or #) (%) M3 PT-IP Subjective Start: 05/23/19 12:04 Freq: NEEDED Status: Active Protocol: Document 05/25/19 08:43 IVET (Rec: 05/25/19 10:24 IVET [email or web address]) Subjective Physical Therapy Visit Type Type Treatment Note Visit Start Time 08:43 Visit Stop Time 09:24 Total Visit Minutes 41 Notes Treatment supervised by ELYSIA Chance. Number of REPTILE FARMER Visits 1 Physical Therapy Visit Comments Patient Comments Pt agreeable to do PT M4 PT-IP Mobility and Gait Start: 05/23/19 12:04 Freq: NEEDED Status: Active Protocol: Document 05/25/19 08:43 IVET (Rec: 05/25/19 10:24 IVET [email or web address]) PT-Bed Mobility Assessment Supine to Sit Supine to Sit Standby Assistance,1 Person Assistance Sit to Supine Sit to Supine Standby Assistance,1 Person Assistance Scooting Scooting to Edge of Bed Standby Assistance PT-Transfer Assessment Sit to and From Stand Sit to and from Stand Minimal Assistance,1 Person Assistance,Use of Upper Extremities Equipment Transfer Assistive Device Gait Belt,Front Wheeled Walker Orthotic/Prosthetic Devices or Brace: No Transfers Transfer Destination Bed,Chair Transfer Technique Pt ambulated w/ FWW. Transfer Ability Level of Assist Contact Guard Assistance,Use of Upper Extremities Comments Mobility Comments Pt is SBA for sup<>sit, sit<> sup, and scooting in bed. CGA for STS from 20in chair, Min A for STS from 18 in folding side chair. Pt requires frequent cues for hand placement and backing up FWW fully when transferring from sit<>stand and stand<>sit. Pt left in bed with abductor pillow in place and all needs in reach. Gait Assessment Gait Gait Assistance Required: Contact Guard Assist,1 Person Assist Distance (Feet) 30 Able to Maintain Weight Bearing Status Yes During Gait Assistive Devices Assistive Device Gait Belt,Front Wheeled Walker Orthotic/Prosthetic Devices or Brace: No Gait Deviations General Gait Pattern Antalgic,Decreased Stride Length,Flexed Trunk,Narrow Based Gait,Step-to Gait Factors Limiting Gait Function Factors Limiting Gait Function Decreased Activity Tolerance, Decreased Strength,Difficulty Following Directions,Pain,Poor Balance,Poor Safety Awareness Comments Gait Comments Pt ambulated ~30ft w/ FWW and CGA. Required frequent cueing to stay inside FWW and stand up straight. Repetitive cues to push up from w/c and chair to stand, and to reach back for surface when sitting, as well as bringing FWW all the way back to chair and bed. Pt requested 3 sitting rest breaks during 30ft ambulation due to fatigue. Pt lacks awareness of body positioning within FWW and remains too close to front of FWW. Cues for staying near back legs of FWW for safety. PT-Balance Assessment Sitting Balance and Reactions Static Sitting Balance Ability Normal Dynamic Sitting Balance Ability Good Standing Balance and Reactions Static Standing Balance Ability Fair Dynamic Standing Balance Ability Fair Device Used FWW M5 PT-IP Objective Assessments Start: 05/23/19 12:04 Freq: NEEDED Status: Active Protocol: Document 05/23/19 10:25 AB (Rec: 05/23/19 12:28 AB [id number]) Orientation Orientation/Cognition Level of Alertness Confusional State Orientation Name Safety Awareness Decreased Safety Awareness Memory Description Short Term Impaired,Usp Impaired Gross Range of Motion Lower Extremity ROM Assessment Within Functional Limits Strength Lower Extremity Strength Assessment Left Impaired Hip 3-/5 Knee 3-/5 Ankle 3+/5 M6 PT-IP Treatment Start: 05/23/19 12:04 Freq: NEEDED Status: Active Protocol: Document 05/25/19 08:43 IVET (Rec: 05/25/19 10:24 IVET [email or web address]) Physical Therapy Treatment Education Education Provided Precautions,Safety Other Treatments Other Treatment Performed Pt recalled all hip precautions when asked. M7 PT-IP Assessment and Plan Start: 05/23/19 12:04 Freq: NEEDED Status: Active Protocol: Document 05/25/19 08:43 IVET (Rec: 05/25/19 10:24 IVET [email or web address]) PT Summary Assessment and Plan Potential Rehabilitation Potential Good Summary Impairments Pain,ROM,Strength,Balance, Coordination,Sensation,Tone, Cognition,Bed Mobility, Transfers,Gait,Activity Tolerance Progress Towards Goals Slow Progress due to Activity Tolerance,Slow Progress - Other Assessment Summary Pt requires SBA for bed mobility, CGA to Min A for transfers and ambulation. Frequent cueing for proper use of FWW, posture, and sit<> stand, and hand placement. Required 3x rest breaks during 30ft ambulation due to deconditioning. Goals Bed Mobility Goal Minimal Assistance Transfer Goal Minimal Assistance,Front Wheeled Walker Gait Goal Minimal Assistance,Front Wheel Walker Gait Distance 50 Days to Meet Goals 10 Frequency of Treatment Frequency Of Treatment Twice a Day Treatment Plan Physical Therapy Treatment Plan Bed Mobility Training,Transfer Training,Gait Training, Therapeutic Exercise,Balance Retraining,Post Op Education, Discharge Planning,Hot or Cold Pack,Neuromuscular Re-ed, Coordination Retraining,Manual Therapy Other Recommendations and Next Treatment ambulation Focus Recommendations To Nursing Amount of Assist Needed 1 Person Assist Discharge Recommendations PT Discharge Recommendations SNF Rehab
--- NOTE | 2019-05-25 09:41 | PM.DS.1 ---
History of Present Illness History of Present Illness Date Patient Seen: 05/25/19 Time Patient Seen: 09:00 Chief complaint: L hip dislocation Narrative: Patient is a 73-year-old female who was converted from a hemiarthroplasty to total hip arthroplasty and had early recurrent instability. For these reasons she is indicated for revision left total hip arthroplasty. POD #3 s/p left hip revision with Dr. Proctor. Mirapex was added for restless leg syndrome yesterday. Patient notes no improvement - Mirapex discontinued. Nursing staff notes continued concern for patient not following posterior hip precautions, and patient getting out of hip abductor pillow. She has mobilized in her room with physical therapy. No other complaints. Patient denies fever, chills, nausea, vomiting, chest pain, shortness of breath, calf pain. Discharge Providers Provider Date of admission: 05/17/19 22:59 Discharge Date: 05/25/19 Primary care physician: Merissa Robbins MD Consults: 05/23/19 08:52 Consult to Physical Therapy Evaluate & Treat Comment: See op report, weight bear as tolerated Physician Instructions: Evaluate and Treat 05/23/19 11:26 Consult to Occupational Therapy Evaluate & Treat Comment: Physician Instructions: Evaluate and treat Discharge provider: Maureen Blank PA-C Summary Hospital Course Discharge Diagnosis: s/p left total hip arthroplasty revision restless leg syndrome microembolization cellulitis of toe of left foot closed left hip fracture anemia hip dislocation, left acute kidney injury bipolar disorder bruises easily chronic back pain chronic sciatiac - left side constipation, chronic diet controlled diabetes mellitus fibromyalgia GERD hypertension hyperlipidemia hypothyroid incontinence systemic lupus erythematosus normocytic anemia migraines Hospital Course: Patient was admitted to hospital s/p left total hip arthroplasty revision with Dr. Proctor. Post op day 3 patient was ready for discharge to SNF. Hospital course was notable for patient's difficulty following posterior total hip arthroplasty precautions secondary to restless leg syndrome. Mirapex and ropinorole were used with no effect. Patient reports vistaril helped. Patient was mobilizing with PT/OT prior to discharge. Patient was voiding and eating without difficulty or assistance prior to discharge. ASA 81 mg BID for DVT prophylaxis. Patient has oxycodone prescription at home. Status at Discharge Cognitive/behavioral status at discharge: oriented Functional status at discharge: uses cane/walker Overall status at discharge: patient is progressing back to baseline Time Spent with Patient Time spent: Less than 30 minutes Exam Vital Signs (past 8 hours): - 05/25/19 06:01 05/25/19 07:50 Temperature 98.0 F 97.2 F L Pulse Rate 80 82 Respiratory Rate 16 15 Blood Pressure 137/65 149/72 H Pulse Oximetry 94 98 Oxygen Delivery Method Room Air Oxygen Flow Rate 0 Narrative Exam Narrative: 73 year old female sitting comfortably upright at side of bed, in no apparent distress. A&Ox3. Dressing CDI on L hip. Sensory function grossly intact to light touch in LE bl. Patient able to actively dorsiflex/plantar flex bl. Dorsalis pedis 2+ bl. Capillary refill <2sec LE bl. Calves warm, soft, compressible, nttp. The patient has multiple skin tears and fragile skin especially in her bilateral upper extremities. Discharge Plan Discharge Plan Patient Disposition: SNF Transfer to: [facility] Consult as needed: Dental, Hearing, Mental health, Podiatry and Vision Discharge orders & Medications Prescriptions: New aspirin 81 mg Tablet,Delayed Release (Dr/Ec) 81 mg PO BID Qty: 60 RF: 0 bisacodyl 10 mg Suppository 10 mg [place] PRN PRN (Reason: Constipation) Qty: 5 RF: 0 ibuprofen 400 mg Tablet 400 mg PO Q4HR Qty: 60 RF: 0 docusate sodium [DOK] 100 mg Capsule 100 mg PO BID PRN (Reason: Constipation) Qty: 30 RF: 0 hydroxyzine pamoate 25 mg Capsule 25 mg PO Q6HR PRN (Reason: Nausea) Qty: 20 RF: 0 oxycodone 10 mg tablet 10 mg PO Q4-6H PRN (Reason: pain (scale score 7-10)) Qty: 40 RF: 0 acetaminophen [Tylenol Extra Strength] 500 mg tablet 500 mg PO Q4H PRN (Reason: pain (scale score 1-3)) Qty: 60 RF: 0 Continued fenofibrate 160 MG tablet 160 mg PO QDAY Qty: 0 RF: 0 cyclobenzaprine 5 MG tablet 5 mg PO TIDP PRN (Reason: Spasms) Qty: 0 RF: 0 lithium carbonate 300 MG capsule 300 mg PO BID Qty: 0 RF: 0 hydroxychloroquine 200 mg Tablet 400 mg PO DAILY RF: 0 ascorbic acid (vitamin C) [Vitamin C] 500 mg tablet 500 mg PO BID Qty: 20 RF: 0 amlodipine 10 mg Tablet 10 mg PO DAILY RF: 0 ondansetron HCl [Zofran] 4 mg Tablet 8 mg PO BID PRN (Reason: Nausea) RF: 0 omeprazole 40 mg Capsule,Delayed Release(Dr/Ec) 40 mg PO DAILY RF: 0 fluoxetine 20 mg Capsule 20 mg PO DAILY RF: 0 levothyroxine 112 mcg Tablet 112 mcg PO DAILY RF: 0 minoxidil [Rogaine] 2 % Solution 1 applic topical DIRECTED RF: 0 polyethylene glycol 3350 17 gram Powder In Packet 17 gm PO DAILY Qty: 1 RF: 0 bisacodyl 10 mg Suppository 10 mg [place] DAILY PRN (Reason: Constipation) Qty: 30 RF: 0 docusate sodium [DOK] 100 mg Capsule 100 mg PO BID Qty: 60 RF: 0 ferrous gluconate 324 mg (38 mg iron) Tablet 324 mg PO DAILY Qty: 30 RF: 0 Discontinued aspirin 325 mg Tablet 325 mg PO DAILY RF: 0 ibuprofen 200 mg Capsule 600 mg PO Q6H PRN (Reason: Pain (Scale Score 1-3)) RF: 0 oxycodone 5 mg capsule 5 mg PO Q4-6H PRN (Reason: pain) Qty: 60 RF: 0 Follow up/Referrals: John Proctor MD [Physician] - Merissa Robbins MD [Primary Care Provider] - Discharge Health Status Multidrug resistant organism: No MDRO Diet/Activity/Treatments Diet: Regular Liquid consistency: Normal/Thin Food texture: Regular Activity: weight bearing as tolerated Cold/Heat Therapy: continue cold/heat therapy as needed Skin/Wound/Dressing Care Report to your healthcare provider any signs of infection, such as:: chills, fever, increased pain, unusual drainage and unusual redness Dressing: keep dressing dry. can use aquacel in shower. do not soak. dressing changes as needed. Special Rehabilitation Services Reason for rehabilitation: Post-operative therapy Rehab type: Physical therapy and Occupational therapy Restrictions to mobility: use hip abductor pillow in bed. follow posterior total hip arthroplasty precautions. Visit Report/Discharge Packet Instructions: DI for Hip Replacement Stand Alone Forms: Surgery Discharge Discharge Data Primary Care Provider: Merissa Robbins
[2019-05-25] MEDS: OXYCODONE IR 10 MG TABLET PO (11:52)
--- NOTE | 2019-05-25 12:57 | PC.NURSE ---
Day shift: Pt left unit to [facility] at approx 1300. Paperwork is in packet going w/ Pt. SNF transport person has it. Pt has all personal belongings. New MD scrips in packet and meds signed by MISTY Smith.
== END 2019-05-25 13:02 | DRG 468 ==
LOC: ED 20:31 → AC 22:59 → ICU 23:06 → AC 05-21 18:25
PROVIDERS: Admitting Provider Orthopaedic Surgery Adult Reconstructive Orthopaedic Surgery; Emergency Provider Emergency Medicine; Family Provider Internal Medicine; PCP Internal Medicine; Visit Provider Orthopaedic Surgery Adult Reconstructive Orthopaedic Surgery
PROC: 0SRE01A Replacement of Left Hip Joint, Acetabular Surface with Metal Synthetic Substitute, Uncemented, Open Approach (ICD-10-PCS; principal; 2019-05-22 14:00)
DX: T84.021A Dislocation of internal left hip prosthesis, initial encounter (principal); G25.81 Restless legs syndrome; W01.0XXA Fall on same level from slipping, tripping and stumbling without subsequent striking against object, initial encounter; Z87.891 Personal history of nicotine dependence; E78.5 Hyperlipidemia, unspecified; E03.9 Hypothyroidism, unspecified; F31.9 Bipolar disorder, unspecified; M32.9 Systemic lupus erythematosus, unspecified; K21.9 Gastro-esophageal reflux disease without esophagitis; M79.7 Fibromyalgia
CPT/HCPCS: 27266; 36415; 51701; 72170; 72192; 73501; 73502; 73560; 80048; 85025; 87797; 94762; 94770; 96374; 97116; 97162; 97166; 97530; 97535; 99284; 99285; C1776; J0690; J1170; J1885; J2250; J2270; J2274; J2405; J2704; J3010

== ENCOUNTER → 2019-07-12 19:36 | Outpatient (ROUT) | payer MEDICARE, SELFPAY ==
[2019-05-17 23:30] VITALS: BMI 27.2
[2019-07-12 20:07] LABS: Hematocrit 28.3 % (36-46); Hemoglobin 9.3 g/dL (12.0-16.0); Mean Corpuscular HGB Conc 32.9 % (30-36); Mean Corpuscular Hemoglobin 27.5 PG (26-34); Mean Corpuscular Volume 83.8 fL (80-100); Platelet Count 742 X10^3/uL (150-400); Red Blood Cell Count 3.38 X10^6/uL (4.0-5.2); Red Cell Distribution Width 14.6 % (11.6-14.8); White Blood Cell Count 7.6 X10^3/uL (4.5-11.0)
[2019-07-12 20:27] LABS: Blood Urea Nitrogen 20 mg/dL (7-17); Calcium 10.2 mg/dL (8.4-10.2); Carbon Dioxide 23 mmol/L (22-32); Chloride 104 mmol/L (98-107); Estimated Glomerular Filt Rate 54.1 mL/min (>60); Glucose 137 mg/dL (80-110); HEMOLYSIS < 15 (0-50); Potassium 5.3 mmol/L (3.4-5.1); Sodium 137 mmol/L (137-145)
== END ==
PROVIDERS: Family Provider Internal Medicine; PCP Internal Medicine; Visit Provider Internal Medicine
DX: N18.1 Chronic kidney disease, stage 1 (principal); D50.8 Other iron deficiency anemias
CPT/HCPCS: 80048; 85027

== ENCOUNTER → 2019-08-11 14:56 | Outpatient (CLI) | payer MEDICARE, SELFPAY ==
[2019-05-17 23:30] VITALS: BMI 27.2
--- NOTE | 2019-08-11 | DI.MG.S_ITS ---
BILATERAL DIGITAL SCREENING MAMMOGRAM 3D/2D WITH CAD: 08/11/2019 CLINICAL: Routine screening. Comparison is made to exams dated: 07/01/2018 mammogram, 05/21/2017 mammogram, 05/04/2017 mammogram, and 04/27/2016 mammogram - [facility]. The tissue of both breasts is heterogeneously dense. This may lower the sensitivity of mammography. Current study was also evaluated with a Computer Aided Detection (CAD) system. There are benign calcifications in the left breast. No significant masses, calcifications, or other findings are seen in either breast. There has been no significant interval change. IMPRESSION: There is no mammographic evidence of malignancy. A 1 year screening mammogram is recommended. This exam was interpreted at Station ID: [id number]. NOTE: For mammograms, a report in lay terms will be sent to the patient. Approximately 15% of breast malignancies will not be visualized mammographically. In the management of a palpable breast mass, a negative mammogram must not discourage biopsy of a clinically suspicious lesion. Electronically Signed By: Genie manjarrez/ghada:08/11/2019 16:35:58 letter sent: Normal Exam ACR BI-RADS Category 2: Benign Finding(s) [id number]
== END ==
PROVIDERS: Family Provider Internal Medicine; PCP Internal Medicine; Referring Provider Internal Medicine; Visit Provider Internal Medicine
DX: Z12.31 Encounter for screening mammogram for malignant neoplasm of breast (principal)
CPT/HCPCS: 77063; 77067

== ENCOUNTER → 2019-09-21 11:54 | Outpatient (CLI) | payer MEDICARE, SELFPAY ==
[2019-05-17 23:30] VITALS: BMI 27.2
[2019-09-21 13:20] LABS: BUN Creatinine Ratio 21.6 (6-22); Blood Urea Nitrogen 25 mg/dL (7-17); Estimated Glomerular Filt Rate 45.5 mL/min (>60)
== END ==
PROVIDERS: Family Provider Internal Medicine; PCP Internal Medicine; Referring Provider Acupuncturist; Visit Provider Acupuncturist
DX: M54.40 Lumbago with sciatica, unspecified side (principal)
CPT/HCPCS: 36415; 82565; 84520

== ENCOUNTER → 2020-01-26 09:23 | Outpatient (CLI) | payer MEDICARE, SELFPAY ==
[2019-05-17 23:30] VITALS: BMI 27.2
[2020-01-26 10:49] LABS: Hemoglobin A1C% w Est Avg Glu 5.9 % (4.0-6.0)
[2020-01-26 10:58] LABS: Alanine Aminotransferase 11 IU/L (<35); Albumin 4.5 g/dL (3.5-5.0); Albumin Globulin Ratio 1.6 (1.0-2.8); Alkaline Phosphatase 66 U/L (38-126); Aspartate Aminotransferase 24 IU/L (14-36); BUN Creatinine Ratio 21.6 (6-22); Bilirubin Total 0.5 mg/dL (0.2-1.3); Blood Urea Nitrogen 21 mg/dL (7-17); Calcium 10.7 mg/dL (8.4-10.2); Carbon Dioxide 25 mmol/L (22-32); Chloride 106 mmol/L (98-107); Cholesterol 181 mg/dL (140-199); Globulin 2.9 g/dL (1.7-4.1); Glucose 111 mg/dL (80-110); HDL Cholesterol 67 mg/dL (40-60); HEMOLYSIS < 15 (0-50); LDL Cholesterol Calculated 69 mg/dL (<100); Potassium 4.2 mmol/L (3.4-5.1); Sodium 138 mmol/L (137-145); Total Protein 7.4 g/dL (6.3-8.2); Triglycerides 224 mg/dL (35-150)
[2020-01-26 11:29] LABS: TSH w/ Reflex to FT4 6.49 uIU/mL (0.47-4.68)
[2020-01-26 11:46] LABS: Vitamin B12 495 pg/mL (239-931)
[2020-01-26 11:54] LABS: Free T4, Direct Thyroxine 1.14 ng/dL (0.78-2.19)
== END ==
PROVIDERS: Family Provider Internal Medicine; PCP Internal Medicine; Referring Provider Internal Medicine; Visit Provider Internal Medicine
DX: I10 Essential (primary) hypertension (principal); E78.5 Hyperlipidemia, unspecified; E11.9 Type 2 diabetes mellitus without complications; E53.8 Deficiency of other specified B group vitamins; E03.9 Hypothyroidism, unspecified
CPT/HCPCS: 36415; 80053; 80061; 82607; 83036; 84439; 84443

== ENCOUNTER 2020-04-25 16:22 | Emergency (ER) | payer MEDICARE, SELFPAY ==
[2019-05-17 23:30] VITALS: BMI 27.2
[2020-04-25] VITALS (7 sets, daily range): BP systolic 174–205; BP diastolic 81–98; PULSE 78–83; RESP 12–18; TEMP 36.6; O2SAT 98–100; BMI 27.2
[2020-04-25 17:09] LABS: Add Manual Diff / Slide Review NO; Basophils Absolute Auto 100 /uL (0-100); Basophils Percent Auto 0.6 % (0-2); Eosinophils Absolute Auto 200 /uL (0-450); Eosinophils Percent Auto 2.5 % (2-4); Hematocrit 35.3 % (36-46); Hemoglobin 11.5 g/dL (12.0-16.0); Lymphocytes Absolute Auto 500 /uL (1100-4500); Lymphocytes Percent Auto 5.8 % (25-40); Mean Corpuscular HGB Conc 32.8 % (30-36); Mean Corpuscular Hemoglobin 29.5 PG (26-34); Mean Corpuscular Volume 90.2 fL (80-100); Monocytes Absolute Auto 600 /uL (0-900); Monocytes Percent Auto 6.6 % (3-14); Neutrophils Absolute Auto 7200 /uL (1500-7000); Neutrophils Percent Auto 84.5 % (50-75); Platelet Count 284 X10^3/uL (150-400); Red Blood Cell Count 3.91 X10^6/uL (4.0-5.2); Red Cell Distribution Width 13.8 % (11.6-14.8); White Blood Cell Count 8.6 X10^3/uL (4.5-11.0)
[2020-04-25 17:24] LABS: BUN Creatinine Ratio 18.3 (6-22); Blood Urea Nitrogen 23 mg/dL (7-17); Carbon Dioxide 26 mmol/L (22-32); Chloride 103 mmol/L (98-107); Estimated Glomerular Filt Rate 41.4 mL/min (>60); Glucose 113 mg/dL (80-110); HEMOLYSIS < 15 (0-50); Potassium 3.8 mmol/L (3.4-5.1); Sodium 136 mmol/L (137-145)
[2020-04-25 17:33] LABS: NT-proBNP (BNP-Adult 18+) 600 pg/mL (<450)
[2020-04-25 17:36] LABS: Troponin I 0.053 ng/mL (0.01-0.034)
--- NOTE | 2020-04-25 17:38 | ED_ITS ---
HPI - Weakness <Lawanda Esposito PA-C - Last Filed: 04/25/20 23:04> General Chief complaint: Weakness Stated complaint: Generalized weakness Time Seen by Provider: 04/25/20 16:35 Source: patient, family and EMS Mode of arrival: EMS Limitations: no limitations History of Present Illness HPI Narrative: 74-year-old woman with a history of lupus, bipolar, left hip fracture (2019), anemia, chronic low back pain, cataracts, diet-controlled diabetes type 2, reports to the emergency department with her brought in by ambulance after her called because she has been having increasing weakness over the last 2 weeks and could not get up off the toilet today 2 different times. states she has been increasingly weak over the past few weeks and has also had increasing confusion recently. She does use a walker but he states that this degree of weakness in his abnormal for her. He also endorses that she seems to be more confused but this is also been going on for weeks but worsening recently. Patient and state that she had a fall 2 days ago on Wednesday evening and has not seen a doctor since this time. She also had a fall on Wednesday. Her fall on Wednesday, 2 days ago she says she fell forward and caught herself with her hands and then hit her face against the closet in front of her. She says she did not hit her head when she fell on Wednesday but then says that she ?smeared her face across the floor during that full. Patient's states that she has had some chronic issues with tremors although this seems to come and go he notes that few weeks ago and they signed the least for her apartment she did not have any tremors at all and in the last few weeks this has been worsening. He also states that she normally manages her own medications but about 1 week ago he started giving them to her himself because she seemed confused and when he looked at her medications there were ?too many pills there? and he felt that she had probably not been taking them consistently. He says she has had very little water to drink in the last week perhaps half a L of most yesterday and less than that on some days she normally drinks 2 L a day. She has also been eating less than normal. She does endorses chronic neck pain but does not feel that he she has had any worse neck pain since her falls, she does have some facial pain and bruising. She has chronic left hip pain due to previous fracture and chronic low back pain. She was started on fentanyl about 6 weeks ago per her to help with her pain. Other than this she has had no recent medication changes. Patient states that her vision has been worsening for many months now. They both deny that she has had any recent fevers, chills, abdominal pain, shortness of breath, new back or neck pain, headaches or any other symptoms. MD Complaint: generalized weakness and difficulty walking (Uses a walker, more weak recently) Onset (ago): week(s) (2) Duration: progressively worsening Location: generalized Migration: none Severity: moderate Relieving factors: medication (Takes fentanyl for her low back and hip pain) Exacerbating factors: none Associated symptoms: confusion ( states she has been increasingly confused over the past few weeks.), loss of appetite ( reports she does not eat and drink very much) and other (Frequent falls in the last week) Related Data Home Medications Medication Instructions Recorded Confirmed cyclobenzaprine 5 mg PO TIDP PRN #0 08/20/17 04/25/20 fenofibrate 160 mg PO QDAY #0 08/20/17 04/25/20 lithium carbonate 300 mg PO BID #0 08/20/17 04/25/20 hydroxychloroquine 400 mg PO DAILY 03/08/18 04/25/20 amlodipine 10 mg PO DAILY 02/19/19 05/18/19 fluoxetine 20 mg PO DAILY 02/19/19 04/25/20 levothyroxine 112 mcg PO DAILY 02/19/19 04/25/20 minoxidil [Rogaine] 1 applic TOPICAL DIRECTED 02/19/19 05/18/19 omeprazole 40 mg PO DAILY 02/19/19 04/25/20 ondansetron HCl [Zofran] 8 mg PO BID PRN 02/19/19 05/18/19 fentanyl [Duragesic] 25 patch 04/25/20 Previous Rx's Medication Instructions Recorded bisacodyl 10 mg GA DAILY PRN #30 ea 02/23/19 docusate sodium [DOK] 100 mg PO BID #60 cap 02/23/19 ferrous gluconate 324 mg PO DAILY #30 tab 02/23/19 polyethylene glycol 3350 17 gm PO DAILY #1 pkg 02/23/19 ascorbic acid (vitamin C) [Vitamin 500 mg PO BID #20 tab 05/08/19 C] acetaminophen [Tylenol Extra 500 mg PO Q4H PRN #60 tab 05/25/19 Strength] aspirin 81 mg PO BID #60 tab 05/25/19 bisacodyl 10 mg GA PRN PRN #5 ea 05/25/19 docusate sodium [DOK] 100 mg PO BID PRN #30 cap 05/25/19 hydroxyzine pamoate 25 mg PO Q6HR PRN #20 cap 05/25/19 ibuprofen 400 mg PO Q4HR #60 tab 05/25/19 oxycodone 10 mg PO Q4-6H PRN #40 tab 05/25/19 Allergies Allergy/AdvReac Type Severity Reaction Status Date / Time Sulfa (Sulfonamide Allergy Intermediate body rash Verified 05/05/19 06:54 Antibiotics) [SULFA (SULFONAMIDE ANTIBIOTICS)] gabapentin AdvReac Unknown altered Verified 05/05/19 06:54 mentation Review of Systems <Lawanda Esposito PA-C - Last Filed: 04/25/20 23:04> Review of Systems Narrative: GENERAL: Denies chills, fatigue, malaise, fever, sweats. HEENT: Denies sinus pain, ear pain, sore throat, difficulty swallowing, dizziness. RESPIRATORY: Denies dyspnea initially later reports she has been short of breath all day and somewhat yesterday, denies cough, wheezing, hemoptysis, sputum. CARDIOVASCULAR: Denies chest pain, palpitations, orthopnea, edema, GASTROINTESTINAL: Denies nausea, vomiting, abdominal pain, diarrhea, constipation, melena. : Denies dysuria, frequency, incontinence, hematuria, urinary retention. MUSCULOSKELETAL: denies weakness, joint pain, or bony pain SKIN: Positive for bruising to her face and bruising to her arms, skin tear on her right elbow, Denies rash, skin lesions, or other NEUROLOGIC: Positive for increasing weakness, recent tremors, negative for headache, numbness, change in speech, positive for gradually increasing confusion, negative for seizures, incoordination. PSYCHIATRIC: No concerning psychosocial issues. 12 point review of systems is negative except for those stated above ROS Unobtainable: All systems reviewed & are unremarkable except as noted in HPI and below Patient History <Lawanda Esposito PA-C - Last Filed: 04/25/20 23:04> Medical History (Updated 04/25/20 @ 22:44 by Lawanda Esposito PA-C) Acute kidney injury (Acute) Bipolar disorder (Acute) Bruises easily (Acute) Chronic low back pain (Acute) Chronic sciatica of left side (Acute) Constipation, chronic (Acute) Diet-controlled diabetes mellitus (Acute) Fibromyalgia (Acute) GERD (gastroesophageal reflux disease) (Acute) Hyperlipidemia (Acute) Hypertension (Acute) Hypothyroidism (Acute) Incontinence (Acute) Lupus (systemic lupus erythematosus) (Acute) Migraines (Acute) Normocytic anemia (Acute) Surgical History History of bilateral cataract extraction (Acute) History of bladder suspension procedure (Acute) History of left hip hemiarthroplasty (Acute 02/20/19) History of partial thyroidectomy (Acute) Status post tubal ligation Status post vaginal hysterectomy Family History Father No problems noted. Mother No problems noted. Brother Bone cancer Social History household members: spouse Smoking Status: Former smoker alcohol intake: never Smoking Status: Former smoker alcohol intake frequency: holidays/special occasions only Alcohol type: beer Substance Use Type: does not use, painkillers and prescription drug Exam <Lawanda Esposito PA-C - Last Filed: 04/25/20 23:04> Narrative Exam Narrative: GENERAL: 74 year old patient appears stated age. Well-nourished, well-developed patient, in mild distress, somewhat confused, able to follow commands. HEAD: There is bruising that is purple inferior to the bilateral orbits, there is bruising and moderate swelling to the nose negative gilbert sign. No skull deformity or scalp hematoma Otherwise Normocephalic and atraumatic. EYES: Pupils equal round and reactive. Extraocular motions intact. No scleral icterus. No injection or drainage. ENT: Nose without bleeding, purulent drainage. Oropharynx is dry, Throat without erythema, tonsillar hypertrophy or exudate. Airway patent. NECK: Trachea midline. Non tender, no C-spine process tenderness. Range of motion intact pain free CARDIOVASCULAR: Regular rate and rhythm without murmurs, gallops, or rubs. RESPIRATORY: Clear to auscultation. Breath sounds equal bilaterally. No wheezes, rales, or rhonchi. GASTROINTESTINAL: Abdomen soft, non-tender, nondistended. EXTREMITIES: No edema or joint tenderness. BACK: Nontender without deformity or crepitance. No flank tenderness. NEURO: AOx3. She has reduced strength on the left lower extremity with active flexion of the hip as compared to the right patient reports this is chronic due to hip injury previously. Negative arm drift, cranial nerves are intact SKIN: There are multiple superficial bruises of the forearms and hands, there is a skin tear of the right elbow, see head. No rash or erythema of visible areas Initial Vital Signs Initial Vital Signs: Vital Signs Temperature 97.9 F 04/25/20 16:32 Pulse Rate 80 04/25/20 16:32 Respiratory Rate 18 04/25/20 16:32 Blood Pressure 174/90 H 04/25/20 16:32 Pulse Oximetry 100 04/25/20 16:32 <Jose Levin DO - Last Filed: 04/26/20 00:42> Initial Vital Signs Initial Vital Signs: Vital Signs Temperature 97.9 F 04/25/20 16:32 Pulse Rate 80 04/25/20 16:32 Respiratory Rate 18 04/25/20 16:32 Blood Pressure 174/90 H 04/25/20 16:32 Pulse Oximetry 100 04/25/20 16:32 Scores <ANNIE Buckley Last Filed: 04/25/20 23:04> GCS Griffin coma scale eye opening: Spontaneous Griffin coma scale verbal response: Confused [place] coma scale motor response: Obey commands [place] coma scale total score: 14 HEART Score Heart Score history: Moderately Suspicious Heart Score EKG: Non-Specific repolarization disturbance Heart Score Age: > or = 65 years old Heart Score risk factors: 1-2 risk factors Heart Score troponin: 1-3 times normal limit Heart Score Total: 6 Course <ANNIE Buckley Last Filed: 04/25/20 23:04> Course Course Narrative: Patient is a notably poor historian, she is lucid and able to carry on a conversation at times but also seems confused at times. Patient did have an elevated troponin, rechecking this after 2 hours, etiology of her weakness remains unclear, it is possible it could be related to a cardiac event, given her elevated troponin. Also checking a TSH and lithium level. Anticipate this patient will likely be an admission given her increasing weakness and confusion, nursing staff to try to get her to stand to use a bedside commode and she was too weak to do this. 18:41 Patient definitely has evidence of a UTI, this could explain some of her recent confusion. She also appears to have lithium toxicity with a level of 1.7, this could also explain some of her recent symptoms/weakness and tremors. I do think that she is quite dehydrated having had reduced fluid intake in the last week w hich could explain her lithium levels being elevated. A repeat troponin is still pending. She is receiving fluids. 1940 Rising troponins, patient now reports she has been feeling short of breath today and yesterday. In the setting of her reduced kidney function and rising troponins and we also do not have any beds available except for obstetric patient will need to be transferred. Spoke with hospitalist Dr. Ansari about this patient and gave report. She agrees to accept the patient at [facility]. 2048 Patient has had elevated blood pressures here which per her is very normal she has been taking HCTZ recently however I am hesitant to give this to her given that she is very dehydrated at this time and instead I elect to give her amlodipine which is a recent blood pressure medication she has been taking up until March. 2100 Orders Ordered: ED Orders 04/25/20 16:51 EKG-12 Lead Stat 04/25/20 17:00 Basic Metabolic Panel Stat Complete Blood Count AUTO DIFF Stat Lactate (Lactic Acid) Stat [place] Stat NT-proBNP (BNP-Adult 18+) Stat Thyroid Stimulating Hormone Stat Troponin I Stat 04/25/20 17:57 CT head/brain wo con Stat XR chest 1V Stat 04/25/20 18:55 Urinalysis and Microscopic Stat Urine Culture Stat 04/25/20 19:35 Troponin & CK Cardiac Panel Stat 04/25/20 20:25 EKG-12 Lead Stat 04/25/20 21:36 Troponin I Stat 04/25/20 21:56 COVID19 -ED/INPAT/OR/L&D Stat Discontinued Medications Amlodipine Besylate (Norvasc) 10 mg PO NOW ONE Stop: 04/25/20 20:02 Last Admin: 10/22/20 20:17 Dose: Not Given Documented by: MJ Aspirin (Aspirin Chew) 324 mg PO NOW ONE Stop: 04/25/20 20:23 Last Admin: 04/25/20 20:52 Dose: 324 mg Documented by: MJ Sodium Chloride (Normal Saline 0.9%) 1,000 mls @ 500 mls/hr IV BOLUS ONE Stop: 04/25/20 20:46 Last Admin: 04/25/20 20:16 Dose: Not Given Documented by: MJ Sodium Chloride (Normal Saline 0.9%) 1,000 mls @ 1,000 mls/hr IV BOLUS ONE Stop: 04/25/20 20:00 Last Infusion: 04/25/20 21:00 Dose: 0 mls/hr Documented by: Admin: 04/25/20 19:09 Dose: 1,000 mls/hr Documented by: CONNOR Ceftriaxone Sodium/Dextrose (Rocephin) 1 gm in 50 mls @ 100 mls/hr IV NOW ONE Stop: 04/25/20 20:29 Last Infusion: 04/25/20 20:54 Dose: 0 mls/hr Documented by: Admin: 04/25/20 20:14 Dose: 100 mls/hr Documented by: SARAOTEM Sodium Chloride (Normal Saline 0.9%) 1,000 mls @ 100 mls/hr IV CONT ALICIA Last Admin: 04/25/20 21:15 Dose: 100 mls/hr Documented by: MJ Vital Signs Vital signs: Vital Signs - 8 hr 04/25/20 17:00 04/25/20 17:30 04/25/20 18:00 Pulse Rate 79 79 83 Respiratory Rate Blood Pressure 184/83 H 183/84 H 195/91 H Pulse Oximetry 100 98 100 04/25/20 19:06 04/25/20 21:49 04/25/20 22:53 Pulse Rate 78 80 80 Respiratory Rate 18 12 14 Blood Pressure 205/98 H 203/81 H 198/84 H Pulse Oximetry 100 98 98 <Jose Levin DO - Last Filed: 04/26/20 00:42> Orders Ordered: ED Orders 04/25/20 16:51 EKG-12 Lead Stat 04/25/20 17:00 Basic Metabolic Panel Stat Complete Blood Count AUTO DIFF Stat Lactate (Lactic Acid) Stat [place] Stat NT-proBNP (BNP-Adult 18+) Stat Thyroid Stimulating Hormone Stat Troponin I Stat 04/25/20 17:57 CT head/brain wo con Stat XR chest 1V Stat 04/25/20 18:55 Urinalysis and Microscopic Stat Urine Culture Stat 04/25/20 19:35 Troponin & CK Cardiac Panel Stat 04/25/20 20:25 EKG-12 Lead Stat 04/25/20 21:36 Troponin I Stat 04/25/20 21:56 COVID19 -ED/INPAT/OR/L&D Stat Discontinued Medications Amlodipine Besylate (Norvasc) 10 mg PO NOW ONE Stop: 04/25/20 20:02 Last Admin: 04/25/20 20:17 Dose: Not Given Documented by: MJ Aspirin (Aspirin Chew) 324 mg PO NOW ONE Stop: 04/25/20 20:23 Last Admin: 04/25/20 20:52 Dose: 324 mg Documented by: MJ Sodium Chloride (Normal Saline 0.9%) 1,000 mls @ 500 mls/hr IV BOLUS ONE Stop: 04/25/20 20:46 Last Admin: 04/25/20 20:16 Dose: Not Given Documented by: MJ Sodium Chloride (Normal Saline 0.9%) 1,000 mls @ 1,000 mls/hr IV BOLUS ONE Stop: 04/25/20 20:00 Last Infusion: 04/25/20 21:00 Dose: 0 mls/hr Documented by: Admin: 04/25/20 19:09 Dose: 1,000 mls/hr Documented by: VIVEKINOR Ceftriaxone Sodium/Dextrose (Rocephin) 1 gm in 50 mls @ 100 mls/hr IV NOW ONE Stop: 04/25/20 20:29 Last Infusion: 04/25/20 20:54 Dose: 0 mls/hr Documented by: Admin: 04/25/20 20:14 Dose: 100 mls/hr Documented by: SARAOTEM Sodium Chloride (Normal Saline 0.9%) 1,000 mls @ 100 mls/hr IV CONT ALICIA Last Admin: 04/25/20 21:15 Dose: 100 mls/hr Documented by: MJ Vital Signs Vital signs: Vital Signs - 8 hr 04/25/20 17:00 04/25/20 17:30 04/25/20 18:00 Pulse Rate 79 79 83 Respiratory Rate Blood Pressure 184/83 H 183/84 H 195/91 H Pulse Oximetry 100 98 100 04/25/20 19:06 04/25/20 21:49 04/25/20 22:53 Pulse Rate 78 80 80 Respiratory Rate 18 12 14 Blood Pressure 205/98 H 203/81 H 198/84 H Pulse Oximetry 100 98 98 MDM - Weakness <Lawanda Esposito PA-C - Last Filed: 04/25/20 23:04> Differential Diagnosis Differential diagnosis: Likely acute myocardial infarction, anemia, hypoglycemia, hypothyroidism, rhabdomyolysis, sepsis, dehydration and other (brain bleed) Medical Records Attestation: I reviewed the patient's medical records. Lab Data Attestation: I reviewed the patient's lab results. Result diagrams: 04/25/20 17:00 04/25/20 17:00 Labs: Lab Results 04/25/20 04/25/20 04/25/20 Range/Units 17:00 17:00 17:00 WBC 8.6 (4.5-11.0) X10^3/uL RBC 3.91 L (4.0-5.2) X10^6/uL Hgb 11.5 L (12.0-16.0) g/dL Hct 35.3 L (36-46) % MCV 90.2 (80-100) fL MCH 29.5 (26-34) PG MCHC 32.8 (30-36) % RDW 13.8 (11.6-14.8) % Plt Count 284 (150-400) X10^3/uL Neut % (Auto) 84.5 H (50-75) % Lymph % (Auto) 5.8 L (25-40) % [place] % (Auto) 6.6 (3-14) % Eos % (Auto) 2.5 (2-4) % Baso % (Auto) 0.6 (0-2) % Neut # (Auto) 7200 H (2401-0780) /uL Lymph # (Auto) 500 L (5167-6481) /uL [place] # (Auto) 600 (0-900) /uL Eos # (Auto) 200 (0-450) /uL Baso # (Auto) 100 (0-100) /uL Sodium 136 L (137-145) mmol/L Potassium 3.8 (3.4-5.1) mmol/L Chloride 103 (98-107) mmol/L Carbon Dioxide 26 (22-32) mmol/L BUN 23 H (7-17) mg/dL Creatinine 1.26 H (0.52-1.04) mg/dL Estimated GFR 41.4 L (>60) mL/min BUN/Creatinine Ratio 18.3 (6-22) Glucose 113 H (80-110) mg/dL Lactate 1.0 (0.7-2.1) mmol/L Calcium 11.0 H (8.4-10.2) mg/dL Total Creatine Kinase (30-135) U/L CK-MB (CK-2) (<2.37) ng/mL CK-MB (CK-2) Rel Index (1.5-5.0) % Troponin I 0.053 H (0.01-0.034) ng/mL NT-Pro-B Natriuret Pep (<450) pg/mL TSH (0.47-4.68) uIU/mL Urine Color Urine Appearance Urine pH (4.5-8.0) Ur Specific [place] (1.000-1.035) Urine Protein (Negative) Urine Glucose (UA) (Negative) g/dL Urine Ketones (NEGATIVE) Urine Occult Blood (Negative) Urine Nitrate (Negative) Urine Bilirubin (NEGATIVE) Urine Urobilinogen (0.2) E.U./dL Ur Leukocyte Esterase (NEGATIVE) Urine RBC (0-5/HPF) Urine WBC (0-5/HPF) Ur Squamous Epith Cells (0-5/HPF) Ur Transition Epith Cell (0-5/HPF) Ur Renal Epithelial Cell (0-1/HPF) Urine Bacteria (None) Ur Culture Indicated? [place] (0.6-1.2) mmol/L COVID-19 PCR (Negative) 04/25/20 04/25/20 04/25/20 Range/Units 17:00 17:00 17:00 WBC (4.5-11.0) X10^3/uL RBC (4.0-5.2) X10^6/uL Hgb (12.0-16.0) g/dL Hct (36-46) % MCV (80-100) fL MCH (26-34) PG MCHC (30-36) % RDW (11.6-14.8) % Plt Count (150-400) X10^3/uL Neut % (Auto) (50-75) % Lymph % (Auto) (25-40) % [place] % (Auto) (3-14) % Eos % (Auto) (2-4) % Baso % (Auto) (0-2) % Neut # (Auto) (9705-3883) /uL Lymph # (Auto) (2555-2918) /uL [place] # (Auto) (0-900) /uL Eos # (Auto) (0-450) /uL Baso # (Auto) (0-100) /uL Sodium (137-145) mmol/L Potassium (3.4-5.1) mmol/L Chloride (98-107) mmol/L Carbon Dioxide (22-32) mmol/L BUN (7-17) mg/dL Creatinine (0.52-1.04) mg/dL Estimated GFR (>60) mL/min BUN/Creatinine Ratio (6-22) Glucose (80-110) mg/dL Lactate (0.7-2.1) mmol/L Calcium (8.4-10.2) mg/dL Total Creatine Kinase (30-135) U/L CK-MB (CK-2) (<2.37) ng/mL CK-MB (CK-2) Rel Index (1.5-5.0) % Troponin I (0.01-0.034) ng/mL NT-Pro-B Natriuret Pep 600 H (<450) pg/mL TSH 2.00 (0.47-4.68) uIU/mL Urine Color Urine Appearance Urine pH (4.5-8.0) Ur Specific [place] (1.000-1.035) Urine Protein (Negative) Urine Glucose (UA) (Negative) g/dL Urine Ketones (NEGATIVE) Urine Occult Blood (Negative) Urine Nitrate (Negative) Urine Bilirubin (NEGATIVE) Urine Urobilinogen (0.2) E.U./dL Ur Leukocyte Esterase (NEGATIVE) Urine RBC (0-5/HPF) Urine WBC (0-5/HPF) Ur Squamous Epith Cells (0-5/HPF) Ur Transition Epith Cell (0-5/HPF) Ur Renal Epithelial Cell (0-1/HPF) Urine Bacteria (None) Ur Culture Indicated? [place] 1.7 H* (0.6-1.2) mmol/L COVID-19 PCR (Negative) 04/25/20 04/25/20 04/25/20 Range/Units 18:55 19:35 21:36 WBC (4.5-11.0) X10^3/uL RBC (4.0-5.2) X10^6/uL Hgb (12.0-16.0) g/dL Hct (36-46) % MCV (80-100) fL MCH (26-34) PG MCHC (30-36) % RDW (11.6-14.8) % Plt Count (150-400) X10^3/uL Neut % (Auto) (50-75) % Lymph % (Auto) (25-40) % [place] % (Auto) (3-14) % Eos % (Auto) (2-4) % Baso % (Auto) (0-2) % Neut # (Auto) (9631-2991) /uL Lymph # (Auto) (1200-0630) /uL [place] # (Auto) (0-900) /uL Eos # (Auto) (0-450) /uL Baso # (Auto) (0-100) /uL Sodium (137-145) mmol/L Potassium (3.4-5.1) mmol/L Chloride (98-107) mmol/L Carbon Dioxide (22-32) mmol/L BUN (7-17) mg/dL Creatinine (0.52-1.04) mg/dL Estimated GFR (>60) mL/min BUN/Creatinine Ratio (6-22) Glucose (80-110) mg/dL Lactate (0.7-2.1) mmol/L Calcium (8.4-10.2) mg/dL Total Creatine Kinase 143 H (30-135) U/L CK-MB (CK-2) 4.33 H (<2.37) ng/mL CK-MB (CK-2) Rel Index 3.0 (1.5-5.0) % Troponin I 0.060 H 0.068 H (0.01-0.034) ng/mL NT-Pro-B Natriuret Pep (<450) pg/mL TSH (0.47-4.68) uIU/mL Urine Color Yellow Urine Appearance Clear Urine pH 6.0 (4.5-8.0) Ur Specific [place] 1.025 (1.000-1.035) Urine Protein 2+ H (Negative) Urine Glucose (UA) Negative (Negative) g/dL Urine Ketones Negative (NEGATIVE) Urine Occult Blood Trace-lysed (Negative) Urine Nitrate Positive H (Negative) Urine Bilirubin Negative (NEGATIVE) Urine Urobilinogen 0.2 (0.2) E.U./dL Ur Leukocyte Esterase 1+ H (NEGATIVE) Urine RBC 1-5/hpf (0-5/HPF) Urine WBC >100/hpf H (0-5/HPF) Ur Squamous Epith Cells 1-5 /hpf (0-5/HPF) Ur Transition Epith Cell 1-5/hpf (0-5/HPF) Ur Renal Epithelial Cell 1-5/hpf H (0-1/HPF) Urine Bacteria Many (>30) H (None) Ur Culture Indicated? Specimen cultured [place] (0.6-1.2) mmol/L COVID-19 PCR (Negative) 04/25/20 Range/Units 21:56 WBC (4.5-11.0) X10^3/uL RBC (4.0-5.2) X10^6/uL Hgb (12.0-16.0) g/dL Hct (36-46) % MCV (80-100) fL MCH (26-34) PG MCHC (30-36) % RDW (11.6-14.8) % Plt Count (150-400) X10^3/uL Neut % (Auto) (50-75) % Lymph % (Auto) (25-40) % [place] % (Auto) (3-14) % Eos % (Auto) (2-4) % Baso % (Auto) (0-2) % Neut # (Auto) (8554-4286) /uL Lymph # (Auto) (5925-6166) /uL [place] # (Auto) (0-900) /uL Eos # (Auto) (0-450) /uL Baso # (Auto) (0-100) /uL Sodium (137-145) mmol/L Potassium (3.4-5.1) mmol/L Chloride (98-107) mmol/L Carbon Dioxide (22-32) mmol/L BUN (7-17) mg/dL Creatinine (0.52-1.04) mg/dL Estimated GFR (>60) mL/min BUN/Creatinine Ratio (6-22) Glucose (80-110) mg/dL Lactate (0.7-2.1) mmol/L Calcium (8.4-10.2) mg/dL Total Creatine Kinase (30-135) U/L CK-MB (CK-2) (<2.37) ng/mL CK-MB (CK-2) Rel Index (1.5-5.0) % Troponin I (0.01-0.034) ng/mL NT-Pro-B Natriuret Pep (<450) pg/mL TSH (0.47-4.68) uIU/mL Urine Color Urine Appearance Urine pH (4.5-8.0) Ur Specific [place] (1.000-1.035) Urine Protein (Negative) Urine Glucose (UA) (Negative) g/dL Urine Ketones (NEGATIVE) Urine Occult Blood (Negative) Urine Nitrate (Negative) Urine Bilirubin (NEGATIVE) Urine Urobilinogen (0.2) E.U./dL Ur Leukocyte Esterase (NEGATIVE) Urine RBC (0-5/HPF) Urine WBC (0-5/HPF) Ur Squamous Epith Cells (0-5/HPF) Ur Transition Epith Cell (0-5/HPF) Ur Renal Epithelial Cell (0-1/HPF) Urine Bacteria (None) Ur Culture Indicated? [place] (0.6-1.2) mmol/L COVID-19 PCR Negative (Negative) Imaging Data Chest x-ray: Attestation: I personally reviewed and interpreted this imaging study as follows: Radiologist Impression: [address] [address] XRay Report Signed Patient: Ritika Prather MMR#: [id number] : 4Acct:[id number] Age/Sex: 74 / FDate of Service: 04/25/20 Loc: ED Accession Number: [id number] Procedure: XR chest 1V Ordering Provider: Lawanda Esposito P.A-C PROCEDURE: XR CHEST 1V INDICATIONS: weakness, elevated trop TECHNIQUE: One view of the chest was acquired. COMPARISON: None. FINDINGS: Surgical changes and devices: None. Lungs and pleura: Lungs are clear. Elevation of right hemidiaphragm is seen. No pleural effusions or pneumothorax. Mediastinum: Mediastinal contours appear normal. Heart size is normal. Bones and chest wall: No suspicious bony lesions. Overlying soft tissues appear unremarkable. IMPRESSION: No acute cardiopulmonary pathology. Dictated by: Tyler Perera M.D. on 04/25/2020 at 17:25 Approved by: Tyler Perera M.D. on 04/25/2020 at 17:28 CT scan - head: Attestation: I personally reviewed and interpreted this imaging study as follows: Radiologist Impression: [place] [address] CT Scan Report Signed Patient: Ritika Prather MMR#: [id number] : 4Acct:[id number] Age/Sex: 74 / FDate of Service: 04/25/20 Loc: ED Accession Number: [id number] Procedure: CT head/brain wo con Ordering Provider: Lawanda Esposito P.A-C PROCEDURE: CT HEAD/BRAIN WO CON INDICATIONS: fall 2 days ago, and 4 days ago face injury; confusion x2wks TECHNIQUE: Noncontrast 4.5 mm thick angled axial sections acquired from the foramen magnum to the vertex, with coronal and sagittal reformats. For radiation dose reduction, the following was used: automated exposure control, adjustment of mA and/or kV according to patient size. COMPARISON: None. FINDINGS: Image quality: Excellent. CSF spaces: Basal cisterns are patent. No extra-axial fluid collections. The ventricles are symmetric in size and shape. Brain: No acute intracranial hemorrhage or mass effect. There is cerebral volume loss for age, with resultant ventricular and sulcal prominence. There are periventricular and deep white matter chronic small vessel ischemic changes. There is intracranial internal carotid artery atherosclerosis. Skull and face: Calvarium and visualized facial bones appear intact, without suspicious lesions. Sinuses: Visualized sinuses and mastoids are clear. IMPRESSION: No acute intracranial abnormality. Dictated by: Robert Infante M.D. on 04/25/2020 at 18:27 Approved by: Robert Infante M.D. on 04/25/2020 at 18:29 ECG Data Attestation: I personally reviewed and interpreted this ECG as follows: Interpretation: Heart rate 77 p.r. interval 231 QRS D1 25 QT 313 P axis 25 QRS Axe Axe this -4 T axis 51 Sinus rhythm with first-degree AV block possible left atrial enlargement possible left ventricle hypertrophy inferior WA of indeterminate age. MDM Narrative Medical decision making narrative: 74-year-old woman with a history of bipolar, hypothyroid, hip surgery, chronic back pain, hypertension presents to the emergency department brought in by ambulance with complaints of increasing weakness and confusion over days to weeks with 2 recent falls, poor oral intake for the past week, poor adherence to medications over the last [address] scan of the head noncontrast is unremarkable, she is found have a UTI, also found to have lithium toxicity levels of 1.7, also found to have elevated troponins. Serial EKGs, serial troponins, she is given a fluid bolus, aspirin, ceftriaxone for her UTI, initiate maintenance fluids. No active chest pain, with saturations on room air, no dyspnea. Low suspicion for CVA, suspect dehydration, UTI and elevated lithium levels are responsible for her pr esentation, possible WA given rising troponins. Note patient has been on fentanyl patch recently not currently on fentanyl today but concerned that this could have wanted her pain if she were having an WA recently. Transfer to [facility] to the care of hospitalist Dr. Ansari. <Jose Levin DO - Last Filed: 04/26/20 00:42> Lab Data Labs: Lab Results 04/25/20 04/25/20 04/25/20 Range/Units 17:00 17:00 17:00 WBC 8.6 (4.5-11.0) X10^3/uL RBC 3.91 L (4.0-5.2) X10^6/uL Hgb 11.5 L (12.0-16.0) g/dL Hct 35.3 L (36-46) % MCV 90.2 (80-100) fL MCH 29.5 (26-34) PG MCHC 32.8 (30-36) % RDW 13.8 (11.6-14.8) % Plt Count 284 (150-400) X10^3/uL Neut % (Auto) 84.5 H (50-75) % Lymph % (Auto) 5.8 L (25-40) % [place] % (Auto) 6.6 (3-14) % Eos % (Auto) 2.5 (2-4) % Baso % (Auto) 0.6 (0-2) % Neut # (Auto) 7200 H (6016-4197) /uL Lymph # (Auto) 500 L (6382-7395) /uL [place] # (Auto) 600 (0-900) /uL Eos # (Auto) 200 (0-450) /uL Baso # (Auto) 100 (0-100) /uL Sodium 136 L (137-145) mmol/L Potassium 3.8 (3.4-5.1) mmol/L Chloride 103 (98-107) mmol/L Carbon Dioxide 26 (22-32) mmol/L BUN 23 H (7-17) mg/dL Creatinine 1.26 H (0.52-1.04) mg/dL Estimated GFR 41.4 L (>60) mL/min BUN/Creatinine Ratio 18.3 (6-22) Glucose 113 H (80-110) mg/dL Lactate 1.0 (0.7-2.1) mmol/L Calcium 11.0 H (8.4-10.2) mg/dL Total Creatine Kinase (30-135) U/L CK-MB (CK-2) (<2.37) ng/mL CK-MB (CK-2) Rel Index (1.5-5.0) % Troponin I 0.053 H (0.01-0.034) ng/mL NT-Pro-B Natriuret Pep (<450) pg/mL TSH (0.47-4.68) uIU/mL Urine Color Urine Appearance Urine pH (4.5-8.0) Ur Specific [place] (1.000-1.035) Urine Protein (Negative) Urine Glucose (UA) (Negative) g/dL Urine Ketones (NEGATIVE) Urine Occult Blood (Negative) Urine Nitrate (Negative) Urine Bilirubin (NEGATIVE) Urine Urobilinogen (0.2) E.U./dL Ur Leukocyte Esterase (NEGATIVE) Urine RBC (0-5/HPF) Urine WBC (0-5/HPF) Ur Squamous Epith Cells (0-5/HPF) Ur Transition Epith Cell (0-5/HPF) Ur Renal Epithelial Cell (0-1/HPF) Urine Bacteria (None) Ur Culture Indicated? [place] (0.6-1.2) mmol/L COVID-19 PCR (Negative) 04/25/20 04/25/20 04/25/20 Range/Units 17:00 17:00 17:00 WBC (4.5-11.0) X10^3/uL RBC (4.0-5.2) X10^6/uL Hgb (12.0-16.0) g/dL Hct (36-46) % MCV (80-100) fL MCH (26-34) PG MCHC (30-36) % RDW (11.6-14.8) % Plt Count (150-400) X10^3/uL Neut % (Auto) (50-75) % Lymph % (Auto) (25-40) % [place] % (Auto) (3-14) % Eos % (Auto) (2-4) % Baso % (Auto) (0-2) % Neut # (Auto) (0565-8295) /uL Lymph # (Auto) (4872-6880) /uL [place] # (Auto) (0-900) /uL Eos # (Auto) (0-450) /uL Baso # (Auto) (0-100) /uL Sodium (137-145) mmol/L Potassium (3.4-5.1) mmol/L Chloride (98-107) mmol/L Carbon Dioxide (22-32) mmol/L BUN (7-17) mg/dL Creatinine (0.52-1.04) mg/dL Estimated GFR (>60) mL/min BUN/Creatinine Ratio (6-22) Glucose (80-110) mg/dL Lactate (0.7-2.1) mmol/L Calcium (8.4-10.2) mg/dL Total Creatine Kinase (30-135) U/L CK-MB (CK-2) (<2.37) ng/mL CK-MB (CK-2) Rel Index (1.5-5.0) % Troponin I (0.01-0.034) ng/mL NT-Pro-B Natriuret Pep 600 H (<450) pg/mL TSH 2.00 (0.47-4.68) uIU/mL Urine Color Urine Appearance Urine pH (4.5-8.0) Ur Specific [place] (1.000-1.035) Urine Protein (Negative) Urine Glucose (UA) (Negative) g/dL Urine Ketones (NEGATIVE) Urine Occult Blood (Negative) Urine Nitrate (Negative) Urine Bilirubin (NEGATIVE) Urine Urobilinogen (0.2) E.U./dL Ur Leukocyte Esterase (NEGATIVE) Urine RBC (0-5/HPF) Urine WBC (0-5/HPF) Ur Squamous Epith Cells (0-5/HPF) Ur Transition Epith Cell (0-5/HPF) Ur Renal Epithelial Cell (0-1/HPF) Urine Bacteria (None) Ur Culture Indicated? [place] 1.7 H* (0.6-1.2) mmol/L COVID-19 PCR (Negative) 04/25/20 04/25/20 04/25/20 Range/Units 18:55 19:35 21:36 WBC (4.5-11.0) X10^3/uL RBC (4.0-5.2) X10^6/uL Hgb (12.0-16.0) g/dL Hct (36-46) % MCV (80-100) fL MCH (26-34) PG MCHC (30-36) % RDW (11.6-14.8) % Plt Count (150-400) X10^3/uL Neut % (Auto) (50-75) % Lymph % (Auto) (25-40) % [place] % (Auto) (3-14) % Eos % (Auto) (2-4) % Baso % (Auto) (0-2) % Neut # (Auto) (1523-8955) /uL Lymph # (Auto) (1497-7916) /uL [place] # (Auto) (0-900) /uL Eos # (Auto) (0-450) /uL Baso # (Auto) (0-100) /uL Sodium (137-145) mmol/L Potassium (3.4-5.1) mmol/L Chloride (98-107) mmol/L Carbon Dioxide (22-32) mmol/L BUN (7-17) mg/dL Creatinine (0.52-1.04) mg/dL Estimated GFR (>60) mL/min BUN/Creatinine Ratio (6-22) Glucose (80-110) mg/dL Lactate (0.7-2.1) mmol/L Calcium (8.4-10.2) mg/dL Total Creatine Kinase 143 H (30-135) U/L CK-MB (CK-2) 4.33 H (<2.37) ng/mL CK-MB (CK-2) Rel Index 3.0 (1.5-5.0) % Troponin I 0.060 H 0.068 H (0.01-0.034) ng/mL NT-Pro-B Natriuret Pep (<450) pg/mL TSH (0.47-4.68) uIU/mL Urine Color Yellow Urine Appearance Clear Urine pH 6.0 (4.5-8.0) Ur Specific [place] 1.025 (1.000-1.035) Urine Protein 2+ H (Negative) Urine Glucose (UA) Negative (Negative) g/dL Urine Ketones Negative (NEGATIVE) Urine Occult Blood Trace-lysed (Negative) Urine Nitrate Positive H (Negative) Urine Bilirubin Negative (NEGATIVE) Urine Urobilinogen 0.2 (0.2) E.U./dL Ur Leukocyte Esterase 1+ H (NEGATIVE) Urine RBC 1-5/hpf (0-5/HPF) Urine WBC >100/hpf H (0-5/HPF) Ur Squamous Epith Cells 1-5 /hpf (0-5/HPF) Ur Transition Epith Cell 1-5/hpf (0-5/HPF) Ur Renal Epithelial Cell 1-5/hpf H (0-1/HPF) Urine Bacteria Many (>30) H (None) Ur Culture Indicated? Specimen cultured [place] (0.6-1.2) mmol/L COVID-19 PCR (Negative) 04/25/20 Range/Units 21:56 WBC (4.5-11.0) X10^3/uL RBC (4.0-5.2) X10^6/uL Hgb (12.0-16.0) g/dL Hct (36-46) % MCV (80-100) fL MCH (26-34) PG MCHC (30-36) % RDW (11.6-14.8) % Plt Count (150-400) X10^3/uL Neut % (Auto) (50-75) % Lymph % (Auto) (25-40) % [place] % (Auto) (3-14) % Eos % (Auto) (2-4) % Baso % (Auto) (0-2) % Neut # (Auto) (4220-7361) /uL Lymph # (Auto) (2311-6797) /uL [place] # (Auto) (0-900) /uL Eos # (Auto) (0-450) /uL Baso # (Auto) (0-100) /uL Sodium (137-145) mmol/L Potassium (3.4-5.1) mmol/L Chloride (98-107) mmol/L Carbon Dioxide (22-32) mmol/L BUN (7-17) mg/dL Creatinine (0.52-1.04) mg/dL Estimated GFR (>60) mL/min BUN/Creatinine Ratio (6-22) Glucose (80-110) mg/dL Lactate (0.7-2.1) mmol/L Calcium (8.4-10.2) mg/dL Total Creatine Kinase (30-135) U/L CK-MB (CK-2) (<2.37) ng/mL CK-MB (CK-2) Rel Index (1.5-5.0) % Troponin I (0.01-0.034) ng/mL NT-Pro-B Natriuret Pep (<450) pg/mL TSH (0.47-4.68) uIU/mL Urine Color Urine Appearance Urine pH (4.5-8.0) Ur Specific [place] (1.000-1.035) Urine Protein (Negative) Urine Glucose (UA) (Negative) g/dL Urine Ketones (NEGATIVE) Urine Occult Blood (Negative) Urine Nitrate (Negative) Urine Bilirubin (NEGATIVE) Urine Urobilinogen (0.2) E.U./dL Ur Leukocyte Esterase (NEGATIVE) Urine RBC (0-5/HPF) Urine WBC (0-5/HPF) Ur Squamous Epith Cells (0-5/HPF) Ur Transition Epith Cell (0-5/HPF) Ur Renal Epithelial Cell (0-1/HPF) Urine Bacteria (None) Ur Culture Indicated? [place] (0.6-1.2) mmol/L COVID-19 PCR Negative (Negative) Discharge Plan Departure Patient Disposition: [facility] Clinical Impression: Elevated troponin, Acute UTI, Weakness, Acute confusion [place] toxicity Qualifiers: Encounter type: initial encounter Injury intent: accidental or unintentional Qualified Code(s): T56.891A - Toxic effect of other metals, accidental (uni ntentional), initial encounter Discharge Date/Time: 04/25/20 23:00 Prescriptions: No Action fenofibrate 160 MG tablet 160 mg PO QDAY Qty: 0 RF: 0 cyclobenzaprine 5 MG tablet 5 mg PO TIDP PRN (Reason: Spasms) Qty: 0 RF: 0 lithium carbonate 300 MG capsule 300 mg PO BID Qty: 0 RF: 0 hydroxychloroquine 200 mg Tablet 400 mg PO DAILY RF: 0 ascorbic acid (vitamin C) [Vitamin C] 500 mg tablet 500 mg PO BID Qty: 20 RF: 0 aspirin 81 mg Tablet,Delayed Release (Dr/Ec) 81 mg PO BID Qty: 60 RF: 0 bisacodyl 10 mg Suppository 10 mg GA PRN PRN (Reason: Constipation) Qty: 5 RF: 0 ibuprofen 400 mg Tablet 400 mg PO Q4HR Qty: 60 RF: 0 docusate sodium [DOK] 100 mg Capsule 100 mg PO BID PRN (Reason: Constipation) Qty: 30 RF: 0 hydroxyzine pamoate 25 mg Capsule 25 mg PO Q6HR PRN (Reason: Nausea) Qty: 20 RF: 0 oxycodone 10 mg tablet 10 mg PO Q4-6H PRN (Reason: pain (scale score 7-10)) Qty: 40 RF: 0 acetaminophen [Tylenol Extra Strength] 500 mg tablet 500 mg PO Q4H PRN (Reason: pain (scale score 1-3)) Qty: 60 RF: 0 amlodipine 10 mg Tablet 10 mg PO DAILY RF: 0 ondansetron HCl [Zofran] 4 mg Tablet 8 mg PO BID PRN (Reason: Nausea) RF: 0 omeprazole 40 mg Capsule,Delayed Release(Dr/Ec) 40 mg PO DAILY RF: 0 fluoxetine 20 mg Capsule 20 mg PO DAILY RF: 0 levothyroxine 112 mcg Tablet 112 mcg PO DAILY RF: 0 minoxidil [Rogaine] 2 % Solution 1 applic topical DIRECTED RF: 0 polyethylene glycol 3350 17 gram Powder In Packet 17 gm PO DAILY Qty: 1 RF: 0 bisacodyl 10 mg Suppository 10 mg GA DAILY PRN (Reason: Constipation) Qty: 30 RF: 0 docusate sodium [DOK] 100 mg Capsule 100 mg PO BID Qty: 60 RF: 0 ferrous gluconate 324 mg (38 mg iron) Tablet 324 mg PO DAILY Qty: 30 RF: 0 fentanyl [Duragesic] 25 mcg/hr patch 72 hour 25 patch RF: 0 Referrals: Merissa Robbins MD [Primary Care Provider] - <Jose Levin DO - Last Filed: 04/26/20 00:42> Cosign ED Attending Cosignature Attestation: I was immediately available in the department for consultation. This documentation has been reviewed and I agree with assessment and plan. Supervised by Jose Levin DO
--- NOTE | 2020-04-25 17:57 | DI.CT.S_ITS ---
PROCEDURE: CT HEAD/BRAIN WO CON INDICATIONS: fall 2 days ago, and 4 days ago face injury; confusion x2wks TECHNIQUE: Noncontrast 4.5 mm thick angled axial sections acquired from the foramen magnum to the vertex, with coronal and sagittal reformats. For radiation dose reduction, the following was used: automated exposure control, adjustment of mA and/or kV according to patient size. COMPARISON: None. FINDINGS: Image quality: Excellent. CSF spaces: Basal cisterns are patent. No extra-axial fluid collections. The ventricles are symmetric in size and shape. Brain: No acute intracranial hemorrhage or mass effect. There is cerebral volume loss for age, with resultant ventricular and sulcal prominence. There are periventricular and deep white matter chronic small vessel ischemic changes. There is intracranial internal carotid artery atherosclerosis. Skull and face: Calvarium and visualized facial bones appear intact, without suspicious lesions. Sinuses: Visualized sinuses and mastoids are clear. IMPRESSION: No acute intracranial abnormality. Dictated by: Robert Infante M.D. on 04/25/2020 at 18:27 Approved by: Robert Infante M.D. on 04/25/2020 at 18:29
--- NOTE | 2020-04-25 17:57 | DI.RAD.S_ITS ---
PROCEDURE: XR CHEST 1V INDICATIONS: weakness, elevated trop TECHNIQUE: One view of the chest was acquired. COMPARISON: None. FINDINGS: Surgical changes and devices: None. Lungs and pleura: Lungs are clear. Elevation of right hemidiaphragm is seen. No pleural effusions or pneumothorax. Mediastinum: Mediastinal contours appear normal. Heart size is normal. Bones and chest wall: No suspicious bony lesions. Overlying soft tissues appear unremarkable. IMPRESSION: No acute cardiopulmonary pathology. Dictated by: Tyler Perera M.D. on 04/25/2020 at 17:25 Approved by: Tyler Perera M.D. on 04/25/2020 at 17:28
[2020-04-25 19:06] LABS: Appearance Urine UA CLEAR; Bilirubin Urine UA NEGATIVE (NEGATIVE); Color Urine UA YELLOW; Glucose Urine UA NEGATIVE (Negative); Ketones Urine UA NEGATIVE (NEGATIVE); Leukocyte Esterase Urine UA 1+ (NEGATIVE); Nitrite Urine UA POSITIVE (Negative); Occult Blood Urine UA TRACE-LYSED (Negative); Protein Urine UA 2+ (Negative); Specific Gravity Urine UA 1.025 (1.000-1.035); Urobilinogen Urine UA 0.2 E.U./dL (0.2)
[2020-04-25] MEDS: SODIUM CHLORIDE 0.9% 1,000 ML 1000 ML IV (19:09)
[2020-04-25 19:10] LABS: Lithium 1.7 mmol/L (0.6-1.2)
[2020-04-25 19:16] LABS: RBC Urine 1-5/HPF (0-5/HPF)
[2020-04-25 19:17] LABS: Bacteria Urine Many (>30); Culture Indicated Urine Specimen Cultured; Renal Epithelial Cells Urine 1-5/HPF (0-1/HPF); Squamous Epithelial Cell Urine 1-5 /HPF (0-5/HPF); Transitional Epi Cells Urine 1-5/HPF (0-5/HPF); WBC Urine >100/HPF (0-5/HPF)
[2020-04-25 19:55] LABS: Creatine Kinase 143 U/L (30-135)
[2020-04-25 20:10] LABS: Creatine Kinase MB 4.33 ng/mL (<2.37)
[2020-04-25] MEDS: CEFTRIAXONE 1 GM/50 ML FROZ.PIGGY IV (20:14)
[2020-04-25] MEDS: ASPIRIN 81 MG CHEW TAB 324 MG PO (20:52)
[2020-04-25] MEDS: SODIUM CHLORIDE 0.9% 1,000 ML 100 ML IV (21:15)
[2020-04-25 22:02] LABS: Troponin I 0.068 ng/mL (0.01-0.034)
[2020-04-25 22:15] LABS: COVID19 -Nasal RAPID Negative (Negative)
== END 2020-04-25 23:00 | disposition short-term general hospital (02) ==
PROVIDERS: Emergency Provider Student in an Organized Health Care Education/Training Program; Family Provider Internal Medicine; PCP Internal Medicine
DX: R77.8 Other specified abnormalities of plasma proteins (principal); T56.891A Toxic effect of other metals, accidental (unintentional), initial encounter; R41.0 Disorientation, unspecified; R53.1 Weakness; D64.9 Anemia, unspecified; S09.90XA Unspecified injury of head, initial encounter; W19.XXXA Unspecified fall, initial encounter
CPT/HCPCS: 36415; 51701; 51705; 70450; 71045; 80048; 80178; 81001; 82550; 82553; 83605; 83880; 84443; 84484; 85025; 87077; 87086; 87186; 87635; 93005; 93010; 96361; 96365; 99285

== ENCOUNTER → 2020-05-29 13:41 | Outpatient (CLI) | payer MEDICARE, SELFPAY ==
[2019-05-17 23:30] VITALS: BMI 27.2
[2020-05-29 14:19] LABS: Appearance Urine UA CLOUDY; Bilirubin Urine UA NEGATIVE (NEGATIVE); Color Urine UA YELLOW; Glucose Urine UA NEGATIVE (Negative); Ketones Urine UA NEGATIVE (NEGATIVE); Leukocyte Esterase Urine UA 1+ (NEGATIVE); Nitrite Urine UA POSITIVE (Negative); Occult Blood Urine UA TRACE-INTACT (Negative); Protein Urine UA TRACE (Negative); Urobilinogen Urine UA 0.2 E.U./dL (0.2)
[2020-05-29 14:26] LABS: Bacteria Urine Many (>30); RBC Urine 0-1/HPF (0-5/HPF); Squamous Epithelial Cell Urine 0-1 /HPF (0-5/HPF); WBC Urine >100/HPF (0-5/HPF)
== END ==
PROVIDERS: Family Provider Internal Medicine; PCP Internal Medicine; Referring Provider Internal Medicine; Visit Provider Internal Medicine
DX: N39.0 Urinary tract infection, site not specified (principal)
CPT/HCPCS: 81001; 87077; 87086; 87186

== ENCOUNTER → 2020-05-31 14:51 | Outpatient (CLI) | payer MEDICARE, SELFPAY ==
[2019-05-17 23:30] VITALS: BMI 27.2
--- NOTE | 2020-05-31 | DI.RAD.S_ITS ---
PROCEDURE: XR ANKLE LT MIN 3V INDICATIONS: Left Ankle Swelling TECHNIQUE: 3 views of the ankle were acquired. COMPARISON: [facility], CR, FOOT 3V LEFT, 08/20/2017, 17:13. FINDINGS: Bones: No fractures or dislocations. Ankle mortise is normally aligned. No suspicious bony lesions. Note is again made of mild degenerative changes involving the base of the metatarsal bones, with reference to the study of the foot from 2018. Soft tissues: No tibiotalar joint effusion. Achilles tendon appears little if any changed, with calcifications in the distal Achilles tendon just above its insertion on the posterior calcaneus.. IMPRESSION: No acute trauma found. Calcific tendonitis at the distal Achilles tendon as was previously the case in 2018. Dictated by: Jose C Olivo M.D. on 05/31/2020 at 17:01 Approved by: Jose C Oilvo M.D. on 05/31/2020 at 17:03
--- NOTE | 2020-05-31 14:54 | DI.RAD.S_ITS ---
PROCEDURE: XR KNEE LT 3V INDICATIONS: LT KNEE PAIN TECHNIQUE: 3 views of the knee were acquired. COMPARISON: [facility], CR, XR KNEE LT 3V, 04/07/2019, 22:01. [facility], CR, XR KNEE LT 1TO2V, 05/17/2019, 10:26. FINDINGS: Bones: No fractures or dislocations. No suspicious bony lesions. Tricompartmental knee joint narrowing with periarticular osteophyte formation, moderate in degree. Soft tissues: Large joint effusion. No suspicious soft tissue calcifications. Chondrocalcinosis. IMPRESSION: 1. Moderate tricompartmental knee joint degeneration and large knee joint effusion. 2. Chondrocalcinosis. Differential diagnosis includes but is not limited to hemochromatosis, hyperparathyroidism and CPPD. Dictated by: [place] ZIEGLER Interpreted: Raymundo Walsh MD on 05/31/2020 at 15:17 Approved by: Raymundo Walsh M.D. on 05/31/2020 at 15:32
== END ==
PROVIDERS: Family Provider Internal Medicine; PCP Internal Medicine; Referring Provider Internal Medicine; Visit Provider Internal Medicine
DX: M25.562 Pain in left knee (principal); M17.12 Unilateral primary osteoarthritis, left knee; M11.262 Other chondrocalcinosis, left knee; M25.472 Effusion, left ankle; M65.272 Calcific tendinitis, left ankle and foot
CPT/HCPCS: 73562; 73610

== ENCOUNTER → 2020-08-15 12:57 | Outpatient (CLI) | payer MEDICARE, SELFPAY ==
[2019-05-17 23:30] VITALS: BMI 27.2
--- NOTE | 2020-08-15 15:05 | DIET.PN ---
Diabetes Intake: Initial Assessment Assess: Mrs. Prather is a 75 yof referred for type 2 diabetes. She has hx of bipolar disorder, hip surgery x3 and several other surgeries in the last year. She reports very high stress levels related to health. She spent 40 days in a rehab facility after her surgery where she reports 42lb weight loss. She is unable to exercise due to hip issues and relies on a walker. She has a glucometer but admits she does not check regularly. Labs: Per pt report: A1c: 6.7 Meds: gabapentin 300mg 2 qd Diet: per 24 hr recall: B: fried eggs, 2 toast or eng muffin L: soup D: liber[place] or [place] Sn: Wt: 165lb Ht: 66in BMI: 26.6 BP: DX: Altered nutrition related laboratory values related to impaired glucose metabolism, lack of previous exposure to nutrition information as evidenced by pt report, diagnosis of diabetes, previous diet high in refined carbohydrates. Intervention: 1. Completed intake assessment. Discussed barriers to care. 2. Discussed pathophysiology of diabetes. Reviewed A1c and its correlation to blood glucose numbers. Discussed recommended BG ranges. 3. Discussed importance of self-monitoring, how often, and when to check. 4. Reviewed hyper/hypoglycemia and treatment. 5. Reviewed safe disposal of equipment (strip/lancets/insulin needles). 6. Created SMART goals for pt self-care and success. 7. Discussed program curriculum outline and class needs based on individual goals. SMART Goals: 1. Goal weight of 140lb in the next 6 mo through learning carb counting, portion control and label reading. Monitor/Evaluate: Pt will attend full DSME program. Basic Nutrition class scheduled for Sep 10.
== END ==
PROVIDERS: Family Provider Internal Medicine; PCP Internal Medicine; Referring Provider Internal Medicine; Visit Provider Internal Medicine
DX: E11.9 Type 2 diabetes mellitus without complications (principal); Z79.84 Long term (current) use of oral hypoglycemic drugs; Z71.3 Dietary counseling and surveillance; Z98.890 Other specified postprocedural states; Z68.26 Body mass index [BMI] 26.0-26.9, adult
CPT/HCPCS: G0108

== ENCOUNTER → 2020-09-03 10:29 | Outpatient (CLI) | payer MEDICARE, SELFPAY ==
[2019-05-17 23:30] VITALS: BMI 27.2
--- NOTE | 2020-09-03 10:30 | DI.MG.S_ITS ---
BILATERAL DIGITAL SCREENING MAMMOGRAM 3D/2D WITH CAD: 09/03/2020 CLINICAL: Routine screening. Comparison is made to exams dated: 08/11/2019 mammogram, 07/01/2018 mammogram, and 05/04/2017 mammogram - [facility]. The tissue of both breasts is heterogeneously dense. This may lower the sensitivity of mammography. Current study was also evaluated with a Computer Aided Detection (CAD) system. There is a stable benign lymph node in the left breast. There also are stable benign calcifications in the left breast. No significant masses, calcifications, or other findings are seen in either breast. There has been no significant interval change. IMPRESSION: BENIGN There is no mammographic evidence of malignancy. A 1 year screening mammogram is recommended. This exam was interpreted at Station ID: [id number]. NOTE: For mammograms, a report in lay terms will be sent to the patient. Approximately 15% of breast malignancies will not be visualized mammographically. In the management of a palpable breast mass, a negative mammogram must not discourage biopsy of a clinically suspicious lesion. Electronically Signed By: Fortino Garnica acr/penrad:09/03/2020 11:36:59 letter sent: Normal Exam ACR BI-RADS Category 2: Benign Finding(s) 3342F
== END ==
PROVIDERS: Family Provider Internal Medicine; PCP Internal Medicine; Referring Provider Internal Medicine; Visit Provider Internal Medicine
DX: Z12.31 Encounter for screening mammogram for malignant neoplasm of breast (principal)
CPT/HCPCS: 77063; 77067

== ENCOUNTER → 2020-09-10 13:57 | Outpatient (CLI) | payer MEDICARE, SELFPAY ==
[2019-05-17 23:30] VITALS: BMI 27.2
--- NOTE | 2020-09-10 15:30 | DIET.PN ---
Diabetes: Healthy Eating 1 Intervention: ? Discussed pathophysiology of diabetes and impact of nutrition/diet on blood sugar control.? Discussed fed versus non-fed state.?? ? Reviewed importance of Balance, Variety, and Moderation. ? Discussed the effect of carbohydrates/protein/fat on blood sugar control.? ? Stressed importance of consistent carbohydrate intake at each meal and provided instructions for recommended servings/portions of carbohydrates/protein per meal. Provided educational material. ? Reviewed carbohydrate counting and measuring carbohydrate content via serving sizes and reading nutrition labels.? Provided handouts.?? ? Discussed the difference between simple versus complex carbohydrates and the effect of fiber on blood sugar control.? Discussed various methods to increase fiber content in diet. ? Discussed the plate method for creating more carbohydrate conscious balanced meals. ? Stressed importance of meal timing and not going >4-5 hours between meals. Encouraged adding protein to evening snack to support glucose control overnight. ? Discussed importance of making dietary habits part of lifestyle change.
== END ==
PROVIDERS: Family Provider Internal Medicine; PCP Internal Medicine; Referring Provider Internal Medicine; Visit Provider Internal Medicine
DX: E11.9 Type 2 diabetes mellitus without complications (principal); Z71.3 Dietary counseling and surveillance
CPT/HCPCS: G0109

== ENCOUNTER → 2020-10-04 08:46 | Outpatient (CLI) | payer MEDICARE, SELFPAY ==
[2019-05-17 23:30] VITALS: BMI 27.2
[2020-10-04 10:32] LABS: Alanine Aminotransferase 21 IU/L (<35); Albumin 3.7 g/dL (3.5-5.0); Albumin Globulin Ratio 1.4 (1.0-2.8); Alkaline Phosphatase 51 U/L (38-126); Aspartate Aminotransferase 34 IU/L (14-36); BUN Creatinine Ratio 27.9 (6-22); Bilirubin Total 0.2 mg/dL (0.2-1.3); Blood Urea Nitrogen 38 mg/dL (7-17); Calcium 9.9 mg/dL (8.4-10.2); Carbon Dioxide 25 mmol/L (22-32); Chloride 109 mmol/L (98-107); Cholesterol 137 mg/dL (140-199); Estimated Glomerular Filt Rate 37.8 mL/min (>60); Globulin 2.7 g/dL (1.7-4.1); Glucose 99 mg/dL (80-110); HDL Cholesterol 64 mg/dL (40-60); HEMOLYSIS < 15 (0-50); LDL Cholesterol Calculated 53 mg/dL (<100); Potassium 4.5 mmol/L (3.4-5.1); Sodium 142 mmol/L (137-145); Total Protein 6.4 g/dL (6.3-8.2); Triglycerides 99 mg/dL (35-150)
[2020-10-04 10:53] LABS: TSH w/ Reflex to FT4 1.13 uIU/mL (0.47-4.68)
== END ==
PROVIDERS: Family Provider Internal Medicine; PCP Internal Medicine; Referring Provider Internal Medicine; Visit Provider Internal Medicine
DX: E11.9 Type 2 diabetes mellitus without complications (principal); E78.5 Hyperlipidemia, unspecified; I10 Essential (primary) hypertension; E03.9 Hypothyroidism, unspecified
CPT/HCPCS: 36415; 80053; 80061; 83036; 84443

== ENCOUNTER → 2020-10-15 14:20 | Outpatient (CLI) | payer MEDICARE, SELFPAY ==
[2019-05-17 23:30] VITALS: BMI 27.2
[2020-10-15] MEDS: COVID-19 VACC #1, MRNA(MOD) 100 MCG/0.5 ML VIAL IM (14:29)
== END ==
PROVIDERS: Family Provider Internal Medicine; PCP Internal Medicine; Visit Provider Internal Medicine
DX: Z23 Encounter for immunization (principal)
CPT/HCPCS: 0011A; 91301

== ENCOUNTER → 2020-11-11 12:31 | Outpatient (CLI) | payer MEDICARE, SELFPAY ==
[2019-05-17 23:30] VITALS: BMI 27.2
--- NOTE | 2020-11-11 | DI.RAD.S_ITS ---
PROCEDURE: XR KNEE STANDING BI INDICATIONS: PAIN IN LEFT KNEE TECHNIQUE: Single standing view of both knees were obtained COMPARISON: [facility], CR, XR KNEE LT 3V, 05/31/2020, 14:57. FINDINGS: Bones: Generalized decreased osseous mineralization present. There is severe lateral compartment joint space narrowing with marginal osteophyte present. No evidence of fracture or subluxation. Soft tissues: No suspicious soft tissue calcification. IMPRESSION: 1. Severe lateral compartment osteoarthritis 2. Osteopenia Dictated by: Mitch Acuna M.D. on 11/11/2020 at 13:46 Approved by: Mitch Acuna M.D. on 11/11/2020 at 13:51
== END ==
PROVIDERS: Family Provider Internal Medicine; PCP Internal Medicine; Referring Provider Acupuncturist; Visit Provider Acupuncturist
DX: M25.562 Pain in left knee (principal); M17.12 Unilateral primary osteoarthritis, left knee; M85.862 Other specified disorders of bone density and structure, left lower leg
CPT/HCPCS: 73565

== ENCOUNTER → 2020-11-13 14:23 | Outpatient (CLI) | payer MEDICARE, SELFPAY ==
[2019-05-17 23:30] VITALS: BMI 27.2
[2020-11-13] MEDS: COVID-19 VACC #2, MRNA(MOD) 100 MCG/0.5 ML VIAL IM (14:31)
== END ==
PROVIDERS: Family Provider Internal Medicine; PCP Internal Medicine; Visit Provider Internal Medicine
DX: Z23 Encounter for immunization (principal)
CPT/HCPCS: 0012A; 91301

== ENCOUNTER 2021-01-10 15:16 | Emergency (ER) | payer MEDICARE, SELFPAY ==
[2019-05-17 23:30] VITALS: BMI 27.2
[2021-01-10] VITALS (18 sets, daily range): BP systolic 93–112; BP diastolic 50–64; PULSE 73–90; RESP 14–36; TEMP 36.4; O2SAT 94–100; BMI 25.0
[2021-01-10 16:16] LABS: Add Manual Diff / Slide Review NO; Basophils Absolute Auto 100 /uL (0-100); Basophils Percent Auto 0.8 % (0-2); Eosinophils Absolute Auto 100 /uL (0-450); Hematocrit 31.3 % (36-46); Hemoglobin 10.6 g/dL (12.0-16.0); Lymphocytes Absolute Auto 1400 /uL (1100-4500); Mean Corpuscular HGB Conc 33.9 % (30-36); Mean Corpuscular Hemoglobin 29.4 PG (26-34); Mean Corpuscular Volume 86.7 fL (80-100); Monocytes Absolute Auto 800 /uL (0-900); Monocytes Percent Auto 11.7 % (3-14); Neutrophils Absolute Auto 4700 /uL (1500-7000); Neutrophils Percent Auto 66.5 % (50-75); Platelet Count 243 X10^3/uL (150-400); Red Blood Cell Count 3.61 X10^6/uL (4.0-5.2); White Blood Cell Count 7.1 X10^3/uL (4.5-11.0)
--- NOTE | 2021-01-10 16:17 | ED.GIBLEED ---
HPI - GI Bleed <Cele Orr, DO - Last Filed: 01/11/21 07:25> General Chief complaint: GI Bleed Stated complaint: STOMACH PAINS RECTAL BLEEDING Time Seen by Provider: 01/10/21 16:02 Source: patient and family Mode of arrival: Wheelchair Limitations: no limitations History of Present Illness HPI Narrative: Patient is a 75-year-old who presents with rectal bleeding. She states that last evening she felt like she had have a bowel movement but could not. She took Pepto-Bismol and then had copious amounts of maroon and bright red blood. She is having some mild right lower quadrant pain. She also had some nausea and vomiting as well. She now has some right lower quadrant pain. No dizziness or lightheadedness. She noted to be hypotensive in the emergency department with a systolic in the 90s. She says her normal blood pressure is in the 120s. She denies any chest pain or shortness of breath. She not on any anti-platelet or anticoagulation medication Related Data Home Medications Medication Instructions Recorded Confirmed cyclobenzaprine 5 mg tablet 5 mg PO TIDP PRN #0 08/20/17 04/25/20 fenofibrate 160 mg tablet 160 mg PO QDAY #0 08/20/17 04/25/20 lithium carbonate 300 mg capsule 300 mg PO BID #0 08/20/17 04/25/20 hydroxychloroquine 200 mg tablet 400 mg PO DAILY 03/08/18 04/25/20 amlodipine 10 mg tablet 10 mg PO DAILY 02/19/19 05/18/19 fluoxetine 20 mg capsule 20 mg PO DAILY 02/19/19 04/25/20 levothyroxine 112 mcg tablet 112 mcg PO DAILY 02/19/19 04/25/20 minoxidil 2 % topical solution 1 applic TOPICAL DIRECTED 02/19/19 05/18/19 (Rogaine) omeprazole 40 mg capsule,delayed 40 mg PO DAILY 02/19/19 04/25/20 release ondansetron HCl 4 mg tablet 8 mg PO BID PRN 02/19/19 05/18/19 (Zofran) fentanyl 25 mcg/hr transdermal 25 patch 04/25/20 patch (Duragesic) Previous Rx's Medication Instructions Recorded bisacodyl 10 mg rectal suppository 10 mg MO DAILY PRN #30 ea 02/23/19 docusate sodium 100 mg capsule 100 mg PO BID #60 cap 02/23/19 (DOK) ferrous gluconate 324 mg (38 mg 324 mg PO DAILY #30 tab 02/23/19 iron) tablet polyethylene glycol 3350 17 gram 17 gm PO DAILY #1 pkg 02/23/19 oral powder packet ascorbic acid (vitamin C) 500 mg 500 mg PO BID #20 tab 05/08/19 tablet (Vitamin C) acetaminophen 500 mg tablet 500 mg PO Q4H PRN #60 tab 05/25/19 (Tylenol Extra Strength) aspirin 81 mg tablet,delayed 81 mg PO BID #60 tab 05/25/19 release bisacodyl 10 mg rectal suppository 10 mg MO PRN PRN #5 ea 05/25/19 docusate sodium 100 mg capsule 100 mg PO BID PRN #30 cap 05/25/19 (DOK) hydroxyzine pamoate 25 mg capsule 25 mg PO Q6HR PRN #20 cap 05/25/19 ibuprofen 400 mg tablet 400 mg PO Q4HR #60 tab 05/25/19 oxycodone 10 mg tablet 10 mg PO Q4-6H PRN #40 tab 05/25/19 Allergies Allergy/AdvReac Type Severity Reaction Status Date / Time Sulfa (Sulfonamide Allergy Intermediate body rash Verified 01/10/21 15:23 Antibiotics) [SULFA (SULFONAMIDE ANTIBIOTICS)] gabapentin AdvReac Unknown altered Verified 01/10/21 15:23 mentation Review of Systems <DO Gerardo Villalpando Last Filed: 01/11/21 07:25> Review of Systems Narrative: GENERAL: Denies chills, fatigue, malaise, fever, sweats, travel HEENT: Denies sinus pain, ear pain, sore throat, difficulty swallowing, neck pain RESPIRATORY: Denies dyspnea, cough, wheezing, hemoptysis, sputum. CARDIOVASCULAR: Denies chest pain, palpitations, orthopnea, edema GASTROINTESTINAL: See HPI : Denies dysuria, frequency, incontinence, hematuria, urinary retention, flank pain. MUSCULOSKELETAL: Denies weakness, joint pain, or bony pain SKIN: No rash, no erythema, no pruritus NEUROLOGIC: Denies weakness, dizziness, headache, numbness, change in speech, confusion PSYCHIATRIC: No concerning psychosocial issues. 12 point review of systems is negative except for those stated above and HPI Patient History <DO Gerardo Villalpando Last Filed: 01/11/21 07:25> Medical History (Updated 01/10/21 @ 20:14 by Cele Orr DO) Acute kidney injury Bipolar disorder Bruises easily Chronic low back pain Chronic sciatica of left side Constipation, chronic Diet-controlled diabetes mellitus Fibromyalgia GERD (gastroesophageal reflux disease) Hyperlipidemia Hypertension Hypothyroidism Incontinence Lupus (systemic lupus erythematosus) Migraines Normocytic anemia Surgical History (Updated 08/08/20 @ 08:49 by [employer] [facility]) History of bilateral cataract extraction History of bladder suspension procedure History of left hip hemiarthroplasty (02/20/19) History of partial thyroidectomy Status post tubal ligation Status post vaginal hysterectomy Family History Father No problems noted. Mother No problems noted. Brother Bone cancer Social History household members: spouse Smoking Status: Former smoker alcohol intake: never eating out: rarely or never Type(s) of exercise: none Smoking Status: Former smoker alcohol intake frequency: holidays/special occasions only Alcohol type: beer Substance Use Type: does not use, painkillers and prescription drug Exam <Cele Orr DO - Last Filed: 01/11/21 07:25> Initial Vital Signs Initial Vital Signs: Vital Signs Temperature 97.6 F 01/10/21 15:23 Pulse Rate 90 01/10/21 15:23 Respiratory Rate 18 01/10/21 15:23 Blood Pressure 93/51 L 01/10/21 15:23 Pulse Oximetry 98 01/10/21 15:23 GENERAL: Well-appearing, well-nourished and in no acute distress. HEENT: Head atraumatic,EOMI, pupils reactive, face symmetric, moist mucous membranes CARDIOVASCULAR: Regular rate and rhythm without murmurs, rubs or gallops. RESPIRATORY: Breath sounds equal bilaterally, no wheezes rales or rhonchi. ABDOMEN: Soft, nontender. Normoactive bowel sounds all 4 quadrants. No guarding or rebound. RECTAL:] [Hemoccult-positive, no hemorrhoids, nontender] EXTREMITIES: Normal range of motion, no clubbing or edema. Neurovascularly intact NEUROLOGICAL: Alert and oriented x4.Normal gait and speech. SKIN: Warm, dry, no laceration, no petechiae, no rashes or lesions. <Loyd Angelo, DO - Last Filed: 01/10/21 23:24> Initial Vital Signs Initial Vital Signs: Vital Signs Temperature 97.6 F 01/10/21 15:23 Pulse Rate 90 01/10/21 15:23 Respiratory Rate 18 01/10/21 15:23 Blood Pressure 93/51 L 01/10/21 15:23 Pulse Oximetry 98 01/10/21 15:23 Course <Cele Orr, DO - Last Filed: 01/11/21 07:25> Orders Ordered: Discontinued Medications Ceftriaxone Sodium 1,000 mg/ (Sodium Chloride) 100 mls @ 200 mls/hr IV NOW ONE Stop: 01/10/21 18:50 Last Infusion: 01/10/21 20:46 Dose: 0 mls/hr Documented by: Admin: 01/10/21 20:13 Dose: 200 mls/hr Documented by: ATAYLOR Sodium Chloride (Normal Saline 0.9%) 1,000 mls @ 1,000 mls/hr IV BOLUS ONE Stop: 01/10/21 20:37 Last Infusion: 01/10/21 22:51 Dose: 0 mls/hr Documented by: Admin: 01/10/21 20:12 Dose: 1,000 mls/hr Documented by: ATAYLOR Pantoprazole Sodium (Pantoprazole 40 Mg Vial) 40 mg IV NOW ONE Stop: 01/10/21 16:18 Last Admin: 01/10/21 17:34 Dose: 40 mg Documented by: BENJIEOR Vital Signs Vital signs: Vital Signs - 8 hr 01/10/21 16:05 01/10/21 16:10 01/10/21 16:30 Pulse Rate 83 82 79 Respiratory Rate 36 H 20 22 Blood Pressure 96/50 L Pulse Oximetry 97 98 98 01/10/21 17:00 01/10/21 17:21 01/10/21 17:30 Pulse Rate 79 75 75 Respiratory Rate 24 21 25 H Blood Pressure 103/55 L 111/55 L Pulse Oximetry 98 95 94 01/10/21 18:00 01/10/21 18:30 01/10/21 19:00 Pulse Rate 76 81 74 Respiratory Rate 16 14 17 Blood Pressure 109/62 112/64 Pulse Oximetry 95 99 97 01/10/21 19:30 01/10/21 20:00 01/10/21 20:30 Pulse Rate 74 75 73 Respiratory Rate 18 17 16 Blood Pressure Pulse Oximetry 98 100 01/10/21 21:00 01/10/21 21:30 01/10/21 22:00 Pulse Rate 76 77 79 Respiratory Rate 18 17 17 Blood Pressure Pulse Oximetry 99 96 98 01/10/21 22:30 01/10/21 22:37 Pulse Rate 78 77 Respiratory Rate 16 16 Blood Pressure 106/55 L Pulse Oximetry 97 99 <Loyd Angelo DO - Last Filed: 01/10/21 23:24> Orders Ordered: Discontinued Medications Ceftriaxone Sodium 1,000 mg/ (Sodium Chloride) 100 mls @ 200 mls/hr IV NOW ONE Stop: 01/10/21 18:50 Last Infusion: 01/10/21 20:46 Dose: 0 mls/hr Documented by: Admin: 01/10/21 20:13 Dose: 200 mls/hr Documented by: CHAVA Sodium Chloride (Normal Saline 0.9%) 1,000 mls @ 1,000 mls/hr IV BOLUS ONE Stop: 01/10/21 20:37 Last Infusion: 01/10/21 22:51 Dose: 0 mls/hr Documented by: Admin: 01/10/21 20:12 Dose: 1,000 mls/hr Documented by: CHAVA Pantoprazole Sodium (Pantoprazole 40 Mg Vial) 40 mg IV NOW ONE Stop: 01/10/21 16:18 Last Admin: 01/10/21 17:34 Dose: 40 mg Documented by: CHAVA Vital Signs Vital signs: Vital Signs - 8 hr 01/10/21 16:05 01/10/21 16:10 01/10/21 16:30 Pulse Rate 83 82 79 Respiratory Rate 36 H 20 22 Blood Pressure 96/50 L Pulse Oximetry 97 98 98 01/10/21 17:00 01/10/21 17:21 01/10/21 17:30 Pulse Rate 79 75 75 Respiratory Rate 24 21 25 H Blood Pressure 103/55 L 111/55 L Pulse Oximetry 98 95 94 01/10/21 18:00 01/10/21 18:30 01/10/21 19:00 Pulse Rate 76 81 74 Respiratory Rate 16 14 17 Blood Pressure 109/62 112/64 Pulse Oximetry 95 99 97 01/10/21 19:30 01/10/21 20:00 01/10/21 20:30 Pulse Rate 74 75 73 Respiratory Rate 18 17 16 Blood Pressure Pulse Oximetry 98 100 01/10/21 21:00 01/10/21 21:30 01/10/21 22:00 Pulse Rate 76 77 79 Respiratory Rate 18 17 17 Blood Pressure Pulse Oximetry 99 96 98 01/10/21 22:30 01/10/21 22:37 Pulse Rate 78 77 Respiratory Rate 16 16 Blood Pressure 106/55 L Pulse Oximetry 97 99 MDM - GI Bleed <Cele Orr, DO - Last Filed: 01/11/21 07:25> Lab Data Result diagrams: 01/10/21 20:17 01/10/21 16:00 Labs: Lab Results 01/10/21 01/10/21 01/10/21 Range/Units 16:00 16:00 16:00 WBC 7.1 (4.5-11.0) X10^3/uL RBC 3.61 L (4.0-5.2) X10^6/uL Hgb 10.6 L (12.0-16.0) g/dL Hct 31.3 L (36-46) % MCV 86.7 (80-100) fL MCH 29.4 (26-34) PG MCHC 33.9 (30-36) % RDW 14.0 (11.6-14.8) % Plt Count 243 (150-400) X10^3/uL Neut % (Auto) 66.5 (50-75) % Lymph % (Auto) 20.0 L (25-40) % [place] % (Auto) 11.7 (3-14) % Eos % (Auto) 1.0 L (2-4) % Baso % (Auto) 0.8 (0-2) % Neut # (Auto) 4700 (6957-1248) /uL Lymph # (Auto) 1400 (6994-8830) /uL [place] # (Auto) 800 (0-900) /uL Eos # (Auto) 100 (0-450) /uL Baso # (Auto) 100 (0-100) /uL PT 13.3 H (10.1-12.7) SECONDS INR 1.2 (0.9-1.3) APTT 32 (26.4-36.2) SECONDS Sodium 137 (137-145) mmol/L Potassium 3.2 L (3.4-5.1) mmol/L Chloride 106 (98-107) mmol/L Carbon Dioxide 22 (22-32) mmol/L BUN 31 H (7-17) mg/dL Creatinine 1.51 H (0.52-1.04) mg/dL Estimated GFR 33.5 L (>60) mL/min BUN/Creatinine Ratio 20.5 (6-22) Glucose 131 H (80-110) mg/dL Lactate (0.7-2.1) mmol/L Calcium 9.6 (8.4-10.2) mg/dL Total Bilirubin 0.5 (0.2-1.3) mg/dL AST 40 H (14-36) IU/L ALT 24 (<35) IU/L Alkaline Phosphatase 49 (38-126) U/L Total Protein 6.4 (6.3-8.2) g/dL Albumin 3.5 (3.5-5.0) g/dL Globulin 2.9 (1.7-4.1) g/dL Albumin/Globulin Ratio 1.2 (1.0-2.8) Procalcitonin (<0.5) ng/mL Urine RBC (0-5/HPF) Urine WBC (0-5/HPF) Ur Squamous Epith Cells (0-5/HPF) Amorphous Sediment Urine Bacteria (None) Urine Mucus (Negative) Ur Culture Indicated? SARS-CoV-2 (PCR) (Negative) 01/10/21 01/10/21 01/10/21 Range/Units 16:00 16:00 17:26 WBC (4.5-11.0) X10^3/uL RBC (4.0-5.2) X10^6/uL Hgb (12.0-16.0) g/dL Hct (36-46) % MCV (80-100) fL MCH (26-34) PG MCHC (30-36) % RDW (11.6-14.8) % Plt Count (150-400) X10^3/uL Neut % (Auto) (50-75) % Lymph % (Auto) (25-40) % [place] % (Auto) (3-14) % Eos % (Auto) (2-4) % Baso % (Auto) (0-2) % Neut # (Auto) (5404-0211) /uL Lymph # (Auto) (1512-5513) /uL Kinney # (Auto) (0-900) /uL Eos # (Auto) (0-450) /uL Baso # (Auto) (0-100) /uL PT (10.1-12.7) SECONDS INR (0.9-1.3) APTT (26.4-36.2) SECONDS Sodium (137-145) mmol/L Potassium (3.4-5.1) mmol/L Chloride (98-107) mmol/L Carbon Dioxide (22-32) mmol/L BUN (7-17) mg/dL Creatinine (0.52-1.04) mg/dL Estimated GFR (>60) mL/min BUN/Creatinine Ratio (6-22) Glucose (80-110) mg/dL Lactate 1.7 (0.7-2.1) mmol/L Calcium (8.4-10.2) mg/dL Total Bilirubin (0.2-1.3) mg/dL AST (14-36) IU/L ALT (<35) IU/L Alkaline Phosphatase (38-126) U/L Total Protein (6.3-8.2) g/dL Albumin (3.5-5.0) g/dL Globulin (1.7-4.1) g/dL Albumin/Globulin Ratio (1.0-2.8) Procalcitonin 0.44 (<0.5) ng/mL Urine RBC (0-5/HPF) Urine WBC (0-5/HPF) Ur Squamous Epith Cells (0-5/HPF) Amorphous Sediment Urine Bacteria (None) Urine Mucus (Negative) Ur Culture Indicated? SARS-CoV-2 (PCR) Negative (Negative) 01/10/21 01/10/21 Range/Units 18:28 20:17 WBC (4.5-11.0) X10^3/uL RBC (4.0-5.2) X10^6/uL Hgb 10.4 L (12.0-16.0) g/dL Hct 31.2 L (36-46) % MCV (80-100) fL MCH (26-34) PG MCHC (30-36) % RDW (11.6-14.8) % Plt Count (150-400) X10^3/uL Neut % (Auto) (50-75) % Lymph % (Auto) (25-40) % [place] % (Auto) (3-14) % Eos % (Auto) (2-4) % Baso % (Auto) (0-2) % Neut # (Auto) (9636-8853) /uL Lymph # (Auto) (9953-0145) /uL Kinney # (Auto) (0-900) /uL Eos # (Auto) (0-450) /uL Baso # (Auto) (0-100) /uL PT (10.1-12.7) SECONDS INR (0.9-1.3) APTT (26.4-36.2) SECONDS Sodium (137-145) mmol/L Potassium (3.4-5.1) mmol/L Chloride (98-107) mmol/L Carbon Dioxide (22-32) mmol/L BUN (7-17) mg/dL Creatinine (0.52-1.04) mg/dL Estimated GFR (>60) mL/min BUN/Creatinine Ratio (6-22) Glucose (80-110) mg/dL Lactate (0.7-2.1) mmol/L Calcium (8.4-10.2) mg/dL Total Bilirubin (0.2-1.3) mg/dL AST (14-36) IU/L ALT (<35) IU/L Alkaline Phosphatase (38-126) U/L Total Protein (6.3-8.2) g/dL Albumin (3.5-5.0) g/dL Globulin (1.7-4.1) g/dL Albumin/Globulin Ratio (1.0-2.8) Procalcitonin (<0.5) ng/mL Urine RBC None seen (0-5/HPF) Urine WBC 10-30/hpf H (0-5/HPF) Ur Squamous Epith Cells 1-5 /hpf (0-5/HPF) Amorphous Sediment 1+ Urine Bacteria Many (>30) H (None) Urine Mucus 1+ H (Negative) Ur Culture Indicated? Specimen cultured SARS-CoV-2 (PCR) (Negative) Urine Dip Bedside Urine Glucose Negative Bedside Urine Bilirubin - Negative Bedside Urine Ketone - Negative Urine Specific [place] 1.030 Bedside Urine Occult Blood - Negative Bedside Urine pH 6.0 Bedside Urine Protein +/- 15 Bedside Urine Urobilinogen 0.2 Bedside Urine Nitrite + Positive Bedside Urine Leukocytes ++ [address] scan - abdomen/pelvis: Radiologist's Impression: PROCEDURE: CT ABDOMEN PELVIS W CON INDICATIONS: rlq pain with bleeding TECHNIQUE: After the administration of intravenous contrast, axial sections acquired from the lung bases to the pubic symphysis. Coronal and sagittal reformats were performed. For radiation dose reduction, the following was used: automated exposure control, adjustment of mA and/or kV according to patient size. COMPARISON: CT chest, abdomen and pelvis with contrast, 05/03/2020. FINDINGS: Image quality: Excellent. Lung bases: There is a calcified granuloma in the right middle lobe. There is a moderate-sized hiatal hernia. Concentric thickening at the GE junction.. Heart: No significant findings. ABDOMEN: Liver: Unremarkable. Gallbladder: Unremarkable. Biliary ducts: Unremarkable. Pancreas: Unremarkable. Spleen: There is a 1.4 cm splenule inferior to spleen. Spleen is normal in size. Adrenal Glands: Unremarkable. Kidneys and Ureters: A couple of simple appearing right renal cysts measuring 1 cm and 3.5 cm. No renal stone or hydronephrosis. Stomach and Bowel: Stomach, small bowel loops, and colon are normal in caliber. There is diffuse colonic wall thickening involving the distal transverse colon, splenic flexure, descending and sigmoid colon consistent with colitis. Peritoneum: No abnormal intraperitoneal fluid. No free air. Ventral Wall: No hernias. Abdominal Nodes: No retroperitoneal or mesenteric adenopathy by size criteria. Vessels: Aorta and inferior vena cava are normal in size. PELVIS: Pelvic Organs: Unremarkable. Bladder: Unremarkable. Pelvic Nodes: No enlarged lymph nodes. Miscellaneous: No hernias are seen. Bones: Scoliosis and severe degenerative changes in lumbar spine.. Left hip arthroplasty. IMPRESSION: 1. Diffuse colonic wall thickening involving the distal transverse colon, splenic flexure, descending and transverse colon consistent with colitis. Etiology may be infection or inflammatory bowel disease. Ischemic colitis is felt less likely. 2. Moderate-sized hiatal hernia. There is concentric thickening at the GE junction. If clinically indicated, EGD may be helpful. 3. Scoliosis and severe degenerative changes in lumbar spine. Dictated by: Milly Kessler M.D. on 01/10/2021 at 19:55 Approved by: Milly Kessler M.D. on 01/10/2021 at 20:05 ECG Data Interpretation: Sinus rhythm rate 88 p.r. interval 202 QRS 104 QTC 4 91 Q-wave noted in lead [address] changes similar to previous EKG in 20 or 20 MDM Narrative Medical decision making narrative: Rectal bleeding all evening and initial blood pressure in the 90s. She overall appears well. She did have trace amount of blood minimal stool no hemorrhoids on her rectal exam. She is on aspirin but no other anti coagulation medication. Blood pressure improved with out fluids. She has some mild right lower quadrant pain CT does confirm a colitis. She is also found to have UTI with nitrates and leukocytes her urine she is given 1 dose of Rocephin. Due to severe bed shortage patient will be transferred to [facility] 7:37pm Dr. [facility] patient's symptoms test results happily accepts patient. Requests IV fluid to be started and given. CT shows colitis no concern for ischemic colitis pain not upper portion and she has a normal lactate. <Loyd Angelo, DO - Last Filed: 01/10/21 23:24> Lab Data Labs: Lab Results 01/10/21 01/10/21 01/10/21 Range/Units 16:00 16:00 16:00 WBC 7.1 (4.5-11.0) X10^3/uL RBC 3.61 L (4.0-5.2) X10^6/uL Hgb 10.6 L (12.0-16.0) g/dL Hct 31.3 L (36-46) % MCV 86.7 (80-100) fL MCH 29.4 (26-34) PG MCHC 33.9 (30-36) % RDW 14.0 (11.6-14.8) % Plt Count 243 (150-400) X10^3/uL Neut % (Auto) 66.5 (50-75) % Lymph % (Auto) 20.0 L (25-40) % Kinney % (Auto) 11.7 (3-14) % Eos % (Auto) 1.0 L (2-4) % Baso % (Auto) 0.8 (0-2) % Neut # (Auto) 4700 (7103-5443) /uL Lymph # (Auto) 1400 (2622-4502) /uL Kinney # (Auto) 800 (0-900) /uL Eos # (Auto) 100 (0-450) /uL Baso # (Auto) 100 (0-100) /uL PT 13.3 H (10.1-12.7) SECONDS INR 1.2 (0.9-1.3) APTT 32 (26.4-36.2) SECONDS Sodium 137 (137-145) mmol/L Potassium 3.2 L (3.4-5.1) mmol/L Chloride 106 (98-107) mmol/L Carbon Dioxide 22 (22-32) mmol/L BUN 31 H (7-17) mg/dL Creatinine 1.51 H (0.52-1.04) mg/dL Estimated GFR 33.5 L (>60) mL/min BUN/Creatinine Ratio 20.5 (6-22) Glucose 131 H (80-110) mg/dL Lactate (0.7-2.1) mmol/L Calcium 9.6 (8.4-10.2) mg/dL Total Bilirubin 0.5 (0.2-1.3) mg/dL AST 40 H (14-36) IU/L ALT 24 (<35) IU/L Alkaline Phosphatase 49 (38-126) U/L Total Protein 6.4 (6.3-8.2) g/dL Albumin 3.5 (3.5-5.0) g/dL Globulin 2.9 (1.7-4.1) g/dL Albumin/Globulin Ratio 1.2 (1.0-2.8) Procalcitonin (<0.5) ng/mL Urine RBC (0-5/HPF) Urine WBC (0-5/HPF) Ur Squamous Epith Cells (0-5/HPF) Amorphous Sediment Urine Bacteria (None) Urine Mucus (Negative) Ur Culture Indicated? SARS-CoV-2 (PCR) (Negative) 01/10/21 01/10/21 01/10/21 Range/Units 16:00 16:00 17:26 WBC (4.5-11.0) X10^3/uL RBC (4.0-5.2) X10^6/uL Hgb (12.0-16.0) g/dL Hct (36-46) % MCV (80-100) fL MCH (26-34) PG MCHC (30-36) % RDW (11.6-14.8) % Plt Count (150-400) X10^3/uL Neut % (Auto) (50-75) % Lymph % (Auto) (25-40) % Kinney % (Auto) (3-14) % Eos % (Auto) (2-4) % Baso % (Auto) (0-2) % Neut # (Auto) (6528-7428) /uL Lymph # (Auto) (1601-1670) /uL Kinney # (Auto) (0-900) /uL Eos # (Auto) (0-450) /uL Baso # (Auto) (0-100) /uL PT (10.1-12.7) SECONDS INR (0.9-1.3) APTT (26.4-36.2) SECONDS Sodium (137-145) mmol/L Potassium (3.4-5.1) mmol/L Chloride (98-107) mmol/L Carbon Dioxide (22-32) mmol/L BUN (7-17) mg/dL Creatinine (0.52-1.04) mg/dL Estimated GFR (>60) mL/min BUN/Creatinine Ratio (6-22) Glucose (80-110) mg/dL Lactate 1.7 (0.7-2.1) mmol/L Calcium (8.4-10.2) mg/dL Total Bilirubin (0.2-1.3) mg/dL AST (14-36) IU/L ALT (<35) IU/L Alkaline Phosphatase (38-126) U/L Total Protein (6.3-8.2) g/dL Albumin (3.5-5.0) g/dL Globulin (1.7-4.1) g/dL Albumin/Globulin Ratio (1.0-2.8) Procalcitonin 0.44 (<0.5) ng/mL Urine RBC (0-5/HPF) Urine WBC (0-5/HPF) Ur Squamous Epith Cells (0-5/HPF) Amorphous Sediment Urine Bacteria (None) Urine Mucus (Negative) Ur Culture Indicated? SARS-CoV-2 (PCR) Negative (Negative) 01/10/21 01/10/21 Range/Units 18:28 20:17 WBC (4.5-11.0) X10^3/uL RBC (4.0-5.2) X10^6/uL Hgb 10.4 L (12.0-16.0) g/dL Hct 31.2 L (36-46) % MCV (80-100) fL MCH (26-34) PG MCHC (30-36) % RDW (11.6-14.8) % Plt Count (150-400) X10^3/uL Neut % (Auto) (50-75) % Lymph % (Auto) (25-40) % Kin[place] % (Auto) (3-14) % Eos % (Auto) (2-4) % Baso % (Auto) (0-2) % Neut # (Auto) (9071-4571) /uL Lymph # (Auto) (0713-6957) /uL Kinney # (Auto) (0-900) /uL Eos # (Auto) (0-450) /uL Baso # (Auto) (0-100) /uL PT (10.1-12.7) SECONDS INR (0.9-1.3) APTT (26.4-36.2) SECONDS Sodium (137-145) mmol/L Potassium (3.4-5.1) mmol/L Chloride (98-107) mmol/L Carbon Dioxide (22-32) mmol/L BUN (7-17) mg/dL Creatinine (0.52-1.04) mg/dL Estimated GFR (>60) mL/min BUN/Creatinine Ratio (6-22) Glucose (80-110) mg/dL Lactate (0.7-2.1) mmol/L Calcium (8.4-10.2) mg/dL Total Bilirubin (0.2-1.3) mg/dL AST (14-36) IU/L ALT (<35) IU/L Alkaline Phosphatase (38-126) U/L Total Protein (6.3-8.2) g/dL Albumin (3.5-5.0) g/dL Globulin (1.7-4.1) g/dL Albumin/Globulin Ratio (1.0-2.8) Procalcitonin (<0.5) ng/mL Urine RBC None seen (0-5/HPF) Urine WBC 10-30/hpf H (0-5/HPF) Ur Squamous Epith Cells 1-5 /hpf (0-5/HPF) Amorphous Sediment 1+ Urine Bacteria Many (>30) H (None) Urine Mucus 1+ H (Negative) Ur Culture Indicated? Specimen cultured SARS-CoV-2 (PCR) (Negative) Urine Dip Bedside Urine Glucose Negative Bedside Urine Bilirubin - Negative Bedside Urine Ketone - Negative Urine Specific [place] 1.030 Bedside Urine Occult Blood - Negative Bedside Urine pH 6.0 Bedside Urine Protein +/- 15 Bedside Urine Urobilinogen 0.2 Bedside Urine Nitrite + Positive Bedside Urine Leukocytes ++ 125 Esterase MDM Narrative Medical decision making narrative: Rectal bleeding all evening and initial blood pressure in the 90s. She overall appears well. She did have trace amount of blood minimal stool no hemorrhoids on her rectal exam. She is on aspirin but no other anti coagulation medication. Blood pressure improved with out fluids. She has some mild right lower quadrant pain CT does confirm a colitis. She is also found to have UTI with nitrates and leukocytes her urine she is given 1 dose of Rocephin. Due to severe bed shortage patient will be transferred to [facility] 7:37pm Dr. Wheat of [facility] patient's symptoms test results happily accepts patient. Requests IV fluid to be started and given. CT shows colitis no concern for ischemic colitis pain not upper portion and she has a normal lactate. Dr angelo: Received turned over. Reviewed patient's history and physical. Repeat H&H unchanged from prior. Patient has been stable. Will continue with transport. Patient is still stable for transfer. Discharge Plan Departure Patient Disposition: [facility] Clinical Impression: Acute GI bleeding Prescriptions: No Action fenofibrate 160 MG tablet 160 mg PO QDAY Qty: 0 RF: 0 cyclobenzaprine 5 MG tablet 5 mg PO TIDP PRN (Reason: Spasms) Qty: 0 RF: 0 lithium carbonate 300 MG capsule 300 mg PO BID Qty: 0 RF: 0 hydroxychloroquine 200 mg Tablet 400 mg PO DAILY RF: 0 ascorbic acid (vitamin C) [Vitamin C] 500 mg tablet 500 mg PO BID Qty: 20 RF: 0 aspirin 81 mg Tablet,Delayed Release (Dr/Ec) 81 mg PO BID Qty: 60 RF: 0 bisacodyl 10 mg Suppository 10 mg MO PRN PRN (Reason: Constipation) Qty: 5 RF: 0 ibuprofen 400 mg Tablet 400 mg PO Q4HR Qty: 60 RF: 0 docusate sodium [DOK] 100 mg Capsule 100 mg PO BID PRN (Reason: Constipation) Qty: 30 RF: 0 hydroxyzine pamoate 25 mg Capsule 25 mg PO Q6HR PRN (Reason: Nausea) Qty: 20 RF: 0 oxycodone 10 mg tablet 10 mg PO Q4-6H PRN (Reason: pain (scale score 7-10)) Qty: 40 RF: 0 acetaminophen [Tylenol Extra Strength] 500 mg tablet 500 mg PO Q4H PRN (Reason: pain (scale score 1-3)) Qty: 60 RF: 0 amlodipine 10 mg Tablet 10 mg PO DAILY RF: 0 ondansetron HCl [Zofran] 4 mg Tablet 8 mg PO BID PRN (Reason: Nausea) RF: 0 omeprazole 40 mg Capsule,Delayed Release(Dr/Ec) 40 mg PO DAILY RF: 0 fluoxetine 20 mg Capsule 20 mg PO DAILY RF: 0 levothyroxine 112 mcg Tablet 112 mcg PO DAILY RF: 0 minoxidil [Rogaine] 2 % Solution 1 applic topical DIRECTED RF: 0 polyethylene glycol 3350 17 gram Powder In Packet 17 gm PO DAILY Qty: 1 RF: 0 bisacodyl 10 mg Suppository 10 mg MO DAILY PRN (Reason: Constipation) Qty: 30 RF: 0 docusate sodium [DOK] 100 mg Capsule 100 mg PO BID Qty: 60 RF: 0 ferrous gluconate 324 mg (38 mg iron) Tablet 324 mg PO DAILY Qty: 30 RF: 0 fentanyl [Duragesic] 25 mcg/hr patch 72 hour 25 patch RF: 0 Referrals: Merissa Robbins MD [Primary Care Provider] -
[2021-01-10 16:24] LABS: INR 1.2 (0.9-1.3); Prothrombin Time 13.3 SECONDS (10.1-12.7)
[2021-01-10 16:26] LABS: Lactate (Lactic Acid) 1.7 mmol/L (0.7-2.1)
[2021-01-10 16:27] LABS: Alanine Aminotransferase 24 IU/L (<35); Albumin 3.5 g/dL (3.5-5.0); Albumin Globulin Ratio 1.2 (1.0-2.8); Alkaline Phosphatase 49 U/L (38-126); Aspartate Aminotransferase 40 IU/L (14-36); BUN Creatinine Ratio 20.5 (6-22); Bilirubin Total 0.5 mg/dL (0.2-1.3); Blood Urea Nitrogen 31 mg/dL (7-17); Calcium 9.6 mg/dL (8.4-10.2); Carbon Dioxide 22 mmol/L (22-32); Chloride 106 mmol/L (98-107); Estimated Glomerular Filt Rate 33.5 mL/min (>60); Globulin 2.9 g/dL (1.7-4.1); Glucose 131 mg/dL (80-110); HEMOLYSIS 23 (0-50); PTT Partial Thromboplastin Tim 32 SECONDS (26.4-36.2); Potassium 3.2 mmol/L (3.4-5.1); Sodium 137 mmol/L (137-145); Total Protein 6.4 g/dL (6.3-8.2)
[2021-01-10] MEDS: PANTOPRAZOLE 40 MG VIAL IV (17:34)
[2021-01-10 18:06] LABS: COVID19 -Nasal RAPID Negative (Negative)
[2021-01-10 18:40] LABS: RBC Urine None Seen (0-5/HPF)
--- NOTE | 2021-01-10 18:43 | DI.CT.S_ITS ---
PROCEDURE: CT ABDOMEN PELVIS W CON INDICATIONS: rlq pain with bleeding TECHNIQUE: After the administration of intravenous contrast, axial sections acquired from the lung bases to the pubic symphysis. Coronal and sagittal reformats were performed. For radiation dose reduction, the following was used: automated exposure control, adjustment of mA and/or kV according to patient size. COMPARISON: CT chest, abdomen and pelvis with contrast, 05/03/2020. FINDINGS: Image quality: Excellent. Lung bases: There is a calcified granuloma in the right middle lobe. There is a moderate-sized hiatal hernia. Concentric thickening at the GE junction.. Heart: No significant findings. ABDOMEN: Liver: Unremarkable. Gallbladder: Unremarkable. Biliary ducts: Unremarkable. Pancreas: Unremarkable. Spleen: There is a 1.4 cm splenule inferior to spleen. Spleen is normal in size. Adrenal Glands: Unremarkable. Kidneys and Ureters: A couple of simple appearing right renal cysts measuring 1 cm and 3.5 cm. No renal stone or hydronephrosis. Stomach and Bowel: Stomach, small bowel loops, and colon are normal in caliber. There is diffuse colonic wall thickening involving the distal transverse colon, splenic flexure, descending and sigmoid colon consistent with colitis. Peritoneum: No abnormal intraperitoneal fluid. No free air. Ventral Wall: No hernias. Abdominal Nodes: No retroperitoneal or mesenteric adenopathy by size criteria. Vessels: Aorta and inferior vena cava are normal in size. PELVIS: Pelvic Organs: Unremarkable. Bladder: Unremarkable. Pelvic Nodes: No enlarged lymph nodes. Miscellaneous: No hernias are seen. Bones: Scoliosis and severe degenerative changes in lumbar spine.. Left hip arthroplasty. IMPRESSION: 1. Diffuse colonic wall thickening involving the distal transverse colon, splenic flexure, descending and transverse colon consistent with colitis. Etiology may be infection or inflammatory bowel disease. Ischemic colitis is felt less likely. 2. Moderate-sized hiatal hernia. There is concentric thickening at the GE junction. If clinically indicated, EGD may be helpful. 3. Scoliosis and severe degenerative changes in lumbar spine. Dictated by: Milly Kessler M.D. on 01/10/2021 at 19:55 Approved by: Milly Kessler M.D. on 01/10/2021 at 20:05
[2021-01-10 18:57] LABS: Amorphous Sediment Urine 1+; Bacteria Urine Many (>30); Culture Indicated Urine Specimen Cultured; Mucus Urine 1+ (Negative); Squamous Epithelial Cell Urine 1-5 /HPF (0-5/HPF); WBC Urine 10-30/HPF (0-5/HPF)
[2021-01-10 20:07] LABS: Procalcitonin 0.44 ng/mL (<0.5)
[2021-01-10] MEDS: SODIUM CHLORIDE 0.9% 1,000 ML 1000 ML IV (20:12)
[2021-01-10] MEDS: cefTRIAXone 1,000 MG in SODIUM CHLORIDE 0.9% 100 ML 200 ML IV (20:13)
[2021-01-10 20:27] LABS: Hematocrit 31.2 % (36-46); Hemoglobin 10.4 g/dL (12.0-16.0)
== END 2021-01-10 23:32 | disposition short-term general hospital (02) ==
PROVIDERS: Emergency Medicine; Emergency Provider Emergency Medicine; Family Provider Internal Medicine; PCP Internal Medicine
DX: K92.2 Gastrointestinal hemorrhage, unspecified (principal); R10.31 Right lower quadrant pain; R11.2 Nausea with vomiting, unspecified; I95.9 Hypotension, unspecified; Z20.822 Contact with and (suspected) exposure to COVID-19
CPT/HCPCS: 36415; 74177; 80053; 81003; 81015; 83605; 84145; 85014; 85018; 85025; 85610; 85730; 87040; 87077; 87086; 87186; 87635; 93005; 96361; 96365; 96375; 99284; C9803; C9113; J0696

== ENCOUNTER → 2021-09-15 12:47 | Outpatient (CLI) | payer MEDICARE, SELFPAY ==
[2019-05-17 23:30] VITALS: BMI 27.2
--- NOTE | 2021-09-15 | DI.MG.S_ITS ---
BILATERAL DIGITAL SCREENING MAMMOGRAM 3D/2D WITH CAD: 09/15/2021 CLINICAL: Routine screening. Comparison is made to exams dated: 09/03/2020 mammogram, 08/11/2019 mammogram, and 07/01/2018 mammogram - [facility]. The tissue of both breasts is heterogeneously dense. This may lower the sensitivity of mammography. Current study was also evaluated with a Computer Aided Detection (CAD) system. There is a stable benign lymph node in the left breast. There also are stable benign calcifications in the left breast. No significant masses, calcifications, or other findings are seen in either breast. There has been no significant interval change. IMPRESSION: BENIGN There is no mammographic evidence of malignancy. A 1 year screening mammogram is recommended. This exam was interpreted at Station ID: [id number]. NOTE: For mammograms, a report in lay terms will be sent to the patient. Approximately 15% of breast malignancies will not be visualized mammographically. In the management of a palpable breast mass, a negative mammogram must not discourage biopsy of a clinically suspicious lesion. Electronically Signed By: Genie manjarrez/ghada:09/15/2021 15:37:07 letter sent: Normal Exam ACR BI-RADS Category 2: Benign Finding(s) 3342F
== END ==
PROVIDERS: Family Provider Internal Medicine; PCP Internal Medicine; Referring Provider Internal Medicine; Visit Provider Internal Medicine
DX: Z12.31 Encounter for screening mammogram for malignant neoplasm of breast (principal)
CPT/HCPCS: 77063; 77067

== ENCOUNTER 2024-07-08 16:56 | Emergency (ER) | payer MEDICARE, SELFPAY ==
[2019-05-17 23:30] VITALS: BMI 27.2
[2024-07-08 17:11] VITALS: BP 175/76; PULSE 62; RESP 14; TEMP 36.9; O2SAT 95; BMI 22.8
--- NOTE | 2024-07-08 17:15 | DI.RAD.S_ITS ---
PROCEDURE: XR KNEE LT 1TO2V INDICATIONS: fall onto knee TECHNIQUE: 2 views of the knee were acquired. COMPARISON: [facility], CR, XR KNEE STANDING BI, 11/11/2020, 12:35. [facility], CR, XR KNEE LT 3V, 05/31/2020, 14:57. [facility], CR, XR KNEE 4+ VIEWS LEFT, 05/09/2024, 14:13. FINDINGS: Bones: Background moderate knee degenerative changes. There is significantly comminuted and displaced fracture of the femoral metaphysis, extending to the femoral condyle, likely intra-articular. Soft tissues: Significant soft tissue swelling and effusion. Vascular calcifications. IMPRESSION: Significantly displaced and comminuted distal femoral metaphysis fracture, probably intra-articular, with adjacent soft tissue swelling and effusion. Background knee degenerative changes. Dictated by: Jakob Greer M.D. on 07/08/2024 at 16:57 Approved by: Jakob Greer M.D. on 07/08/2024 at 16:58
--- NOTE | 2024-07-08 18:02 | ED_ITS ---
HPI - Extremity Injury (Lower) General Chief Complaint: Trauma Stated Complaint: Fell on left knee Time Seen by Provider: 07/08/24 18:01 Mode of arrival: Wheelchair History of Present Illness HPI Narrative: 79-year-old female with history of 3 prior left hip surgeries done at [facility] for Dr. Trejo, proximally 4:00 p.m. today was in apartment shower, slippery surface, slipped and fell, grabbed 2 towel bar which was pulled out of the wall, fell, twisting falling motion complained of left knee distal thigh area pain. Denies pain to her left hip area. Denies pain to her mid foreleg, ankle, foot, toes. She thinks that she might have bumped her head, no loss of consciousness. She does not take blood thinner medications besides baby aspirin. Her found her, and assisted her to the car, was driven POV by her . Last meal noon today. Related Data Home Medications Medication Instructions Recorded Confirmed cyclobenzaprine 5 mg tablet 5 mg PO TIDP PRN Spasms ##0 08/20/17 04/25/20 fenofibrate 160 mg tablet 160 mg PO QDAY ##0 08/20/17 04/25/20 lithium carbonate 300 mg capsule 300 mg PO BID ##0 08/20/17 04/25/20 hydroxychloroquine 200 mg tablet 400 mg PO DAILY 03/08/18 04/25/20 amlodipine 10 mg tablet 10 mg PO DAILY 02/19/19 05/18/19 fluoxetine 20 mg capsule 20 mg PO DAILY 02/19/19 04/25/20 levothyroxine 112 mcg tablet 112 mcg PO DAILY 02/19/19 04/25/20 minoxidil 2 % topical solution 1 applic topical DIRECTED 02/19/19 05/18/19 (Rogaine) omeprazole 40 mg capsule,delayed 40 mg PO DAILY 02/19/19 04/25/20 release ondansetron HCl 4 mg tablet 8 mg PO BID PRN Nausea 02/19/19 05/18/19 (Zofran) fentanyl 25 mcg/hr transdermal 25 patch 04/25/20 patch (Duragesic) Previous Rx's Medication Instructions Recorded bisacodyl 10 mg rectal suppository 10 mg OH DAILY PRN Constipation 02/23/19 #30 ea docusate sodium 100 mg capsule 100 mg PO BID #60 caps 02/23/19 (DOK) ferrous gluconate 324 mg (38 mg 324 mg PO DAILY #30 tabs 02/23/19 iron) tablet polyethylene glycol 3350 17 gram 17 gm PO DAILY #1 pkg 02/23/19 oral powder packet ascorbic acid (vitamin C) 500 mg 500 mg PO BID #20 tabs 05/08/19 tablet (Vitamin C) acetaminophen 500 mg tablet 500 mg PO Q4H PRN pain (scale 05/25/19 (Tylenol Extra Strength) score 1-3) #60 tabs aspirin 81 mg tablet,delayed 81 mg PO BID #60 tabs 05/25/19 release bisacodyl 10 mg rectal suppository 10 mg OH PRN PRN Constipation #5 ea 05/25/19 docusate sodium 100 mg capsule 100 mg PO BID PRN Constipation #30 05/25/19 (DOK) caps hydroxyzine pamoate 25 mg capsule 25 mg PO Q6HR PRN Nausea #20 caps 05/25/19 ibuprofen 400 mg tablet 400 mg PO Q4HR #60 tabs 05/25/19 oxycodone 10 mg tablet 10 mg PO Q4-6H PRN pain (scale 05/25/19 score 7-10) #40 tabs Allergies Allergy/AdvReac Type Severity Reaction Status Date / Time Sulfa (Sulfonamide Allergy Intermediate body rash Verified 07/08/24 17:11 Antibiotics) [SULFA (SULFONAMIDE ANTIBIOTICS)] gabapentin AdvReac Unknown altered Verified 07/08/24 17:11 mentation ibuprofen AdvReac Verified 07/08/24 17:11 Patient History Medical History (Updated 07/08/24 @ 20:59 by Rubin Leach MD) Hypothyroidism Bipolar disorder Acute kidney injury Normocytic anemia Chronic sciatica of left side Constipation, chronic Incontinence Bruises easily Migraines Chronic low back pain Fibromyalgia Diet-controlled diabetes mellitus Hyperlipidemia Hypertension GERD (gastroesophageal reflux disease) Lupus (systemic lupus erythematosus) Surgical History (Updated 07/08/24 @ 20:02 by Rubin Leach MD) History of left hip hemiarthroplasty (02/20/19) History of bladder suspension procedure History of partial thyroidectomy History of bilateral cataract extraction Status post vaginal hysterectomy Status post tubal ligation Family History Father No problems noted. Mother No problems noted. Brother Bone cancer Social History household members: spouse Smoking Status: Former smoker alcohol intake: never eating out: rarely or never Type(s) of exercise: none Smoking Status: Former smoker alcohol intake frequency: holidays/special occasions only Alcohol type: beer Exam Narrative Exam Narrative: GENERAL: Well-developed patient, in mild distress. HEAD: Atraumatic. Normocephalic. EYES: Pupils equal round and reactive. Extraocular motions intact. No scleral icterus. No injection or drainage. ENT: Nose without bleeding, purulent drainage. Throat without erythema, tonsillar hypertrophy or exudate. Airway patent. NECK: Trachea midline. Non tender CARDIOVASCULAR: Regular rate and rhythm without murmurs, gallops, or rubs. RESPIRATORY: Clear to auscultation. Breath sounds equal bilaterally. No wheezes, rales, or rhonchi. GASTROINTESTINAL: Abdomen soft, non-tender, nondistended. EXTREMITIES: Left hip well-healed scar, no tenderness along the scar, no tenderness along the mid femur. Flexed position of the knee with Velcro brace from her placed pre-hospital, brace was removed. Has swelling, good dorsalis pedis pulse left foot. Left leg was extended, which was tolerated well without medication, DP pulse still present. BACK: Nontender without deformity or crepitance. No flank tenderness. NEURO: AOx3. Motor functions grossly nonfocal SKIN: No rash or erythema of visible areas Initial Vital Signs Initial Vital Signs: Vital Signs Temperature 98.5 F 07/08/24 17:11 Pulse Rate 62 07/08/24 17:11 Respiratory Rate 14 07/08/24 17:11 Blood Pressure 175/76 H 07/08/24 17:11 Pulse Oximetry 95 07/08/24 17:11 Oxygen Delivery Method Room Air 07/08/24 17:11 Course Orders Ordered: Discontinued Medications Lactated Ringer's (Lactated Ringers) 1,000 mls @ 500 mls/hr IV BOLUS ONE Stop: 07/08/24 20:17 Last Infusion: 07/08/24 21:02 Dose: Infused Documented By: Admin: 07/08/24 18:23 Dose: 500 mls/hr Documented By: AMIE Ceftriaxone Sodium 1,000 mg/ (Sodium Chloride) 100 mls @ 200 mls/hr IV NOW ONE Stop: 07/08/24 19:50 Last Infusion: 07/08/24 21:02 Dose: Infused Documented By: Admin: 07/08/24 20:28 Dose: 200 mls/hr Documented By: PRIYA Ondansetron HCl (Ondansetron 4 Mg/2 Ml Inj) 4 mg IV NOW ONE Stop: 07/08/24 20:59 Last Admin: 07/08/24 21:00 Dose: 4 mg Documented By: PRIYA Vital Signs Vital signs: Vital Signs - 8 hr 07/08/24 17:11 07/08/24 19:59 07/08/24 19:59 Temperature 98.5 F Pulse Rate 62 74 Respiratory Rate 14 20 Blood Pressure 175/76 H 136/66 Pulse Oximetry 95 98 Oxygen Delivery Method Room Air Room Air 07/08/24 20:00 07/08/24 20:00 07/08/24 20:15 Temperature Pulse Rate 75 Respiratory Rate 20 Blood Pressure 146/74 H 140/63 Pulse Oximetry 98 Oxygen Delivery Method Room Air 07/08/24 20:15 Temperature Pulse Rate 74 Respiratory Rate Blood Pressure Pulse Oximetry 98 Oxygen Delivery Method MDM - Extremity Injury (Lower) Lab Data Attestation: I reviewed the patient's lab results. Lab results narrative: White blood cell count 8700, hemoglobin 11, platelets 110217, basic metabolic panel unremarkable. Liver functions unremarkable. PT INR 1.1 normal. Urine suspicious for infection, urine culture requested. 07/08/24 18:06 07/08/24 18:06 Labs: Lab Results 07/08/24 07/08/24 Range/Units 18:06 19:00 WBC 8.7 (4.5-11.0) X10^3/uL RBC 3.83 L (4.0-5.2) X10^6/uL Hgb 11.0 L (12.0-16.0) g/dL Hct 33.4 L (36-46) % MCV 87.2 (80-100) fL MCH 28.7 (26-34) PG MCHC 32.9 (30-36) % RDW 15.9 H (11.6-14.8) % Plt Count 277 (150-400) X10^3/uL Neut % (Auto) 83.2 H (50-75) % Lymph % (Auto) 7.8 L (25-40) % [place] % (Auto) 6.6 (3-14) % Eos % (Auto) 1.7 L (2-4) % Baso % (Auto) 0.7 (0-2) % Neut # (Auto) 7300 H (3186-9485) /uL Lymph # (Auto) 700 L (6023-7701) /uL [place] # (Auto) 600 (0-900) /uL Eos # (Auto) 100 (0-450) /uL Baso # (Auto) 100 (0-100) /uL PT 12.4 (9.4-12.5) SECONDS INR 1.1 (0.9-1.3) Sodium 137 (137-145) mmol/L Potassium 4.5 (3.4-5.1) mmol/L Chloride 108 H (98-107) mmol/L Carbon Dioxide 23 (22-32) mmol/L BUN 33 H (7-17) mg/dL Creatinine 1.17 H (0.52-1.04) mg/dL Estimated GFR 47 L (>60) mL/min BUN/Creatinine Ratio 28.2 H (6-22) Glucose 132 H (80-110) mg/dL Calcium 9.7 (8.4-10.2) mg/dL Total Bilirubin 0.3 (0.2-1.3) mg/dL AST 66 H (14-36) IU/L ALT 41 H (<35) IU/L Alkaline Phosphatase 43 (38-126) U/L Total Protein 6.6 (6.3-8.2) g/dL Albumin 4.0 (3.5-5.0) g/dL Globulin 2.6 (1.7-4.1) g/dL Albumin/Globulin Ratio 1.5 (1.0-2.8) Urine Color Yellow Urine Appearance Clear Urine pH 5.0 (4.5-8.0) Ur Specific [place] >=1.030 H (1.000-1.035) Urine Protein Negative (Negative) Urine Glucose (UA) Negative (Negative) g/dL Urine Ketones Negative (NEGATIVE) Urine Occult Blood Negative (Negative) Urine Nitrate Positive H (Negative) Urine Bilirubin Negative (NEGATIVE) Urine Urobilinogen 0.2 (0.2) E.U./dL Ur Leukocyte Esterase Negative (NEGATIVE) Urine RBC None seen (0-5/HPF) Urine WBC 5-10/hpf H (0-5/HPF) Ur Squamous Epith Cells 0-1 /hpf (0-5/HPF) Amorphous Sediment 1+ Urine Bacteria Many (>30) H (None) Ur Culture Indicated? Specimen cultured Vol Urine Centrifuged 10ml (spun) Imaging Data Extremity x-ray #1: Radiologist's Impression: [address] [id number] XRay Report Signed Patient: Ritika Prather MR#: [id number] : 1945 Acct:[id number] Age/Sex: 79 / F Date of Service: 07/08/24 Loc: ED Accession Number: [id number] Procedure: XR knee LT 1to2V Ordering Provider: Loyd Angelo D.O. PROCEDURE: XR KNEE LT 1TO2V INDICATIONS: fall onto knee TECHNIQUE: 2 views of the knee were acquired. COMPARISON: [facility], CR, XR KNEE STANDING BI, 11/11/2020, 12:35. [facility], CR, XR KNEE LT 3V, 05/31/2020, 14:57. [facility], CR, XR KNEE 4+ VIEWS LEFT, 05/09/2024, 14:13. FINDINGS: Bones: Background moderate knee degenerative changes. There is significantly comminuted and displaced fracture of the femoral metaphysis, extending to the femoral condyle, likely intra-articular. Soft tissues: Significant soft tissue swelling and effusion. Vascular calcifications. IMPRESSION: Significantly displaced and comminuted distal femoral metaphysis fracture, probably intra-articular, with adjacent soft tissue swelling and effusion. Background knee degenerative changes. Dictated by: Jakob Greer M.D. on 07/08/2024 at 16:57 Approved by: Jakob Greer M.D. on 07/08/2024 at 16:58 Extremity x-ray #2: Radiologist's Impression: [address] [address] XRay Report Signed Patient: Ritika Prather MR#: [id number] : 1945 Acct:[id number] Age/Sex: 79 / F Date of Service: 07/08/24 Loc: ED Accession Number: [id number] Procedure: XR femur LT min 2V Ordering Provider: Rubin Leach MD PROCEDURE: XR FEMUR LT MIN 2V INDICATIONS: fall, left hip pain and knee pain, hx left fip surgeries TECHNIQUE: 2 views of the femur were acquired. COMPARISON: None. FINDINGS: Bones: Left hip arthroplasty. No periprosthetic proximal femur fracture. Lumbosacral degenerative changes. Soft tissues: No suspicious calcifications. IMPRESSION: No periprosthetic proximal femur fracture. Significantly displaced and comminuted distal femoral intra-articular metaphysis fracture again seen. Dictated by: Jakob Greer M.D. on 07/08/2024 at 17:43 Approved by: Jakob Greer M.D. on 07/08/2024 at 17:44 Chest x-ray: Radiologist's Impression: [address] [id number] XRay Report Signed Patient: Ritika Prather MR#: [id number] : 1945 Acct:[id number] Age/Sex: 79 / F Date of Service: 07/08/24 Loc: ED Accession Number: [id number] Procedure: XR chest 1V Ordering Provider: Rubin Leach MD PROCEDURE: XR CHEST 1V INDICATIONS: preop femur fx TECHNIQUE: One view of the chest was acquired. COMPARISON: [facility], CT, CT LOW DOSE LUNG CA SCREENING, 11/23/2023, 16:01. [facility], CR, XR CHEST 1V, 04/25/2020, 17:57. FINDINGS: Surgical changes and devices: None. Lungs and pleura: Elevation the right hemidiaphragm. No dense airspace disease or pleural effusions. Low lung volumes. Mediastinum: Heart size is at the upper limit of normal. Bones and chest wall: Degenerative changes. IMPRESSION: No acute radiographic abnormality on this single view study with low lung volumes. Elevation of the right hemidiaphragm. Dictated by: Jakob Greer M.D. on 07/08/2024 at 17:44 Approved by: Jakob Greer M.D. on 07/08/2024 at 17:46 CT angio left lower extremity mid thigh to mid calf: Radiologist's Impression: [address] [id number] [address] Scan Report Signed Patient: Ritika Prather MR#: [id number] : 1945 Acct:[id number] Age/Sex: 79 / F Date of Service: 07/08/24 Loc: ED Accession Number: [id number] Procedure: CT angio LE LT Ordering Provider: Rubin Leach MD PROCEDURE: CT ANGIO LE LT INDICATIONS: L knee region, distal femur fx, eval popliteal region TECHNIQUE: After the administration of intravenous contrast, 2.5 mm sections acquired from T12 to the feet, with optional delayed image acquisition from the knees to the feet. 3-dimensional maximum intensity projection (MIP) coronal and sagittal reformats, and/or 3-dimensional volume rendering reformatting was then performed. For radiation dose reduction, the following was used: automated exposure control. COMPARISON: None. FINDINGS: Image Quality: Diagnostic. Left lower extremity from the mid thigh to the calf: There is diffuse SFA disease. There is a severe stenosis predominately secondary to soft plaque present on image 4 of series 7 involving the SFA. There is [id number] popliteal stenotic disease. There is no acute injury secondary to fracture and reduction. There is a severe infrageniculate popliteal stenosis. The 3 trifurcation vessels are grossly patent to the lowest level of imaging, at the level of the distal calf. Bony structures and soft tissue: Markedly comminuted fracture of the distal femur with overriding and pulverized bone and innumerable fragments. No acute extravasation of contrast. IMPRESSION: Markedly comminuted displaced distal femoral fracture. Patient has underlying significant peripheral vascular disease. Findings include a severe SFA stenosis and a severe popliteal stenosis. No acute extravasation of contrast. Dictated by: Seth Perez M.D. on 07/08/2024 at 20:16 Approved by: Seth Perez M.D. on 07/08/2024 at 20:21 MDM Narrative Medical decision making narrative: 79-year-old female with history of prior left hip replacement and subsequent revision surgery, history of osteoporosis, had ground level fall mechanical in bathroom 4:00 p.m. today, isolated distal left femur pain. Left knee x-ray shows distal femur fracture with comminution and posterior displacement of fragments. DP pulse present . Patient in flexed knee position, Velcro brace in place, removed, patient allowed me to fully extend her knee, still has DP pulse present, good perfusion foot/toes. We will additionally image femur to include the left hip. Labs pending preop, also check creatinine, consider CT angio to evaluate popliteal region given posterior fragmentation. CT angio left lower extremity ordered, results pending. 1999, case discussed with local orthopedic surgery Dr. Andrade, who was able to look at the radiographs and CTA images, believes due to her proximal hip replacement and revision surgery that her distal femur fracture is too complex to be managed here, advises transfer to [facility]. Urinalysis suspicious for infection, IV ceftriaxone. Keep NPO. CT angio shows peripheral artery disease and affected left lower extremity visualized field, no extravasation. See radiology report. Splint placed for comfort during transport, distal perfusion intact. 2019, case discussed with [facility]/ intake. Accepted for transfer ED to ED [facility], Dr. Mendez accepting 2100, [place] [facility] count [facility] here for transport Discharge Plan Departure Patient Disposition: [facility] Clinical Impression: Fracture of left femur, History of left hip replacement, Urinary tract infection, History of osteoporosis, Peripheral arterial disease Prescriptions: No Action fenofibrate 160 MG tablet 160 mg PO QDAY Qty: 0 cyclobenzaprine 5 MG tablet 5 mg PO TIDP PRN (Reason: Spasms) Qty: 0 lithium carbonate 300 MG capsule 300 mg PO BID Qty: 0 hydroxychloroquine 200 mg Tablet 400 mg PO DAILY ascorbic acid (vitamin C) [Vitamin C] 500 mg tablet 500 mg PO BID Qty: 20 0RF aspirin 81 mg Tablet,Delayed Release (Dr/Ec) 81 mg PO BID Qty: 60 0RF bisacodyl 10 mg Suppository 10 mg OH PRN PRN (Reason: Constipation) Qty: 5 0RF ibuprofen 400 mg Tablet 400 mg PO Q4HR Qty: 60 0RF docusate sodium [DOK] 100 mg Capsule 100 mg PO BID PRN (Reason: Constipation) Qty: 30 0RF hydroxyzine pamoate 25 mg Capsule 25 mg PO Q6HR PRN (Reason: Nausea) Qty: 20 0RF oxycodone 10 mg tablet 10 mg PO Q4-6H PRN (Reason: pain (scale score 7-10)) Qty: 40 0RF Rx Instructions: take 1 tablet by mouth every 4-6 hours as needed for pain acetaminophen [Tylenol Extra Strength] 500 mg tablet 500 mg PO Q4H PRN (Reason: pain (scale score 1-3)) Qty: 60 0RF Rx Instructions: take 1 tablet by mouth every 4 hours as needed for pain amlodipine 10 mg Tablet 10 mg PO DAILY ondansetron HCl [Zofran] 4 mg Tablet 8 mg PO BID PRN (Reason: Nausea) omeprazole 40 mg Capsule,Delayed Release(Dr/Ec) 40 mg PO DAILY fluoxetine 20 mg Capsule 20 mg PO DAILY levothyroxine 112 mcg Tablet 112 mcg PO DAILY minoxidil [Rogaine] 2 % Solution 1 applic topical DIRECTED polyethylene glycol 3350 17 gram Powder In Packet 17 gm PO DAILY Qty: 1 0RF bisacodyl 10 mg Suppository 10 mg [place] DAILY PRN (Reason: Constipation) Qty: 30 0RF docusate sodium [DOK] 100 mg Capsule 100 mg PO BID Qty: 60 0RF Patient Comments: Patient states she does not take. ferrous gluconate 324 mg (38 mg iron) Tablet 324 mg PO DAILY Qty: 30 0RF fentanyl [Duragesic] 25 mcg/hr patch 72 hour 25 patch Referrals: Ray Spencer MD [Primary Care Provider] -
[2024-07-08 18:11] LABS: Add Manual Diff / Slide Review NO; Basophils Absolute Auto 100 /uL (0-100); Basophils Percent Auto 0.7 % (0-2); Eosinophils Absolute Auto 100 /uL (0-450); Eosinophils Percent Auto 1.7 % (2-4); Hematocrit 33.4 % (36-46); Lymphocytes Absolute Auto 700 /uL (1100-4500); Lymphocytes Percent Auto 7.8 % (25-40); Mean Corpuscular HGB Conc 32.9 % (30-36); Mean Corpuscular Hemoglobin 28.7 PG (26-34); Mean Corpuscular Volume 87.2 fL (80-100); Monocytes Absolute Auto 600 /uL (0-900); Monocytes Percent Auto 6.6 % (3-14); Neutrophils Absolute Auto 7300 /uL (1500-7000); Neutrophils Percent Auto 83.2 % (50-75); Platelet Count 277 X10^3/uL (150-400); Red Blood Cell Count 3.83 X10^6/uL (4.0-5.2); Red Cell Distribution Width 15.9 % (11.6-14.8); White Blood Cell Count 8.7 X10^3/uL (4.5-11.0)
--- NOTE | 2024-07-08 18:15 | DI.RAD.S_ITS ---
PROCEDURE: XR FEMUR LT MIN 2V INDICATIONS: fall, left hip pain and knee pain, hx left fip surgeries TECHNIQUE: 2 views of the femur were acquired. COMPARISON: None. FINDINGS: Bones: Left hip arthroplasty. No periprosthetic proximal femur fracture. Lumbosacral degenerative changes. Soft tissues: No suspicious calcifications. IMPRESSION: No periprosthetic proximal femur fracture. Significantly displaced and comminuted distal femoral intra-articular metaphysis fracture again seen. Dictated by: Jakob Greer M.D. on 07/08/2024 at 17:43 Approved by: Jakob Greer M.D. on 07/08/2024 at 17:44
--- NOTE | 2024-07-08 18:17 | DI.RAD.S_ITS ---
PROCEDURE: XR CHEST 1V INDICATIONS: preop femur fx TECHNIQUE: One view of the chest was acquired. COMPARISON: [facility], CT, CT LOW DOSE LUNG CA SCREENING, 11/23/2023, 16:01. [facility], CR, XR CHEST 1V, 04/25/2020, 17:57. FINDINGS: Surgical changes and devices: None. Lungs and pleura: Elevation the right hemidiaphragm. No dense airspace disease or pleural effusions. Low lung volumes. Mediastinum: Heart size is at the upper limit of normal. Bones and chest wall: Degenerative changes. IMPRESSION: No acute radiographic abnormality on this single view study with low lung volumes. Elevation of the right hemidiaphragm. Dictated by: Jakob Greer M.D. on 07/08/2024 at 17:44 Approved by: Jakob Greer M.D. on 07/08/2024 at 17:46
[2024-07-08 18:18] LABS: INR 1.1 (0.9-1.3); Prothrombin Time 12.4 SECONDS (9.4-12.5)
--- NOTE | 2024-07-08 18:18 | DI.CT.S_ITS ---
PROCEDURE: CT ANGIO LE LT INDICATIONS: L knee region, distal femur fx, eval popliteal region TECHNIQUE: After the administration of intravenous contrast, 2.5 mm sections acquired from T12 to the feet, with optional delayed image acquisition from the knees to the feet. 3-dimensional maximum intensity projection (MIP) coronal and sagittal reformats, and/or 3-dimensional volume rendering reformatting was then performed. For radiation dose reduction, the following was used: automated exposure control. COMPARISON: None. FINDINGS: Image Quality: Diagnostic. Left lower extremity from the mid thigh to the calf: There is diffuse SFA disease. There is a severe stenosis predominately secondary to soft plaque present on image 4 of series 7 involving the SFA. There is [id number] popliteal stenotic disease. There is no acute injury secondary to fracture and reduction. There is a severe infrageniculate popliteal stenosis. The 3 trifurcation vessels are grossly patent to the lowest level of imaging, at the level of the distal calf. Bony structures and soft tissue: Markedly comminuted fracture of the distal femur with overriding and pulverized bone and innumerable fragments. No acute extravasation of contrast. IMPRESSION: Markedly comminuted displaced distal femoral fracture. Patient has underlying significant peripheral vascular disease. Findings include a severe SFA stenosis and a severe popliteal stenosis. No acute extravasation of contrast. Dictated by: Seth Perez M.D. on 07/08/2024 at 20:16 Approved by: Seth Perez M.D. on 07/08/2024 at 20:21
[2024-07-08 18:22] LABS: Alanine Aminotransferase 41 IU/L (<35); Albumin Globulin Ratio 1.5 (1.0-2.8); Alkaline Phosphatase 43 U/L (38-126); Aspartate Aminotransferase 66 IU/L (14-36); BUN Creatinine Ratio 28.2 (6-22); Bilirubin Total 0.3 mg/dL (0.2-1.3); Blood Urea Nitrogen 33 mg/dL (7-17); Calcium 9.7 mg/dL (8.4-10.2); Carbon Dioxide 23 mmol/L (22-32); Chloride 108 mmol/L (98-107); Estimated Glomerular Filt Rate 47 mL/min (>60); Globulin 2.6 g/dL (1.7-4.1); Glucose 132 mg/dL (80-110); HEMOLYSIS < 15 (0-50); Potassium 4.5 mmol/L (3.4-5.1); Sodium 137 mmol/L (137-145); Total Protein 6.6 g/dL (6.3-8.2)
[2024-07-08] MEDS: LACTATED RINGERS 1,000 ML 500 ML IV (18:23)
[2024-07-08 19:08] LABS: Appearance Urine UA CLEAR; Bilirubin Urine UA NEGATIVE (NEGATIVE); Color Urine UA YELLOW; Glucose Urine UA NEGATIVE (Negative); Ketones Urine UA NEGATIVE (NEGATIVE); Leukocyte Esterase Urine UA NEGATIVE (NEGATIVE); Nitrite Urine UA POSITIVE (Negative); Occult Blood Urine UA NEGATIVE (Negative); Protein Urine UA NEGATIVE (Negative); Specific Gravity Urine UA >=1.030 (1.000-1.035); Urobilinogen Urine UA 0.2 E.U./dL (0.2)
[2024-07-08 19:24] LABS: Urine Volume 10mL (spun)
[2024-07-08 19:25] LABS: Amorphous Sediment Urine 1+; Bacteria Urine Many (>30); Culture Indicated Urine Specimen Cultured; RBC Urine None Seen (0-5/HPF); Squamous Epithelial Cell Urine 0-1 /HPF (0-5/HPF); WBC Urine 5-10/HPF (0-5/HPF)
[2024-07-08 19:59] VITALS: BP 136/66; PULSE 74; RESP 20; O2SAT 98
[2024-07-08 20:00] VITALS: BP 146/74; PULSE 75; RESP 20; O2SAT 98
[2024-07-08 20:15] VITALS: BP 140/63; PULSE 74; O2SAT 98
[2024-07-08] MEDS: cefTRIAXone 1,000 MG in SODIUM CHLORIDE 0.9% 100 ML 200 MG IV (20:28)
[2024-07-08] MEDS: ONDANSETRON 4 MG/2 ML INJ IV (21:00)
--- NOTE | 2024-07-08 21:09 | PC.NURSE ---
Pt requesting digital disimpaction for constipation prior to leaving via EMS. PT informed not appropriate at this time. Pt attempting to disimpact self and refusing to be transported at this time. EMS standing by in the ED.
== END 2024-07-08 21:18 | disposition short-term general hospital (02) ==
PROVIDERS: Emergency Provider Emergency Medicine; PCP Internal Medicine
DX: S72.402A Unspecified fracture of lower end of left femur, initial encounter for closed fracture (principal); N39.0 Urinary tract infection, site not specified; Z87.39 Personal history of other diseases of the musculoskeletal system and connective tissue; I73.9 Peripheral vascular disease, unspecified; W18.2XXA Fall in (into) shower or empty bathtub, initial encounter; Z96.642 Presence of left artificial hip joint; Z79.82 Long term (current) use of aspirin
CPT/HCPCS: 29505; 71045; 73552; 73560; 73706; 80053; 81001; 85025; 85610; 87077; 87086; 87186; 96361; 96365; 96375; 99284; 99285; J0696; J2405; Q9967